=== PATIENT | female | born 1945 | race Caucasian/White ===

== ENCOUNTER 2019-01-07 17:56 | Inpatient (IN) | payer MEDICARE, MEDICAID ==
[~2019-01-07] VITALS: Ht 157.5 cm; Wt 88.7 kg
[~2019-01-07 17:56] MED LIST: FAMO-96; FLUO20CA38
[2019-01-07] MEDS ORDERED: ALBUTEROL 0.5% (NEB) 2.5 MG/0.5 ML AMP INH STA (17:58)
[2019-01-07] MEDS ORDERED: IPRATROPIUM (NEB) 0.5 MG/2.5 ML AMP INH STA (17:58)
[2019-01-07] MEDS ORDERED: NITROGLYCERIN 2% 1 GM OINT PKT TD STA (17:58)
[2019-01-07] MEDS ORDERED: ASPIRIN 325 MG TAB PO STA (17:58)
[2019-01-07] MEDS ORDERED: LORAZEPAM 2 MG INJ IV ONE (18:00)
[2019-01-07] MEDS ORDERED: ONDANSETRON (ODT) 4 MG TAB ODT STA (19:06)
[2019-01-07] MEDS ORDERED: FUROSEMIDE 40 MG INJ IV ONE (20:00)
[2019-01-07] MEDS ORDERED: ACETAMINOPHEN 325 MG TAB PO PRN (20:00)
[2019-01-07] MEDS ORDERED: ONDANSETRON 4 MG INJ IV PRN ×2 (20:00→21:00)
[2019-01-07] MEDS ORDERED: POTASSIUM CHLORIDE (SR) 20 MEQ TAB PO STA (20:41)
[2019-01-07] MEDS: FUROSEMIDE 20 MG INJ IV SCH (21:00)
[2019-01-07] MEDS ORDERED: morphine 2 MG INJ IV PRN (21:00)
[2019-01-07] MEDS ORDERED: NACL 0.9% 3 ML SYG IV SCH (21:00)
--- NOTE | 2019-01-07 21:06 | ERD ---
ER Documentation Chief Complaint Chief Complaint SOB and chest pain started 2 hour ago HPI This is a 73-year-old female with a known history of congestive heart failure and hypertension. The patient 2 hours prior to arrival stated she started to develop severe shortness of breath and chest pain. She stated that she has pain was a sharp shooting pain with no pressure sensation that radiated to the neck arm back or jaw. She stated the shortness of breath was exacerbated with movement. She is unable to ambulate several steps before she becomes short of breath. She does take Lasix and indicates she is been compliant with her medications. She was brought into the emergency department by EMS. Her son accompanied the patient to provide further history. The patient does not smoke tobacco. She had no recent hospitalizations. She has not complained of a productive or nonproductive cough. She denies any calf tenderness or swelling of her lower extremities. ROS All systems reviewed and are negative except as per history of present illness. Medications Home Meds Reported Medications Famotidine* (Pepcid*) 20 Mg Tablet 06/01/10 Fluoxetine Hcl* (Prozac*) 20 Mg Capsule 06/01/10 Allergies Allergies: Coded Allergies: No Known Drug Allergies (Verified Allergy, Mild, 06/01/10) PMhx/Soc History of Surgery: No Anesthesia Reaction: No Hx Neurological Disorder: No Hx Respiratory Disorders: Yes (shortness of breatjh) Hx Cardiac Disorders: Yes (hearet attack 2013) Hx Psychiatric Problems: No Hx Miscellaneous Medical Probl: Yes (DM, CHF, htn) Hx Alcohol Use: No Hx Substance Use: No Hx Tobacco Use: No Smoking Status: Never smoker Physical Exam Vitals Vital Signs Date Temp Pulse Resp B/P (MAP) Pulse Ox O2 O2 Flow FiO2 Time Delivery Rate 01/07/19 76 18 119/82 99 BIPAP 20:30 (94) 01/07/19 78 25 150/105 100 BIPAP 20:00 (120) 01/07/19 84 23 149/100 100 BIPAP 19:30 (116) 01/07/19 84 27 146/105 100 BIPAP 19:15 (119) 01/07/19 92 17 154/95 100 BIPAP 19:00 (114) 01/07/19 90 25 135/107 100 BIPAP 18:45 (116) 01/07/19 101 100 60 18:36 01/07/19 99.4 120 22 154/128 93 18:01 (137) Physical Exam Constitutional:Well-developed. Well-nourished. Patient in severe respiratory distress HEENT:Normocephalic. Atraumatic.Pupils were equal round reactive to light. Moist mucous membranes.No tonsillar exudates. Neck: No nuchal rigidity. No lymphadenopathy. No posterior cervical spine tenderness or step-offs. Respiratory: Using accessory muscles of respiration.Lungs were clear to auscultation bilaterally. Bilateral rhonchi. No rales. No wheezing. Patient unable to speak more than 2 or to time before becoming short of breath Cardiovascular: Regular rate regular rhythm.No murmurs. No rubs were appreciated.S1, S2 normal. Distal pulses are palpable 2+ bilaterally. GI: Abdomen was soft. Nontender. Non Distended. No pulsatile abdominal masses or bruits. No rebound. No guarding. Bowel sounds were present and normal. Muscle skeletal: Full range of motion of both the upper and lower extremities bilaterally.Normal muscle tone.No assymetrical calf tenderness or swelling. Skin: No petechia, no purpura. No lesions on the palms or the soles of the feet. No maculopapular rash. NEURO: Patient was alert, awake, orientated x3.No facial droop. Gait not observed as patient was unable to ambulate due to severe dyspnea.Speech had regular rate and rhythm. No focal neurological deficits. Result Diagram: 01/07/19182501/07/191825 Results 24 hrs Laboratory Tests Test 01/07/19 18:26 01/07/19 18:27 01/07/19 19:17 01/07/19 20:14 White Blood 7.5 10^3/ul Count Red Blood Count 4.65 10^6/ul Hemoglobin 14.8 g/dl Hematocrit 44.5 % Mean Corpuscular 95.7 fl Volume Mean Corpuscular 31.8 pg Hemoglobin Mean Corpuscular 33.3 g/dl Hemoglobin Jazzy nt Red Cell 12.6 % Distribution Width Platelet Count 218 10^3/UL Mean Platelet 11.0 fl Volume Immature 0.100 % Granulocytes % Neutrophils % 49.9 % Lymphocytes % 38.9 % Monocytes % 7.6 % Eosinophils % 2.7 % Basophils % 0.8 % Nucleated Red 0.0 /100WBC Blood Cells % Immature 0.010 10^3/ul Granulocytes # Neutrophils # 3.7 10^3/ul Lymphocytes # 2.9 10^3/ul Monocytes # 0.6 10^3/ul Eosinophils # 0.2 10^3/ul Basophils # 0.1 10^3/ul Nucleated Red 0.0 10^3/ul Blood Cells # Prothrombin Time 14.7 Sec Prothrombin Time 1.1 Ratio INR 1.14 International Normalized Ratio Activated 30.8 Sec Partial Thrombop last Time Sodium Level 140 mmol/L Potassium Level 4.4 mmol/L Chloride Level 109 mmol/L Carbon Dioxide 24 mmol/L Level Anion Gap 7 Blood Urea 14 mg/dl Nitrogen Creatinine 0.78 mg/dl Est Glomerular mL/min Filtrat Rate mL/min Glucose Level 363 mg/dl Calcium Level 8.8 mg/dl Total Bilirubin 0.3 mg/dl Direct Bilirubin 0.00 mg/dl Indirect 0.3 mg/dl Bilirubin Aspartate Amino 127 IU/L Transf (AST/SGOT ) Alanine 76 IU/L Aminotransferase (ALT/SGPT) Alkaline 169 IU/L Phosphatase Creatine Kinase 59 IU/L Creatine Kinase 1.4 Index Creatinine 0.83 ng/ml Kinase MB (Mass) Troponin I < 0.012 ng/ml B-Type 2250 PG/ML Natriuretic Peptide Total Protein 7.5 g/dl Albumin 4.0 g/dl Globulin 3.50 g/dl Albumin/Globulin 1.14 Ratio POC Venous 1.5 mmol/L Lactate Urine Color YELLOW Urine Clarity CLEAR Urine pH 6.0 Urine Specific 1.013 [place] Urine Ketones NEGATIVE mg/dL Urine Nitrite NEGATIVE mg/dL Urine Bilirubin NEGATIVE mg/dL Urine NEGATIVE mg/dL Urobilinogen Urine Leukocyte NEGATIVE [place]/ul Esterase Urine 0 /HPF Microscopic RBC Urine 0 /HPF Microscopic WBC Urine Hemoglobin NEGATIVE mg/dL Urine Glucose 3+ mg/dL Urine Total 2+ mg/dl Protein Blood Gas Blood arterial Specimen Source Arterial Blood 01/07/2019 8:40:3 Date Drawn 2 PM Arterial Blood 7.389 pH (Temp corrected) Arterial Blood 45.2 mmhg pCO2 (Temp correct) Arterial Blood 189.0 mmHG pO2 (Temp corrected) Arterial Blood 26.7 mmol/L HCO3 Arterial Blood 1.2 mmol/L Base Excess Arterial Blood 99.1 mmHG Oxygen Saturatio n Neal Test ACCEPTAB Arterial Blood Right Radial Gas Puncture Site Arterial 0.5 % Blood Carboxyhem oglobin Arterial Blood 0.3 % Methemoglobin Blood Gas A-a O2 189.1 mmHg Differential Oxyhemoglobin 98.3 % Percent Blood Gas 37.0 C Temperature Blood Gas 14.0 Respiration Rate Blood Gas Actual 15 Respiration Rate Blood Gas MASK - BIPAP Modality FiO2 60.0 % Blood Gas 10 Pressure Support Blood Gas 15/5 IPAP/EPAP Ratio Blood Gas MG Notified Whom Blood Gas 01/07/2019 8:49:0 Notified Time 1 PM Current Medications Medications Dose Sig/[place] Start Time Status Last (Trade) Ordered Route PRN Stop Time Admin Dose Reason Admin Aspirin 325 mg ONCE STAT 01/07/19 DC 01/07/19 (Aspirin) PO 17:58 01/07/19 18:27 18:01 1 inch ONCE STAT 01/07/19 DC 01/07/19 Nitroglycerin TD 17:58 01/07/19 18:27 18:01 (Nitroglyceri n 2% Oint) Lorazepam 1 mg ONCE ONCE 01/07/19 DC 01/07/19 (Ativan) IV 18:00 01/07/19 18:27 18:01 Albuterol 10 mg ONCE STAT 01/07/19 DC 01/07/19 (Proventil INH 17:58 01/07/19 18:35 0.5% (Neb)) 18:01 Ipratropium 1 mg ONCE STAT 01/07/19 DC 01/07/19 [place] INH 17:58 01/07/19 18:35 (Atrovent 18:01 0.02% (Neb)) Ondansetron 8 mg ONCE STAT 01/07/19 DC 01/07/19 HCl (Zofran ODT 19:06 01/07/19 19:15 Odt) 19:07 Furosemide 40 mg ONCE ONCE 01/07/19 DC 01/07/19 (Lasix) IV 20:00 01/07/19 19:43 20:01 Ondansetron 4 mg ER BRIDGE 01/07/19 DC HCl (Zofran PRN IV 20:00 01/07/19 Inj) NAUSEA/VOMITI 20:41 NG 650 mg ER BRIDGE 01/07/19 DC Acetaminophen PRN PO 20:00 01/07/19 (Tylenol .MILD PAIN 20:41 Tab) 1-3 OR TEMP IV Flush 3 ml PER 2/9/19 (NS 3 ml) PROTOCOL IV 21:00 Ondansetron 4 mg Q6H PRN 01/07/19 HCl (Zofran IV 21:00 Inj) NAUSEA/VOMITI NG Furosemide 20 mg BID 01/07/19 (Lasix) DIURETICS 21:00 IV 650 mg Q6H PRN 01/07/19 Acetaminophen PO .PAIN 1-3 21:00 (Tylenol OR TEMP Tab) Morphine 2 mg Q4H PRN 01/07/19 Sulfate IV .PAIN 21:00 (morphine) 7-10 Famotidine 20 mg DAILY IV 01/07/19 (Pepcid Iv) 21:00 Enoxaparin 30 mg DAILY SC 01/08/19 Sodium 09:00 (Lovenox) Potassium 20 meq ONCE STAT 01/07/19 DC Chloride PO 20:41 01/07/19 (Klor-Con 20) 20:42 Procedures/MDM The patient presented to the emergency department with shortness of breath. My differential diagnosis included but was not limited to upper airway obstruction, CHF, pulmonary embolism, cardiac ischemia, pneumonia, pneumothorax, anemia, drug overdose, pulmonary edema, COPD or asthma. The patient appear to be experiencing a severe congestive heart failure exacerbation was immediately placed on noninvasive mechanical ventilation. An arterial blood gas indicated the patient had a mild respiratory acidosis with pH of 7.389 and a PCO2 of 45.2. This was on 80% FiO2 and a PO2 was 189 and decreased to an FiO2 of 50%. 12 Lead EKG tracing ordered and reviewed by myself showed: Sinus tachycardia 116 bpm and no arrhythmia. MN interval normal. QRS duration normal. No ST segment elevation. Q waves present in the anterior septal leads V2 V3 No ST segment depression. No changes consistent with acute ischemia. The patient had hyperglycemia without ketosis. She was given subcutaneous insulin. I obtained a 1 view chest radiograph were reviewed by myself the radiologist and indicated the followin. Diffuse interstitial and airspace opacities throughout the lungs may represent pulmonary edema or multifocal infection in the acute setting. 2. Cardiomegaly, unchanged. The patient's BNP was significantly elevated 2250. She received IV Lasix and nitroglycerin. She was also given aspirin. However felt her chest pain more likely result of pleuritic chest pain from her severe CHF exacerbation and she will undergo serial twelve-lead EKG tracings and cardiac set of enzymes. She will be admitted under the care of Dr. Verma. Critical Care: Time: 75 minutes Treatments/Evaluations: Close monitoring and treatment of unstable vital signs, cardiorespiratory, and neurologic status, while maintaining tight balance of fluid, respiratory, and cardiac interventions. Time does not include performing any of the above billable procedures. Departure Diagnosis: Primary Impression: Acute exacerbation of CHF (congestive heart failure) Heart failure type: unspecified Qualified Codes: I50.9 - Heart failure, unspecified Additional Impression: Chest pain Chest pain type: unspecified Qualified Codes: R07.9 - Chest pain, unspecified Condition: Serious HUA FARAH MD Jan 07, 2019 21:06
[2019-01-07] MEDS ORDERED: INSULIN LISPRO 100 UNIT/ML VIAL SC ONE (21:08)
[2019-01-07] MEDS: FAMOTIDINE 20 MG INJ IV SCH (21:25)
[2019-01-07 23:52] VITALS: Ht 157.5 cm; Wt 88.7 kg
[2019-01-08] VITALS (13 sets, daily range): BP systolic 135–170; BP diastolic 79–99; PULSE 57–86; RESP 16–18
[2019-01-08] MEDS ORDERED: GLUCAGON 1 MG INJ IM PRN (03:00)
[2019-01-08] MEDS ORDERED: DEXTROSE 50% 50 ML SYRINGE IV PRN ×2 (03:00)
[2019-01-08] MEDS ORDERED: GLUCOSE GEL 15 GRAM TUBE PO PRN ×2 (03:00)
[2019-01-08] MEDS ORDERED: GLUCOSE GEL 15 GRAM TUBE BUCCAL PRN (03:00)
[2019-01-08] MEDS: FUROSEMIDE 20 MG INJ IV SCH ×2 (06:01→17:26)
[2019-01-08] MEDS: INSULIN ASPART [NOVOLOG] 3 ML PEN SC SCH ×4 (07:51→20:48)
[2019-01-08] MEDS: FAMOTIDINE 20 MG INJ IV SCH (08:43)
[2019-01-08] MEDS: ENOXAPARIN 30 MG/0.3 ML SYG SC SCH (08:49)
--- NOTE | 2019-01-08 12:07 | HP ---
Date/Time of Note Date/Time of Note DATE: 01/08/19 TIME: 12:06 Assessment/Plan VTE Prophylaxis Risk score (from Ns)>0 risk: 4 SCD applied (from Ns): Yes Pharmacological prophylaxis: LMWH Lines/Catheters IV Catheter Type [facility]from [facility] Saline Lock Urinary Cath still in place: Yes Reason Cath still needed: skin wounds contaminated by urine Assessment/Plan Hospital Course 1) congestive heart failure - IV lasix - monitor BMP - check echocardiogram 2) diabetes - monitor blood sugar Result Diagram: 01/08/1950901/08/19 0510 Results 24hrs Laboratory Tests Test 01/07/19 18:26 01/07/19 18:27 01/07/19 19:17 01/07/19 20:14 White Blood Count 7.5 Red Blood Count 4.65 Hemoglobin 14.8 Hematocrit 44.5 Mean Corpuscular 95.7 Volume Mean Corpuscular 31.8 Hemoglobin Mean Corpuscular 33.3 Hemoglobin Concen t Red Cell 12.6 Distribution Width Platelet Count 218 Mean Platelet 11.0 H Volume Immature 0.100 Granulocytes % Neutrophils % 49.9 Lymphocytes % 38.9 Monocytes % 7.6 Eosinophils % 2.7 Basophils % 0.8 Nucleated Red 0.0 Blood Cells % Immature 0.010 Granulocytes # Neutrophils # 3.7 Lymphocytes # 2.9 Monocytes # 0.6 Eosinophils # 0.2 Basophils # 0.1 Nucleated Red 0.0 Blood Cells # Prothrombin Time 14.7 Prothrombin Time 1.1 Ratio INR International 1.14 Normalized Ratio Activated 30.8 Partial Thrombopl ast Time Sodium Level 140 Potassium Level 4.4 Chloride Level 109 Carbon Dioxide 24 Level Anion Gap 7 Blood Urea 14 Nitrogen Creatinine 0.78 Est Glomerular Filtrat Rate mL/min Glucose Level 363 H Calcium Level 8.8 Total Bilirubin 0.3 Direct Bilirubin 0.00 Indirect 0.3 Bilirubin Aspartate Amino 127 H Transf (AST/SGOT) Alanine 76 H Aminotransferase (ALT/SGPT) Alkaline 169 H Phosphatase Creatine Kinase 59 Creatine Kinase 1.4 Index Creatinine Kinase 0.83 MB (Mass) Troponin I < 0.012 B-Type 2250 H Natriuretic Peptide Total Protein 7.5 Albumin 4.0 Globulin 3.50 H Albumin/Globulin 1.14 Ratio POC Venous 1.5 Lactate Urine Color YELLOW Urine Clarity CLEAR Urine pH 6.0 Urine Specific 1.013 [place] Urine Ketones NEGATIVE Urine Nitrite NEGATIVE Urine Bilirubin NEGATIVE Urine NEGATIVE Urobilinogen Urine Leukocyte NEGATIVE Esterase Urine Microscopic 0 RBC Urine Microscopic 0 WBC Urine Hemoglobin NEGATIVE Urine Glucose 3+ H Urine Total 2+ H Protein Blood Gas Blood arterial Specimen Source Arterial Blood 01/07/2019 8:40:32 Date Drawn PM Arterial Blood pH 7.389 (Temp corrected) Arterial Blood 45.2 H pCO2 (Temp correct) Arterial Blood 189.0 H pO2 (Temp corrected) Arterial Blood 26.7 H HCO3 Arterial Blood 1.2 Base Excess Arterial Blood 99.1 Oxygen Saturation Neal Test ACCEPTAB Arterial Blood Right Radial Gas Puncture Site Arterial 0.5 Blood Carboxyhemo globin Arterial Blood 0.3 Methemoglobin Blood Gas A-a O2 189.1 H Differential Oxyhemoglobin 98.3 Percent Blood Gas 37.0 Temperature Blood Gas 14.0 Respiration Rate Blood Gas Actual 15 Respiration Rate Blood Gas MASK - BIPAP Modality FiO2 60.0 Blood Gas 10 Pressure Support Blood Gas 15/5 IPAP/EPAP Ratio Blood Gas MG Notified Whom Blood Gas 01/07/2019 8:49:01 Notified Time PM Test 01/07/19 21:22 01/08/19 04:22 01/08/19 05:10 01/08/19 07:50 Bedside Glucose 316 H 123 Hemoglobin A1c 13.7 H White Blood Count 6.8 Red Blood Count 4.23 Hemoglobin 13.5 Hematocrit 40.4 Mean Corpuscular 95.5 Volume Mean Corpuscular 31.9 Hemoglobin Mean Corpuscular 33.4 Hemoglobin Concen t Red Cell 12.6 Distribution Width Platelet Count 195 Mean Platelet 10.8 H Volume Immature 0.400 Granulocytes % Neutrophils % 49.0 Lymphocytes % 40.0 Monocytes % 7.6 Eosinophils % 2.4 Basophils % 0.6 Nucleated Red 0.0 Blood Cells % Immature 0.030 Granulocytes # Neutrophils # 3.3 Lymphocytes # 2.7 Monocytes # 0.5 Eosinophils # 0.2 Basophils # 0.0 Nucleated Red 0.0 Blood Cells # Sodium Level 144 Potassium Level 3.2 L Chloride Level 108 Carbon Dioxide 28 Level Anion Gap 8 Blood Urea 16 Nitrogen Creatinine 0.66 Est Glomerular Filtrat Rate mL/min Glucose Level 92 # Calcium Level 9.1 Total Bilirubin 0.4 Direct Bilirubin 0.00 Indirect 0.4 Bilirubin Aspartate Amino 63 H Transf (AST/SGOT) Alanine 69 Aminotransferase (ALT/SGPT) Alkaline 134 H Phosphatase Total Protein 6.7 Albumin 3.6 Globulin 3.10 Albumin/Globulin 1.16 Ratio Test 01/08/19 11:24 Bedside Glucose 209 HPI/ROS Admit Date/Time Admit Date/Time Jan 07, 2019 at 19:58 Hx of Present Illness Patient with diabetes and congestive heart failure comes in with increasing shortness of breath. In the emergency room, patient required bipap in order to maintain oxygen saturation. PMH/Family/Social Past Medical History Medical History: congestive heart failure, diabetes Medications Current Medications IV Flush (NS 3 ml) 3 ml PER PROTOCOL IV ; Start 01/07/19 at 21:00 Ondansetron HCl (Zofran Inj) 4 mg Q6H PRN IV NAUSEA/VOMITING; Start 01/07/19 at 21:00 Furosemide (Lasix) 20 mg BID DIURETICS IV Last administered on 01/08/19at 06:01; Admin Dose 20 MG; Start 01/07/19 at 21:00 Acetaminophen (Tylenol Tab) 650 mg Q6H PRN PO .PAIN 1-3 OR TEMP; Start 01/07/19 at 21:00 Morphine Sulfate (morphine) 2 mg Q4H PRN IV .PAIN 7-10; Start 01/07/19 at 21:00 Famotidine (Pepcid Iv) 20 mg DAILY IV Last administered on 01/08/19at 08:43; Admin Dose 20 MG; Start 01/07/19 at 21:00 Enoxaparin Sodium (Lovenox) 30 mg DAILY SC Last administered on 01/08/19at 08:49; Admin Dose 30 MG; Start 01/08/19 at 09:00 Insulin Aspart (Novolog Insulin Pen) NOVOLOG *MODERATE* ALGORITHM WITH MEALS BEDTIME SC Last administered on 01/08/19at 11:33; Admin Dose 4 UNIT; Start 01/08/19 at 08:00 Miscellaneous Information 1 ea NOTE XX ; Start 01/08/19 at 03:00 Glucose (Glutose) 15 gm Q15M PRN PO DECREASED GLUCOSE; Start 01/08/19 at 03:00 Glucose (Glutose) 22.5 gm Q15M PRN PO DECREASED GLUCOSE; Start 01/08/19 at 03:00 Dextrose (D50w Syringe) 25 ml Q15M PRN IV DECREASED GLUCOSE; Start 01/08/19 at 03:00 Dextrose (D50w Syringe) 50 ml Q15M PRN IV DECREASED GLUCOSE; Start 01/08/19 at 03:00 Glucagon (Glucagen) 1 mg Q15M PRN IM DECREASED GLUCOSE; Start 01/08/19 at 03:00 Glucose (Glutose) 15 gm Q15M PRN BUCCAL DECREASED GLUCOSE; Start 01/08/19 at 03:00 Coded Allergies: No Known Drug Allergies (Verified Allergy, Mild, 06/01/10) Family History Significant Family History: no pertinent family hx Social History Smoking Status: Never smoker Exam/Review of Systems Vital Signs Vitals Vital Signs Date Temp Pulse Resp B/P (MAP) Pulse Ox O2 O2 Flow FiO2 Time Delivery Rate 01/08/19 97.6 78 18 138/89 98 Room Air 11:21 (105) 01/08/19 4.0 07:51 01/07/19 50 22:44 Intake and Output 01/07/19 01/07/19 01/08/19 1515:00 23:00 07:00 OutputOutput Total 1150 ml BalanceBalance -1150 ml Exam Constitutional: well developed Head: normocephalic, atraumatic Neck: supple Respiratory: diminished breath sounds Cardiovascular: regular rate and rhythm Gastrointestinal: soft, non-tender Extremities: normal pulses REN CADENA Jan 08, 2019 12:07
[2019-01-08] MEDS: ACETAMINOPHEN 325 MG TAB PO PRN (15:50)
[2019-01-08] MEDS ORDERED: POTASSIUM CHLORIDE (SR) 20 MEQ TAB PO SCH (19:47)
[2019-01-09] VITALS (12 sets, daily range): BP systolic 137–217; BP diastolic 69–119; PULSE 63–94; RESP 18–19
[2019-01-09] MEDS: FUROSEMIDE 20 MG INJ IV SCH (05:16)
[2019-01-09] MEDS: ACETAMINOPHEN 325 MG TAB PO PRN ×2 (06:04→15:32)
[2019-01-09] MEDS: INSULIN ASPART [NOVOLOG] 3 ML PEN SC SCH ×5 (07:47→21:10)
[2019-01-09] MEDS: FAMOTIDINE 20 MG INJ IV SCH (08:21)
[2019-01-09] MEDS: ENOXAPARIN 30 MG/0.3 ML SYG SC SCH (08:42)
--- NOTE | 2019-01-09 13:41 | RADRPT ---
Echocardiogram Report Patient Name: Hieu WEISS ID: [id number] : 1945 (73y 3m)Study Date: 01/08/2019 12:24:55 PM Gender: FAccession #: [id number] Tech: Ollie Alaniz [facility] Location: [address] Ref.Physician: MICHELLE CADENA Height(Cm): BSA: Weight(Kg): Quality: AdequateOrder Physician: Michelle Cadena Account #: Procedures: Echocardiographic Report: Transthoracic echocardiogram with complete 2D, M-Mode, and doppler examination. Indications: Congestive Heart Failure. Measurements: 2D/M Mode Doppler Measurement Value Normal Range Measurement Value Normal Range LVIDd 2D 4.4 [ 3.8 - 5.2 ] cm AV Peak Samuel 1.9 [ 100.0 - 170.0 ] cm/sec LVIDs 2D 3.7 [ 2.2 - 3.5 ] cm AV Peak PG 14.0 [ 2.0 - 9.0 ] mmHg LVPWd 2D 1.2 [ 0.6 - 0.9 ] cm LVOT Peak Samuel 0.6 [ 70.0 - 110.0 ] cm/sec IVSd 2D 1.1 [ 0.6 - 0.9 ] cm LVOT Peak PG 1.0 [ 2.0 - 6.0 ] mmHg IVS/LVPW 2D 0.9 ratio TR Peak Samuel 2.6 [ 100.0 - 280.0 ] cm/sec AoR Diam 2D 2.7 [ 2.3 - 3.1 ] cm TR Peak PG 28.0 mmHg LA/Ao 2D 1 ratio RVSP 28.0 [ 10.0 - 36.0 ] mmHg LA Dimen 2D 3.5 [ 2.7 - 3.8 ] cm RA Pressure 3.0 mmHg Findings: Left Ventricle: Normal left ventricular cavity size. Normal left ventricular wall thickness. Mild enlargement of left ventricle cavity. Ejection fraction is visually estimated at 30-35 %. Tissue Doppler/Mitral Doppler indices are consistent with pseudonormalization with mildly elevated left atrial pressure (Stage II diastolic dysfunction). Right Ventricle: Normal right ventricular size. Normal right ventricular systolic function. Left Atrium: The left atrium is normal in size. Right Atrium: The right atrium is normal in size. Mitral Valve: Mild mitral annular calcification. Mild mitral valve regurgitation. Aortic Valve: No significant aortic stenosis or insufficiency. Aortic cusps appear mildly calcified. Tricuspid Valve: Normal appearance of the tricuspid valve. Estimated peak PA systolic pressure 31 mmHg. There is mild tricuspid regurgitation. Pulmonic Valve: Normal pulmonic valve appearance. Pericardium: Normal pericardium with no significant pericardial effusion. Aorta: Normal aortic root. IVC: Normal size and normal respiratory collapse consistent with normal right atrial pressure. Conclusions: Normal left ventricular cavity size. Normal left ventricular wall thickness. Mild enlargement of left ventricle cavity. Ejection fraction is visually estimated at 30-35 %. Tissue Doppler/Mitral Doppler indices are consistent with pseudonormalization with mildly elevated left atrial pressure (Stage II diastolic dysfunction). Normal right ventricular systolic function. Mild mitral valve regurgitation. No significant aortic stenosis or insufficiency. There is mild tricuspid regurgitation. Normal pericardium with no significant pericardial effusion. Electronically Signed By: Margarito Whitehead 2019-01-09 13:40:59 PST
--- NOTE | 2019-01-09 14:18 | CONS ---
Assessment/Plan Cardiology NYHA: II Heart Failure Type: Acute on Chronic Heart Failure Type: Systolic Assessment/Plan Hospital Course (Demo Recall) Acute decompensated systolic congestive heart failure Cardia myopathy with ejection fraction 30-35% Hypertension Atrial fibrillation Uncontrolled diabetes ? History of coronary artery disease -Patient with improvement in symptoms with IV diuretics. Would increase Lasix to 40 mg IV twice daily -Start beta-ricardo, TEE inhibitor for afterload reduction -Patient with atrial fibrillation, patient with multiple risk factors for thromboembolic events, would start anticoagulation at the current time unless any contraindication -Check serial cardiac enzymes -Maintain potassium above 4.0 and magnesium above 2.0 -Diabetes management Consultation Date/Type/Reason Admit Date/Time Jan 07, 2019 at 19:58 Type of Consult Cardiology Date/Time of Note DATE: 01/09/19 TIME: 14:12 Hx of Present Illness This is a 73-year-old female past medical history of congestive heart failure who presents with shortness of breath. Symptoms began the day of admission. No chest pain, palpitations. Shortness breath was at rest as well as with exe rtion. Symptoms continue to worsen so she came to emergency room for further evaluation and care. She is feeling much better now. She denies any chest pain currently. She denies any shortness of breath at rest. Does have a cough which is minimally productive. 12 point review of systems was performed with all pertinent positives and negatives mentioned above and all else is negative Past Medical History Medical History: congestive heart failure, coronary artery disease, diabetes, hypertension Home Meds Reported Medications Famotidine* (Pepcid*) 20 Mg Tablet 06/01/10 Fluoxetine Hcl* (Prozac*) 20 Mg Capsule 06/01/10 Medications Current Medications IV Flush (NS 3 ml) 3 ml PER PROTOCOL IV ; Start 01/07/19 at 21:00 Ondansetron HCl (Zofran Inj) 4 mg Q6H PRN IV NAUSEA/VOMITING; Start 01/07/19 at 21:00 Furosemide (Lasix) 20 mg BID DIURETICS IV Last administered on 01/09/19at 05:16; Admin Dose 20 MG; Start 01/07/19 at 21:00 Acetaminophen (Tylenol Tab) 650 mg Q6H PRN PO .PAIN 1-3 OR TEMP Last administered on 01/09/19at 06:04; Admin Dose 650 MG; Start 01/07/19 at 21:00 Morphine Sulfate (morphine) 2 mg Q4H PRN IV .PAIN 7-10; Start 01/07/19 at 21:00 Famotidine (Pepcid Iv) 20 mg DAILY IV Last administered on 01/09/19at 08:21; Admin Dose 20 MG; Start 01/07/19 at 21:00 Enoxaparin Sodium (Lovenox) 30 mg DAILY SC Last administered on 01/09/19at 08:42; Admin Dose 30 MG; Start 01/08/19 at 09:00 Insulin Aspart (Novolog Insulin Pen) NOVOLOG *MODERATE* ALGORITHM WITH MEALS BEDTIME SC Last administered on 01/09/19at 12:13; Admin Dose 8 UNIT; Start 01/08/19 at 08:00 Miscellaneous Information 1 ea NOTE XX ; Start 01/08/19 at 03:00 Glucose (Glutose) 15 gm Q15M PRN PO DECREASED GLUCOSE; Start 01/08/19 at 03:00 Glucose (Glutose) 22.5 gm Q15M PRN PO DECREASED GLUCOSE; Start 01/08/19 at 03:00 Dextrose (D50w Syringe) 25 ml Q15M PRN IV DECREASED GLUCOSE; Start 01/08/19 at 03:00 Dextrose (D50w Syringe) 50 ml Q15M PRN IV DECREASED GLUCOSE; Start 01/08/19 at 03:00 Glucagon (Glucagen) 1 mg Q15M PRN IM DECREASED GLUCOSE; Start 01/08/19 at 03:00 Glucose (Glutose) 15 gm Q15M PRN BUCCAL DECREASED GLUCOSE; Start 01/08/19 at 03:00 Hydralazine HCl (Apresoline) 10 mg Q6H PRN IV SBP >170; Start 01/09/19 at 14:30; Status UNV Allergies: Coded Allergies: No Known Drug Allergies (Verified Allergy, Mild, 06/01/10) Family History Significant Family History: no pertinent family hx Social History Smoking Status: Never smoker Exam/Review of Systems Vital Signs Vitals Vital Signs Date Temp Pulse Resp B/P (MAP) Pulse Ox O2 O2 Flow FiO2 Time Delivery Rate 01/09/19 89 12:01 01/09/19 98.3 19 171/70 98 11:41 (103) 01/09/19 Nasal 2.0 08:28 Cannula 2/9/19 50 22:44 Intake and Output 01/08/19 01/08/19 01/09/19 1515:00 23:00 07:00 IntakeIntake Total 0 ml 900 ml 500 ml OutputOutput Total 300 ml 1600 ml 900 ml BalanceBalance -300 ml -700 ml -400 ml Exam Exam No apparent distress, sitting in chair, obese Constitutional: alert, oriented Head: normocephalic Respiratory: other (Coarse breath sounds bilaterally with scattered crackles) Cardiovascular: irregular rhythm, other (S1-S2 heard) Gastrointestinal: soft, non-tender, bowel sounds Extremities: edema Labs Result Diagram: 01/08/1950901/08/19509 Results 24hrs Laboratory Tests Test 01/08/19 17:25 01/08/19 20:07 01/09/19 07:35 01/09/19 11:44 Bedside Glucose 118 361 H 226 H 262 H Imaging Imaging ECG with atrial fibrillation at 160 bpm, anteroseptal Q waves, nonspecific ST abnormalities Medications Medications Current Medications IV Flush (NS 3 ml) 3 ml PER PROTOCOL IV ; Start 01/07/19 at 21:00 Ondansetron HCl (Zofran Inj) 4 mg Q6H PRN IV NAUSEA/VOMITING; Start 01/07/19 at 21:00 Furosemide (Lasix) 20 mg BID DIURETICS IV Last administered on 01/09/19at 05:16; Admin Dose 20 MG; Start 01/07/19 at 21:00 Acetaminophen (Tylenol Tab) 650 mg Q6H PRN PO .PAIN 1-3 OR TEMP Last administered on 01/09/19at 06:04; Admin Dose 650 MG; Start 01/07/19 at 21:00 Morphine Sulfate (morphine) 2 mg Q4H PRN IV .PAIN 7-10; Start 01/07/19 at 21:00 Famotidine (Pepcid Iv) 20 mg DAILY IV Last administered on 01/09/19at 08:21; Admin Dose 20 MG; Start 01/07/19 at 21:00 Enoxaparin Sodium (Lovenox) 30 mg DAILY SC Last administered on 01/09/19at 08:42; Admin Dose 30 MG; Start 01/08/19 at 09:00 Insulin Aspart (Novolog Insulin Pen) NOVOLOG *MODERATE* ALGORITHM WITH MEALS BEDTIME SC Last administered on 01/09/19at 12:13; Admin Dose 8 UNIT; Start 01/08/19 at 08:00 Miscellaneous Information 1 ea NOTE XX ; Start 01/08/19 at 03:00 Glucose (Glutose) 15 gm Q15M PRN PO DECREASED GLUCOSE; Start 01/08/19 at 03:00 Glucose (Glutose) 22.5 gm Q15M PRN PO DECREASED GLUCOSE; Start 01/08/19 at 03:00 Dextrose (D50w Syringe) 25 ml Q15M PRN IV DECREASED GLUCOSE; Start 01/08/19 at 03:00 Dextrose (D50w Syringe) 50 ml Q15M PRN IV DECREASED GLUCOSE; Start 01/08/19 at 03:00 Glucagon (Glucagen) 1 mg Q15M PRN IM DECREASED GLUCOSE; Start 01/08/19 at 03:00 Glucose (Glutose) 15 gm Q15M PRN BUCCAL DECREASED GLUCOSE; Start 01/08/19 at 03:00 Hydralazine HCl (Apresoline) 10 mg Q6H PRN IV SBP >170; Start 01/09/19 at 14:30; Status Margarito Rice DO Jan 09, 2019 14:18
--- NOTE | 2019-01-09 14:27 | PN ---
Date/Time of Note Date/Time of Note DATE: 01/09/19 TIME: 14:20 Assessment/Plan VTE Prophylaxis Risk score (from Ns)>0 risk: 3 SCD applied (from Nsg): Yes Pharmacological prophylaxis: LMWH Lines/Catheters IV Catheter Type (from Nrsg): Peripheral IV Urinary Cath still in place: Yes Reason Cath still needed: urinary retention Assessment/Plan Hospital Course Patient is awake alert was able to work with physical therapy however get tired easily continues incentive supplemental oxygen with shortness of breath on exertion. With elevated blood pressure will start hydralazine as needed for systolic blood pressure above 170. Assessment/Plan -Acute decompensated systolic congestive heart failure. Dr Whitehead is following in cardiology consultation. -Ischemic cardiomyopathy with ejection fraction 35%. -Atrial fibrillation -Hypertension -Diabetes mellitus type 2 with hemoglobin A1c of 13.7. Start Lantus and pre- meal NovoLog. Further recommendations based on clinical course. Plan of care discussed with Dr. Richards. Result Diagram: 01/08/1950901/08/19509 Results 24hrs Laboratory Tests Test 01/08/19 17:25 01/08/19 20:07 01/09/19 07:35 01/09/19 11:44 Bedside Glucose 118 361 H 226 H 262 H Exam/Review of Systems Exam Vitals Vital Signs Date Temp Pulse Resp B/P (MAP) Pulse Ox O2 O2 Flow FiO2 Time Delivery Rate 01/09/19 89 12:01 01/09/19 98.3 19 171/70 98 11:41 (103) 01/09/19 Nasal 2.0 08:28 Cannula 01/07/19 50 22:44 Intake and Output 01/08/19 01/08/19 01/09/19 1515:00 23:00 07:00 IntakeIntake Total 0 ml 900 ml 500 ml OutputOutput Total 300 ml 1600 ml 900 ml BalanceBalance -300 ml -700 ml -400 ml Constitutional: alert, oriented Neck: supple Respiratory: clear to auscultation Cardiovascular: irregular rhythm Gastrointestinal: soft, non-tender Musculoskeletal: nl extremities to inspection Extremities: normal pulses Neurological: nl mental status Results Results 24hrs Laboratory Tests Test 01/08/19 17:25 01/08/19 20:07 01/09/19 07:35 01/09/19 11:44 Bedside Glucose 118 361 H 226 H 262 H Medications Medication Current Medications IV Flush (NS 3 ml) 3 ml PER PROTOCOL IV ; Start 01/07/19 at 21:00 Ondansetron HCl (Zofran Inj) 4 mg Q6H PRN IV NAUSEA/VOMITING; Start 01/07/19 at 21:00 Acetaminophen (Tylenol Tab) 650 mg Q6H PRN PO .PAIN 1-3 OR TEMP Last administered on 01/09/19at 06:04; Admin Dose 650 MG; Start 01/07/19 at 21:00 Morphine Sulfate (morphine) 2 mg Q4H PRN IV .PAIN 7-10; Start 01/07/19 at 21:00 Famotidine (Pepcid Iv) 20 mg DAILY IV Last administered on 01/09/19at 08:21; Admin Dose 20 MG; Start 01/07/19 at 21:00 Insulin Aspart (Novolog Insulin Pen) NOVOLOG *MODERATE* ALGORITHM WITH MEALS BEDTIME SC Last administered on 01/09/19at 12:13; Admin Dose 8 UNIT; Start 01/08/19 at 08:00 Miscellaneous Information 1 ea NOTE XX ; Start 01/08/19 at 03:00 Glucose (Glutose) 15 gm Q15M PRN PO DECREASED GLUCOSE; Start 01/08/19 at 03:00 Glucose (Glutose) 22.5 gm Q15M PRN PO DECREASED GLUCOSE; Start 01/08/19 at 03:00 Dextrose (D50w Syringe) 25 ml Q15M PRN IV DECREASED GLUCOSE; Start 01/08/19 at 03:00 Dextrose (D50w Syringe) 50 ml Q15M PRN IV DECREASED GLUCOSE; Start 01/08/19 at 03:00 Glucagon (Glucagen) 1 mg Q15M PRN IM DECREASED GLUCOSE; Start 01/08/19 at 03:00 Glucose (Glutose) 15 gm Q15M PRN BUCCAL DECREASED GLUCOSE; Start 01/08/19 at 03:00 Hydralazine HCl (Apresoline) 10 mg Q6H PRN IV SBP >170; Start 01/09/19 at 14:30 Furosemide (Lasix) 40 mg BID DIURETICS IV ; Start 01/09/19 at 18:00 Lisinopril (Zestril) 5 mg BID PO ; Start 01/09/19 at 21:00 Carvedilol (Coreg) 6.25 mg BID PO ; Start 01/10/19 at 09:00 Apixaban (Eliquis) 5 mg BID PO ; Start 01/09/19 at 21:00; Status NAVARRO FARIA Jan 09, 2019 14:27
[2019-01-09] MEDS: hydrALAzine 20 MG INJ IV PRN ×2 (14:31→18:41)
[2019-01-09] MEDS: FUROSEMIDE 40 MG INJ IV SCH (17:11)
[2019-01-09] MEDS ORDERED: NOV70303I SC (18:48)
--- NOTE | 2019-01-09 18:53 | CONS ---
Assessment/Plan Assessment/Plan Problems: (1) Type 2 diabetes mellitus with hyperglycemia Status: Chronic Comment: Primary team has initiated basal-bolus regimen at a 50-50 ratio. Lantus 27 qhs, Novolog 9 qac. This may or may not be sufficient. Will add metformin 500 mg bid, empagliflozin (which has the added benefit of showing reduction in mortality in CHF patients), and tradjenta 5 mg/d. Pt.'s home dose of insulin obviously ineffective. Will order DM education. Will titrate insulin doses to goal BG 90-180 mg/dL. Will check lipid panel. Pt. reports takes statin at home so suspect it will be in goal range. Primary team has already wisely and appropriately placed pt. on atorvastatin 20 mg/d. Agree w/ this management. Qualifiers: Qualified Codes: E11.65 - Type 2 diabetes mellitus with hyperglycemia; Z79.4 - digital account manager (current) use of insulin (2) Type 2 diabetes mellitus with diabetic nephropathy Status: Chronic Comment: Of note, (+) proteinuria. ACEi already added by primary team. Must control BG and BP to prevent further renal damage. Qualifiers: Qualified Codes: E11.21 - Type 2 diabetes mellitus with diabetic nephropathy; Z79.4 - digital account manager (current) use of insulin Consultation Date/Type/Reason Admit Date/Time Jan 07, 2019 at 19:58 Date of Consultation: Jan 09, 2019 Type of Consult Endocrinology Reason for Consultation T2DM Out Of Control (OOC) Requesting Provider: NAVARRO ROBLES Date/Time of Note DATE: 01/09/19 TIME: 18:42 Hx of Present Illness 73-year-old H female with a known history of congestive heart failure, CAD, and hypertension, T2DM, hyperlipidemia, GERD, and depression. In [facility] until 2 hours prior to arrival when she developed severe shortness of breath and chest pain. She stated that she has pain was a sharp shooting pain with no pressure sensation that radiated to the neck arm back or jaw. She stated the shortness of breath was exacerbated with movement. She is unable to ambulate several steps before she becomes short of breath. She does take Lasix and indicates she is been compliant with her medications. She was brought into the emergency department by EMS. In ER req'd BiPAP to improve respiratory status. CXR and BNP c/w CHF exacerbation. ECHO shows both systolic (EF 30-35%) and diastolic (grade 2) CHF. BG profoundly OOC and A1c 13.7%. Endo consulted. Constitutional: no complaints, improved (CP and dyspnea resolved for now), requiring O2 Eyes: no complaints ENT: no complaints Respiratory: pleuritic pain, shortness of breath Cardiovascular: chest pain, orthopenea, paroxysmal nocturnal dyspnea Gastrointestinal: no complaints Genitourinary: no complaints Musculoskeletal: no complaints Neurologic: no complaints Past Medical History Medical History: angina, congestive heart failure, coronary artery disease, diabetes, GERD, high cholesterol, hypertension, other (depression, GERD) Home Meds Active Scripts Insulin Human Isophan/Regular (HUMULIN (70/30)) 100 Unit/Ml Susp, 20 UNIT SC BID for 30 Days, #3 SYR 0 Refills Prov:ALEX CHOU MD 01/09/19 Reported Medications Famotidine* (Pepcid*) 20 Mg Tablet 06/01/10 Fluoxetine Hcl* (Prozac*) 20 Mg Capsule 06/01/10 Medications Current Medications IV Flush (NS 3 ml) 3 ml PER PROTOCOL IV ; Start 01/07/19 at 21:00 Ondansetron HCl (Zofran Inj) 4 mg Q6H PRN IV NAUSEA/VOMITING; Start 01/07/19 at 21:00 Acetaminophen (Tylenol Tab) 650 mg Q6H PRN PO .PAIN 1-3 OR TEMP Last administered on 01/09/19at 15:32; Admin Dose 650 MG; Start 01/07/19 at 21:00 Morphine Sulfate (morphine) 2 mg Q4H PRN IV .PAIN 7-10; Start 01/07/19 at 21:00 Miscellaneous Information 1 ea NOTE XX ; Start 01/08/19 at 03:00 Glucose (Glutose) 15 gm Q15M PRN PO DECREASED GLUCOSE; Start 01/08/19 at 03:00 Glucose (Glutose) 22.5 gm Q15M PRN PO DECREASED GLUCOSE; Start 01/08/19 at 03:00 Dextrose (D50w Syringe) 25 ml Q15M PRN IV DECREASED GLUCOSE; Start 01/08/19 at 03:00 Dextrose (D50w Syringe) 50 ml Q15M PRN IV DECREASED GLUCOSE; Start 01/08/19 at 03:00 Glucagon (Glucagen) 1 mg Q15M PRN IM DECREASED GLUCOSE; Start 01/08/19 at 03:00 Glucose (Glutose) 15 gm Q15M PRN BUCCAL DECREASED GLUCOSE; Start 01/08/19 at 03:00 Hydralazine HCl (Apresoline) 10 mg Q6H PRN IV SBP >170 Last administered on 01/09/19at 14:31; Admin Dose 10 MG; Start 01/09/19 at 14:30 Furosemide (Lasix) 40 mg BID DIURETICS IV Last administered on 01/09/19at 17:11; Admin Dose 40 MG; Start 01/09/19 at 18:00 Lisinopril (Zestril) 5 mg BID PO ; Start 01/09/19 at 21:00 Carvedilol (Coreg) 6.25 mg BID PO ; Start 01/10/19 at 09:00 Apixaban (Eliquis) 5 mg BID PO ; Start 01/09/19 at 21:00 Atorvastatin Calcium (Lipitor) 20 mg HS PO ; Start 01/09/19 at 21:00 Diagnostic Test (Pha) (Accu-Chek) 1 ea 02 XX ; Start 01/10/19 at 02:00 Insulin Glargine (Lantus) 27 units DAILY@2000 SC ; Start 01/09/19 at 20:00 Insulin Aspart (Novolog Insulin Pen) 9 unit WITH MEALS SC Last administered on 01/09/19at 18:04; Admin Dose 9 UNIT; Start 01/09/19 at 18:00 Insulin Aspart (Novolog Insulin Pen) NOVOLOG *MILD* ALGORITHM WITH MEALS BEDTIME SC Last administered on 01/09/19at 18:04; Admin Dose 3 UNIT; Start 01/09/19 at 18:00 Famotidine (Pepcid) 20 mg DAILY PO ; Start 01/10/19 at 09:00 Metformin HCl (Glucophage Xr) 500 mg BID PO ; Start 01/09/19 at 21:00 Empaglifozin (Jardiance) 10 mg DAILY@08 PO ; Start 01/10/19 at 08:00; Status UNV Linagliptin (Tradjenta) 5 mg DAILY PO ; Start 01/10/19 at 09:00; Status UNV Allergies: Coded Allergies: No Known Drug Allergies (Verified Allergy, Mild, 06/01/10) Past Surgical History Past Surgical Hx: angioplasty Family History Significant Family History: renal disease (brother), vascular disease (CVA in father) Social History b. 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, , 5 children Alcohol Use: none Smoking Status: Never smoker Drug Use: none Exam/Review of Systems Exam Vitals VS - Last 72 Hours, by Label Date Temp Pulse Resp B/P (MAP) Pulse Ox O2 O2 Flow FiO2 Time Delivery Rate 01/09/19 97.9 82 18 217/119 97 16:01 (151) 01/09/19 89 16:01 01/09/19 18 160/87 99 15:17 (111) 01/09/19 Nasal 2.0 14:15 Cannula 01/09/19 89 12:01 01/09/19 98.3 90 19 171/70 98 11:41 (103) 01/09/19 Nasal 2.0 08:28 Cannula 01/09/19 87 08:01 01/09/19 97.6 79 19 154/95 95 07:26 (114) 01/09/19 Nasal 3.0 06:05 Cannula 01/09/19 Nasal 2.0 04:00 Cannula 01/09/19 75 04:00 01/09/19 97.6 85 19 137/75 95 Room Air 03:45 (95) Ambu Bag 01/09/19 2.0 02:52 01/09/19 63 00:00 01/08/19 98.0 80 18 135/79 95 Room Air 23:59 (97) 01/08/19 Nasal 3.0 22:00 Cannula 01/08/19 98 2.0 20:57 01/08/19 86 20:00 01/08/19 98.3 84 18 159/99 94 Room Air 19:21 (119) 01/08/19 5.0 16:46 01/08/19 82 16:01 01/08/19 98.0 70 18 136/87 98 Room Air 15:16 (103) 01/08/19 64 12:01 01/08/19 97.6 78 18 138/89 98 Room Air 11:21 (105) 01/08/19 59 08:01 01/08/19 97.5 69 18 146/89 98 08:00 (108) 01/08/19 Nasal 4.0 07:51 Cannula 01/08/19 4.0 06:06 01/08/19 5.0 05:19 01/08/19 61 04:00 01/08/19 98.3 72 17 155/85 99 03:29 (108) 01/08/19 98.1 67 17 170/81 97 00:00 (110) 01/08/19 68 00:00 01/07/19 5.0 23:47 01/07/19 98.0 67 15 131/82 99 BIPAP 23:22 (98) 01/07/19 Nasal 5.0 23:00 Cannula 01/07/19 88 100 50 22:44 01/07/19 60 18 113/79 97 BIPAP 22:22 (90) 01/07/19 84 100 60 20:40 01/07/19 76 18 119/82 99 BIPAP 20:30 (94) 01/07/19 78 25 150/105 100 BIPAP 20:00 (120) 01/07/19 84 23 149/100 100 BIPAP 19:30 (116) 01/07/19 84 27 146/105 100 BIPAP 19:15 (119) 01/07/19 92 17 154/95 100 BIPAP 19:00 (114) 01/07/19 90 25 135/107 100 BIPAP 18:45 (116) 01/07/19 101 100 60 18:36 01/07/19 99.4 120 22 154/128 93 18:01 (137) Vital Signs Date Temp Pulse Resp B/P (MAP) Pulse Ox O2 O2 Flow FiO2 Time Delivery Rate 01/09/19 97.9 82 18 217/119 97 16:01 (151) 01/09/19 Nasal 2.0 14:15 Cannula 01/07/19 50 22:44 Intake and Output 01/08/19 01/08/19 01/09/19 1515:00 23:00 07:00 IntakeIntake Total 0 ml 900 ml 500 ml OutputOutput Total 300 ml 1600 ml 900 ml BalanceBalance -300 ml -700 ml -400 ml Constitutional: alert, oriented, obese Psych: no complaints, nl mood/affect Eyes: nl conjunctiva, EOMI, nl lids, nl sclera, PERRL ENMT: nl external ears & nose, mucosa pink and moist Neck: supple, non-tender; No bruits, No masses, No thyromegaly Respiratory: crackles/rales (bases), diminished breath sounds (bases) Cardiovascular: regular rate and rhythm, nl pulses; No edema, No murmurs/extra sounds, No rub Gastrointestinal: soft, nl liver, spleen, non-tender, bowel sounds; No mass, No rebound or guarding Musculoskeletal: nl extremities to inspection Extremities: normal pulses; No cyanosis, No clubbing, No edema Neurological: DETECTIVE [employer] SECTION II-XII intact, nl mental status, nl speech, nl strength Additional Comments Bedside Glucose - 72 Hours Test 01/07/19 21:22 01/08/19 07:50 01/08/19 11:24 01/08/19 17:25 Bedside 316 123 209 118 Glucose mg/dL (70-220) mg/dL (70-220) mg/dL (70-220) mg/dL (70-220) H Test 01/08/19 20:07 01/09/19 07:35 01/09/19 11:44 01/09/19 17:09 Bedside 361 226 262 260 Glucose mg/dL (70-220) mg/dL (70-220) mg/dL (70-220) mg/dL (70-220) H H H H Results Result Diagram: 01/08/19 0510 01/09/19 1459 Results 24hrs Laboratory Tests Test 01/08/19 20:07 01/09/19 07:35 01/09/19 11:44 01/09/19 14:59 Bedside Glucose 361 H 226 H 262 H Sodium Level 139 Potassium Level 4.4 Chloride Level 104 Carbon Dioxide Level 27 Anion Gap 8 Blood Urea Nitrogen 22 H Creatinine 0.68 Est Glomerular Filtrat Rate mL/min Glucose Level 255 #H Calcium Level 10.1 Magnesium Level 2.0 Creatine Kinase 52 Creatine Kinase 1.6 Index Creatinine Kinase MB 0.84 (Mass) Troponin I < 0.012 Test 01/09/19 17:09 Bedside Glucose 260 H Medications Medication Current Medications IV Flush (NS 3 ml) 3 ml PER PROTOCOL IV ; Start 01/07/19 at 21:00 Ondansetron HCl (Zofran Inj) 4 mg Q6H PRN IV NAUSEA/VOMITING; Start 01/07/19 at 21:00 Acetaminophen (Tylenol Tab) 650 mg Q6H PRN PO .PAIN 1-3 OR TEMP Last administered on 01/09/19at 15:32; Admin Dose 650 MG; Start 01/07/19 at 21:00 Morphine Sulfate (morphine) 2 mg Q4H PRN IV .PAIN 7-10; Start 01/07/19 at 21:00 Miscellaneous Information 1 ea NOTE XX ; Start 01/08/19 at 03:00 Glucose (Glutose) 15 gm Q15M PRN PO DECREASED GLUCOSE; Start 01/08/19 at 03:00 Glucose (Glutose) 22.5 gm Q15M PRN PO DECREASED GLUCOSE; Start 01/08/19 at 03:00 Dextrose (D50w Syringe) 25 ml Q15M PRN IV DECREASED GLUCOSE; Start 01/08/19 at 03:00 Dextrose (D50w Syringe) 50 ml Q15M PRN IV DECREASED GLUCOSE; Start 01/08/19 at 03:00 Glucagon (Glucagen) 1 mg Q15M PRN IM DECREASED GLUCOSE; Start 01/08/19 at 03:00 Glucose (Glutose) 15 gm Q15M PRN BUCCAL DECREASED GLUCOSE; Start 01/08/19 at 03:00 Hydralazine HCl (Apresoline) 10 mg Q6H PRN IV SBP >170 Last administered on 01/09/19at 14:31; Admin Dose 10 MG; Start 01/09/19 at 14:30 Furosemide (Lasix) 40 mg BID DIURETICS IV Last administered on 01/09/19at 17:11; Admin Dose 40 MG; Start 01/09/19 at 18:00 Lisinopril (Zestril) 5 mg BID PO ; Start 01/09/19 at 21:00 Carvedilol (Coreg) 6.25 mg BID PO ; Start 01/10/19 at 09:00 Apixaban (Eliquis) 5 mg BID PO ; Start 01/09/19 at 21:00 Atorvastatin Calcium (Lipitor) 20 mg HS PO ; Start 01/09/19 at 21:00 Diagnostic Test (Pha) (Accu-Chek) 1 ea 02 XX ; Start 01/10/19 at 02:00 Insulin Glargine (Lantus) 27 units DAILY@2000 SC ; Start 01/09/19 at 20:00 Insulin Aspart (Novolog Insulin Pen) 9 unit WITH MEALS SC Last administered on 01/09/19at 18:04; Admin Dose 9 UNIT; Start 2/11/19 at 18:00 Insulin Aspart (Novolog Insulin Pen) NOVOLOG *MILD* ALGORITHM WITH MEALS BEDTIME SC Last administered on 01/09/19at 18:04; Admin Dose 3 UNIT; Start 01/09/19 at 18:00 Famotidine (Pepcid) 20 mg DAILY PO ; Start 01/10/19 at 09:00 Metformin HCl (Glucophage Xr) 500 mg BID PO ; Start 01/09/19 at 21:00 Empaglifozin (Jardiance) 10 mg DAILY@08 PO ; Start 01/10/19 at 08:00; Status UNV Linagliptin (Tradjenta) 5 mg DAILY PO ; Start 01/10/19 at 09:00; Status UNV ALEX CHOU MD Jan 09, 2019 18:53
[2019-01-09] MEDS: metFORMIN (XR) 500 MG TAB PO SCH (20:12)
[2019-01-09] MEDS: APIXABAN 5 MG TABLET PO SCH (20:13)
[2019-01-09] MEDS: ATORVASTATIN 20 MG TAB PO SCH (20:13)
[2019-01-09] MEDS: LISINOPRIL 5 MG TAB PO SCH (20:13)
[2019-01-09] MEDS: INSULIN GLARGINE [LANTus] (100 UNITS/ML) SYG SC SCH (21:10)
[2019-01-09] MEDS ORDERED: morphine LIQ (10 MG/5 ML) CUP PO PRN (23:00)
[2019-01-10] VITALS (12 sets, daily range): BP systolic 117–156; BP diastolic 65–104; PULSE 76–94; RESP 17–19
[2019-01-10] MEDS: ACETAMINOPHEN 325 MG TAB PO PRN ×2 (00:39→17:51)
[2019-01-10] MEDS: ACCU-CHEK XX SCH (01:23)
[2019-01-10] MEDS: FUROSEMIDE 40 MG INJ IV SCH ×2 (05:14→17:10)
[2019-01-10] MEDS: EMPAGLIFLOZIN 10 MG TABLET PO SCH (07:56)
[2019-01-10] MEDS: INSULIN ASPART [NOVOLOG] 3 ML PEN SC SCH ×7 (08:03→21:28)
[2019-01-10] MEDS: LINAGLIPTIN 5 MG TABLET PO SCH (08:05)
[2019-01-10] MEDS: APIXABAN 5 MG TABLET PO SCH ×2 (08:05→20:57)
[2019-01-10] MEDS: FAMOTIDINE 20 MG TAB PO SCH (08:05)
[2019-01-10] MEDS: metFORMIN (XR) 500 MG TAB PO SCH ×2 (08:05→20:57)
[2019-01-10] MEDS: LISINOPRIL 5 MG TAB PO SCH (08:06)
[2019-01-10] MEDS ORDERED: POTASSIUM CHLORIDE (SR) 20 MEQ TAB PO STA (11:36)
--- NOTE | 2019-01-10 11:38 | CONS ---
Assessment/Plan Cardiology NYHA: II Heart Failure Type: Acute on Chronic Heart Failure Type: Systolic Assessment/Plan Hospital Course (Demo Recall) Acute decompensated systolic congestive heart failure Cardia myopathy with ejection fraction 30-35% Hypertension Atrial fibrillation Uncontrolled diabetes ? History of coronary artery disease -Patient with improvement in volume status, change Lasix to daily starting from tomorrow -Continue beta-ricardo, increased dose of TEE inhibitor for afterload reduction -Patient with atrial fibrillation, patient with multiple risk factors for thromboembolic events, would continue anticoagulation at the current time unless any contraindication -Maintain potassium above 4.0 and magnesium above 2.0 -Diabetes management Consultation Date/Type/Reason Admit Date/Time Jan 07, 2019 at 19:58 Initial Consult Date 01/09/19 Type of Consult Cardiology Requesting Provider: NAVARRO ROBLES Date/Time of Note DATE: 01/10/19 TIME: 11:37 24 HR Interval Summary Free Text/Dictation Feeling better, shortness of breath has improved. Denies chest pain or palpitations Exam/Review of Systems Vital Signs Vitals Vital Signs Date Temp Pulse Resp B/P (MAP) Pulse Ox O2 O2 Flow FiO2 Time Delivery Rate 01/10/19 94 08:01 01/10/19 Nasal 2.0 07:29 Cannula 01/10/19 97.8 18 156/93 96 07:29 (114) 01/07/19 50 22:44 Intake and Output 01/09/19 01/09/19 01/10/19 1515:00 23:00 07:00 IntakeIntake Total 400 ml 300 ml OutputOutput Total 2100 ml 1800 ml BalanceBalance -1700 ml -1500 ml Exam Constitutional: alert, oriented (No apparent distress, family bedside) Respiratory: other (Coarse breath sounds bilaterally, no wheezing) Cardiovascular: irregular rhythm, other (S1-S2 heard) Gastrointestinal: soft, non-tender, bowel sounds Extremities: edema Labs Result Diagram: 01/10/19 0501 01/10/19 0501 Results 24hrs Laboratory Tests Test 01/09/19 11:44 01/09/19 14:59 01/09/19 17:09 01/09/19 20:11 Bedside Glucose 262 H 260 H 200 Sodium Level 139 Potassium Level 4.4 Chloride Level 104 Carbon Dioxide Level 27 Anion Gap 8 Blood Urea Nitrogen 22 H Creatinine 0.68 Est Glomerular Filtrat Rate mL/min Glucose Level 255 #H Calcium Level 10.1 Magnesium Level 2.0 Creatine Kinase 52 Creatine Kinase 1.6 Index Creatinine Kinase MB 0.84 (Mass) Troponin I < 0.012 Test 01/10/19 00:38 01/10/19 05:01 01/10/19 07:45 Bedside Glucose 178 239 H White Blood Count 7.2 Red Blood Count 4.94 Hemoglobin 15.6 Hematocrit 46.5 Mean Corpuscular 94.1 Volume Mean Corpuscular 31.6 Hemoglobin Mean Corpuscular 33.5 Hemoglobin Concent Red Cell 12.4 Distribution Width Platelet Count 205 Mean Platelet Volume 11.0 H Immature 0.400 Granulocytes % Neutrophils % 54.3 Lymphocytes % 32.9 Monocytes % 8.0 Eosinophils % 3.7 Basophils % 0.7 Nucleated Red Blood 0.0 Cells % Immature 0.030 Granulocytes # Neutrophils # 3.9 Lymphocytes # 2.4 Monocytes # 0.6 Eosinophils # 0.3 Basophils # 0.1 Nucleated Red Blood 0.0 Cells # Sodium Level 142 Potassium Level 3.5 Chloride Level 104 Carbon Dioxide Level 27 Anion Gap 11 Blood Urea Nitrogen 17 Creatinine 0.69 Est Glomerular Filtrat Rate mL/min Glucose Level 207 Calcium Level 9.9 Magnesium Level 2.1 Triglycerides Level 137 Cholesterol Level 155 LDL Cholesterol, 89 Calculated HDL Cholesterol 39 Cholesterol/HDL 3.9 Ratio Medications Medications Current Medications IV Flush (NS 3 ml) 3 ml PER PROTOCOL IV ; Start 01/07/19 at 21:00 Ondansetron HCl (Zofran Inj) 4 mg Q6H PRN IV NAUSEA/VOMITING; Start 01/07/19 at 21:00 Acetaminophen (Tylenol Tab) 650 mg Q6H PRN PO .PAIN 1-3 OR TEMP Last administered on 01/10/19at 00:39; Admin Dose 650 MG; Start 01/07/19 at 21:00 Miscellaneous Information 1 ea NOTE XX ; Start 01/08/19 at 03:00 Glucose (Glutose) 15 gm Q15M PRN PO DECREASED GLUCOSE; Start 01/08/19 at 03:00 Glucose (Glutose) 22.5 gm Q15M PRN PO DECREASED GLUCOSE; Start 01/08/19 at 03:00 Dextrose (D50w Syringe) 25 ml Q15M PRN IV DECREASED GLUCOSE; Start 01/08/19 at 03:00 Dextrose (D50w Syringe) 50 ml Q15M PRN IV DECREASED GLUCOSE; Start 01/08/19 at 03:00 Glucagon (Glucagen) 1 mg Q15M PRN IM DECREASED GLUCOSE; Start 01/08/19 at 03:00 Glucose (Glutose) 15 gm Q15M PRN BUCCAL DECREASED GLUCOSE; Start 01/08/19 at 03:00 Hydralazine HCl (Apresoline) 10 mg Q6H PRN IV SBP >170 Last administered on 01/09/19at 18:41; Admin Dose 10 MG; Start 01/09/19 at 14:30 Furosemide (Lasix) 40 mg BID DIURETICS IV Last administered on 01/10/19 05:14; Admin Dose 40 MG; Start 01/09/19 at 18:00 Lisinopril (Zestril) 5 mg BID PO Last administered on 01/10/19 08:06; Admin Dose 5 MG; Start 01/09/19 at 21:00 Carvedilol (Coreg) 6.25 mg BID PO Last administered on 01/10/19 08:06; Admin Dose 6.25 MG; Start 01/10/19 at 09:00 Apixaban (Eliquis) 5 mg BID PO Last administered on 01/10/19 08:05; Admin Dose 5 MG; Start 01/09/19 at 21:00 Atorvastatin Calcium (Lipitor) 20 mg HS PO Last administered on 01/09/19at 20:13; Admin Dose 20 MG; Start 01/09/19 at 21:00 Diagnostic Test (Pha) (Accu-Chek) 1 ea 02 XX ; Start 01/10/19 at 02:00 Insulin Glargine (Lantus) 27 units DAILY@2000 SC Last administered on 01/09/19at 21:10; Admin Dose 27 UNITS; Start 01/09/19 at 20:00 Insulin Aspart (Novolog Insulin Pen) 9 unit WITH MEALS SC Last administered on 01/10/19 08:03; Admin Dose 9 UNIT; Start 01/09/19 at 18:00 Insulin Aspart (Novolog Insulin Pen) NOVOLOG *MILD* ALGORITHM WITH MEALS BEDTIME SC Last administered on 01/10/19 08:03; Admin Dose 3 UNIT; Start 01/09/19 at 18:00 Famotidine (Pepcid) 20 mg DAILY PO Last administered on 2/12/19at 08:05; Admin Dose 20 MG; Start 01/10/19 at 09:00 Metformin HCl (Glucophage Xr) 500 mg BID PO Last administered on 01/10/19at 08:05; Admin Dose 500 MG; Start 01/09/19 at 21:00 Empaglifozin (Jardiance) 10 mg DAILY@08 PO Last administered on 01/10/19at 07:56; Admin Dose 10 MG; Start 01/10/19 at 08:00 Linagliptin (Tradjenta) 5 mg DAILY PO Last administered on 01/10/19at 08:05; Admin Dose 5 MG; Start 01/10/19 at 09:00 Morphine Sulfate (morphine) 6 mg Q4H PRN PO SEVERE PAIN LEVEL 7-10; Start 01/09 at 23:00 Margarito Whitehead DO Jan 10, 2019 11:38
--- NOTE | 2019-01-10 16:10 | PN ---
Date/Time of Note Date/Time of Note DATE: 01/10/19 TIME: 16:04 Assessment/Plan VTE Prophylaxis Risk score (from Ns)>0 risk: 5 SCD applied (from Ns): Yes Pharmacological prophylaxis: apixaban Lines/Catheters IV [facility]from [facility] [place] [facility] Urinary Cath still in place: Yes Reason Cath still needed: urinary retention Assessment/Plan Hospital Course Patient is comfortable on supplemental oxygen is at rest, has better blood pressure control today, continue current care. Patient was poorly controlled diabetes mellitus, continue monitoring blood sugar, diabetic education, follow- up endocrinology recommendations Assessment/Plan -Acute decompensated systolic congestive heart failure. Continue Lasix. Dr Whitehead is following in cardiology consultation. -Ischemic cardiomyopathy with ejection fraction 35%. -Atrial fibrillation. Continue Eliquis. -Hypertension, continue Coreg and lisinopril. -Diabetes mellitus type 2 with hemoglobin A1c of 13.7. Continue Lantus and pre- meal NovoLog. Dr. Sahni is following in endocrinology consultation. Further recommendations based on clinical course. Plan of care discussed with Dr. Richards. Result Diagram: 01/10/19 0501 01/10/19 0501 Results 24hrs Laboratory Tests Test 01/09/19 17:09 01/09/19 20:11 01/10/19 00:38 01/10/19 05:01 Bedside Glucose 260 H 200 178 White Blood Count 7.2 Red Blood Count 4.94 Hemoglobin 15.6 Hematocrit 46.5 Mean Corpuscular 94.1 Volume Mean Corpuscular 31.6 Hemoglobin Mean Corpuscular 33.5 Hemoglobin Concent Red Cell 12.4 Distribution Width Platelet Count 205 Mean Platelet Volume 11.0 H Immature 0.400 Granulocytes % Neutrophils % 54.3 Lymphocytes % 32.9 Monocytes % 8.0 Eosinophils % 3.7 Basophils % 0.7 Nucleated Red Blood 0.0 Cells % Immature 0.030 Granulocytes # Neutrophils # 3.9 Lymphocytes # 2.4 Monocytes # 0.6 Eosinophils # 0.3 Basophils # 0.1 Nucleated Red Blood 0.0 Cells # Sodium Level 142 Potassium Level 3.5 Chloride Level 104 Carbon Dioxide Level 27 Anion Gap 11 Blood Urea Nitrogen 17 Creatinine 0.69 Est Glomerular Filtrat Rate mL/min Glucose Level 207 Calcium Level 9.9 Magnesium Level 2.1 Triglycerides Level 137 Cholesterol Level 155 LDL Cholesterol, 89 Calculated HDL Cholesterol 39 Cholesterol/HDL 3.9 Ratio Test 01/10/19 07:45 01/10/19 11:44 Bedside Glucose 239 H 174 Exam/Review of Systems Exam Vitals Vital Signs Date Temp Pulse Resp B/P (MAP) Pulse Ox O2 O2 Flow FiO2 Time Delivery Rate 01/10/19 97.8 79 19 147/104 95 15:20 (118) 01/10/19 Nasal 2.0 07:29 Cannula 01/07/19 50 22:44 Intake and Output 01/09/19 01/09/19 01/10/19 1515:00 23:00 07:00 IntakeIntake Total 400 ml 300 ml OutputOutput Total 2100 ml 1800 ml BalanceBalance -1700 ml -1500 ml Exam Constitutional: alert, oriented Neck: supple Respiratory: clear to auscultation Cardiovascular: irregular rhythm Gastrointestinal: soft, non-tender Musculoskeletal: nl extremities to inspection Extremities: normal pulses Neurological: nl mental status Results Results 24hrs Laboratory Tests Test 01/09/19 17:09 01/09/19 20:11 01/10/19 00:38 01/10/19 05:01 Bedside Glucose 260 H 200 178 White Blood Count 7.2 Red Blood Count 4.94 Hemoglobin 15.6 Hematocrit 46.5 Mean Corpuscular 94.1 Volume Mean Corpuscular 31.6 Hemoglobin Mean Corpuscular 33.5 Hemoglobin Concent Red Cell 12.4 Distribution Width Platelet Count 205 Mean Platelet Volume 11.0 H Immature 0.400 Granulocytes % Neutrophils % 54.3 Lymphocytes % 32.9 Monocytes % 8.0 Eosinophils % 3.7 Basophils % 0.7 Nucleated Red Blood 0.0 Cells % Immature 0.030 Granulocytes # Neutrophils # 3.9 Lymphocytes # 2.4 Monocytes # 0.6 Eosinophils # 0.3 Basophils # 0.1 Nucleated Red Blood 0.0 Cells # Sodium Level 142 Potassium Level 3.5 Chloride Level 104 Carbon Dioxide Level 27 Anion Gap 11 Blood Urea Nitrogen 17 Creatinine 0.69 Est Glomerular Filtrat Rate mL/min Glucose Level 207 Calcium Level 9.9 Magnesium Level 2.1 Triglycerides Level 137 Cholesterol Level 155 LDL Cholesterol, 89 Calculated HDL Cholesterol 39 Cholesterol/HDL 3.9 Ratio Test 01/10/19 07:45 01/10/19 11:44 Bedside Glucose 239 H 174 Medications Medication Current Medications IV Flush (NS 3 ml) 3 ml PER PROTOCOL IV ; Start 01/07/19 at 21:00 Ondansetron HCl (Zofran Inj) 4 mg Q6H PRN IV NAUSEA/VOMITING; Start 01/07/19 at 21:00 Acetaminophen (Tylenol Tab) 650 mg Q6H PRN PO .PAIN 1-3 OR TEMP Last administered on 01/10/19at 00:39; Admin Dose 650 MG; Start 01/07/19 at 21:00 Miscellaneous Information 1 ea NOTE XX ; Start 01/08/19 at 03:00 Glucose (Glutose) 15 gm Q15M PRN PO DECREASED GLUCOSE; Start 01/08/19 at 03:00 Glucose (Glutose) 22.5 gm Q15M PRN PO DECREASED GLUCOSE; Start 01/08/19 at 03:00 Dextrose (D50w Syringe) 25 ml Q15M PRN IV DECREASED GLUCOSE; Start 01/08/19 at 03:00 Dextrose (D50w Syringe) 50 ml Q15M PRN IV DECREASED GLUCOSE; Start 01/08/19 at 03:00 Glucagon (Glucagen) 1 mg Q15M PRN IM DECREASED GLUCOSE; Start 01/08/19 at 03:00 Glucose (Glutose) 15 gm Q15M PRN BUCCAL DECREASED GLUCOSE; Start 01/08/19 at 03:00 Hydralazine HCl (Apresoline) 10 mg Q6H PRN IV SBP >170 Last administered on 01/09/19at 18:41; Admin Dose 10 MG; Start 01/09/19 at 14:30 Furosemide (Lasix) 40 mg BID DIURETICS IV Last administered on 01/10/19at 05:14; Admin Dose 40 MG; Start 01/09/19 at 18:00; Stop 01/10/19 at 23:00 Carvedilol (Coreg) 6.25 mg BID PO Last administered on 01/10/19at 08:06; Admin Dose 6.25 MG; Start 01/10/19 at 09:00 Apixaban (Eliquis) 5 mg BID PO Last administered on 01/10/19at 08:05; Admin Dose 5 MG; Start 01/09/19 at 21:00 Atorvastatin Calcium (Lipitor) 20 mg HS PO Last administered on 01/09/19at 20:13; Admin Dose 20 MG; Start 01/09/19 at 21:00 Diagnostic Test (Pha) (Accu-Chek) 1 ea 02 XX ; Start 01/10/19 at 02:00 Insulin Glargine (Lantus) 27 units DAILY@2000 SC Last administered on 01/09/19at 21:10; Admin Dose 27 UNITS; Start 01/09/19 at 20:00 Insulin Aspart (Novolog Insulin Pen) 9 unit WITH MEALS SC Last administered on 01/10/19 12:46; Admin Dose 9 UNIT; Start 01/09/19 at 18:00 Insulin Aspart (Novolog Insulin Pen) NOVOLOG *MILD* ALGORITHM WITH MEALS BEDTIME SC Last administered on 01/10/19 12:46; Admin Dose 1 UNIT; Start 01/09/19 at 18:00 Famotidine (Pepcid) 20 mg DAILY PO Last administered on 01/10/19 08:05; Admin Dose 20 MG; Start 01/10/19 at 09:00 Metformin HCl (Glucophage Xr) 500 mg BID PO Last administered on 01/10/19 08:05; Admin Dose 500 MG; Start 01/09/19 at 21:00 Empaglifozin (Jardiance) 10 mg DAILY@08 PO Last administered on 01/10/19 07:56; Admin Dose 10 MG; Start 01/10/19 at 08:00 Linagliptin (Tradjenta) 5 mg DAILY PO Last administered on 01/10/19at 08:05; Admin Dose 5 MG; Start 01/10/19 at 09:00 Morphine Sulfate (morphine) 6 mg Q4H PRN PO SEVERE PAIN LEVEL 7-10; Start 01/09/19 at 23:00 Lisinopril (Zestril) 10 mg BID PO ; Start 01/10/19 at 21:00 Furosemide (Lasix) 40 mg DAILY IV ; Start 01/11/19 at 09:00 NAVARRO ROBLES Jan 10, 2019 16:10
--- NOTE | 2019-01-10 18:09 | CONS ---
Assessment/Plan Assessment/Plan Problems: (1) Type 2 diabetes mellitus with hyperglycemia Status: Chronic Comment: BG elevated this am but improving today w/ addition of oral meds, tradjenta, metformin, empagliflozin. Will cont. current insulin doses w/ these meds and expect improved glycemic control tomorrow. If not, will raise insulin doses at that time. Qualifiers: Diabetes mellitus care home insulin use: with terminal operator use Qualified Codes: E11.65 - Type 2 diabetes mellitus with hyperglycemia; Z79.4 - MCFP (current) use of insulin Consultation Date/Type/Reason Admit Date/Time Jan 07, 2019 at 19:58 Initial Consult Date 01/09/19 Type of Consult Endocrinology Reason for Consultation [id number] Requesting Provider: NAVARRO ROBLES Date/Time of Note DATE: 01/10/19 TIME: 18:07 24 HR Interval Summary Constitutional: no complaints, improved Detailed Summary Respiratory: no complaints; No pleuritic pain, No shortness of breath Cardiovascular: no complaints; No chest pain Gastrointestinal: no complaints Genitourinary: no complaints Musculoskeletal: no complaints Neurologic: no complaints Exam/Review of Systems Exam Vitals VS - Last 72 Hours, by Label Date Temp Pulse Resp B/P (MAP) Pulse Ox O2 O2 Flow FiO2 Time Delivery Rate 01/10/19 81 16:01 01/10/19 97.8 79 19 147/104 95 15:20 (118) 01/10/19 85 12:01 01/10/19 98.6 85 17 128/80 98 11:48 (96) 01/10/19 94 08:01 01/10/19 Nasal 2.0 07:29 Cannula 01/10/19 97.8 76 18 156/93 96 07:29 (114) 01/10/19 84 04:00 01/10/19 98.0 80 18 147/65 99 03:43 (92) 01/10/19 2.0 03:29 01/10/19 94 00:00 01/09/19 97.5 76 18 155/69 99 23:32 (97) 01/09/19 2.0 23:00 01/09/19 Nasal 2.0 20:55 Cannula 01/09/19 94 20:00 01/09/19 97.6 84 18 163/72 98 19:54 (102) 01/09/19 97.9 82 18 217/119 97 16:01 (151) 01/09/19 89 16:01 01/09/19 18 160/87 99 15:17 (111) 01/09/19 Nasal 2.0 14:15 Cannula 01/09/19 89 12:01 01/09/19 98.3 90 19 171/70 98 11:41 (103) 01/09/19 Nasal 2.0 08:28 Cannula 01/09/19 87 08:01 01/09/19 97.6 79 19 154/95 95 07:26 (114) 01/09/19 Nasal 3.0 06:05 Cannula 01/09/19 Nasal 2.0 04:00 Cannula 01/09/19 75 04:00 01/09/19 97.6 85 19 137/75 95 Room Air 03:45 (95) Ambu Bag 01/09/19 2.0 02:52 01/09/19 63 00:00 01/08/19 98.0 80 18 135/79 95 Room Air 23:59 (97) 01/08/19 Nasal 3.0 22:00 Cannula 01/08/19 98 2.0 20:57 01/08/19 86 20:00 01/08/19 98.3 84 18 159/99 94 Room Air 19:21 (119) 01/08/19 5.0 16:46 01/08/19 82 16:01 01/08/19 98.0 70 18 136/87 98 Room Air 15:16 (103) 01/08/19 64 12:01 01/08/19 97.6 78 18 138/89 98 Room Air 11:21 (105) 01/08/19 59 08:01 01/08/19 97.5 69 18 146/89 98 08:00 (108) 01/08/19 Nasal 4.0 07:51 Cannula 01/08/19 4.0 06:06 01/08/19 5.0 05:19 01/08/19 61 04:00 01/08/19 98.3 72 17 155/85 99 03:29 (108) 01/08/19 98.1 67 17 170/81 97 00:00 (110) 01/08/19 68 00:00 01/07/19 5.0 23:47 01/07/19 98.0 67 15 131/82 99 BIPAP 23:22 (98) 01/07/19 Nasal 5.0 23:00 Cannula 01/07/19 88 100 50 22:44 01/07/19 60 18 113/79 97 BIPAP 22:22 (90) 01/07/19 84 100 60 20:40 01/07/19 76 18 119/82 99 BIPAP 20:30 (94) 01/07/19 78 25 150/105 100 BIPAP 20:00 (120) 01/07/19 84 23 149/100 100 BIPAP 19:30 (116) 01/07/19 84 27 146/105 100 BIPAP 19:15 (119) 01/07/19 92 17 154/95 100 BIPAP 19:00 (114) 01/07/19 90 25 135/107 100 BIPAP 18:45 (116) 01/07/19 101 100 60 18:36 Vital Signs Date Temp Pulse Resp B/P (MAP) Pulse Ox O2 O2 Flow FiO2 Time Delivery Rate 01/10/19 81 16:01 01/10/19 97.8 19 147/104 95 15:20 (118) 01/10/19 Nasal 2.0 07:29 Cannula 01/07/19 50 22:44 Intake and Output 01/09/19 01/09/19 01/10/19 1515:00 23:00 07:00 IntakeIntake Total 400 ml 300 ml OutputOutput Total 2100 ml 1800 ml BalanceBalance -1700 ml -1500 ml Constitutional: alert, oriented, obese Psych: no complaints, nl mood/affect Respiratory: clear to auscultation, normal air movement Cardiovascular: regular rate and rhythm, nl pulses; No edema, No murmurs/extra sounds, No rub Gastrointestinal: soft, nl liver, spleen, non-tender, bowel sounds; No mass, No rebound or guarding Musculoskeletal: nl extremities to inspection Extremities: normal pulses; No cyanosis, No clubbing, No edema Neurological: HADOOP ADMINISTRATOR II-XII intact, nl mental status, nl speech, nl strength Additional Comments Bedside Glucose - 72 Hours Test 01/07/19 21:22 01/08/19 07:50 01/08/19 11:24 01/08/19 17:25 Bedside 316 123 209 118 Glucose mg/dL (70-220) mg/dL (70-220) mg/dL (70-220) mg/dL (70-220) H Test 01/08/19 20:07 01/09/19 07:35 01/09/19 11:44 01/09/19 17:09 Bedside 361 226 262 260 Glucose mg/dL (70-220) mg/dL (70-220) mg/dL (70-220) mg/dL (70-220) H H H H Test 01/09/19 20:11 01/10/19 00:38 01/10/19 07:45 01/10/19 11:44 Bedside 200 178 239 174 Glucose mg/dL (70-220) mg/dL (70-220) mg/dL (70-220) mg/dL (70-220) H Test 01/10/19 17:12 Bedside 140 Glucose mg/dL (70-220) Results Result Diagram: 01/10/19 0501 01/10/19 0501 Results 24hrs Laboratory Tests Test 01/09/19 20:11 01/10/19 00:38 01/10/19 05:01 01/10/19 07:45 Bedside Glucose 200 178 239 H White Blood Count 7.2 Red Blood Count 4.94 Hemoglobin 15.6 Hematocrit 46.5 Mean Corpuscular 94.1 Volume Mean Corpuscular 31.6 Hemoglobin Mean Corpuscular 33.5 Hemoglobin Concent Red Cell 12.4 Distribution Width Platelet Count 205 Mean Platelet Volume 11.0 H Immature 0.400 Granulocytes % Neutrophils % 54.3 Lymphocytes % 32.9 Monocytes % 8.0 Eosinophils % 3.7 Basophils % 0.7 Nucleated Red Blood 0.0 Cells % Immature 0.030 Granulocytes # Neutrophils # 3.9 Lymphocytes # 2.4 Monocytes # 0.6 Eosinophils # 0.3 Basophils # 0.1 Nucleated Red Blood 0.0 Cells # Sodium Level 142 Potassium Level 3.5 Chloride Level 104 Carbon Dioxide Level 27 Anion Gap 11 Blood Urea Nitrogen 17 Creatinine 0.69 Est Glomerular Filtrat Rate mL/min Glucose Level 207 Calcium Level 9.9 Magnesium Level 2.1 Triglycerides Level 137 Cholesterol Level 155 LDL Cholesterol, 89 Calculated HDL Cholesterol 39 Cholesterol/HDL 3.9 Ratio Test 01/10/19 11:44 01/10/19 17:12 Bedside Glucose 174 140 Medications Medication Current Medications IV Flush (NS 3 ml) 3 ml PER PROTOCOL IV ; Start 01/07/19 at 21:00 Ondansetron HCl (Zofran Inj) 4 mg Q6H PRN IV NAUSEA/VOMITING; Start 01/07/19 at 21:00 Acetaminophen (Tylenol Tab) 650 mg Q6H PRN PO .PAIN 1-3 OR TEMP Last administered on 01/10/19at 17:51; Admin Dose 650 MG; Start 01/07/19 at 21:00 Miscellaneous Information 1 ea NOTE XX ; Start 01/08/19 at 03:00 Glucose (Glutose) 15 gm Q15M PRN PO DECREASED GLUCOSE; Start 01/08/19 at 03:00 Glucose (Glutose) 22.5 gm Q15M PRN PO DECREASED GLUCOSE; Start 01/08/19 at 03:00 Dextrose (D50w Syringe) 25 ml Q15M PRN IV DECREASED GLUCOSE; Start 01/08/19 at 03:00 Dextrose (D50w Syringe) 50 ml Q15M PRN IV DECREASED GLUCOSE; Start 01/08/19 at 03:00 Glucagon (Glucagen) 1 mg Q15M PRN IM DECREASED GLUCOSE; Start 01/08/19 at 03:00 Glucose (Glutose) 15 gm Q15M PRN BUCCAL DECREASED GLUCOSE; Start 01/08/19 at 03:00 Hydralazine HCl (Apresoline) 10 mg Q6H PRN IV SBP >170 Last administered on 01/09/19at 18:41; Admin Dose 10 MG; Start 01/09/19 at 14:30 Furosemide (Lasix) 40 mg BID DIURETICS IV Last administered on 01/10/19at 17:10; Admin Dose 40 MG; Start 01/09/19 at 18:00; Stop 01/10/19 at 23:00 Carvedilol (Coreg) 6.25 mg BID PO Last administered on 01/10/19at 08:06; Admin Dose 6.25 MG; Start 01/10/19 at 09:00 Apixaban (Eliquis) 5 mg BID PO Last administered on 01/10/19at 08:05; Admin Dose 5 MG; Start 01/09/19 at 21:00 Atorvastatin Calcium (Lipitor) 20 mg HS PO Last administered on 01/09/19at 20:13; Admin Dose 20 MG; Start 01/09/19 at 21:00 Diagnostic Test (Pha) (Accu-Chek) 1 ea 02 XX ; Start 01/10/19 at 02:00 Insulin Glargine (Lantus) 27 units DAILY@2000 SC Last administered on 01/09/19at 21:10; Admin Dose 27 UNITS; Start 01/09/19 at 20:00 Insulin Aspart (Novolog Insulin Pen) 9 unit WITH MEALS SC Last administered on 01/10/19at 17:37; Admin Dose 9 UNIT; Start 01/09/19 at 18:00 Insulin Aspart (Novolog Insulin Pen) NOVOLOG *MILD* ALGORITHM WITH MEALS BEDTIME SC Last administered on 01/10/19at 12:46; Admin Dose 1 UNIT; Start 01/09/19 at 18:00 Famotidine (Pepcid) 20 mg DAILY PO Last administered on 01/10/19at 08:05; Admin Dose 20 MG; Start 01/10/19 at 09:00 Metformin HCl (Glucophage Xr) 500 mg BID PO Last administered on 01/10/19at 08:05; Admin Dose 500 MG; Start 01/09/19 at 21:00 Empaglifozin (Jardiance) 10 mg DAILY@08 PO Last administered on 01/10/19at 07:56; Admin Dose 10 MG; Start 01/10/19 at 08:00 Linagliptin (Tradjenta) 5 mg DAILY PO Last administered on 01/10/19at 08:05; Admin Dose 5 MG; Start 01/10/19 at 09:00 Morphine Sulfate (morphine) 6 mg Q4H PRN PO SEVERE PAIN LEVEL 7-10; Start 01/09/19 at 23:00 Lisinopril (Zestril) 10 mg BID PO ; Start 01/10/19 at 21:00 Furosemide (Lasix) 40 mg DAILY IV ; Start 01/11/19 at 09:00 ALEX CHOU MD Jan 10, 2019 18:09
[2019-01-10] MEDS: ATORVASTATIN 20 MG TAB PO SCH (20:57)
[2019-01-10] MEDS: LISINOPRIL 10 MG TAB PO SCH (20:58)
[2019-01-10] MEDS: INSULIN GLARGINE [LANTus] (100 UNITS/ML) SYG SC SCH (21:28)
[2019-01-11] VITALS (10 sets, daily range): BP systolic 95–131; BP diastolic 63–83; PULSE 55–96; RESP 17–20
[2019-01-11] MEDS: ACCU-CHEK XX SCH (02:11)
[2019-01-11] MEDS: INSULIN ASPART [NOVOLOG] 3 ML PEN SC SCH ×7 (07:50→21:00)
[2019-01-11] MEDS: EMPAGLIFLOZIN 10 MG TABLET PO SCH (07:53)
[2019-01-11] MEDS: APIXABAN 5 MG TABLET PO SCH ×2 (08:16→21:25)
[2019-01-11] MEDS: FAMOTIDINE 20 MG TAB PO SCH (08:16)
[2019-01-11] MEDS: LINAGLIPTIN 5 MG TABLET PO SCH (08:16)
[2019-01-11] MEDS: metFORMIN (XR) 500 MG TAB PO SCH ×2 (08:17→21:25)
[2019-01-11] MEDS: LISINOPRIL 10 MG TAB PO SCH ×2 (08:17→21:25)
[2019-01-11] MEDS ORDERED: FUROSEMIDE 40 MG INJ IV SCH (09:00)
--- NOTE | 2019-01-11 11:51 | PN ---
Date/Time of Note Date/Time of Note DATE: 01/11/19 TIME: 11:47 Assessment/Plan VTE Prophylaxis Risk score (from Ns)>0 risk: 7 SCD applied (from Ns): Yes Pharmacological prophylaxis: apixaban Lines/Catheters IV [facility] Type [facility] Saline Lock Urinary Cath still in place: Yes Reason Cath still needed: urinary retention Assessment/Plan Hospital Course Patient awake alert with occasional shortness of breath on exertion, blood pressure and blood sugar are better controlled, continue telemetry monitoring, diuretics, physical therapy. Assessment/Plan -Acute decompensated systolic congestive heart failure. Continue Lasix. Dr Whitehead is following in cardiology consultation. -Ischemic cardiomyopathy with ejection fraction 35%. -Atrial fibrillation. Continue Eliquis. -Hypertension, continue Coreg and lisinopril. -Diabetes mellitus type 2 with hemoglobin A1c of 13.7. Continue Lantus and pre- meal NovoLog. Dr. Sahni is following in endocrinology consultation. Further recommendations based on clinical course. Plan of care discussed with Dr. Richards. Result Diagram: 01/10/19 0501 01/11/19 0437 Results 24hrs Laboratory Tests Test 01/10/19 17:12 01/10/19 20:53 01/11/19 01:47 01/11/19 04:37 Bedside Glucose 140 183 115 Sodium Level 141 Potassium Level 3.8 Chloride Level 101 Carbon Dioxide Level 28 Anion Gap 12 Blood Urea Nitrogen 21 H Creatinine 0.87 Est Glomerular Filtrat Rate mL/min Glucose Level 166 Calcium Level 9.7 Test 01/11/19 07:42 Bedside Glucose 168 Exam/Review of Systems Exam Vitals Vital Signs Date Temp Pulse Resp B/P (MAP) Pulse Ox O2 O2 Flow FiO2 Time Delivery Rate 01/11/19 98.0 55 17 101/63 94 11:28 (76) 01/11/19 Nasal 2.0 07:36 Cannula 01/11/19 28 02:46 Intake and Output 01/10/19 01/10/19 01/11/19 1515:00 23:00 07:00 IntakeIntake Total 1300 ml 425 ml OutputOutput Total 900 ml 2000 ml BalanceBalance 400 ml -1575 ml Exam Constitutional: alert, oriented Neck: supple Respiratory: clear to auscultation Cardiovascular: irregular rhythm Gastrointestinal: soft, non-tender Musculoskeletal: nl extremities to inspection Extremities: normal pulses Neurological: nl mental status Results Results 24hrs Laboratory Tests Test 01/10/19 17:12 01/10/19 20:53 01/11/19 01:47 01/11/19 04:37 Bedside Glucose 140 183 115 Sodium Level 141 Potassium Level 3.8 Chloride Level 101 Carbon Dioxide Level 28 Anion Gap 12 Blood Urea Nitrogen 21 H Creatinine 0.87 Est Glomerular Filtrat Rate mL/min Glucose Level 166 Calcium Level 9.7 Test 01/11/19 07:42 Bedside Glucose 168 Medications Medication Current Medications IV Flush (NS 3 ml) 3 ml PER PROTOCOL IV ; Start 01/07/19 at 21:00 Ondansetron HCl (Zofran Inj) 4 mg Q6H PRN IV NAUSEA/VOMITING; Start 01/07/19 at 21:00 Acetaminophen (Tylenol Tab) 650 mg Q6H PRN PO .PAIN 1-3 OR TEMP Last administered on 01/10/19at 17:51; Admin Dose 650 MG; Start 01/07/19 at 21:00 Miscellaneous Information 1 ea NOTE XX ; Start 01/08/19 at 03:00 Glucose (Glutose) 15 gm Q15M PRN PO DECREASED GLUCOSE; Start 01/08/19 at 03:00 Glucose (Glutose) 22.5 gm Q15M PRN PO DECREASED GLUCOSE; Start 01/08/19 at 03:00 Dextrose (D50w Syringe) 25 ml Q15M PRN IV DECREASED GLUCOSE; Start 01/08/19 at 03:00 Dextrose (D50w Syringe) 50 ml Q15M PRN IV DECREASED GLUCOSE; Start 01/08/19 at 03:00 Glucagon (Glucagen) 1 mg Q15M PRN IM DECREASED GLUCOSE; Start 01/08/19 at 03:00 Glucose (Glutose) 15 gm Q15M PRN BUCCAL DECREASED GLUCOSE; Start 01/08/19 at 03:00 Hydralazine HCl (Apresoline) 10 mg Q6H PRN IV SBP >170 Last administered on 01/09/19at 18:41; Admin Dose 10 MG; Start 01/09/19 at 14:30 Carvedilol (Coreg) 6.25 mg BID PO Last administered on 01/11/19at 08:17; Admin Dose 6.25 MG; Start 01/10/19 at 09:00 Apixaban (Eliquis) 5 mg BID PO Last administered on 01/11/19 08:16; Admin Dose 5 MG; Start 01/09/19 at 21:00 Atorvastatin Calcium (Lipitor) 20 mg HS PO Last administered on 01/10/19 20:57; Admin Dose 20 MG; Start 01/09/19 at 21:00 Diagnostic Test (Pha) (Accu-Chek) 1 ea 02 XX Last administered on 01/11/19 02:11; Admin Dose 1 EA; Start 01/10/19 at 02:00 Insulin Glargine (Lantus) 27 units DAILY@2000 SC Last administered on 01/10/19 21:28; Admin Dose 27 UNITS; Start 01/09/19 at 20:00 Insulin Aspart (Novolog Insulin Pen) 9 unit WITH MEALS SC Last administered on 01/11/19 07:50; Admin Dose 9 UNIT; Start 01/09/19 at 18:00 Insulin Aspart (Novolog Insulin Pen) NOVOLOG *MILD* ALGORITHM WITH MEALS BEDTIME SC Last administered on 01/11/19 07:50; Admin Dose 1 UNIT; Start 01/09/19 at 18:00 Famotidine (Pepcid) 20 mg DAILY PO Last administered on 01/11/19 08:16; Admin Dose 20 MG; Start 01/10/19 at 09:00 Metformin HCl (Glucophage Xr) 500 mg BID PO Last administered on 01/11/19 08:17; Admin Dose 500 MG; Start 01/09/19 at 21:00 Empaglifozin (Jardiance) 10 mg DAILY@08 PO Last administered on 01/11/19 07:53; Admin Dose 10 MG; Start 01/10/19 at 08:00 Linagliptin (Tradjenta) 5 mg DAILY PO Last administered on 01/11/19 08:16; A dmin Dose 5 MG; Start 01/10/19 at 09:00 Morphine Sulfate (morphine) 6 mg Q4H PRN PO SEVERE PAIN LEVEL 7-10; Start 01/09/19 at 23:00 Lisinopril (Zestril) 10 mg BID PO Last administered on 01/11/19 08:17; Admin Dose 10 MG; Start 01/10/19 at 21:00 Furosemide (Lasix) 40 mg DAILY IV Last administered on 2/13/19at 08:17; Admin Dose 40 MG; Start 01/11/19 at 09:00 NAVARRO ROBLES Jan 11, 2019 11:51
--- NOTE | 2019-01-11 13:28 | CONS ---
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 Will increase mealtime Novolog from 9 to 10 units qac. Cont. same dose lantus and same oral meds. Reeval daily. 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 Consultation Date/Type/Reason Admit Date/Time Jan 07, 2019 at 19:58 Initial Consult Date 01/09/19 Type of Consult Endocrinology Reason for Consultation [address] Requesting Provider: NAVARRO ROBLES Date/Time of Note DATE: 01/11/19 TIME: 13:26 24 HR Interval Summary Constitutional: no complaints, improved Detailed Summary Respiratory: no complaints; No pain, No pleuritic pain, No shortness of breath Cardiovascular: no complaints; No chest pain Gastrointestinal: no complaints Genitourinary: no complaints Musculoskeletal: no complaints Neurologic: no complaints Exam/Review of Systems Exam Vitals VS - Last 72 Hours, by Label Date Temp Pulse Resp B/P (MAP) Pulse Ox O2 O2 Flow FiO2 Time Delivery Rate 01/11/19 94 12:24 01/11/19 98.0 55 17 101/63 94 11:28 (76) 01/11/19 98.5 80 18 131/77 97 08:37 (95) 01/11/19 89 08:17 01/11/19 Nasal 2.0 07:36 Cannula 01/11/19 82 04:00 01/11/19 98.1 81 19 126/83 98 03:54 (97) 01/11/19 2.0 28 02:46 01/11/19 Nasal 2.0 01:36 Cannula 01/11/19 89 00:00 01/10/19 98.0 90 19 139/89 98 23:37 (106) 01/10/19 97 2.0 28 21:30 01/10/19 Nasal 2.0 21:00 Cannula 01/10/19 92 20:00 01/10/19 98.1 81 19 117/93 97 19:42 (101) 01/10/19 81 16:01 01/10/19 97.8 79 19 147/104 95 15:20 (118) 01/10/19 85 12:01 01/10/19 98.6 85 17 128/80 98 11:48 (96) 01/10/19 94 08:01 01/10/19 Nasal 2.0 07:29 Cannula 01/10/19 97.8 76 18 156/93 96 07:29 (114) 01/10/19 84 04:00 01/10/19 98.0 80 18 147/65 99 03:43 (92) 01/10/19 2.0 03:29 01/10/19 94 00:00 01/09/19 97.5 76 18 155/69 99 23:32 (97) 01/09/19 2.0 23:00 01/09/19 Nasal 2.0 20:55 Cannula 01/09/19 94 20:00 01/09/19 97.6 84 18 163/72 98 19:54 (102) 01/09/19 97.9 82 18 217/119 97 16:01 (151) 01/09/19 89 16:01 01/09/19 18 160/87 99 15:17 (111) 01/09/19 Nasal 2.0 14:15 Cannula 01/09/19 89 12:01 01/09/19 98.3 90 19 171/70 98 11:41 (103) 01/09/19 Nasal 2.0 08:28 Cannula 01/09/19 87 08:01 01/09/19 97.6 79 19 154/95 95 07:26 (114) 01/09/19 Nasal 3.0 06:05 Cannula 01/09/19 Nasal 2.0 04:00 Cannula 01/09/19 75 04:00 01/09/19 97.6 85 19 137/75 95 Room Air 03:45 (95) Ambu Bag 01/09/19 2.0 02:52 01/09/19 63 00:00 01/08/19 98.0 80 18 135/79 95 Room Air 23:59 (97) 01/08/19 Nasal 3.0 22:00 Cannula 01/08/19 98 2.0 20:57 01/08/19 86 20:00 01/08/19 98.3 84 18 159/99 94 Room Air 19:21 (119) 01/08/19 5.0 16:46 01/08/19 82 16:01 01/08/19 98.0 70 18 136/87 98 Room Air 15:16 (103) Vital Signs Date Temp Pulse Resp B/P (MAP) Pulse Ox O2 O2 Flow FiO2 Time Delivery Rate 01/11/19 94 12:24 01/11/19 98.0 17 101/63 94 11:28 (76) 01/11/19 Nasal 2.0 07:36 Cannula 01/11/19 28 02:46 Intake and Output 01/10/19 01/10/19 01/11/19 1515:00 23:00 07:00 IntakeIntake Total 1300 ml 425 ml OutputOutput Total 900 ml 2000 ml BalanceBalance 400 ml -1575 ml Constitutional: alert, oriented, obese Respiratory: clear to auscultation, normal air movement Cardiovascular: regular rate and rhythm, nl pulses; No edema, No murmurs/extra sounds, No rub Gastrointestinal: soft, nl liver, spleen, non-tender, bowel sounds; No mass, No rebound or guarding Musculoskeletal: nl extremities to inspection Extremities: normal pulses; No cyanosis, No clubbing, No edema 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, nl mental status, nl speech, nl strength Additional Comments Bedside Glucose - 72 Hours Test 01/08/19 17:25 01/08/19 20:07 01/09/19 07:35 01/09/19 11:44 Bedside 118 361 226 262 Glucose mg/dL (70-220) mg/dL (70-220) mg/dL (70-220) mg/dL (70-220) H H H Test 01/09/19 17:09 01/09/19 20:11 01/10/19 00:38 01/10/19 07:45 Bedside 260 200 178 239 Glucose mg/dL (70-220) mg/dL (70-220) mg/dL (70-220) mg/dL (70-220) H H Test 01/10/19 11:44 01/10/19 17:12 01/10/19 20:53 01/11/19 01:47 Bedside 174 140 183 115 Glucose mg/dL (70-220) mg/dL (70-220) mg/dL (70-220) mg/dL (70-220) Test 01/11/19 07:42 01/11/19 11:47 Bedside 168 171 Glucose mg/dL (70-220) mg/dL (70-220) Results Result Diagram: 01/10/19 0501 01/11/19 0437 Results 24hrs Laboratory Tests Test 01/10/19 17:12 01/10/19 20:53 01/11/19 01:47 01/11/19 04:37 Bedside Glucose 140 183 115 Sodium Level 141 Potassium Level 3.8 Chloride Level 101 Carbon Dioxide Level 28 Anion Gap 12 Blood Urea Nitrogen 21 H Creatinine 0.87 Est Glomerular Filtrat Rate mL/min Glucose Level 166 Calcium Level 9.7 Test 01/11/19 07:42 01/11/19 11:47 Bedside Glucose 168 171 Medications Medication Current Medications IV Flush (NS 3 ml) 3 ml PER PROTOCOL IV ; Start 01/07/19 at 21:00 Ondansetron HCl (Zofran Inj) 4 mg Q6H PRN IV NAUSEA/VOMITING; Start 01/07/19 at 21:00 Acetaminophen (Tylenol Tab) 650 mg Q6H PRN PO .PAIN 1-3 OR TEMP Last adminis tered on 01/10/19at 17:51; Admin Dose 650 MG; Start 01/07/19 at 21:00 Miscellaneous Information 1 ea NOTE XX ; Start 01/08/19 at 03:00 Glucose (Glutose) 15 gm Q15M PRN PO DECREASED GLUCOSE; Start 01/08/19 at 03:00 Glucose (Glutose) 22.5 gm Q15M PRN PO DECREASED GLUCOSE; Start 01/08/19 at 03:00 Dextrose (D50w Syringe) 25 ml Q15M PRN IV DECREASED GLUCOSE; Start 01/08/19 at 03:00 Dextrose (D50w Syringe) 50 ml Q15M PRN IV DECREASED GLUCOSE; Start 01/08/19 at 03:00 Glucagon (Glucagen) 1 mg Q15M PRN IM DECREASED GLUCOSE; Start 01/08/19 at 03:00 Glucose (Glutose) 15 gm Q15M PRN BUCCAL DECREASED GLUCOSE; Start 01/08/19 at 03:00 Hydralazine HCl (Apresoline) 10 mg Q6H PRN IV SBP >170 Last administered on 01/09/19at 18:41; Admin Dose 10 MG; Start 01/09/19 at 14:30 Carvedilol (Coreg) 6.25 mg BID PO Last administered on 01/11/19 08:17; Admin Dose 6.25 MG; Start 01/10/19 at 09:00 Apixaban (Eliquis) 5 mg BID PO Last administered on 01/11/19 08:16; Admin Dose 5 MG; Start 01/09/19 at 21:00 Atorvastatin Calcium (Lipitor) 20 mg HS PO Last administered on 01/10/19 20:57; Admin Dose 20 MG; Start 01/09/19 at 21:00 Diagnostic Test (Pha) (Accu-Chek) 1 ea 02 XX Last administered on 01/11/19 02: 11; Admin Dose 1 EA; Start 01/10/19 at 02:00 Insulin Glargine (Lantus) 27 units DAILY@2000 SC Last administered on 01/10/19 21:28; Admin Dose 27 UNITS; Start 01/09/19 at 20:00 Insulin Aspart (Novolog Insulin Pen) NOVOLOG *MILD* ALGORITHM WITH MEALS BEDTIME SC Last administered on 01/11/19 11:58; Admin Dose 1 UNIT; Start 01/09/19 at 18:00 Famotidine (Pepcid) 20 mg DAILY PO Last administered on 01/11/19 08:16; Admin Dose 20 MG; Start 01/10/19 at 09:00 Metformin HCl (Glucophage Xr) 500 mg BID PO Last administered on 01/11/19 08:17; Admin Dose 500 MG; Start 01/09/19 at 21:00 Empaglifozin (Jardiance) 10 mg DAILY@08 PO Last administered on 01/11/19 07:53; Admin Dose 10 MG; Start 01/10/19 at 08:00 Linagliptin (Tradjenta) 5 mg DAILY PO Last administered on 01/11/19 08:16; Admin Dose 5 MG; Start 01/10/19 at 09:00 Morphine Sulfate (morphine) 6 mg Q4H PRN PO SEVERE PAIN LEVEL 7-10; Start 01/09/19 at 23:00 Lisinopril (Zestril) 10 mg BID PO Last administered on 01/11/19 08:17; Admin Dose 10 MG; Start 01/10/19 at 21:00 Furosemide (Lasix) 40 mg DAILY IV Last administered on 2/13/19at 08:17; Admin Dose 40 MG; Start 01/11/19 at 09:00 Insulin Aspart (Novolog Insulin Pen) 10 unit WITH MEALS SC ; Start 01/11/19 at 18:00 ALEX CHOU MD Jan 11, 2019 13:28
--- NOTE | 2019-01-11 14:59 | CONS ---
Assessment/Plan Cardiology NYHA: II Heart Failure Type: Acute on Chronic Heart Failure Type: Systolic Assessment/Plan Hospital Course (Demo Recall) Acute decompensated systolic congestive heart failure Cardia myopathy with ejection fraction 30-35% Hypertension Atrial fibrillation Uncontrolled diabetes ? History of coronary artery disease -Patient with improvement in volume status, change Lasix to p.o. starting from tomorrow -Continue beta-ricardo, titrate dose of TEE inhibitor for afterload reduction as tolerated -Patient with atrial fibrillation, patient with multiple risk factors for thromboembolic events, would continue anticoagulation at the current time unless any contraindication-case management involvement to confirm approval of novel anticoagulant -Maintain potassium above 4.0 and magnesium above 2.0 -Diabetes management Consultation Date/Type/Reason Admit Date/Time Jan 07, 2019 at 19:58 Initial Consult Date 01/09/19 Type of Consult Cardiology Requesting Provider: NAVARRO ROBLES Date/Time of Note DATE: 01/11/19 TIME: 14:56 24 HR Interval Summary Free Text/Dictation Shortness of breath is improved. Denies palpitations, chest pain Exam/Review of Systems Vital Signs Vitals Vital Signs Date Temp Pulse Resp B/P (MAP) Pulse Ox O2 O2 Flow FiO2 Time Delivery Rate 01/11/19 94 12:24 01/11/19 98.0 17 101/63 94 11:28 (76) 01/11/19 Nasal 2.0 07:36 Cannula 01/11/19 28 02:46 Intake and Output 01/10/19 01/10/19 01/11/19 1515:00 23:00 07:00 IntakeIntake Total 1300 ml 425 ml OutputOutput Total 900 ml 2000 ml BalanceBalance 400 ml -1575 ml Exam Constitutional: alert, oriented (No apparent distress) Respiratory: other (Coarse breath sounds bilaterally, no wheezing) Cardiovascular: irregular rhythm, other (S1-S2 heard) Gastrointestinal: soft, non-tender, bowel sounds Extremities: edema (Trace) Labs Result Diagram: 01/10/19 0501 01/11/19 0437 Results 24hrs Laboratory Tests Test 01/10/19 17:12 01/10/19 20:53 01/11/19 01:47 01/11/19 04:37 Bedside Glucose 140 183 115 Sodium Level 141 Potassium Level 3.8 Chloride Level 101 Carbon Dioxide Level 28 Anion Gap 12 Blood Urea Nitrogen 21 H Creatinine 0.87 Est Glomerular Filtrat Rate mL/min Glucose Level 166 Calcium Level 9.7 Test 01/11/19 07:42 01/11/19 11:47 Bedside Glucose 168 171 Medications Medications Current Medications IV Flush (NS 3 ml) 3 ml PER PROTOCOL IV ; Start 01/07/19 at 21:00 Ondansetron HCl (Zofran Inj) 4 mg Q6H PRN IV NAUSEA/VOMITING; Start 01/07/19 at 21:00 Acetaminophen (Tylenol Tab) 650 mg Q6H PRN PO .PAIN 1-3 OR TEMP Last administered on 01/10/19at 17:51; Admin Dose 650 MG; Start 01/07/19 at 21:00 Miscellaneous Information 1 ea NOTE XX ; Start 01/08/19 at 03:00 Glucose (Glutose) 15 gm Q15M PRN PO DECREASED GLUCOSE; Start 01/08/19 at 03:00 Glucose (Glutose) 22.5 gm Q15M PRN PO DECREASED GLUCOSE; Start 01/08/19 at 03:00 Dextrose (D50w Syringe) 25 ml Q15M PRN IV DECREASED GLUCOSE; Start 01/08/19 at 03:00 Dextrose (D50w Syringe) 50 ml Q15M PRN IV DECREASED GLUCOSE; Start 01/08/19 at 03:00 Glucagon (Glucagen) 1 mg Q15M PRN IM DECREASED GLUCOSE; Start 01/08/19 at 03:00 Glucose (Glutose) 15 gm Q15M PRN BUCCAL DECREASED GLUCOSE; Start 01/08/19 at 03:00 Hydralazine HCl (Apresoline) 10 mg Q6H PRN IV SBP >170 Last administered on 01/09/19at 18:41; Admin Dose 10 MG; Start 01/09/19 at 14:30 Carvedilol (Coreg) 6.25 mg BID PO Last administered on 01/11/19at 08:17; Admin Dose 6.25 MG; Start 01/10/19 at 09:00 Apixaban (Eliquis) 5 mg BID PO Last administered on 01/11/19at 08:16; Admin Dose 5 MG; Start 01/09/19 at 21:00 Atorvastatin Calcium (Lipitor) 20 mg HS PO Last administered on 01/10/19at 20:57; Admin Dose 20 MG; Start 01/09/19 at 21:00 Diagnostic Test (Pha) (Accu-Chek) 1 ea 02 XX Last administered on 01/11/19 02:11; Admin Dose 1 EA; Start 01/10/19 at 02:00 Insulin Glargine (Lantus) 27 units DAILY@2000 SC Last administered on 01/10/19 21:28; Admin Dose 27 UNITS; Start 01/09/19 at 20:00 Insulin Aspart (Novolog Insulin Pen) NOVOLOG *MILD* ALGORITHM WITH MEALS BEDTIME SC Last administered on 01/11/19 11:58; Admin Dose 1 UNIT; Start 01/09/19 at 18:00 Famotidine (Pepcid) 20 mg DAILY PO Last administered on 01/11/19 08:16; Admin Dose 20 MG; Start 01/10/19 at 09:00 Metformin HCl (Glucophage Xr) 500 mg BID PO Last administered on 01/11/19 08 :17; Admin Dose 500 MG; Start 01/09/19 at 21:00 Empaglifozin (Jardiance) 10 mg DAILY@08 PO Last administered on 01/11/19 07:53; Admin Dose 10 MG; Start 01/10/19 at 08:00 Linagliptin (Tradjenta) 5 mg DAILY PO Last administered on 01/11/19 08:16; Admin Dose 5 MG; Start 01/10/19 at 09:00 Morphine Sulfate (morphine) 6 mg Q4H PRN PO SEVERE PAIN LEVEL 7-10; Start 01/09/19 at 23:00 Lisinopril (Zestril) 10 mg BID PO Last administered on 01/11/19 08:17; Admin Dose 10 MG; Start 01/10/19 at 21:00 Furosemide (Lasix) 40 mg DAILY IV Last administered on 01/11/19 08:17; Admin Dose 40 MG; Start 01/11/19 at 09:00 Insulin Aspart (Novolog Insulin Pen) 10 unit WITH MEALS SC ; Start 01/11/19 at 18:00 Margarito Whitehead DO Jan 11, 2019 14:59
[2019-01-11] MEDS: ATORVASTATIN 20 MG TAB PO SCH (21:25)
[2019-01-11] MEDS: INSULIN GLARGINE [LANTus] (100 UNITS/ML) SYG SC SCH (21:35)
[2019-01-11] MEDS: ACETAMINOPHEN 325 MG TAB PO PRN (23:15)
[2019-01-12] VITALS (11 sets, daily range): BP systolic 103–145; BP diastolic 73–88; PULSE 62–92; RESP 18–20
[2019-01-12] MEDS: ACCU-CHEK XX SCH (02:00)
[2019-01-12] MEDS: ACETAMINOPHEN 325 MG TAB PO PRN ×2 (05:42→19:31)
[2019-01-12] MEDS: INSULIN ASPART [NOVOLOG] 3 ML PEN SC SCH ×7 (07:22→20:28)
[2019-01-12] MEDS: EMPAGLIFLOZIN 10 MG TABLET PO SCH (07:39)
[2019-01-12] MEDS: LINAGLIPTIN 5 MG TABLET PO SCH (07:39)
[2019-01-12] MEDS: APIXABAN 5 MG TABLET PO SCH (07:39)
[2019-01-12] MEDS: FAMOTIDINE 20 MG TAB PO SCH (07:39)
[2019-01-12] MEDS: LISINOPRIL 10 MG TAB PO SCH ×2 (07:39→20:28)
[2019-01-12] MEDS: metFORMIN (XR) 500 MG TAB PO SCH ×2 (07:40→20:27)
[2019-01-12] MEDS: FUROSEMIDE 40 MG TAB PO SCH (08:42)
--- NOTE | 2019-01-12 13:42 | CONS ---
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 Cont. current insulin doses and non- insulin therapies. Should be continued like this after d/c. 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 Qualified Codes: E11.21 - Type 2 diabetes mellitus with diabetic nephropathy; Z79.4 - longterm (current) use of insulin Consultation Date/Type/Reason Admit Date/Time Jan 07, 2019 at 19:58 Initial Consult Date 01/09/19 Type of Consult Endocrinology Reason for Consultation [id number] Requesting Provider: NAVARRO ROBLES Date/Time of Note DATE: 01/12/19 TIME: 13:40 24 HR Interval Summary Constitutional: no complaints, improved Detailed Summary Respiratory: no complaints; No cough, No pleuritic pain, No shortness of breath Cardiovascular: no complaints; No chest pain Gastrointestinal: no complaints Genitourinary: no complaints Musculoskeletal: no complaints Neurologic: no complaints Exam/Review of Systems Exam Vitals VS - Last 72 Hours, by Label Date Temp Pulse Resp B/P (MAP) Pulse Ox O2 O2 Flow FiO2 Time Delivery Rate 01/12/19 80 12:30 01/12/19 98.0 71 20 103/76 96 Nasal 11:12 (85) Cannula 01/12/19 92 08:22 01/12/19 Nasal 2.0 08:00 Cannula 01/12/19 98.0 68 20 125/88 97 Nasal 07:46 (100) Cannula 01/12/19 98.0 62 20 121/81 95 04:16 (94) 01/12/19 67 04:00 01/12/19 Nasal 2.0 02:20 Cannula 01/12/19 98.1 63 18 137/82 95 00:22 (100) 01/12/19 80 00:00 01/11/19 2.0 20:56 01/11/19 Nasal 2.0 20:50 Cannula 01/11/19 98.1 96 18 117/69 96 20:00 (85) 01/11/19 86 20:00 01/11/19 2.0 28 17:20 01/11/19 81 16:38 01/11/19 98.4 88 20 95/78 (84) 97 15:36 01/11/19 94 12:24 01/11/19 98.0 55 17 101/63 94 11:28 (76) 01/11/19 98.5 80 18 131/77 97 08:37 (95) 01/11/19 89 08:17 01/11/19 Nasal 2.0 07:36 Cannula 01/11/19 82 04:00 01/11/19 98.1 81 19 126/83 98 03:54 (97) 01/11/19 2.0 28 02:46 01/11/19 Nasal 2.0 01:36 Cannula 01/11/19 89 00:00 01/10/19 98.0 90 19 139/89 98 23:37 (106) 01/10/19 97 2.0 28 21:30 01/10/19 Nasal 2.0 21:00 Cannula 01/10/19 92 20:00 01/10/19 98.1 81 19 117/93 97 19:42 (101) 01/10/19 81 16:01 01/10/19 97.8 79 19 147/104 95 15:20 (118) 01/10/19 85 12:01 01/10/19 98.6 85 17 128/80 98 11:48 (96) 01/10/19 94 08:01 01/10/19 Nasal 2.0 07:29 Cannula 01/10/19 97.8 76 18 156/93 96 07:29 (114) 01/10/19 84 04:00 01/10/19 98.0 80 18 147/65 99 03:43 (92) 01/10/19 2.0 03:29 01/10/19 94 00:00 01/09/19 97.5 76 18 155/69 99 23:32 (97) 01/09/19 2.0 23:00 01/09/19 Nasal 2.0 20:55 Cannula 01/09/19 94 20:00 01/09/19 97.6 84 18 163/72 98 19:54 (102) 01/09/19 97.9 82 18 217/119 97 16:01 (151) 01/09/19 89 16:01 01/09/19 18 160/87 99 15:17 (111) 01/09/19 Nasal 2.0 14:15 Cannula Vital Signs Date Temp Pulse Resp B/P (MAP) Pulse Ox O2 O2 Flow FiO2 Time Delivery Rate 01/12/19 80 12:30 01/12/19 98.0 20 103/76 96 Nasal 11:12 (85) Cannula 01/12/19 2.0 08:00 01/11/19 28 17:20 Intake and Output 01/11/19 01/11/19 01/12/19 1515:00 23:00 07:00 IntakeIntake Total 950 ml 500 ml OutputOutput Total 1000 ml 900 ml BalanceBalance -50 ml -400 ml Constitutional: alert, oriented, obese Psych: no complaints, nl mood/affect Respiratory: clear to auscultation, normal air movement Cardiovascular: regular rate and rhythm, nl pulses; No edema, No murmurs/extra sounds, No rub Gastrointestinal: soft, nl liver, spleen, non-tender, bowel sounds; No mass, No rebound or guarding Musculoskeletal: nl extremities to inspection Extremities: normal pulses; No cyanosis, No clubbing, No edema Neurological: OCCASIONAL BABYSITTER II-XII intact, nl mental status, nl speech, nl strength Additional Comments Bedside Glucose - 72 Hours Test 01/09/19 17:09 01/09/19 20:11 01/10/19 00:38 01/10/19 07:45 Bedside 260 200 178 239 Glucose mg/dL (70-220) mg/dL (70-220) mg/dL (70-220) mg/dL (70-220) H H Test 01/10/19 11:44 01/10/19 17:12 01/10/19 20:53 01/11/19 01:47 Bedside 174 140 183 115 Glucose mg/dL (70-220) mg/dL (70-220) mg/dL (70-220) mg/dL (70-220) Test 01/11/19 07:42 01/11/19 11:47 01/11/19 17:17 01/11/19 21:28 Bedside 168 171 98 103 Glucose mg/dL (70-220) mg/dL (70-220) mg/dL (70-220) mg/dL (70-220) Test 01/12/19 07:22 01/12/19 11:42 Bedside 114 151 Glucose mg/dL (70-220) mg/dL (70-220) Results Result Diagram: 01/10/19 0501 01/12/19 0500 Results 24hrs Laboratory Tests Test 01/11/19 17:17 01/11/19 21:28 01/12/19 05:00 01/12/19 07:22 Bedside Glucose 98 103 114 Sodium Level 139 Potassium Level 3.5 Chloride Level 100 Carbon Dioxide Level 27 Anion Gap 12 Blood Urea Nitrogen 26 H Creatinine 0.83 Est Glomerular Filtrat Rate mL/min Glucose Level 114 # Calcium Level 9.4 Test 01/12/19 11:42 Bedside Glucose 151 Medications Medication Current Medications IV Flush (NS 3 ml) 3 ml PER PROTOCOL IV ; Start 01/07/19 at 21:00 Ondansetron HCl (Zofran Inj) 4 mg Q6H PRN IV NAUSEA/VOMITING; Start 01/07/19 at 21:00 Acetaminophen (Tylenol Tab) 650 mg Q6H PRN PO .PAIN 1-3 OR TEMP Last administered on 01/12/19at 05:42; Admin Dose 650 MG; Start 01/07/19 at 21:00 Miscellaneous Information 1 ea NOTE XX ; Start 01/08/19 at 03:00 Glucose (Glutose) 15 gm Q15M PRN PO DECREASED GLUCOSE; Start 01/08/19 at 03:00 Glucose (Glutose) 22.5 gm Q15M PRN PO DECREASED GLUCOSE; Start 01/08/19 at 03:00 Dextrose (D50w Syringe) 25 ml Q15M PRN IV DECREASED GLUCOSE; Start 01/08/19 at 03:00 Dextrose (D50w Syringe) 50 ml Q15M PRN IV DECREASED GLUCOSE; Start 01/08/19 at 03:00 Glucagon (Glucagen) 1 mg Q15M PRN IM DECREASED GLUCOSE; Start 01/08/19 at 03:00 Glucose (Glutose) 15 gm Q15M PRN BUCCAL DECREASED GLUCOSE; Start 01/08/19 at 03 :00 Hydralazine HCl (Apresoline) 10 mg Q6H PRN IV SBP >170 Last administered on 01/09/19at 18:41; Admin Dose 10 MG; Start 01/09/19 at 14:30 Carvedilol (Coreg) 6.25 mg BID PO Last administered on 01/12/19at 07:39; Admin Dose 6.25 MG; Start 01/10/19 at 09:00 Apixaban (Eliquis) 5 mg BID PO Last administered on 01/12/19at 07:39; Admin Dose 5 MG; Start 01/09/19 at 21:00 Atorvastatin Calcium (Lipitor) 20 mg HS PO Last administered on 01/11/19 21:25; Admin Dose 20 MG; Start 01/09/19 at 21:00 Diagnostic Test (Pha) (Accu-Chek) 1 ea 02 XX Last administered on 01/11/19 02:11; Admin Dose 1 EA; Start 01/10/19 at 02:00 Insulin Glargine (Lantus) 27 units DAILY@2000 SC Last administered on 01/11/19 21:35; Admin Dose 27 UNITS; Start 01/09/19 at 20:00 Insulin Aspart (Novolog Insulin Pen) NOVOLOG *MILD* ALGORITHM WITH MEALS BEDTIME SC Last administered on 01/12/19 11:46; Admin Dose 1 UNIT; Start 01/09/19 at 18:00 Famotidine (Pepcid) 20 mg DAILY PO Last administered on 01/12/19 07:39; Admin Dose 20 MG; Start 01/10/19 at 09:00 Metformin HCl (Glucophage Xr) 500 mg BID PO Last administered on 01/12/19 07:40; Admin Dose 500 MG; Start 01/09/19 at 21:00 Empaglifozin (Jardiance) 10 mg DAILY@08 PO Last administered on 01/12/19 07:39; Admin Dose 10 MG; Start 01/10/19 at 08:00 Linagliptin (Tradjenta) 5 mg DAILY PO Last administered on 01/12/19 07:39; Admin Dose 5 MG; Start 01/10/19 at 09:00 Morphine Sulfate (morphine) 6 mg Q4H PRN PO SEVERE PAIN LEVEL 7-10; Start 01/09/19 at 23:00 Lisinopril (Zestril) 10 mg BID PO Last administered on 01/12/19 07:39; Admin Dose 10 MG; Start 01/10/19 at 21:00 Insulin Aspart (Novolog Insulin Pen) 10 unit WITH MEALS SC Last administered on 01/12/19 11:46; Admin Dose 10 UNIT; Start 01/11/19 at 18:00 Furosemide (Lasix) 40 mg DAILY PO Last administered on 01/12/19 08:42; Admin Dose 40 MG; Start 01/12/19 at 09:00 ALEX CHOU MD Jan 12, 2019 13:42
--- NOTE | 2019-01-12 15:37 | PN ---
Date/Time of Note Date/Time of Note DATE: 01/12/19 TIME: 15:36 Assessment/Plan VTE Prophylaxis Risk score (from Ns)>0 risk: 5 SCD applied (from Ns): Yes Pharmacological prophylaxis: apixaban Lines/Catheters IV [facility]ter [facility]from [facility] [place] [employer] line still needed: Yes Urinary Cath still in place: Yes Reason Cath still needed: urinary retention Assessment/Plan Hospital Course Patient is awake alert able to ambulate with physical therapy, will try to wean oxygen if possible, DC Reyes, continue to monitor postvoid residual. Blood sugar is well controlled. Assessment/Plan -Acute decompensated systolic congestive heart failure. Continue Lasix. Dr Whitehead is following in cardiology consultation. -Ischemic cardiomyopathy with ejection fraction 35%. -Atrial fibrillation. Continue Eliquis. -Hypertension, continue Coreg and lisinopril. -Diabetes mellitus type 2 with hemoglobin A1c of 13.7. Continue Lantus and pre- meal NovoLog. Dr. Sahni is following in endocrinology consultation. Further recommendations based on clinical course. Plan of care discussed with Dr. Richards. Result Diagram: 01/10/19 0501 01/12/19 0500 Results 24hrs Laboratory Tests Test 01/11/19 17:17 01/11/19 21:28 01/12/19 05:00 01/12/19 07:22 Bedside Glucose 98 103 114 Sodium Level 139 Potassium Level 3.5 Chloride Level 100 Carbon Dioxide Level 27 Anion Gap 12 Blood Urea Nitrogen 26 H Creatinine 0.83 Est Glomerular Filtrat Rate mL/min Glucose Level 114 # Calcium Level 9.4 Test 01/12/19 11:42 Bedside Glucose 151 Exam/Review of Systems Exam Vitals Vital Signs Date Temp Pulse Resp B/P (MAP) Pulse Ox O2 O2 Flow FiO2 Time Delivery Rate 01/12/19 98.0 74 20 145/82 97 Nasal 15:20 (103) Cannula 01/12/19 2.0 09:45 01/11/19 28 17:20 Intake and Output 01/11/19 01/11/19 01/12/19 1515:00 23:00 07:00 IntakeIntake Total 950 ml 500 ml OutputOutput Total 1000 ml 900 ml BalanceBalance -50 ml -400 ml Exam Constitutional: alert, oriented Neck: supple Respiratory: clear to auscultation Cardiovascular: irregular rhythm Gastrointestinal: soft, non-tender Musculoskeletal: nl extremities to inspection Extremities: normal pulses Neurological: nl mental status Results Results 24hrs Laboratory Tests Test 01/11/19 17:17 01/11/19 21:28 01/12/19 05:00 01/12/19 07:22 Bedside Glucose 98 103 114 Sodium Level 139 Potassium Level 3.5 Chloride Level 100 Carbon Dioxide Level 27 Anion Gap 12 Blood Urea Nitrogen 26 H Creatinine 0.83 Est Glomerular Filtrat Rate mL/min Glucose Level 114 # Calcium Level 9.4 Test 01/12/19 11:42 Bedside Glucose 151 Medications Medication Current Medications IV Flush (NS 3 ml) 3 ml PER PROTOCOL IV ; Start 01/07/19 at 21:00 Ondansetron HCl (Zofran Inj) 4 mg Q6H PRN IV NAUSEA/VOMITING; Start 01/07/19 at 21:00 Acetaminophen (Tylenol Tab) 650 mg Q6H PRN PO .PAIN 1-3 OR TEMP Last administered on 01/12/19at 05:42; Admin Dose 650 MG; Start 01/07/19 at 21:00 Miscellaneous Information 1 ea NOTE XX ; Start 01/08/19 at 03:00 Glucose (Glutose) 15 gm Q15M PRN PO DECREASED GLUCOSE; Start 01/08/19 at 03:00 Glucose (Glutose) 22.5 gm Q15M PRN PO DECREASED GLUCOSE; Start 01/08/19 at 03:00 Dextrose (D50w Syringe) 25 ml Q15M PRN IV DECREASED GLUCOSE; Start 01/08/19 at 03:00 Dextrose (D50w Syringe) 50 ml Q15M PRN IV DECREASED GLUCOSE; Start 01/08/19 at 03:00 Glucagon (Glucagen) 1 mg Q15M PRN IM DECREASED GLUCOSE; Start 01/08/19 at 03:00 Glucose (Glutose) 15 gm Q15M PRN BUCCAL DECREASED GLUCOSE; Start 01/08/19 at 03:00 Hydralazine HCl (Apresoline) 10 mg Q6H PRN IV SBP >170 Last administered on 01/09/19at 18:41; Admin Dose 10 MG; Start 01/09/19 at 14:30 Carvedilol (Coreg) 6.25 mg BID PO Last administered on 01/12/19at 07:39; Admin Dose 6.25 MG; Start 01/10/19 at 09:00 Apixaban (Eliquis) 5 mg BID PO Last administered on 01/12/19 07:39; Admin Dose 5 MG; Start 01/09/19 at 21:00 Atorvastatin Calcium (Lipitor) 20 mg HS PO Last administered on 01/11/19 21:25; Admin Dose 20 MG; Start 01/09/19 at 21:00 Diagnostic Test (Pha) (Accu-Chek) 1 ea 02 XX Last administered on 01/11/19 02:11; Admin Dose 1 EA; Start 01/10/19 at 02:00 Insulin Glargine (Lantus) 27 units DAILY@2000 SC Last administered on 01/11/19 21:35; Admin Dose 27 UNITS; Start 01/09/19 at 20:00 Insulin Aspart (Novolog Insulin Pen) NOVOLOG *MILD* ALGORITHM WITH MEALS BEDTIME SC Last administered on 01/12/19 11:46; Admin Dose 1 UNIT; Start 01/09/19 at 18:00 Famotidine (Pepcid) 20 mg DAILY PO Last administered on 01/12/19 07:39; Admin Dose 20 MG; Start 01/10/19 at 09:00 Metformin HCl (Glucophage Xr) 500 mg BID PO Last administered on 01/12/19 07:40; Admin Dose 500 MG; Start 01/09/19 at 21:00 Empaglifozin (Jardiance) 10 mg DAILY@08 PO Last administered on 01/12/19 07:39; Admin Dose 10 MG; Start 01/10/19 at 08:00 Linagliptin (Tradjenta) 5 mg DAILY PO Last administered on 01/12/19 07:39; Admin Dose 5 MG; Start 01/10/19 at 09:00 Morphine Sulfate (morphine) 6 mg Q4H PRN PO SEVERE PAIN LEVEL 7-10; Start 01/09/19 at 23:00 Lisinopril (Zestril) 10 mg BID PO Last administered on 01/12/19 07:39; Admin Dose 10 MG; Start 01/10/19 at 21:00 Insulin Aspart (Novolog Insulin Pen) 10 unit WITH MEALS SC Last administered on 01/12/19 11:46; Admin Dose 10 UNIT; Start 01/11/19 at 18:00 Furosemide (Lasix) 40 mg DAILY PO Last administered on 01/12/19at 08:42; Admin Dose 40 MG; Start 01/12/19 at 09:00 NAVARRO ROBLES Jan 12, 2019 15:37
--- NOTE | 2019-01-12 16:24 | CONS ---
Assessment/Plan Cardiology NYHA: II Heart Failure Type: Acute on Chronic Heart Failure Type: Systolic Assessment/Plan Hospital Course (Demo Recall) Acute decompensated systolic congestive heart failure Cardia myopathy with ejection fraction 30-35% Hypertension Atrial fibrillation Uncontrolled diabetes ? History of coronary artery disease -Patient with improvement in volume status, continue Lasix p.o. -Continue beta-ricardo, titrate dose of TEE inhibitor for afterload reduction as tolerated -Patient with atrial fibrillation, patient with multiple risk factors for thromb oembolic events, as per case management note, Eliquis is not approved with insurance, but Xarelto is. I will make the adjustment -Maintain potassium above 4.0 and magnesium above 2.0 -Diabetes management -DC planning Consultation Date/Type/Reason Admit Date/Time Jan 07, 2019 at 19:58 Initial Consult Date 01/09/19 Type of Consult Cardiology Requesting Provider: NAVARRO ROBLES Date/Time of Note DATE: 01/12/19 TIME: 16:20 24 HR Interval Summary Free Text/Dictation Shortness of breath continues to improve. Denies chest pain, palpitations Exam/Review of Systems Vital Signs Vitals Vital Signs Date Temp Pulse Resp B/P (MAP) Pulse Ox O2 O2 Flow FiO2 Time Delivery Rate 01/12/19 77 16:16 01/12/19 98.0 20 145/82 97 Nasal 15:20 (103) Cannula 01/12/19 2.0 09:45 01/11/19 28 17:20 Intake and Output 01/11/19 01/11/19 01/12/19 1515:00 23:00 07:00 IntakeIntake Total 950 ml 500 ml OutputOutput Total 1000 ml 900 ml BalanceBalance -50 ml -400 ml Exam Constitutional: alert, oriented (No apparent distress) Respiratory: other (Coarse breath sounds bilaterally, no wheezing) Cardiovascular: irregular rhythm, other (S1-S2 heard) Gastrointestinal: soft, non-tender, bowel sounds Extremities: edema Labs Result Diagram: 01/10/19 0501 01/12/19 0500 Results 24hrs Laboratory Tests Test 01/11/19 17:17 01/11/19 21:28 01/12/19 05:00 01/12/19 07:22 Bedside Glucose 98 103 114 Sodium Level 139 Potassium Level 3.5 Chloride Level 100 Carbon Dioxide Level 27 Anion Gap 12 Blood Urea Nitrogen 26 H Creatinine 0.83 Est Glomerular Filtrat Rate mL/min Glucose Level 114 # Calcium Level 9.4 Test 01/12/19 11:42 Bedside Glucose 151 Medications Medications Current Medications IV Flush (NS 3 ml) 3 ml PER PROTOCOL IV ; Start 01/07/19 at 21:00 Ondansetron HCl (Zofran Inj) 4 mg Q6H PRN IV NAUSEA/VOMITING; Start 01/07/19 at 21:00 Acetaminophen (Tylenol Tab) 650 mg Q6H PRN PO .PAIN 1-3 OR TEMP Last administer ed on 01/12/19at 05:42; Admin Dose 650 MG; Start 01/07/19 at 21:00 Miscellaneous Information 1 ea NOTE XX ; Start 01/08/19 at 03:00 Glucose (Glutose) 15 gm Q15M PRN PO DECREASED GLUCOSE; Start 01/08/19 at 03:00 Glucose (Glutose) 22.5 gm Q15M PRN PO DECREASED GLUCOSE; Start 01/08/19 at 03:00 Dextrose (D50w Syringe) 25 ml Q15M PRN IV DECREASED GLUCOSE; Start 01/08/19 at 03:00 Dextrose (D50w Syringe) 50 ml Q15M PRN IV DECREASED GLUCOSE; Start 01/08/19 at 03:00 Glucagon (Glucagen) 1 mg Q15M PRN IM DECREASED GLUCOSE; Start 01/08/19 at 03:00 Glucose (Glutose) 15 gm Q15M PRN BUCCAL DECREASED GLUCOSE; Start 01/08/19 at 03:00 Hydralazine HCl (Apresoline) 10 mg Q6H PRN IV SBP >170 Last administered on 01/09/19at 18:41; Admin Dose 10 MG; Start 01/09/19 at 14:30 Carvedilol (Coreg) 6.25 mg BID PO Last administered on 01/12/19at 07:39; Admin Dose 6.25 MG; Start 01/10/19 at 09:00 Apixaban (Eliquis) 5 mg BID PO Last administered on 01/12/19at 07:39; Admin Dose 5 MG; Start 01/09/19 at 21:00 Atorvastatin Calcium (Lipitor) 20 mg HS PO Last administered on 01/11/19at 21:25; Admin Dose 20 MG; Start 01/09/19 at 21:00 Diagnostic Test (Pha) (Accu-Chek) 1 ea 02 XX Last administered on 01/11/19 02:11; Admin Dose 1 EA; Start 01/10/19 at 02:00 Insulin Glargine (Lantus) 27 units DAILY@2000 SC Last administered on 01/11/19 21:35; Admin Dose 27 UNITS; Start 01/09/19 at 20:00 Insulin Aspart (Novolog Insulin Pen) NOVOLOG *MILD* ALGORITHM WITH MEALS BEDTIME SC Last administered on 01/12/19 11:46; Admin Dose 1 UNIT; Start 01/09/19 at 18:00 Famotidine (Pepcid) 20 mg DAILY PO Last administered on 01/12/19 07:39; Admin Dose 20 MG; Start 01/10/19 at 09:00 Metformin HCl (Glucophage Xr) 500 mg BID PO Last administered on 01/12/19 07:40; Admin Dose 500 MG; Start 01/09/19 at 21:00 Empaglifozin (Jardiance) 10 mg DAILY@08 PO Last administered on 01/12/19 07:39; Admin Dose 10 MG; Start 01/10/19 at 08:00 Linagliptin (Tradjenta) 5 mg DAILY PO Last administered on 01/12/19 07:39; Admin Dose 5 MG; Start 01/10/19 at 09:00 Morphine Sulfate (morphine) 6 mg Q4H PRN PO SEVERE PAIN LEVEL 7-10; Start 01/09/19 at 23:00 Lisinopril (Zestril) 10 mg BID PO Last administered on 01/12/19 07:39; Admin Dose 10 MG; Start 01/10/19 at 21:00 Insulin Aspart (Novolog Insulin Pen) 10 unit WITH MEALS SC Last administered on 01/12/19 11:46; Admin Dose 10 UNIT; Start 01/11/19 at 18:00 Furosemide (Lasix) 40 mg DAILY PO Last administered on 01/12/19 08:42; Admin Dose 40 MG; Start 01/12/19 at 09:00 Margarito Whitehead DO Jan 12, 2019 16:24
[2019-01-12] MEDS ORDERED: RIVAROXABAN 20 MG TABLET PO SCH (18:00)
[2019-01-12] MEDS: RIVAROXABAN 15 MG TABLET PO SCH (18:57)
[2019-01-12] MEDS: ATORVASTATIN 20 MG TAB PO SCH (20:26)
[2019-01-12] MEDS: INSULIN GLARGINE [LANTus] (100 UNITS/ML) SYG SC SCH (21:14)
[2019-01-13] VITALS (11 sets, daily range): BP systolic 106–147; BP diastolic 52–88; PULSE 52–82; RESP 17–20
[2019-01-13] MEDS: ACCU-CHEK XX SCH (02:00)
[2019-01-13] MEDS: INSULIN ASPART [NOVOLOG] 3 ML PEN SC SCH ×7 (07:34→21:00)
--- NOTE | 2019-01-13 07:41 | CONS ---
Assessment/Plan Cardiology NYHA: II Heart Failure Type: Acute on Chronic Heart Failure Type: Systolic Assessment/Plan Assessment/Plan (Daily) Acute decompensated systolic congestive heart failure Cardia myopathy with ejection fraction 30-35% Hypertension Atrial fibrillation Uncontrolled diabetes ? History of coronary artery disease -Patient with improvement in volume status, continue Lasix p.o. -Continue beta-ricardo, titrate dose of TEE inhibitor for afterload reduction as tolerated -Patient with atrial fibrillation, patient with multiple risk factors for thromboembolic events, as per case management note, On xarelto -Diabetes management Consultation Date/Type/Reason Admit Date/Time Jan 07, 2019 at 19:58 Initial Consult Date 01/09/19 Type of Consult Cardiology Requesting Provider: NAVARRO ROBLES Date/Time of Note DATE: 01/13/19 TIME: 07:41 24 HR Interval Summary Free Text/Dictation The patient with no cahnge Exam/Review of Systems Vital Signs Vitals Vital Signs Date Temp Pulse Resp B/P (MAP) Pulse Ox O2 O2 Flow FiO2 Time Delivery Rate 01/13/19 98.0 75 20 116/69 93 Room Air 07:13 (85) 01/13/19 2.0 06:07 01/11/19 28 17:20 Intake and Output 01/12/19 01/12/19 01/13/19 1515:00 23:00 07:00 IntakeIntake Total 700 ml 240 ml OutputOutput Total 1100 ml BalanceBalance -400 ml 240 ml Labs Result Diagram: 01/10/19 0501 01/13/19 0546 Results 24hrs Laboratory Tests Test 01/12/19 11:42 01/12/19 16:56 01/12/19 20:24 01/13/19 05:46 Bedside Glucose 151 93 91 Sodium Level 139 Potassium Level 3.6 Chloride Level 102 Carbon Dioxide Level 27 Anion Gap 10 Blood Urea Nitrogen 29 H Creatinine 0.89 Est Glomerular Filtrat Rate mL/min Glucose Level 104 Calcium Level 9.6 Test 01/13/19 07:31 Bedside Glucose 107 Medications Medications Current Medications IV Flush (NS 3 ml) 3 ml PER PROTOCOL IV ; Start 01/07/19 at 21:00 Ondansetron HCl (Zofran Inj) 4 mg Q6H PRN IV NAUSEA/VOMITING; Start 01/07/19 at 21:00 Acetaminophen (Tylenol Tab) 650 mg Q6H PRN PO .PAIN 1-3 OR TEMP Last administered on 01/12/19at 19:31; Admin Dose 650 MG; Start 01/07/19 at 21:00 Miscellaneous Information 1 ea NOTE XX ; Start 01/08/19 at 03:00 Glucose (Glutose) 15 gm Q15M PRN PO DECREASED GLUCOSE; Start 01/08/19 at 03:00 Glucose (Glutose) 22.5 gm Q15M PRN PO DECREASED GLUCOSE; Start 01/08/19 at 03:00 Dextrose (D50w Syringe) 25 ml Q15M PRN IV DECREASED GLUCOSE; Start 01/08/19 at 03:00 Dextrose (D50w Syringe) 50 ml Q15M PRN IV DECREASED GLUCOSE; Start 01/08/19 at 03:00 Glucagon (Glucagen) 1 mg Q15M PRN IM DECREASED GLUCOSE; Start 01/08/19 at 03:00 Glucose (Glutose) 15 gm Q15M PRN BUCCAL DECREASED GLUCOSE; Start 01/08/19 at 03:00 Hydralazine HCl (Apresoline) 10 mg Q6H PRN IV SBP >170 Last administered on 01/09/19at 18:41; Admin Dose 10 MG; Start 01/09/19 at 14:30 Carvedilol (Coreg) 6.25 mg BID PO Last administered on 01/12/19at 20:28; Admin Dose 6.25 MG; Start 01/10/19 at 09:00 Atorvastatin Calcium (Lipitor) 20 mg HS PO Last administered on 01/12/19at 20:26; Admin Dose 20 MG; Start 01/09/19 at 21:00 Diagnostic Test (Pha) (Accu-Chek) 1 ea 02 XX Last administered on 01/11/19at 02:11; Admin Dose 1 EA; Start 01/10/19 at 02:00 Insulin Glargine (Lantus) 27 units DAILY@2000 SC Last administered on 01/12/19at 21:14; Admin Dose 27 UNITS; Start 01/09/19 at 20:00 Insulin Aspart (Novolog Insulin Pen) NOVOLOG *MILD* ALGORITHM WITH MEALS BEDTIME SC Last administered on 01/12/19at 11:46; Admin Dose 1 UNIT; Start 01/09/19 at 18:00 Famotidine (Pepcid) 20 mg DAILY PO Last administered on 01/12/19 07:39; Admin Dose 20 MG; Start 01/10/19 at 09:00 Metformin HCl (Glucophage Xr) 500 mg BID PO Last administered on 01/12/19 20:27; Admin Dose 500 MG; Start 01/09/19 at 21:00 Empaglifozin (Jardiance) 10 mg DAILY@08 PO Last administered on 01/12/19 07:39; Admin Dose 10 MG; Start 01/10/19 at 08:00 Linagliptin (Tradjenta) 5 mg DAILY PO Last administered on 01/12/19 07:39; Admin Dose 5 MG; Start 01/10/19 at 09:00 Morphine Sulfate (morphine) 6 mg Q4H PRN PO SEVERE PAIN LEVEL 7-10; Start 01/09/19 at 23:00 Lisinopril (Zestril) 10 mg BID PO Last administered on 01/12/19 20:28; Admin Dose 10 MG; Start 01/10/19 at 21:00 Insulin Aspart (Novolog Insulin Pen) 10 unit WITH MEALS SC Last administered o n 01/12/19 17:00; Admin Dose 10 UNIT; Start 01/11/19 at 18:00 Furosemide (Lasix) 40 mg DAILY PO Last administered on 01/12/19 08:42; Admin Dose 40 MG; Start 01/12/19 at 09:00 Rivaroxaban (Xarelto) 15 mg WITH DINNER PO Last administered on 01/12/19 18:57; Admin Dose 15 MG; Start 01/12/19 at 18:00 VASQUEZ BELTRÁN MD Jan 13, 2019 07:41
[2019-01-13] MEDS: FUROSEMIDE 40 MG TAB PO SCH (08:07)
[2019-01-13] MEDS: FAMOTIDINE 20 MG TAB PO SCH (08:08)
[2019-01-13] MEDS: LISINOPRIL 10 MG TAB PO SCH ×2 (08:08→21:32)
[2019-01-13] MEDS: metFORMIN (XR) 500 MG TAB PO SCH ×2 (08:08→21:23)
[2019-01-13] MEDS: LINAGLIPTIN 5 MG TABLET PO SCH (08:08)
[2019-01-13] MEDS: EMPAGLIFLOZIN 10 MG TABLET PO SCH (08:39)
--- NOTE | 2019-01-13 14:04 | CONS ---
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 Cont. current insulin and oral med doses. Ok for d/c from endo perspective when deemed ready by cardiology and primary team. 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 Consultation Date/Type/Reason Admit Date/Time Jan 07, 2019 at 19:58 Initial Consult Date 01/09/19 Type of Consult Endocrinology Reason for Consultation T2DM OOC Requesting Provider: NAVARRO ROBLES Date/Time of Note DATE: 01/13/19 TIME: 14:03 24 HR Interval Summary Constitutional: no complaints, improved; No requiring O2 Detailed Summary Respiratory: no complaints Cardiovascular: no complaints Gastrointestinal: no complaints Genitourinary: no complaints Musculoskeletal: no complaints Neurologic: no complaints Exam/Review of Systems Exam Vitals VS - Last 72 Hours, by Label Date Temp Pulse Resp B/P (MAP) Pulse Ox O2 O2 Flow FiO2 Time Delivery Rate 01/13/19 77 12:14 01/13/19 98.0 70 20 122/88 90 Room Air 11:30 (99) 01/13/19 79 08:35 01/13/19 98.0 75 20 116/69 93 Room Air 07:13 (85) 01/13/19 2.0 06:07 01/13/19 71 04:00 01/13/19 98.0 52 18 111/52 99 Nasal 04:00 (71) Cannula 01/13/19 70 00:00 01/13/19 97.5 68 18 106/70 94 00:00 (82) 01/12/19 2.0 23:52 01/12/19 Nasal 2.0 20:45 Cannula 01/12/19 98.0 88 18 128/73 93 20:00 (91) 01/12/19 79 20:00 01/12/19 2.0 17:55 01/12/19 77 16:16 01/12/19 98.0 74 20 145/82 97 Nasal 15:20 (103) Cannula 01/12/19 80 12:30 01/12/19 98.0 71 20 103/76 96 Nasal 11:12 (85) Cannula 01/12/19 98 2.0 09:45 01/12/19 92 08:22 01/12/19 Nasal 2.0 08:00 Cannula 01/12/19 98.0 68 20 125/88 97 Nasal 07:46 (100) Cannula 01/12/19 98.0 62 20 121/81 95 04:16 (94) 01/12/19 67 04:00 01/12/19 Nasal 2.0 02:20 Cannula 01/12/19 98.1 63 18 137/82 95 00:22 (100) 01/12/19 80 00:00 01/11/19 2.0 20:56 01/11/19 Nasal 2.0 20:50 Cannula 01/11/19 98.1 96 18 117/69 96 20:00 (85) 01/11/19 86 20:00 01/11/19 2.0 28 17:20 01/11/19 81 16:38 01/11/19 98.4 88 20 95/78 (84) 97 15:36 01/11/19 94 12:24 01/11/19 98.0 55 17 101/63 94 11:28 (76) 01/11/19 98.5 80 18 131/77 97 08:37 (95) 01/11/19 89 08:17 01/11/19 Nasal 2.0 07:36 Cannula 01/11/19 82 04:00 01/11/19 98.1 81 19 126/83 98 03:54 (97) 01/11/19 2.0 28 02:46 01/11/19 Nasal 2.0 01:36 Cannula 01/11/19 89 00:00 01/10/19 98.0 90 19 139/89 98 23:37 (106) 01/10/19 97 2.0 28 21:30 01/10/19 Nasal 2.0 21:00 Cannula 01/10/19 92 20:00 01/10/19 98.1 81 19 117/93 97 19:42 (101) 01/10/19 81 16:01 01/10/19 97.8 79 19 147/104 95 15:20 (118) Vital Signs Date Temp Pulse Resp B/P (MAP) Pulse Ox O2 O2 Flow FiO2 Time Delivery Rate 01/13/19 77 12:14 01/13/19 98.0 20 122/88 90 Room Air 11:30 (99) 01/13/19 2.0 06:07 01/11/19 28 17:20 Intake and Output 01/12/19 01/12/19 01/13/19 1515:00 23:00 07:00 IntakeIntake Total 700 ml 240 ml OutputOutput Total 1100 ml BalanceBalance -400 ml 240 ml Constitutional: alert, oriented, obese Respiratory: clear to auscultation, normal air movement Cardiovascular: regular rate and rhythm, nl pulses; No edema, No murmurs/extra sounds, No rub Gastrointestinal: soft, nl liver, spleen, non-tender, bowel sounds; No mass, No rebound or guarding Musculoskeletal: nl extremities to inspection Extremities: normal pulses; No cyanosis, No clubbing, No edema 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, nl mental status, nl speech, nl strength Additional Comments Bedside Glucose - 72 Hours Test 01/10/19 17:12 01/10/19 20:53 01/11/19 01:47 01/11/19 07:42 Bedside 140 183 115 168 Glucose mg/dL (70-220) mg/dL (70-220) mg/dL (70-220) mg/dL (70-220) Test 01/11/19 11:47 01/11/19 17:17 01/11/19 21:28 01/12/19 07:22 Bedside 171 98 103 114 Glucose mg/dL (70-220) mg/dL (70-220) mg/dL (70-220) mg/dL (70-220) Test 01/12/19 11:42 01/12/19 16:56 01/12/19 20:24 01/13/19 07:31 Bedside 151 93 91 107 Glucose mg/dL (70-220) mg/dL (70-220) mg/dL (70-220) mg/dL (70-220) Test 01/13/19 11:54 Bedside 100 Glucose mg/dL (70-220) Results Result Diagram: 01/10/19 0501 01/13/19 0546 Results 24hrs Laboratory Tests Test 01/12/19 16:56 01/12/19 20:24 01/13/19 05:46 01/13/19 07:31 Bedside Glucose 93 91 107 Sodium Level 139 Potassium Level 3.6 Chloride Level 102 Carbon Dioxide Level 27 Anion Gap 10 Blood Urea Nitrogen 29 H Creatinine 0.89 Est Glomerular Filtrat Rate mL/min Glucose Level 104 Calcium Level 9.6 Test 01/13/19 11:54 Bedside Glucose 100 Medications Medication Current Medications IV Flush (NS 3 ml) 3 ml PER PROTOCOL IV ; Start 01/07/19 at 21:00 Ondansetron HCl (Zofran Inj) 4 mg Q6H PRN IV NAUSEA/VOMITING; Start 01/07/19 at 21:00 Acetaminophen (Tylenol Tab) 650 mg Q6H PRN PO .PAIN 1-3 OR TEMP Last administered on 01/12/19at 19:31; Admin Dose 650 MG; Start 01/07/19 at 21:00 Miscellaneous Information 1 ea NOTE XX ; Start 01/08/19 at 03:00 Glucose (Glutose) 15 gm Q15M PRN PO DECREASED GLUCOSE; Start 01/08/19 at 03:00 Glucose (Glutose) 22.5 gm Q15M PRN PO DECREASED GLUCOSE; Start 01/08/19 at 03:00 Dextrose (D50w Syringe) 25 ml Q15M PRN IV DECREASED GLUCOSE; Start 01/08/19 at 03:00 Dextrose (D50w Syringe) 50 ml Q15M PRN IV DECREASED GLUCOSE; Start 01/08/19 at 03:00 Glucagon (Glucagen) 1 mg Q15M PRN IM DECREASED GLUCOSE; Start 01/08/19 at 03:00 Glucose (Glutose) 15 gm Q15M PRN BUCCAL DECREASED GLUCOSE; Start 01/08/19 at 03:00 Hydralazine HCl (Apresoline) 10 mg Q6H PRN IV SBP >170 Last administered on 01/09/19at 18:41; Admin Dose 10 MG; Start 01/09/19 at 14:30 Carvedilol (Coreg) 6.25 mg BID PO Last administered on 01/13/19at 08:07; Admin Dose 6.25 MG; Start 01/10/19 at 09:00 Atorvastatin Calcium (Lipitor) 20 mg HS PO Last administered on 01/12/19at 20:26; Admin Dose 20 MG; Start 01/09/19 at 21:00 Diagnostic Test (Pha) (Accu-Chek) 1 ea 02 XX Last administered on 01/11/19at 02:11; Admin Dose 1 EA; Start 01/10/19 at 02:00 Insulin Glargine (Lantus) 27 units DAILY@2000 SC Last administered on 01/12/19 21:14; Admin Dose 27 UNITS; Start 01/09/19 at 20:00 Insulin Aspart (Novolog Insulin Pen) NOVOLOG *MILD* ALGORITHM WITH MEALS BEDTIME SC Last administered on 01/12/19 11:46; Admin Dose 1 UNIT; Start 01/09/19 at 18:00 Famotidine (Pepcid) 20 mg DAILY PO Last administered on 01/13/19 08:08; Admin Dose 20 MG; Start 01/10/19 at 09:00 Metformin HCl (Glucophage Xr) 500 mg BID PO Last administered on 01/13/19 08:08; Admin Dose 500 MG; Start 01/09/19 at 21:00 Empaglifozin (Jardiance) 10 mg DAILY@08 PO Last administered on 01/13/19 08:39; Admin Dose 10 MG; Start 01/10/19 at 08:00 Linagliptin (Tradjenta) 5 mg DAILY PO Last administered on 01/13/19 08:08; Admin Dose 5 MG; Start 01/10/19 at 09:00 Morphine Sulfate (morphine) 6 mg Q4H PRN PO SEVERE PAIN LEVEL 7-10; Start 01/09/19 at 23:00 Lisinopril (Zestril) 10 mg BID PO Last administered on 01/13/19 08:08; Admin Dose 10 MG; Start 01/10/19 at 21:00 Insulin Aspart (Novolog Insulin Pen) 10 unit WITH MEALS SC Last administered on 01/13/19 12:04; Admin Dose 10 UNIT; Start 01/11/19 at 18:00 Furosemide (Lasix) 40 mg DAILY PO Last administered on 01/13/19 08:07; Admin Dose 40 MG; Start 01/12/19 at 09:00 Rivaroxaban (Xarelto) 15 mg WITH DINNER PO Last administered on 01/12/19 18:57; Admin Dose 15 MG; Start 01/12/19 at 18:00 ALEX CHOU MD Jan 13, 2019 14:04
[2019-01-13] MEDS: RIVAROXABAN 15 MG TABLET PO SCH (18:36)
[2019-01-13] MEDS: ACETAMINOPHEN 325 MG TAB PO PRN (19:12)
[2019-01-13] MEDS: ATORVASTATIN 20 MG TAB PO SCH (21:23)
[2019-01-13] MEDS: INSULIN GLARGINE [LANTus] (100 UNITS/ML) SYG SC SCH (21:42)
[2019-01-14] VITALS (12 sets, daily range): BP systolic 100–128; BP diastolic 61–79; PULSE 54–90; RESP 19–20
[2019-01-14] MEDS: ACCU-CHEK XX SCH (02:00)
[2019-01-14] MEDS: metFORMIN (XR) 500 MG TAB PO SCH ×2 (09:36→20:47)
[2019-01-14] MEDS: LINAGLIPTIN 5 MG TABLET PO SCH (09:36)
[2019-01-14] MEDS: EMPAGLIFLOZIN 10 MG TABLET PO SCH (09:36)
[2019-01-14] MEDS: FAMOTIDINE 20 MG TAB PO SCH (09:36)
[2019-01-14] MEDS: FUROSEMIDE 40 MG TAB PO SCH (09:37)
[2019-01-14] MEDS: LISINOPRIL 10 MG TAB PO SCH ×2 (09:37→20:46)
[2019-01-14] MEDS: INSULIN ASPART [NOVOLOG] 3 ML PEN SC SCH ×7 (10:12→20:46)
--- NOTE | 2019-01-14 10:19 | CONS ---
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 refused." Uncertain if this is true but RN called primary team who has reduced dose of Novolog during day today from 10 to 8 units. Had I been called, I would have reduced dose of glargine. However, pt. rec'ed full dose glargine and now Novolog dose reduced. Will monitor today to see how she does on new insulin dosage. O/w pt. well for d/c any time from endo standpoint. 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 feels well and feels she is ready for d/c home) Detailed Summary Respiratory: no complaints Cardiovascular: no complaints Gastrointestinal: no complaints Genitourinary: no complaints Musculoskeletal: no complaints Neurologic: no complaints Exam/Review of Systems Exam Vitals VS - Last 72 Hours, by Label Date Temp Pulse Resp B/P (MAP) Pulse Ox O2 O2 Flow FiO2 Time Delivery Rate 01/14/19 71 08:16 01/14/19 98.0 64 19 128/61 97 Room Air 07:19 (83) 01/14/19 98.8 60 19 124/69 96 Room Air 05:00 (87) 01/14/19 80 04:00 01/14/19 79 00:00 01/13/19 98.5 74 18 110/82 97 Room Air 23:40 (91) 01/13/19 Nasal 2.0 23:19 Cannula 01/13/19 97.5 82 17 131/60 93 Room Air 21:34 (83) 01/13/19 97.8 75 18 147/85 94 Room Air 20:00 (105) 01/13/19 78 20:00 01/13/19 77 16:27 01/13/19 98.0 79 20 118/67 96 Room Air 16:08 (84) 01/13/19 77 12:14 01/13/19 98.0 70 20 122/88 90 Room Air 11:30 (99) 01/13/19 79 08:35 01/13/19 98.0 75 20 116/69 93 Room Air 07:13 (85) 01/13/19 2.0 06:07 01/13/19 71 04:00 01/13/19 98.0 52 18 111/52 99 Nasal 04:00 (71) Cannula 01/13/19 70 00:00 01/13/19 97.5 68 18 106/70 94 00:00 (82) 01/12/19 2.0 23:52 01/12/19 Nasal 2.0 20:45 Cannula 01/12/19 98.0 88 18 128/73 93 20:00 (91) 01/12/19 79 20:00 01/12/19 2.0 17:55 01/12/19 77 16:16 01/12/19 98.0 74 20 145/82 97 Nasal 15:20 (103) Cannula 01/12/19 80 12:30 01/12/19 98.0 71 20 103/76 96 Nasal 11:12 (85) Cannula 01/12/19 98 2.0 09:45 01/12/19 92 08:22 01/12/19 Nasal 2.0 08:00 Cannula 01/12/19 98.0 68 20 125/88 97 Nasal 07:46 (100) Cannula 01/12/19 98.0 62 20 121/81 95 04:16 (94) 01/12/19 67 04:00 01/12/19 Nasal 2.0 02:20 Cannula 01/12/19 98.1 63 18 137/82 95 00:22 (100) 01/12/19 80 00:00 01/11/19 2.0 20:56 01/11/19 Nasal 2.0 20:50 Cannula 01/11/19 98.1 96 18 117/69 96 20:00 (85) 01/11/19 86 20:00 01/11/19 2.0 28 17:20 01/11/19 81 16:38 01/11/19 98.4 88 20 95/78 (84) 97 15:36 01/11/19 94 12:24 01/11/19 98.0 55 17 101/63 94 11:28 (76) Vital Signs Date Temp Pulse Resp B/P (MAP) Pulse Ox O2 O2 Flow FiO2 Time Delivery Rate 01/14/19 71 08:16 01/14/19 98.0 19 128/61 97 Room Air 07:19 (83) 01/13/19 2.0 23:19 01/11/19 28 17:20 Intake and Output 01/13/19 01/13/19 01/14/19 1515:00 23:00 07:00 IntakeIntake Total 800 ml 240 ml BalanceBalance 800 ml 240 ml Constitutional: alert, oriented, obese Psych: no complaints, nl mood/affect Respiratory: clear to auscultation, normal air movement Cardiovascular: regular rate and rhythm, nl pulses; No edema, No murmurs/extra sounds, No rub Gastrointestinal: soft, nl liver, spleen, non-tender, bowel sounds; No mass, No rebound or guarding Musculoskeletal: nl extremities to inspection Extremities: normal pulses; No cyanosis, No clubbing, No edema 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, nl mental status, nl speech, nl strength Additional Comments Bedside Glucose - 72 Hours Test 01/11/19 11:47 01/11/19 17:17 01/11/19 21:28 01/12/19 07:22 Bedside 171 98 103 114 Glucose mg/dL (70-220) mg/dL (70-220) mg/dL (70-220) mg/dL (70-220) Test 01/12/19 11:42 01/12/19 16:56 01/12/19 20:24 01/13/19 07:31 Bedside 151 93 91 107 Glucose mg/dL (70-220) mg/dL (70-220) mg/dL (70-220) mg/dL (70-220) Test 01/13/19 11:54 01/13/19 17:15 01/13/19 21:22 01/14/19 08:34 Bedside 100 79 126 182 Glucose mg/dL (70-220) mg/dL (70-220) mg/dL (70-220) mg/dL (70-220) Results Result Diagram: 01/10/19 0501 01/14/19 0500 Results 24hrs Laboratory Tests Test 01/13/19 11:54 01/13/19 17:15 01/13/19 21:22 01/14/19 05:00 Bedside Glucose 100 79 126 Sodium Level 139 Potassium Level 3.6 Chloride Level 103 Carbon Dioxide Level 27 Anion Gap 9 Blood Urea Nitrogen 29 H Creatinine 0.76 Est Glomerular Filtrat Rate mL/min Glucose Level 88 Calcium Level 9.4 Test 01/14/19 08:34 Bedside Glucose 182 Medications Medication Current Medications IV Flush (NS 3 ml) 3 ml PER PROTOCOL IV ; Start 01/07/19 at 21:00 Ondansetron HCl (Zofran Inj) 4 mg Q6H PRN IV NAUSEA/VOMITING; Start 01/07/19 at 21:00 Acetaminophen (Tylenol Tab) 650 mg Q6H PRN PO .PAIN 1-3 OR TEMP Last administered on 01/13/19at 19:12; Admin Dose 650 MG; Start 01/07/19 at 21:00 Miscellaneous Information 1 ea NOTE XX ; Start 01/08/19 at 03:00 Glucose (Glutose) 15 gm Q15M PRN PO DECREASED GLUCOSE; Start 01/08/19 at 03:00 Glucose (Glutose) 22.5 gm Q15M PRN PO DECREASED GLUCOSE; Start 01/08/19 at 03:00 Dextrose (D50w Syringe) 25 ml Q15M PRN IV DECREASED GLUCOSE; Start 01/08/19 at 03:00 Dextrose (D50w Syringe) 50 ml Q15M PRN IV DECREASED GLUCOSE; Start 01/08/19 at 03:00 Glucagon (Glucagen) 1 mg Q15M PRN IM DECREASED GLUCOSE; Start 01/08/19 at 03:00 Glucose (Glutose) 15 gm Q15M PRN BUCCAL DECREASED GLUCOSE; Start 01/08/19 at 03:00 Hydralazine HCl (Apresoline) 10 mg Q6H PRN IV SBP >170 Last administered on 01/09/19at 18:41; Admin Dose 10 MG; Start 01/09/19 at 14:30 Carvedilol (Coreg) 6.25 mg BID PO Last administered on 01/14/19at 09:37; Admin Dose 6.25 MG; Start 01/10/19 at 09:00 Atorvastatin Calcium (Lipitor) 20 mg HS PO Last administered on 01/13/19 21:23; Admin Dose 20 MG; Start 01/09/19 at 21:00 Diagnostic Test (Pha) (Accu-Chek) 1 ea 02 XX Last administered on 01/11/19 02:11; Admin Dose 1 EA; Start 01/10/19 at 02:00 Insulin Glargine (Lantus) 27 units DAILY@2000 SC Last administered on 01/13/19 21:42; Admin Dose 27 UNITS; Start 01/09/19 at 20:00 Insulin Aspart (Novolog Insulin Pen) NOVOLOG *MILD* ALGORITHM WITH MEALS BEDTIME SC Last administered on 01/14/19 10:12; Admin Dose 2 UNIT; Start 01/09/19 at 18:00 Famotidine (Pepcid) 20 mg DAILY PO Last administered on 01/14/19 09:36; Admin Dose 20 MG; Start 01/10/19 at 09:00 Metformin HCl (Glucophage Xr) 500 mg BID PO Last administered on 01/14/19 09:36; Admin Dose 500 MG; Start 01/09/19 at 21:00 Empaglifozin (Jardiance) 10 mg DAILY@08 PO Last administered on 01/14/19 09:36; Admin Dose 10 MG; Start 01/10/19 at 08:00 Linagliptin (Tradjenta) 5 mg DAILY PO Last administered on 01/14/19 09:36; Admin Dose 5 MG; Start 01/10/19 at 09:00 Morphine Sulfate (morphine) 6 mg Q4H PRN PO SEVERE PAIN LEVEL 7-10; Start 01/09/19 at 23:00 Lisinopril (Zestril) 10 mg BID PO Last administered on 01/14/19 09:37; Admin Dose 10 MG; Start 01/10/19 at 21:00 Furosemide (Lasix) 40 mg DAILY PO Last administered on 01/14/19 09:37; Admin Dose 40 MG; Start 01/12/19 at 09:00 Rivaroxaban (Xarelto) 15 mg WITH DINNER PO Last administered on 01/13/19 18:36; Admin Dose 15 MG; Start 01/12/19 at 18:00 Insulin Aspart (Novolog Insulin Pen) 8 unit WITH MEALS SC Last administered on 01/14/19 10:12; Admin Dose 8 UNIT; Start 01/14/19 at 08:00 ALEX CHOU MD Jan 14, 2019 10:19
--- NOTE | 2019-01-14 10:46 | PN ---
Date/Time of Note Date/Time of Note DATE: 01/14/19 TIME: 10:45 Assessment/Plan VTE Prophylaxis Risk score (from Nsg)>0 risk: 4 SCD applied (from Nsg): Yes Lines/Catheters IV Catheter Type (from Nrsg): Saline Lock Urinary Cath still in place: No Assessment/Plan Assessment/Plan -Acute decompensated systolic congestive heart failure. Continue Lasix. Dr Whitehead is following in cardiology consultation. -Ischemic cardiomyopathy with ejection fraction 35%. -Atrial fibrillation. Continue Eliquis. -Hypertension, continue Coreg and lisinopril. -Diabetes mellitus type 2 with hemoglobin A1c of 13.7. Continue Lantus and pre- meal NovoLog. Dr. Sahni is following in endocrinology consultation. Further recommendations based on clinical course. Plan of care discussed with Dr. Richards. Result Diagram: 01/10/19 0501 01/14/19 0500 Results 24hrs Laboratory Tests Test 01/13/19 11:54 01/13/19 17:15 01/13/19 21:22 01/14/19 05:00 Bedside Glucose 100 79 126 Sodium Level 139 Potassium Level 3.6 Chloride Level 103 Carbon Dioxide Level 27 Anion Gap 9 Blood Urea Nitrogen 29 H Creatinine 0.76 Est Glomerular Filtrat Rate mL/min Glucose Level 88 Calcium Level 9.4 Test 01/14/19 08:34 Bedside Glucose 182 Subjective 24 Hr Interval Summary Free Text/Dictation 01/13/2019- ENTRY Exam/Review of Systems Exam Vitals Vital Signs Date Temp Pulse Resp B/P (MAP) Pulse Ox O2 O2 Flow FiO2 Time Delivery Rate 01/14/19 71 08:16 01/14/19 98.0 19 128/61 97 Room Air 07:19 (83) 01/13/19 2.0 23:19 01/11/19 28 17:20 Intake and Output 01/13/19 01/13/19 01/14/19 1515:00 23:00 07:00 IntakeIntake Total 800 ml 240 ml BalanceBalance 800 ml 240 ml Results Results 24hrs Laboratory Tests Test 01/13/19 11:54 01/13/19 17:15 01/13/19 21:22 01/14/19 05:00 Bedside Glucose 100 79 126 Sodium Level 139 Potassium Level 3.6 Chloride Level 103 Carbon Dioxide Level 27 Anion Gap 9 Blood Urea Nitrogen 29 H Creatinine 0.76 Est Glomerular Filtrat Rate mL/min Glucose Level 88 Calcium Level 9.4 Test 01/14/19 08:34 Bedside Glucose 182 Medications Medication Current Medications IV Flush (NS 3 ml) 3 ml PER PROTOCOL IV ; Start 01/07/19 at 21:00 Ondansetron HCl (Zofran Inj) 4 mg Q6H PRN IV NAUSEA/VOMITING; Start 01/07/19 at 21:00 Acetaminophen (Tylenol Tab) 650 mg Q6H PRN PO .PAIN 1-3 OR TEMP Last administered on 01/13/19at 19:12; Admin Dose 650 MG; Start 01/07/19 at 21:00 Miscellaneous Information 1 ea NOTE XX ; Start 01/08/19 at 03:00 Glucose (Glutose) 15 gm Q15M PRN PO DECREASED GLUCOSE; Start 01/08/19 at 03:00 Glucose (Glutose) 22.5 gm Q15M PRN PO DECREASED GLUCOSE; Start 01/08/19 at 03:00 Dextrose (D50w Syringe) 25 ml Q15M PRN IV DECREASED GLUCOSE; Start 01/08/19 at 03:00 Dextrose (D50w Syringe) 50 ml Q15M PRN IV DECREASED GLUCOSE; Start 01/08/19 at 03:00 Glucagon (Glucagen) 1 mg Q15M PRN IM DECREASED GLUCOSE; Start 01/08/19 at 03:00 Glucose (Glutose) 15 gm Q15M PRN BUCCAL DECREASED GLUCOSE; Start 01/08/19 at 03:00 Hydralazine HCl (Apresoline) 10 mg Q6H PRN IV SBP >170 Last administered on 01/09/19at 18:41; Admin Dose 10 MG; Start 01/09/19 at 14:30 Carvedilol (Coreg) 6.25 mg BID PO Last administered on 01/14/19at 09:37; Admin Dose 6.25 MG; Start 01/10/19 at 09:00 Atorvastatin Calcium (Lipitor) 20 mg HS PO Last administered on 01/13/19at 21:23; Admin Dose 20 MG; Start 01/09/19 at 21:00 Diagnostic Test (Pha) (Accu-Chek) 1 ea 02 XX Last administered on 01/11/19at 02:11; Admin Dose 1 EA; Start 01/10/19 at 02:00 Insulin Glargine (Lantus) 27 units DAILY@2000 SC Last administered on 01/13/19 21:42; Admin Dose 27 UNITS; Start 01/09/19 at 20:00 Insulin Aspart (Novolog Insulin Pen) NOVOLOG *MILD* ALGORITHM WITH MEALS BEDTIME SC Last administered on 01/14/19 10:12; Admin Dose 2 UNIT; Start 01/09/19 at 18:00 Famotidine (Pepcid) 20 mg DAILY PO Last administered on 01/14/19 09:36; Admin Dose 20 MG; Start 01/10/19 at 09:00 Metformin HCl (Glucophage Xr) 500 mg BID PO Last administered on 01/14/19 09:36; Admin Dose 500 MG; Start 01/09/19 at 21:00 Empaglifozin (Jardiance) 10 mg DAILY@08 PO Last administered on 01/14/19 09:36; Admin Dose 10 MG; Start 01/10/19 at 08:00 Linagliptin (Tradjenta) 5 mg DAILY PO Last administered on 01/14/19 09:36; Admin Dose 5 MG; Start 01/10/19 at 09:00 Morphine Sulfate (morphine) 6 mg Q4H PRN PO SEVERE PAIN LEVEL 7-10; Start 01/09/19 at 23:00 Lisinopril (Zestril) 10 mg BID PO Last administered on 01/14/19 09:37; Admin Dose 10 MG; Start 01/10/19 at 21:00 Furosemide (Lasix) 40 mg DAILY PO Last administered on 01/14/19 09:37; Admin Dose 40 MG; Start 01/12/19 at 09:00 Rivaroxaban (Xarelto) 15 mg WITH DINNER PO Last administered on 01/13/19 18:36; Admin Dose 15 MG; Start 01/12/19 at 18:00 Insulin Aspart (Novolog Insulin Pen) 8 unit WITH MEALS SC Last administered on 01/14/19 10:12; Admin Dose 8 UNIT; Start 01/14/19 at 08:00 [place] Jan 14, 2019 10:45
--- NOTE | 2019-01-14 15:07 | PN ---
Date/Time of Note Date/Time of Note DATE: 01/14/19 TIME: 15:07 Assessment/Plan VTE Prophylaxis Risk score (from Nsg)>0 risk: 4 SCD applied (from Nsg): Yes Lines/Catheters IV Catheter Type (from Nrsg): Saline Lock Urinary Cath still in place: No Assessment/Plan Assessment/Plan -Acute decompensated systolic congestive heart failure. Continue Lasix. Dr Whitehead is following in cardiology consultation. -Ischemic cardiomyopathy with ejection fraction 35%. -Atrial fibrillation. Continue Eliquis. -Hypertension, continue Coreg and lisinopril. -Diabetes mellitus type 2 with hemoglobin A1c of 13.7. Continue Lantus and pre- meal NovoLog. Dr. Sahni is following in endocrinology consultation. Further recommendations based on clinical course. Plan of care discussed with Dr. Richards. Result Diagram: 01/10/19 0501 01/14/19 0500 Results 24hrs Laboratory Tests Test 01/13/19 17:15 01/13/19 21:22 01/14/19 05:00 01/14/19 08:34 Bedside Glucose 79 126 182 Sodium Level 139 Potassium Level 3.6 Chloride Level 103 Carbon Dioxide Level 27 Anion Gap 9 Blood Urea Nitrogen 29 H Creatinine 0.76 Est Glomerular Filtrat Rate mL/min Glucose Level 88 Calcium Level 9.4 Test 01/14/19 13:02 Bedside Glucose 152 Exam/Review of Systems Exam Vitals Vital Signs Date Temp Pulse Resp B/P (MAP) Pulse Ox O2 O2 Flow FiO2 Time Delivery Rate 01/14/19 76 13:12 01/14/19 98.0 20 100/66 94 Room Air 11:18 (77) 01/13/19 2.0 23:19 01/11/19 28 17:20 Intake and Output 01/13/19 01/13/19 01/14/19 1515:00 23:00 07:00 IntakeIntake Total 800 ml 240 ml BalanceBalance 800 ml 240 ml Results Results 24hrs Laboratory Tests Test 01/13/19 17:15 01/13/19 21:22 01/14/19 05:00 01/14/19 08:34 Bedside Glucose 79 126 182 Sodium Level 139 Potassium Level 3.6 Chloride Level 103 Carbon Dioxide Level 27 Anion Gap 9 Blood Urea Nitrogen 29 H Creatinine 0.76 Est Glomerular Filtrat Rate mL/min Glucose Level 88 Calcium Level 9.4 Test 01/14/19 13:02 Bedside Glucose 152 Medications Medication Current Medications IV Flush (NS 3 ml) 3 ml PER PROTOCOL IV ; Start 01/07/19 at 21:00 Ondansetron HCl (Zofran Inj) 4 mg Q6H PRN IV NAUSEA/VOMITING; Start 01/07/19 at 21:00 Acetaminophen (Tylenol Tab) 650 mg Q6H PRN PO .PAIN 1-3 OR TEMP Last administered on 01/13/19at 19:12; Admin Dose 650 MG; Start 01/07/19 at 21:00 Miscellaneous Information 1 ea NOTE XX ; Start 01/08/19 at 03:00 Glucose (Glutose) 15 gm Q15M PRN PO DECREASED GLUCOSE; Start 01/08/19 at 03:00 Glucose (Glutose) 22.5 gm Q15M PRN PO DECREASED GLUCOSE; Start 01/08/19 at 03:00 Dextrose (D50w Syringe) 25 ml Q15M PRN IV DECREASED GLUCOSE; Start 01/08/19 at 03:00 Dextrose (D50w Syringe) 50 ml Q15M PRN IV DECREASED GLUCOSE; Start 01/08/19 at 03:00 Glucagon (Glucagen) 1 mg Q15M PRN IM DECREASED GLUCOSE; Start 01/08/19 at 03:00 Glucose (Glutose) 15 gm Q15M PRN BUCCAL DECREASED GLUCOSE; Start 01/08/19 at 03:00 Hydralazine HCl (Apresoline) 10 mg Q6H PRN IV SBP >170 Last administered on 01/09/19at 18:41; Admin Dose 10 MG; Start 01/09/19 at 14:30 Carvedilol (Coreg) 6.25 mg BID PO Last administered on 01/14/19at 09:37; Admin Dose 6.25 MG; Start 01/10/19 at 09:00 Atorvastatin Calcium (Lipitor) 20 mg HS PO Last administered on 01/13/19at 21:23; Admin Dose 20 MG; Start 01/09/19 at 21:00 Diagnostic Test (Pha) (Accu-Chek) 1 ea 02 XX Last administered on 01/11/19at 02:11; Admin Dose 1 EA; Start 01/10/19 at 02:00 Insulin Glargine (Lantus) 27 units DAILY@2000 SC Last administered on 01/13/19 21:42; Admin Dose 27 UNITS; Start 01/09/19 at 20:00 Insulin Aspart (Novolog Insulin Pen) NOVOLOG *MILD* ALGORITHM WITH MEALS BEDTIME SC Last administered on 01/14/19 13:16; Admin Dose 1 UNIT; Start 01/09/19 at 18:00 Famotidine (Pepcid) 20 mg DAILY PO Last administered on 01/14/19 09:36; Admin Dose 20 MG; Start 01/10/19 at 09:00 Metformin HCl (Glucophage Xr) 500 mg BID PO Last administered on 01/14/19 09:36; Admin Dose 500 MG; Start 01/09/19 at 21:00 Empaglifozin (Jardiance) 10 mg DAILY@08 PO Last administered on 01/14/19 09:36; Admin Dose 10 MG; Start 01/10/19 at 08:00 Linagliptin (Tradjenta) 5 mg DAILY PO Last administered on 01/14/19 09:36; Admin Dose 5 MG; Start 01/10/19 at 09:00 Morphine Sulfate (morphine) 6 mg Q4H PRN PO SEVERE PAIN LEVEL 7-10; Start 01/09/19 at 23:00 Lisinopril (Zestril) 10 mg BID PO Last administered on 01/14/19 09:37; Admin Dose 10 MG; Start 01/10/19 at 21:00 Furosemide (Lasix) 40 mg DAILY PO Last administered on 01/14/19 09:37; Admin Dose 40 MG; Start 01/12/19 at 09:00 Rivaroxaban (Xarelto) 15 mg WITH DINNER PO Last administered on 01/13/19 18:36; Admin Dose 15 MG; Start 01/12/19 at 18:00 Insulin Aspart (Novolog Insulin Pen) 8 unit WITH MEALS SC Last administered on 01/14/19 13:16; Admin Dose 8 UNIT; Start 01/14/19 at 08:00 TERESA HILLS Jan 14, 2019 15:07
[2019-01-14] MEDS: RIVAROXABAN 15 MG TABLET PO SCH (17:52)
[2019-01-14] MEDS: INSULIN GLARGINE [LANTus] (100 UNITS/ML) SYG SC SCH (20:44)
[2019-01-14] MEDS: ATORVASTATIN 20 MG TAB PO SCH (20:45)
[2019-01-14] MEDS: ACETAMINOPHEN 325 MG TAB PO PRN (22:17)
[2019-01-15] VITALS (12 sets, daily range): BP systolic 116–136; BP diastolic 63–83; PULSE 54–87; RESP 16–19
[2019-01-15] MEDS: ACCU-CHEK XX SCH (02:00)
[2019-01-15] MEDS: INSULIN ASPART [NOVOLOG] 3 ML PEN SC SCH ×7 (08:00→21:00)
[2019-01-15] MEDS: FAMOTIDINE 20 MG TAB PO SCH (08:47)
[2019-01-15] MEDS: EMPAGLIFLOZIN 10 MG TABLET PO SCH (08:48)
[2019-01-15] MEDS: FUROSEMIDE 40 MG TAB PO SCH (08:48)
[2019-01-15] MEDS: metFORMIN (XR) 500 MG TAB PO SCH ×2 (08:48→21:10)
[2019-01-15] MEDS: LISINOPRIL 10 MG TAB PO SCH ×2 (08:48→21:11)
[2019-01-15] MEDS: LINAGLIPTIN 5 MG TABLET PO SCH (08:49)
--- NOTE | 2019-01-15 09:10 | CONS ---
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 Will cont. w/ current insulin and oral med dosing. Pt. doing well and ready for d/c on this regimen when primary team ready to d/c her home. Qualifiers: Diabetes mellitus terminal press operator insulin use: with terminal press operator use Qualified Codes: E11.21 - Type 2 diabetes mellitus with diabetic nephropathy; Z79.4 - terminal press operator (current) use of insulin Consultation Date/Type/Reason Admit Date/Time Jan 07, 2019 at 19:58 Initial Consult Date 01/09/19 Type of Consult Endocrinology Reason for Consultation [id number] Requesting Provider: NAVARRO ROBLES Date/Time of Note DATE: 01/15/19 TIME: 09:08 24 HR Interval Summary Constitutional: no complaints, improved (feels well and ready for d/c) Detailed Summary Respiratory: no complaints Cardiovascular: no complaints Gastrointestinal: no complaints Genitourinary: no complaints Musculoskeletal: no complaints Neurologic: no complaints Exam/Review of Systems Exam Vitals VS - Last 72 Hours, by Label Date Temp Pulse Resp B/P (MAP) Pulse Ox O2 O2 Flow FiO2 Time Delivery Rate 01/15/19 64 08:43 01/15/19 98.0 80 18 118/65 98 07:23 (82) 01/15/19 63 04:00 01/15/19 98.1 70 19 116/63 95 Room Air 03:34 (80) 01/15/19 70 00:00 01/14/19 98.7 54 20 124/72 93 Room Air 23:59 (89) 01/14/19 98.3 65 19 127/73 94 Room Air 20:43 (91) 01/14/19 84 20:00 01/14/19 90 16:34 01/14/19 98.0 71 20 118/79 94 Room Air 16:00 (92) 01/14/19 76 13:12 01/14/19 98.0 72 20 100/66 94 Room Air 11:18 (77) 01/14/19 71 08:16 01/14/19 98.0 64 19 128/61 97 Room Air 07:19 (83) 01/14/19 98.8 60 19 124/69 96 Room Air 05:00 (87) 01/14/19 80 04:00 01/14/19 79 00:00 01/13/19 98.5 74 18 110/82 97 Room Air 23:40 (91) 01/13/19 Nasal 2.0 23:19 Cannula 01/13/19 97.5 82 17 131/60 93 Room Air 21:34 (83) 01/13/19 97.8 75 18 147/85 94 Room Air 20:00 (105) 01/13/19 78 20:00 01/13/19 77 16:27 01/13/19 98.0 79 20 118/67 96 Room Air 16:08 (84) 01/13/19 77 12:14 01/13/19 98.0 70 20 122/88 90 Room Air 11:30 (99) 01/13/19 79 08:35 01/13/19 98.0 75 20 116/69 93 Room Air 07:13 (85) 01/13/19 2.0 06:07 01/13/19 71 04:00 01/13/19 98.0 52 18 111/52 99 Nasal 04:00 (71) Cannula 01/13/19 70 00:00 01/13/19 97.5 68 18 106/70 94 00:00 (82) 01/12/19 2.0 23:52 01/12/19 Nasal 2.0 20:45 Cannula 01/12/19 98.0 88 18 128/73 93 20:00 (91) 01/12/19 79 20:00 01/12/19 2.0 17:55 01/12/19 77 16:16 01/12/19 98.0 74 20 145/82 97 Nasal 15:20 (103) Cannula 01/12/19 80 12:30 01/12/19 98.0 71 20 103/76 96 Nasal 11:12 (85) Cannula 01/12/19 98 2.0 09:45 Vital Signs Date Temp Pulse Resp B/P (MAP) Pulse Ox O2 O2 Flow FiO2 Time Delivery Rate 01/15/19 64 08:43 01/15/19 98.0 18 118/65 98 07:23 (82) 01/15/19 Room Air 03:34 01/13/19 2.0 23:19 01/11/19 28 17:20 Intake and Output 01/14/19 01/14/1919 1515:00 23:00 07:00 IntakeIntake Total 800 ml 250 ml BalanceBalance 800 ml 250 ml Constitutional: alert, oriented, obese Psych: no complaints, nl mood/affect Respiratory: clear to auscultation, normal air movement; No crackles/rales Cardiovascular: regular rate and rhythm, nl pulses; No edema, No murmurs/extra sounds, No rub Gastrointestinal: soft, nl liver, spleen, non-tender, bowel sounds; No mass, No rebound or guarding Musculoskeletal: nl extremities to inspection Extremities: normal pulses; No cyanosis, No clubbing, No edema 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, nl mental status, nl speech, nl strength Additional Comments Bedside Glucose - 72 Hours Test 01/12/19 11:42 01/12/19 16:56 01/12/19 20:24 01/13/19 07:31 Bedside 151 93 91 107 Glucose mg/dL (70-220) mg/dL (70-220) mg/dL (70-220) mg/dL (70-220) Test 01/13/19 11:54 01/13/19 17:15 01/13/19 21:22 01/14/19 08:34 Bedside 100 79 126 182 Glucose mg/dL (70-220) mg/dL (70-220) mg/dL (70-220) mg/dL (70-220) Test 01/14/19 13:02 01/14/19 17:54 01/14/19 20:40 01/15/19 02:10 Bedside 152 116 89 112 Glucose mg/dL (70-220) mg/dL (70-220) mg/dL (70-220) mg/dL (70-220) Test 01/15/19 08:16 Bedside 107 Glucose mg/dL (70-220) Results Result Diagram: 01/15/1944901/15/19 045 Results 24hrs Laboratory Tests Test 01/14/19 13:02 01/14/19 17:54 01/14/19 20:40 01/15/19 02:10 Bedside Glucose 152 116 89 112 Test 01/15/19 04:50 01/15/19 08:16 White Blood Count 7.7 Red Blood Count 4.89 Hemoglobin 15.4 Hematocrit 46.9 Mean Corpuscular 95.9 Volume Mean Corpuscular 31.5 Hemoglobin Mean Corpuscular 32.8 Hemoglobin Concent Red Cell 12.7 Distribution Width Platelet Count 195 Mean Platelet Volume 11.4 H Immature 0.100 Granulocytes % Neutrophils % 46.4 Lymphocytes % 39.0 Monocytes % 9.7 Eosinophils % 3.8 Basophils % 1.0 Nucleated Red Blood 0.0 Cells % Immature 0.010 Granulocytes # Neutrophils # 3.6 Lymphocytes # 3.0 H Monocytes # 0.7 Eosinophils # 0.3 Basophils # 0.1 Nucleated Red Blood 0.0 Cells # Sodium Level 142 Potassium Level 3.7 Chloride Level 101 Carbon Dioxide Level 27 Anion Gap 14 H Blood Urea Nitrogen 30 H Creatinine 0.83 Est Glomerular Filtrat Rate mL/min Glucose Level 105 Calcium Level 9.7 Bedside Glucose 107 Medications Medication Current Medications IV Flush (NS 3 ml) 3 ml PER PROTOCOL IV ; Start 01/07/19 at 21:00 Ondansetron HCl (Zofran Inj) 4 mg Q6H PRN IV NAUSEA/VOMITING; Start 01/07/19 at 21:00 Acetaminophen (Tylenol Tab) 650 mg Q6H PRN PO .PAIN 1-3 OR TEMP Last admin istered on 01/14/19at 22:17; Admin Dose 650 MG; Start 01/07/19 at 21:00 Miscellaneous Information 1 ea NOTE XX ; Start 01/08/19 at 03:00 Glucose (Glutose) 15 gm Q15M PRN PO DECREASED GLUCOSE; Start 01/08/19 at 03:00 Glucose (Glutose) 22.5 gm Q15M PRN PO DECREASED GLUCOSE; Start 01/08/19 at 03:00 Dextrose (D50w Syringe) 25 ml Q15M PRN IV DECREASED GLUCOSE; Start 01/08/19 at 03:00 Dextrose (D50w Syringe) 50 ml Q15M PRN IV DECREASED GLUCOSE; Start 01/08/19 at 03:00 Glucagon (Glucagen) 1 mg Q15M PRN IM DECREASED GLUCOSE; Start 01/08/19 at 03:00 Glucose (Glutose) 15 gm Q15M PRN BUCCAL DECREASED GLUCOSE; Start 01/08/19 at 03:00 Hydralazine HCl (Apresoline) 10 mg Q6H PRN IV SBP >170 Last administered on 01/09/19at 18:41; Admin Dose 10 MG; Start 01/09/19 at 14:30 Carvedilol (Coreg) 6.25 mg BID PO Last administered on 01/15/19 08:48; Admin Dose 6.25 MG; Start 01/10/19 at 09:00 Atorvastatin Calcium (Lipitor) 20 mg HS PO Last administered on 01/14/19 20:45; Admin Dose 20 MG; Start 01/09/19 at 21:00 Diagnostic Test (Pha) (Accu-Chek) 1 ea 02 XX Last administered on 01/11/19 02:11; Admin Dose 1 EA; Start 01/10/19 at 02:00 Insulin Glargine (Lantus) 27 units DAILY@2000 SC Last administered on 01/14/19 20:44; Admin Dose 27 UNITS; Start 01/09/19 at 20:00 Insulin Aspart (Novolog Insulin Pen) NOVOLOG *MILD* ALGORITHM WITH MEALS BEDTIME SC Last administered on 01/14/19 13:16; Admin Dose 1 UNIT; Start 01/09/19 at 18:00 Famotidine (Pepcid) 20 mg DAILY PO Last administered on 01/15/19 08:47; Admin Dose 20 MG; Start 01/10/19 at 09:00 Metformin HCl (Glucophage Xr) 500 mg BID PO Last administered on 01/15/19 08:48; Admin Dose 500 MG; Start 01/09/19 at 21:00 Empaglifozin (Jardiance) 10 mg DAILY@08 PO Last administered on 01/15/19 08:48; Admin Dose 10 MG; Start 01/10/19 at 08:00 Linagliptin (Tradjenta) 5 mg DAILY PO Last administered on 01/15/19 08:49; Admin Dose 5 MG; Start 01/10/19 at 09:00 Morphine Sulfate (morphine) 6 mg Q4H PRN PO SEVERE PAIN LEVEL 7-10; Start 01/09 at 23:00 Lisinopril (Zestril) 10 mg BID PO Last administered on 01/15/19 08:48; Admin Dose 10 MG; Start 01/10/19 at 21:00 Furosemide (Lasix) 40 mg DAILY PO Last administered on 01/15/19 08:48; Admin Dose 40 MG; Start 01/12/19 at 09:00 Rivaroxaban (Xarelto) 15 mg WITH DINNER PO Last administered on 01/14/19at 17:52; Admin Dose 15 MG; Start 01/12/19 at 18:00 Insulin Aspart (Novolog Insulin Pen) 8 unit WITH MEALS SC Last administered on 01/15/19at 08:21; Admin Dose 8 UNIT; Start 01/14/19 at 08:00 ALEX CHOU MD Jan 15, 2019 09:10
--- NOTE | 2019-01-15 13:24 | PN ---
Date/Time of Note Date/Time of Note DATE: 01/15/19 TIME: 13:23 Assessment/Plan VTE Prophylaxis Risk score (from Nsg)>0 risk: 4 SCD applied (from Nsg): Yes Lines/Catheters IV Catheter Type (from Nrs): Saline Lock Urinary Cath still in place: No Assessment/Plan Assessment/Plan -Acute decompensated systolic congestive heart failure. Continue Lasix. Dr Whitehead is following in cardiology consultation. -Ischemic cardiomyopathy with ejection fraction 35%. -Atrial fibrillation. Continue Eliquis. -Hypertension, continue Coreg and lisinopril. -Diabetes mellitus type 2 with hemoglobin A1c of 13.7. Continue Lantus and pre- meal NovoLog. Dr. Sahni is following in endocrinology consultation. Further recommendations based on clinical course. Plan of care discussed with Dr. Richards. Result Diagram: 01/15/19 0450 01/15/19 0450 Results 24hrs Laboratory Tests Test 01/14/19 17:54 01/14/19 20:40 01/15/19 02:10 01/15/19 04:50 Bedside Glucose 116 89 112 White Blood Count 7.7 Red Blood Count 4.89 Hemoglobin 15.4 Hematocrit 46.9 Mean Corpuscular 95.9 Volume Mean Corpuscular 31.5 Hemoglobin Mean Corpuscular 32.8 Hemoglobin Concent Red Cell 12.7 Distribution Width Platelet Count 195 Mean Platelet Volume 11.4 H Immature 0.100 Granulocytes % Neutrophils % 46.4 Lymphocytes % 39.0 Monocytes % 9.7 Eosinophils % 3.8 Basophils % 1.0 Nucleated Red Blood 0.0 Cells % Immature 0.010 Granulocytes # Neutrophils # 3.6 Lymphocytes # 3.0 H Monocytes # 0.7 Eosinophils # 0.3 Basophils # 0.1 Nucleated Red Blood 0.0 Cells # Sodium Level 142 Potassium Level 3.7 Chloride Level 101 Carbon Dioxide Level 27 Anion Gap 14 H Blood Urea Nitrogen 30 H Creatinine 0.83 Est Glomerular Filtrat Rate mL/min Glucose Level 105 Calcium Level 9.7 Test 01/15/19 08:16 01/15/19 11:56 Bedside Glucose 107 117 Exam/Review of Systems Exam Vitals Vital Signs Date Temp Pulse Resp B/P (MAP) Pulse Ox O2 O2 Flow FiO2 Time Delivery Rate 01/15/19 81 12:23 01/15/19 98.0 18 136/83 98 11:26 (100) 01/15/19 Room Air 03:34 01/13/19 2.0 23:19 01/11/19 28 17:20 Intake and Output 01/14/19 01/14/19 01/15/19 1515:00 23:00 07:00 IntakeIntake Total 800 ml 250 ml BalanceBalance 800 ml 250 ml Results Results 24hrs Laboratory Tests Test 01/14/19 17:54 01/14/19 20:40 01/15/19 02:10 01/15/19 04:50 Bedside Glucose 116 89 112 White Blood Count 7.7 Red Blood Count 4.89 Hemoglobin 15.4 Hematocrit 46.9 Mean Corpuscular 95.9 Volume Mean Corpuscular 31.5 Hemoglobin Mean Corpuscular 32.8 Hemoglobin Concent Red Cell 12.7 Distribution Width Platelet Count 195 Mean Platelet Volume 11.4 H Immature 0.100 Granulocytes % Neutrophils % 46.4 Lymphocytes % 39.0 Monocytes % 9.7 Eosinophils % 3.8 Basophils % 1.0 Nucleated Red Blood 0.0 Cells % Immature 0.010 Granulocytes # Neutrophils # 3.6 Lymphocytes # 3.0 H Monocytes # 0.7 Eosinophils # 0.3 Basophils # 0.1 Nucleated Red Blood 0.0 Cells # Sodium Level 142 Potassium Level 3.7 Chloride Level 101 Carbon Dioxide Level 27 Anion Gap 14 H Blood Urea Nitrogen 30 H Creatinine 0.83 Est Glomerular Filtrat Rate mL/min Glucose Level 105 Calcium Level 9.7 Test 01/15/19 08:16 01/15/19 11:56 Bedside Glucose 107 117 Medications Medication Current Medications IV Flush (NS 3 ml) 3 ml PER PROTOCOL IV ; Start 01/07/19 at 21:00 Ondansetron HCl (Zofran Inj) 4 mg Q6H PRN IV NAUSEA/VOMITING; Start 01/07/19 at 21:00 Acetaminophen (Tylenol Tab) 650 mg Q6H PRN PO .PAIN 1-3 OR TEMP Last administered on 01/14/19at 22:17; Admin Dose 650 MG; Start 01/07/19 at 21:00 Miscellaneous Information 1 ea NOTE XX ; Start 01/08/19 at 03:00 Glucose (Glutose) 15 gm Q15M PRN PO DECREASED GLUCOSE; Start 01/08/19 at 03:00 Glucose (Glutose) 22.5 gm Q15M PRN PO DECREASED GLUCOSE; Start 01/08/19 at 03:00 Dextrose (D50w Syringe) 25 ml Q15M PRN IV DECREASED GLUCOSE; Start 01/08/19 at 03:00 Dextrose (D50w Syringe) 50 ml Q15M PRN IV DECREASED GLUCOSE; Start 01/08/19 at 03:00 Glucagon (Glucagen) 1 mg Q15M PRN IM DECREASED GLUCOSE; Start 01/08/19 at 03:00 Glucose (Glutose) 15 gm Q15M PRN BUCCAL DECREASED GLUCOSE; Start 01/08/19 at 03:00 Hydralazine HCl (Apresoline) 10 mg Q6H PRN IV SBP >170 Last administered on 18:41; Admin Dose 10 MG; Start 01/09/19 at 14:30 Carvedilol (Coreg) 6.25 mg BID PO Last administered on 01/15/19 08:48; Admin Dose 6.25 MG; Start 01/10/19 at 09:00 Atorvastatin Calcium (Lipitor) 20 mg HS PO Last administered on 01/14/19 20:45; Admin Dose 20 MG; Start 01/09/19 at 21:00 Diagnostic Test (Pha) (Accu-Chek) 1 ea 02 XX Last administered on 01/11/19 02:11; Admin Dose 1 EA; Start 01/10/19 at 02:00 Insulin Glargine (Lantus) 27 units DAILY@2000 SC Last administered on 01/14/19 20:44; Admin Dose 27 UNITS; Start 01/09/19 at 20:00 Insulin Aspart (Novolog Insulin Pen) NOVOLOG *MILD* ALGORITHM WITH MEALS BEDTIME SC Last administered on 01/14/19 13:16; Admin Dose 1 UNIT; Start 01/09/19 at 18:00 Famotidine (Pepcid) 20 mg DAILY PO Last administered on 01/15/19 08:47; Admin Dose 20 MG; Start 01/10/19 at 09:00 Metformin HCl (Glucophage Xr) 500 mg BID PO Last administered on 01/15/19 08:48; Admin Dose 500 MG; Start 01/09/19 at 21:00 Empaglifozin (Jardiance) 10 mg DAILY@08 PO Last administered on 01/15/19 08:48; Admin Dose 10 MG; Start 01/10/19 at 08:00 Linagliptin (Tradjenta) 5 mg DAILY PO Last administered on 01/15/19at 08:49; Admin Dose 5 MG; Start 01/10/19 at 09:00 Morphine Sulfate (morphine) 6 mg Q4H PRN PO SEVERE PAIN LEVEL 7-10; Start 01/09/19 at 23:00 Lisinopril (Zestril) 10 mg BID PO Last administered on 01/15/19at 08:48; Admin Dose 10 MG; Start 01/10/19 at 21:00 Furosemide (Lasix) 40 mg DAILY PO Last administered on 01/15/19at 08:48; Admin Dose 40 MG; Start 01/12/19 at 09:00 Rivaroxaban (Xarelto) 15 mg WITH DINNER PO Last administered on 01/14/19at 17:52; Admin Dose 15 MG; Start 01/12/19 at 18:00 Insulin Aspart (Novolog Insulin Pen) 8 unit WITH MEALS SC Last administered on 01/15/19at 11:59; Admin Dose 8 UNIT; Start 01/14/19 at 08:00 TERESA HILLS Jan 15, 2019 13:24
[2019-01-15] MEDS: RIVAROXABAN 15 MG TABLET PO SCH (17:45)
[2019-01-15] MEDS: INSULIN GLARGINE [LANTus] (100 UNITS/ML) SYG SC SCH (20:00)
[2019-01-15] MEDS: ATORVASTATIN 20 MG TAB PO SCH (21:10)
[2019-01-15] MEDS: ACETAMINOPHEN 325 MG TAB PO PRN (21:11)
[2019-01-16] VITALS (9 sets, daily range): BP systolic 103–118; BP diastolic 52–76; PULSE 58–80; RESP 16–18
[2019-01-16] MEDS: ACCU-CHEK XX SCH (02:00)
[2019-01-16] MEDS: INSULIN ASPART [NOVOLOG] 3 ML PEN SC SCH ×7 (07:58→20:15)
--- NOTE | 2019-01-16 08:01 | CONS ---
Assessment/Plan Cardiology NYHA: II Heart Failure Type: Acute on Chronic Heart Failure Type: Systolic Assessment/Plan Assessment/Plan (Daily) Acute decompensated systolic congestive heart failure Cardia myopathy with ejection fraction 30-35% Hypertension Atrial fibrillation Uncontrolled diabetes ? History of coronary artery disease -Patient with improvement in volume status, continue Lasix p.o. -Continue beta-ricardo, titrate dose of TEE inhibitor for afterload reduction as tolerated -Patient with atrial fibrillation, patient with multiple risk factors for thromboembolic events, as per case management note, On xarelto -Diabetes management Consultation Date/Type/Reason Admit Date/Time Jan 07, 2019 at 19:58 Initial Consult Date 01/09/19 Type of Consult Cardiology Requesting Provider: NAVARRO ROBLES Date/Time of Note DATE: 01/16/19 TIME: 08:00 24 HR Interval Summary Free Text/Dictation the patient table overnight Exam/Review of Systems Vital Signs Vitals Vital Signs Date Temp Pulse Resp B/P (MAP) Pulse Ox O2 O2 Flow FiO2 Time Delivery Rate 01/16/19 98.1 78 118/52 92 07:07 (74) 01/16/19 16 03:38 01/15/19 Room Air 03:34 01/13/19 2.0 23:19 Intake and Output 01/15/19 01/15/19 01/16/19 1414:59 22:59 06:59 IntakeIntake Total 250 ml 550 ml 400 ml BalanceBalance 250 ml 550 ml 400 ml Labs Result Diagram: 01/15/19 0450 01/15/19 0450 Results 24hrs Laboratory Tests Test 01/15/19 08:16 01/15/19 11:56 01/15/19 17:26 01/15/19 21:18 Bedside Glucose 107 117 132 62 L Test 01/15/19 21:19 01/16/19 02:58 Bedside Glucose 64 L 95 Medications Medications Current Medications IV Flush (NS 3 ml) 3 ml PER PROTOCOL IV ; Start 01/07/19 at 21:00 Ondansetron HCl (Zofran Inj) 4 mg Q6H PRN IV NAUSEA/VOMITING; Start 01/07/19 at 21:00 Acetaminophen (Tylenol Tab) 650 mg Q6H PRN PO .PAIN 1-3 OR TEMP Last administered on 01/15/19at 21:11; Admin Dose 650 MG; Start 01/07/19 at 21:00 Miscellaneous Information 1 ea NOTE XX ; Start 01/08/19 at 03:00 Glucose (Glutose) 15 gm Q15M PRN PO DECREASED GLUCOSE; Start 01/08/19 at 03:00 Glucose (Glutose) 22.5 gm Q15M PRN PO DECREASED GLUCOSE; Start 01/08/19 at 03:00 Dextrose (D50w Syringe) 25 ml Q15M PRN IV DECREASED GLUCOSE; Start 01/08/19 at 03:00 Dextrose (D50w Syringe) 50 ml Q15M PRN IV DECREASED GLUCOSE; Start 01/08/19 at 03:00 Glucagon (Glucagen) 1 mg Q15M PRN IM DECREASED GLUCOSE; Start 01/08/19 at 03:00 Glucose (Glutose) 15 gm Q15M PRN BUCCAL DECREASED GLUCOSE; Start 01/08/19 at 03:00 Hydralazine HCl (Apresoline) 10 mg Q6H PRN IV SBP >170 Last administered on 01/09/19at 18:41; Admin Dose 10 MG; Start 01/09/19 at 14:30 Carvedilol (Coreg) 6.25 mg BID PO Last administered on 01/15/19at 08:48; Admin Dose 6.25 MG; Start 01/10/19 at 09:00 Atorvastatin Calcium (Lipitor) 20 mg HS PO Last administered on 01/15/19at 21:10; Admin Dose 20 MG; Start 01/09/19 at 21:00 Diagnostic Test (Pha) (Accu-Chek) 1 ea 02 XX Last administered on 01/11/19at 02:11; Admin Dose 1 EA; Start 01/10/19 at 02:00 Insulin Glargine (Lantus) 27 units DAILY@2000 SC Last administered on 01/14/19at 20:44; Admin Dose 27 UNITS; Start 01/09/19 at 20:00 Insulin Aspart (Novolog Insulin Pen) NOVOLOG *MILD* ALGORITHM WITH MEALS BEDTIME SC Last administered on 01/14/19at 13:16; Admin Dose 1 UNIT; Start 01/09/19 at 18:00 Famotidine (Pepcid) 20 mg DAILY PO Last administered on 01/15/19at 08:47; Admin Dose 20 MG; Start 01/10/19 at 09:00 Metformin HCl (Glucophage Xr) 500 mg BID PO Last administered on 01/15/19 21:10; Admin Dose 500 MG; Start 01/09/19 at 21:00 Empaglifozin (Jardiance) 10 mg DAILY@08 PO Last administered on 01/15/19 08 :48; Admin Dose 10 MG; Start 01/10/19 at 08:00 Linagliptin (Tradjenta) 5 mg DAILY PO Last administered on 01/15/19 08:49; Admin Dose 5 MG; Start 01/10/19 at 09:00 Morphine Sulfate (morphine) 6 mg Q4H PRN PO SEVERE PAIN LEVEL 7-10; Start 01/09/19 at 23:00 Lisinopril (Zestril) 10 mg BID PO Last administered on 01/15/19 21:11; Admin Dose 10 MG; Start 01/10/19 at 21:00 Furosemide (Lasix) 40 mg DAILY PO Last administered on 01/15/19 08:48; Admin Dose 40 MG; Start 01/12/19 at 09:00 Rivaroxaban (Xarelto) 15 mg WITH DINNER PO Last administered on 01/15/19 17:45; Admin Dose 15 MG; Start 01/12/19 at 18:00 Insulin Aspart (Novolog Insulin Pen) 8 unit WITH MEALS SC Last administered on 01/15/19 17:31; Admin Dose 8 UNIT; Start 01/14/19 at 08:00 VASQUEZ BELTRÁN MD Jan 16, 2019 08:01
[2019-01-16] MEDS: metFORMIN (XR) 500 MG TAB PO SCH ×2 (08:05→21:54)
[2019-01-16] MEDS: FUROSEMIDE 40 MG TAB PO SCH (08:06)
[2019-01-16] MEDS: LINAGLIPTIN 5 MG TABLET PO SCH (08:06)
[2019-01-16] MEDS: LISINOPRIL 10 MG TAB PO SCH ×2 (08:06→20:13)
[2019-01-16] MEDS: FAMOTIDINE 20 MG TAB PO SCH (08:06)
[2019-01-16] MEDS: EMPAGLIFLOZIN 10 MG TABLET PO SCH (08:07)
[2019-01-16] MEDS: RIVAROXABAN 15 MG TABLET PO SCH (17:23)
[2019-01-16] MEDS ORDERED: LINA5TAB PO (17:42)
[2019-01-16] MEDS ORDERED: FURO40TA4 PO (17:42)
[2019-01-16] MEDS ORDERED: ATOR20TA65 PO (17:42)
[2019-01-16] MEDS ORDERED: CARV6.2579 PO (17:42)
[2019-01-16] MEDS ORDERED: RIVA15TA PO (17:42)
[2019-01-16] MEDS ORDERED: LISI10TA2 PO (17:42)
[2019-01-16] MEDS ORDERED: EMPA10TA PO (17:42)
[2019-01-16] MEDS ORDERED: METF500T3 PO (17:42)
[2019-01-16] MEDS ORDERED: Insulin Glargine SC (17:42)
[2019-01-16] MEDS ORDERED: NOVO3I SC (17:42)
--- NOTE | 2019-01-16 17:45 | CONS ---
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 Has refused all insulin since that time. BG has remained in goal range today but slowly w/ upwards spiral. Would restart lantus and Novolog tonight w/ dose reduction of lantus to a dosage more weight- appropriate for this patient. Will decrease dose to 18 units qhs. Cont. Novolog 8 units qac starting tomorrow w/ new, lower dose of Novolog. Cont. same oral med doses. Reeval glucose tomorrow if pt. still in house. 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 Consultation Date/Type/Reason Admit Date/Time Jan 07, 2019 at 19:58 Initial Consult Date 01/09/19 Type of Consult Endocrinology Reason for Consultation T2DM OOC Requesting Provider: NAVARRO ROBLES Date/Time of Note DATE: 01/16/19 TIME: 17:42 24 HR Interval Summary Constitutional: no complaints, improved (wants to go home) Detailed Summary Respiratory: no complaints Cardiovascular: no complaints Gastrointestinal: no complaints Genitourinary: no complaints Musculoskeletal: no complaints Neurologic: no complaints Exam/Review of Systems Exam Vitals VS - Last 72 Hours, by Label Date Temp Pulse Resp B/P (MAP) Pulse Ox O2 O2 Flow FiO2 Time Delivery Rate 01/16/19 73 16:01 01/16/19 97.9 80 18 118/76 95 16:01 (90) 01/16/19 79 12:01 01/16/19 98.3 58 18 116/53 95 11:17 (74) 01/16/19 78 08:01 01/16/19 98.1 78 118/52 92 07:07 (74) 01/16/19 67 04:00 01/16/19 98.7 60 16 114/68 95 03:38 (83) 01/16/19 64 00:00 01/15/19 98.0 54 18 129/79 96 23:59 (96) 01/15/19 98.6 21:56 01/15/19 98.6 21:11 01/15/19 73 20:00 01/15/19 98.4 58 16 118/75 94 19:47 (89) 01/15/19 78 16:27 01/15/19 98.0 87 18 127/75 98 15:25 (92) 01/15/19 81 12:23 01/15/19 98.0 67 18 136/83 98 11:26 (100) 01/15/19 64 08:43 01/15/19 98.0 80 18 118/65 98 07:23 (82) 01/15/19 63 04:00 01/15/19 98.1 70 19 116/63 95 Room Air 03:34 (80) 01/15/19 70 00:00 01/14/19 98.7 54 20 124/72 93 Room Air 23:59 (89) 01/14/19 98.3 65 19 127/73 94 Room Air 20:43 (91) 01/14/19 84 20:00 01/14/19 90 16:34 01/14/19 98.0 71 20 118/79 94 Room Air 16:00 (92) 01/14/19 76 13:12 01/14/19 98.0 72 20 100/66 94 Room Air 11:18 (77) 01/14/19 71 08:16 01/14/19 98.0 64 19 128/61 97 Room Air 07:19 (83) 01/14/19 98.8 60 19 124/69 96 Room Air 05:00 (87) 01/14/19 80 04:00 01/14/19 79 00:00 01/13/19 98.5 74 18 110/82 97 Room Air 23:40 (91) 01/13/19 Nasal 2.0 23:19 Cannula 01/13/19 97.5 82 17 131/60 93 Room Air 21:34 (83) 01/13/19 97.8 75 18 147/85 94 Room Air 20:00 (105) 01/13/19 78 20:00 Vital Signs Date Temp Pulse Resp B/P (MAP) Pulse Ox O2 O2 Flow FiO2 Time Delivery Rate 01/16/19 73 16:01 01/16/19 97.9 18 118/76 95 16:01 (90) 01/15/19 Room Air 03:34 01/13/19 2.0 23:19 Intake and Output 01/15/19 01/15/1919 1515:00 23:00 07:00 IntakeIntake Total 550 ml 400 ml BalanceBalance 550 ml 400 ml Constitutional: alert, oriented, obese Psych: no complaints, nl mood/affect Respiratory: clear to auscultation, normal air movement Cardiovascular: regular rate and rhythm, nl pulses; No edema, No murmurs/extra sounds, No rub Gastrointestinal: soft, nl liver, spleen, non-tender, bowel sounds; No mass, No rebound or guarding Musculoskeletal: nl extremities to inspection Extremities: normal pulses; No cyanosis, No clubbing, No edema Neurological: 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 II-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, nl mental status, nl speech, nl strength Additional Comments Bedside Glucose - 72 Hours Test 01/13/19 21:22 01/14/19 08:34 01/14/19 13:02 01/14/19 17:54 Bedside 126 182 152 116 Glucose mg/dL (70-220) mg/dL (70-220) mg/dL (70-220) mg/dL (70-220) Test 01/14/19 20:40 01/15/19 02:10 01/15/19 08:16 01/15/19 11:56 Bedside 89 112 107 117 Glucose mg/dL (70-220) mg/dL (70-220) mg/dL (70-220) mg/dL (70-220) Test 01/15/19 17:26 01/15/19 21:18 01/15/19 21:19 01/16/19 02:58 Bedside 132 62 64 95 Glucose mg/dL (70-220) mg/dL (70-220) mg/dL (70-220) mg/dL (70-220) L L Test 01/16/19 07:57 01/16/19 12:10 01/16/19 17:19 Bedside 118 107 138 Glucose mg/dL (70-220) mg/dL (70-220) mg/dL (70-220) Results Result Diagram: 01/15/1944901/15/19 0450 Results 24hrs Laboratory Tests Test 01/15/19 21:18 01/15/19 21:19 01/16/19 02:58 01/16/19 07:57 Bedside Glucose 62 L 64 L 95 118 Test 01/16/19 12:10 01/16/19 17:19 Bedside Glucose 107 138 Medications Medication Current Medications IV Flush (NS 3 ml) 3 ml PER PROTOCOL IV ; Start 01/07/19 at 21:00 Ondansetron HCl (Zofran Inj) 4 mg Q6H PRN IV NAUSEA/VOMITING; Start 01/07/19 at 21:00 Acetaminophen (Tylenol Tab) 650 mg Q6H PRN PO .PAIN 1-3 OR TEMP Last administered on 01/15/19at 21:11; Admin Dose 650 MG; Start 01/07/19 at 21:00 Miscellaneous Information 1 ea NOTE XX ; Start 01/08/19 at 03:00 Glucose (Glutose) 15 gm Q15M PRN PO DECREASED GLUCOSE; Start 01/08/19 at 03:00 Glucose (Glutose) 22.5 gm Q15M PRN PO DECREASED GLUCOSE; Start 01/08/19 at 03:00 Dextrose (D50w Syringe) 25 ml Q15M PRN IV DECREASED GLUCOSE; Start 01/08/19 at 03:00 Dextrose (D50w Syringe) 50 ml Q15M PRN IV DECREASED GLUCOSE; Start 01/08/19 at 03:00 Glucagon (Glucagen) 1 mg Q15M PRN IM DECREASED GLUCOSE; Start 01/08/19 at 03:00 Glucose (Glutose) 15 gm Q15M PRN BUCCAL DECREASED GLUCOSE; Start 01/08/19 at 03:00 Hydralazine HCl (Apresoline) 10 mg Q6H PRN IV SBP >170 Last administered on 12/30 12/17at 18:41; Admin Dose 10 MG; Start 01/09/19 at 14:30 Carvedilol (Coreg) 6.25 mg BID PO Last administered on 01/16/19at 08:06; Admin Dose 6.25 MG; Start 01/10/19 at 09:00 Atorvastatin Calcium (Lipitor) 20 mg HS PO Last administered on 01/15/19at 21:10; Admin Dose 20 MG; Start 01/09/19 at 21:00 Diagnostic Test (Pha) (Accu-Chek) 1 ea 02 XX Last administered on 01/11/19at 02:11; Admin Dose 1 EA; Start 01/10/19 at 02:00 Insulin Aspart (Novolog Insulin Pen) NOVOLOG *MILD* ALGORITHM WITH MEALS BEDT LIZET SC Last administered on 01/14/19 13:16; Admin Dose 1 UNIT; Start 01/09/19 at 18:00 Famotidine (Pepcid) 20 mg DAILY PO Last administered on 01/16/19 08:06; Admin Dose 20 MG; Start 01/10/19 at 09:00 Metformin HCl (Glucophage Xr) 500 mg BID PO Last administered on 01/16/19 08:05; Admin Dose 500 MG; Start 01/09/19 at 21:00 Empaglifozin (Jardiance) 10 mg DAILY@08 PO Last administered on 01/16/19 08:07; Admin Dose 10 MG; Start 01/10/19 at 08:00 Linagliptin (Tradjenta) 5 mg DAILY PO Last administered on 01/16/19 08:06; Admin Dose 5 MG; Start 01/10/19 at 09:00 Morphine Sulfate (morphine) 6 mg Q4H PRN PO SEVERE PAIN LEVEL 7-10; Start 01/09/19 at 23:00 Lisinopril (Zestril) 10 mg BID PO Last administered on 01/16/19 08:06; Admin Dose 10 MG; Start 01/10/19 at 21:00 Furosemide (Lasix) 40 mg DAILY PO Last administered on 01/16/19 08:06; Admin Dose 40 MG; Start 01/12/19 at 09:00 Rivaroxaban (Xarelto) 15 mg WITH DINNER PO Last administered on 01/16/19 17:23; Admin Dose 15 MG; Start 01/12/19 at 18:00 Insulin Aspart (Novolog Insulin Pen) 8 unit WITH MEALS SC Last administered on 01/15/19 17:31; Admin Dose 8 UNIT; Start 01/14/19 at 08:00 Insulin Glargine (Lantus) 18 units DAILY@2000 SC ; Start 01/16/19 at 20:00 ALEX CHOU MD Jan 16, 2019 17:45
[2019-01-16] MEDS ORDERED: INSULIN GLARGINE [LANTus] (100 UNITS/ML) SYG SC SCH (20:00)
[2019-01-16] MEDS: ATORVASTATIN 20 MG TAB PO SCH (20:12)
--- NOTE | 2019-01-16 23:13 | DS ---
Date/Time of Note Date/Time of Note DATE: 01/16/19 TIME: 23:11 Discharge Summary Admission/Discharge Info Admit Date/Time Jan 07, 2019 at 19:58 Discharge Date/Time Patient Condition: Stable Hx of Present Illness Patient with diabetes and congestive heart failure comes in with increasing shortness of breath. In the emergency room, patient required bipap in order to maintain oxygen saturation. Hospital Course -Acute decompensated systolic congestive heart failure. Continue Lasix. Dr Whitehead is following in cardiology consultation. -Ischemic cardiomyopathy with ejection fraction 35%. -Atrial fibrillation. Continue Eliquis. -Hypertension, continue Coreg and lisinopril. -Diabetes mellitus type 2 with hemoglobin A1c of 13.7. Continue Lantus and pre- meal NovoLog. Dr. Sahni is following in endocrinology consultation. Plan of care discussed with Dr. Richards. Home Meds Active Scripts Metformin* (Glucophage* XR) 500 Mg Tab.sr.24h, 500 MG PO BID for 30 Days Prov:NAVARRO ROBLES 01/16/19 Linagliptin (TRADJENTA) 5 Mg Tablet, 5 MG PO DAILY for 30 Days, TAB Prov:NAVARRO ROBLES 01/16/19 [Insulin Glargine] 100 UNITS/ML SOLN No Conflict Check, 18 UNITS SC DAILY@1999 for 30 Days Prov:NAVARRO ROBLES 01/16/19 Insulin Aspart* (Novolog Insulin Pen*) 100 Unit/Ml Soln, 8 UNIT SC WITH MEALS for 30 Days Prov:NAVARRO ROBLES 01/16/19 Empagliflozin (Jardiance) 10 Mg Tablet, 10 MG PO DAILY@08 for 30 Days, TAB Prov:NAVARRO ROBLES 01/16/19 Furosemide* (Furosemide*) 40 Mg Tablet, 40 MG PO DAILY for 30 Days, TAB Prov:NAVARRO ROBLES 01/16/19 Lisinopril* (Lisinopril*) 10 Mg Tablet, 10 MG PO BID for 30 Days, TAB Prov:NAVARRO ROBLES 01/16/19 Carvedilol* (Carvedilol*) 6.25 Mg Tablet, 6.25 MG PO BID for 30 Days, TAB Prov:NAVARRO ROBLES 01/16/19 Atorvastatin Calcium (Atorvastatin Calcium) 20 Mg Tablet, 20 MG PO HS for 30 Days, TAB Prov:NAVARRO ROBLES 01/16/19 Rivaroxaban* (Xarelto*) 15 Mg Tablet, 15 MG PO WITH DINNER for 30 Days, TAB Prov:NAVARRO ROBLES 01/16/19 Reported Medications Famotidine* (Pepcid*) 20 Mg Tablet 06/01/10 Fluoxetine Hcl* (Prozac*) 20 Mg Capsule 06/01/10 Discontinued Scripts Insulin Human Isophan/Regular (HUMULIN (70/30)) 100 Unit/Ml Susp, 20 UNIT SC BID for 30 Days, #3 SYR 0 Refills Prov:ALEX SAHNI MD 01/09/19 Follow-up Plan Follow-up with PMD in 2 weeks Primary Care Provider Not On Staff Doctor Time spent on discharge: > 30 minutes Pending Labs Laboratory Tests Test 01/16/19 02:58 01/16/19 07:57 01/16/19 12:10 01/16/19 17:19 Bedside 95 118 107 138 Glucose mg/dL (70-220) mg/dL (70-220) mg/dL (70-220) mg/dL (70-220) Test 01/16/19 20:15 Bedside 176 Glucose mg/dL (70-220) NAVARRO ROBLES Jan 16, 2019 23:13
[2019-01-17] VITALS: PULSE 64
[2019-01-17 00:18] VITALS: BP 141/66; PULSE 63; RESP 20
[2019-01-17] MEDS: ACCU-CHEK XX SCH (01:54)
[2019-01-17 04:00] VITALS: PULSE 68
[2019-01-17 04:14] VITALS: PULSE 42
[2019-01-17 05:16] VITALS: BP 112/61; PULSE 66; RESP 18
--- NOTE | 2019-01-17 07:56 | CONS ---
Assessment/Plan Cardiology NYHA: II Heart Failure Type: Acute on Chronic Heart Failure Type: Systolic Assessment/Plan Assessment/Plan (Daily) Acute decompensated systolic congestive heart failure Cardia myopathy with ejection fraction 30-35% Hypertension Atrial fibrillation Uncontrolled diabetes ? History of coronary artery disease -Patient with improvement in volume status, continue Lasix p.o. -Continue beta-ricardo, titrate dose of TEE inhibitor for afterload reduction as tolerated -Patient with atrial fibrillation, patient with multiple risk factors for thromboembolic events, On xarelto -Diabetes management Consultation Date/Type/Reason Admit Date/Time Jan 07, 2019 at 19:58 Initial Consult Date 01/09/19 Type of Consult Cardiology Requesting Provider: NAVARRO ROBLES Date/Time of Note DATE: 01/17/19 TIME: 07:55 24 HR Interval Summary Free Text/Dictation The patient with no cahnge Exam/Review of Systems Vital Signs Vitals Vital Signs Date Temp Pulse Resp B/P (MAP) Pulse Ox O2 O2 Flow FiO2 Time Delivery Rate 01/17/19 98.0 66 18 112/61 96 05:16 (78) 01/15/19 Room Air 03:34 01/13/19 2.0 23:19 Intake and Output 01/16/19 01/16/19 01/17/19 1515:00 23:00 07:00 IntakeIntake Total 1000 ml 400 ml BalanceBalance 1000 ml 400 ml Labs Result Diagram: 01/15/19 0450 01/15/19 0450 Results 24hrs Laboratory Tests Test 01/16/19 07:57 01/16/19 12:10 01/16/19 17:19 01/16/19 20:15 Bedside Glucose 118 107 138 176 Test 01/17/19 07:46 Bedside Glucose 134 Medications Medications Current Medications IV Flush (NS 3 ml) 3 ml PER PROTOCOL IV ; Start 01/07/19 at 21:00 Ondansetron HCl (Zofran Inj) 4 mg Q6H PRN IV NAUSEA/VOMITING; Start 01/07/19 at 21:00 Acetaminophen (Tylenol Tab) 650 mg Q6H PRN PO .PAIN 1-3 OR TEMP Last administered on 01/15/19at 21:11; Admin Dose 650 MG; Start 01/07/19 at 21:00 Miscellaneous Information 1 ea NOTE XX ; Start 01/08/19 at 03:00 Glucose (Glutose) 15 gm Q15M PRN PO DECREASED GLUCOSE; Start 01/08/19 at 03:00 Glucose (Glutose) 22.5 gm Q15M PRN PO DECREASED GLUCOSE; Start 01/08/19 at 03:00 Dextrose (D50w Syringe) 25 ml Q15M PRN IV DECREASED GLUCOSE; Start 01/08/19 at 03:00 Dextrose (D50w Syringe) 50 ml Q15M PRN IV DECREASED GLUCOSE; Start 01/08/19 at 03:00 Glucagon (Glucagen) 1 mg Q15M PRN IM DECREASED GLUCOSE; Start 01/08/19 at 03:00 Glucose (Glutose) 15 gm Q15M PRN BUCCAL DECREASED GLUCOSE; Start 01/08/19 at 03:00 Hydralazine HCl (Apresoline) 10 mg Q6H PRN IV SBP >170 Last administered on 01/09/19at 18:41; Admin Dose 10 MG; Start 01/09/19 at 14:30 Carvedilol (Coreg) 6.25 mg BID PO Last administered on 01/16/19 20:13; Admin Dose 6.25 MG; Start 01/10/19 at 09:00 Atorvastatin Calcium (Lipitor) 20 mg HS PO Last administered on 01/16/19 20:12; Admin Dose 20 MG; Start 01/09/19 at 21:00 Diagnostic Test (Pha) (Accu-Chek) 1 ea 02 XX Last administered on 01/11/19 02:11; Admin Dose 1 EA; Start 01/10/19 at 02:00 Insulin Aspart (Novolog Insulin Pen) NOVOLOG *MILD* ALGORITHM WITH MEALS BEDTIME SC Last administered on 01/14/19 13:16; Admin Dose 1 UNIT; Start 01/09/19 at 18:00 Famotidine (Pepcid) 20 mg DAILY PO Last administered on 01/16/19 08:06; Admin Dose 20 MG; Start 01/10/19 at 09:00 Metformin HCl (Glucophage Xr) 500 mg BID PO Last administered on 01/16/19 21:54; Admin Dose 500 MG; Start 01/09/19 at 21:00 Empaglifozin (Jardiance) 10 mg DAILY@08 PO Last administered on 01/16/19 08:07; Admin Dose 10 MG; Start 01/10/19 at 08:00 Linagliptin (Tradjenta) 5 mg DAILY PO Last administered on 01/16/19 08:06; Admin Dose 5 MG; Start 01/10/19 at 09:00 Morphine Sulfate (morphine) 6 mg Q4H PRN PO SEVERE PAIN LEVEL 7-10; Start 01/09/19 at 23:00 Lisinopril (Zestril) 10 mg BID PO Last administered on 01/16/19at 20:13; Admin Dose 10 MG; Start 01/10/19 at 21:00 Furosemide (Lasix) 40 mg DAILY PO Last administered on 01/16/19 08:06; Admin Dose 40 MG; Start 01/12/19 at 09:00 Rivaroxaban (Xarelto) 15 mg WITH DINNER PO Last administered on 01/16/19 17:23; Admin Dose 15 MG; Start 01/12/19 at 18:00 Insulin Aspart (Novolog Insulin Pen) 8 unit WITH MEALS SC Last administered on 01/15/19at 17:31; Admin Dose 8 UNIT; Start 01/14/19 at 08:00 Insulin Glargine (Lantus) 18 units DAILY@2000 SC Last administered on 01/16/19 20:47; Admin Dose 18 UNITS; Start 01/16/19 at 20:00 VASQUEZ BELTRÁN MD Jan 17, 2019 07:56
[2019-01-17] MEDS: INSULIN ASPART [NOVOLOG] 3 ML PEN SC SCH ×2 (08:00→08:06)
[2019-01-17] MEDS: EMPAGLIFLOZIN 10 MG TABLET PO SCH (08:04)
[2019-01-17 08:13] VITALS: BP 137/92; PULSE 65; RESP 18
[2019-01-17] MEDS: FUROSEMIDE 40 MG TAB PO SCH (08:18)
[2019-01-17] MEDS: metFORMIN (XR) 500 MG TAB PO SCH (08:18)
[2019-01-17] MEDS: FAMOTIDINE 20 MG TAB PO SCH (08:18)
[2019-01-17] MEDS: LISINOPRIL 10 MG TAB PO SCH (08:19)
[2019-01-17] MEDS: LINAGLIPTIN 5 MG TABLET PO SCH (08:19)
--- NOTE | 2019-01-17 10:20 | PN ---
Date/Time of Note Date/Time of Note DATE: 01/17/19 TIME: 10:16 Assessment/Plan VTE Prophylaxis Risk score (from Ns)>0 risk: 3 SCD applied (from Ns): Yes SCD contraindicated: bilateral LE trauma Pharmacological prophylaxis: apixaban Lines/Catheters IV Catheter Type (from [facility]): [place] [facility] Urinary Cath still in place: No Assessment/Plan Hospital Course Patient is stable, waiting for discharge, awaiting for patient's son to picking machine operator her, patient stayed overnight because family was unable to picking machine operator patient last night. Assessment/Plan -Acute decompensated systolic congestive heart failure. Continue Lasix. Dr Whitehead is following in cardiology consultation. -Ischemic cardiomyopathy with ejection fraction 35%. -Atrial fibrillation. Continue Eliquis. -Hypertension, continue Coreg and lisinopril. -Diabetes mellitus type 2 with hemoglobin A1c of 13.7. Continue Lantus and pre- meal NovoLog. Dr. Sahni is following in endocrinology consultation. Further recommendations based on clinical course. Plan of care discussed with Dr. Richards. Result Diagram: 01/15/190 01/15/19 0450 Results 24hrs Laboratory Tests Test 01/16/19 12:10 01/16/19 17:19 01/16/19 20:15 01/17/19 07:46 Bedside Glucose 107 138 176 134 Exam/Review of Systems Exam Vitals Vital Signs Date Temp Pulse Resp B/P (MAP) Pulse Ox O2 O2 Flow FiO2 Time Delivery Rate 01/17/19 90.0 65 18 137/92 93 Room Air 08:13 (107) 01/13/19 2.0 23:19 Intake and Output 01/16/19 01/16/19 01/17/19 1515:00 23:00 07:00 IntakeIntake Total 1000 ml 400 ml BalanceBalance 1000 ml 400 ml Results Results 24hrs Laboratory Tests Test 01/16/19 12:10 01/16/19 17:19 01/16/19 20:15 01/17/19 07:46 Bedside Glucose 107 138 176 134 Medications Medication Current Medications IV Flush (NS 3 ml) 3 ml PER PROTOCOL IV ; Start 01/07/19 at 21:00 Ondansetron HCl (Zofran Inj) 4 mg Q6H PRN IV NAUSEA/VOMITING; Start 01/07/19 at 21:00 Acetaminophen (Tylenol Tab) 650 mg Q6H PRN PO .PAIN 1-3 OR TEMP Last administer ed on 01/15/19at 21:11; Admin Dose 650 MG; Start 01/07/19 at 21:00 Miscellaneous Information 1 ea NOTE XX ; Start 01/08/19 at 03:00 Glucose (Glutose) 15 gm Q15M PRN PO DECREASED GLUCOSE; Start 01/08/19 at 03:00 Glucose (Glutose) 22.5 gm Q15M PRN PO DECREASED GLUCOSE; Start 01/08/19 at 03:00 Dextrose (D50w Syringe) 25 ml Q15M PRN IV DECREASED GLUCOSE; Start 01/08/19 at 03:00 Dextrose (D50w Syringe) 50 ml Q15M PRN IV DECREASED GLUCOSE; Start 01/08/19 at 03:00 Glucagon (Glucagen) 1 mg Q15M PRN IM DECREASED GLUCOSE; Start 01/08/19 at 03:00 Glucose (Glutose) 15 gm Q15M PRN BUCCAL DECREASED GLUCOSE; Start 01/08/19 at 03:00 Hydralazine HCl (Apresoline) 10 mg Q6H PRN IV SBP >170 Last administered on 01/09/19at 18:41; Admin Dose 10 MG; Start 01/09/19 at 14:30 Carvedilol (Coreg) 6.25 mg BID PO Last administered on 01/17/19at 08:19; Admin Dose 6.25 MG; Start 01/10/19 at 09:00 Atorvastatin Calcium (Lipitor) 20 mg HS PO Last administered on 01/16/19at 20:12; Admin Dose 20 MG; Start 01/09/19 at 21:00 Diagnostic Test (Pha) (Accu-Chek) 1 ea 02 XX Last administered on 01/11/19at 02:11; Admin Dose 1 EA; Start 01/10/19 at 02:00 Insulin Aspart (Novolog Insulin Pen) NOVOLOG *MILD* ALGORITHM WITH MEALS BEDTIME SC Last administered on 01/14/19at 13:16; Admin Dose 1 UNIT; Start 01/09/19 at 18:00 Famotidine (Pepcid) 20 mg DAILY PO Last administered on 01/17/19at 08:18; Admin Dose 20 MG; Start 01/10/19 at 09:00 Metformin HCl (Glucophage Xr) 500 mg BID PO Last administered on 01/17/19 08:18; Admin Dose 500 MG; Start 01/09/19 at 21:00 Empaglifozin (Jardiance) 10 mg DAILY@08 PO Last administered on 01/17/19 08:04; Admin Dose 10 MG; Start 01/10/19 at 08:00 Linagliptin (Tradjenta) 5 mg DAILY PO Last administered on 01/17/19 08:19; Admin Dose 5 MG; Start 01/10/19 at 09:00 Morphine Sulfate (morphine) 6 mg Q4H PRN PO SEVERE PAIN LEVEL 7-10; Start 01/09/19 at 23:00 Lisinopril (Zestril) 10 mg BID PO Last administered on 01/17/19 08:19; Admin Dose 10 MG; Start 01/10/19 at 21:00 Furosemide (Lasix) 40 mg DAILY PO Last administered on 01/17/19 08:18; Admin Dose 40 MG; Start 01/12/19 at 09:00 Rivaroxaban (Xarelto) 15 mg WITH DINNER PO Last administered on 01/16/19 17:23; Admin Dose 15 MG; Start 01/12/19 at 18:00 Insulin Aspart (Novolog Insulin Pen) 8 unit WITH MEALS SC Last administered on 01/17/19 08:06; Admin Dose 8 UNIT; Start 01/14/19 at 08:00 Insulin Glargine (Lantus) 18 units DAILY@2000 SC Last administered on 01/16/19at 20:47; Admin Dose 18 UNITS; Start 01/16/19 at 20:00 NAVARRO ROBLES Jan 17, 2019 10:20
== END 2019-01-17 09:50 | disposition home or self-care (01) | DRG 293 ==
LOC: E/R 17:56 → 6WM 19:58
PROVIDERS: ADMIT Internal Medicine; ATTEND Internal Medicine
PROC: 5A09357 Assistance with Respiratory Ventilation, Less than 24 Consecutive Hours, Continuous Positive Airway Pressure (ICD-10-PCS; principal; 2019-01-07)
PROC: 4A033R1 Measurement of Arterial Saturation, Peripheral, Percutaneous Approach (ICD-10-PCS; 2019-01-07)
DX: I11.0 Hypertensive heart disease with heart failure (principal); I50.23 Acute on chronic systolic (congestive) heart failure; E11.65 Type 2 diabetes mellitus with hyperglycemia; I48.91 Unspecified atrial fibrillation; E11.21 Type 2 diabetes mellitus with diabetic nephropathy; I25.10 Atherosclerotic heart disease of native coronary artery without angina pectoris; E78.5 Hyperlipidemia, unspecified; I25.5 Ischemic cardiomyopathy; K21.9 Gastro-esophageal reflux disease without esophagitis; I25.2 Old myocardial infarction; Z82.49 Family history of ischemic heart disease and other diseases of the circulatory system; Z79.4 Long term (current) use of insulin
CPT/HCPCS: 36600; 71045; 80048; 80053; 80061; 81001; 82550; 82553; 82803; 82962; 83036; 83605; 83735; 83880; 84484; 85025; 85610; 85730; 87040; 87086; 87400; 93005; 93306; 94644; 94660; 96374; 96375; 97116; 97162; 97530; J0360; J1650; J1815; J1940; J2060

== ENCOUNTER 2019-01-24 09:23 | Inpatient (IN) | payer MEDICARE, MEDICAID ==
[2019-01-24] VITALS (28 sets, daily range): BP systolic 108–166; BP diastolic 52–96; PULSE 73–100; RESP 16–27; Ht 160 cm; Wt 82.0 kg
[~2019-01-24] VITALS: Ht 160 cm; Wt 82.0 kg
[~2019-01-24 09:23] MED LIST changes: +ASPI-831 PO; +ATOR20TA38 PO; +ATOR20TA65 PO; +CARV6.2579 PO; +EMPA10TA PO; +FURO-110 PO; +FURO40TA4 PO; +Insulin Glargine SC; +LINA5TAB PO; +LISI10TA2 PO; +LOSA25TA2 PO; +METF500T3 PO; +NOVO3I SC; +RIVA15TA PO
[2019-01-24] MEDS ORDERED: ASPI81TA52 PO (09:53)
[2019-01-24] MEDS ORDERED: BENA10TA4 PO (09:54)
[2019-01-24] MEDS ORDERED: ATOR20TA38 PO (09:54)
[2019-01-24] MEDS ORDERED: BISA-57 PO (09:55)
[2019-01-24] MEDS ORDERED: CARV6.2579 PO (09:55)
[2019-01-24] MEDS ORDERED: DOCU-144 PO (09:57)
[2019-01-24] MEDS ORDERED: ENOX80DI12 SC (09:58)
[2019-01-24] MEDS ORDERED: FURO40SO4 IV* (09:59)
[2019-01-24] MEDS ORDERED: PANT40TA3 PO (10:02)
[2019-01-24] MEDS ORDERED: METO5VIA28 IV (10:04)
[2019-01-24] MEDS ORDERED: NITR0.4T39 SL (10:05)
[2019-01-24] MEDS ORDERED: NOVO3I SC (10:06)
[2019-01-24] MEDS ORDERED: MIDAZOLAM 1 MG/ML 2 ML INJ ONE (13:16)
[2019-01-24] MEDS ORDERED: LIDOCAINE 1% (MDV) 20 ML INJ ONE (13:16)
[2019-01-24] MEDS ORDERED: HEPARIN 1000 UNITS/ML 10 ML INJ ONE (13:16)
[2019-01-24] MEDS ORDERED: FENTAnyl 50 MCG/ML VIAL ONE (13:17)
[2019-01-24] MEDS ORDERED: NITROGLYCERIN (IC) 100 MCG/ML INJ ONE (13:17)
[2019-01-24] MEDS ORDERED: IODIXANOL LOCM 100 ML BTL ONE ×2 (13:17→14:11)
[2019-01-24] MEDS ORDERED: VERAPAMIL 5 MG INJ ONE (13:17)
[2019-01-24] MEDS ORDERED: ASPIRIN 325 MG TAB ONE (14:02)
[2019-01-24] MEDS ORDERED: TICAGRELOR 90 MG TABLET ONE (14:02)
[2019-01-24] MEDS ORDERED: SOD CHLORIDE 0.9% 1,000 ML IV SCH (14:12)
--- NOTE | 2019-01-24 14:12 | SIPON ---
Date/Time of Note Date/Time of Note DATE: 01/24/19 TIME: 14:11 Operative Report Preoperative Diagnosis 1.NSTEMI Postoperative Diagnosis 1.obstructive cad s/p PTCA/stent Operation/Procedure Performed 1.LHC 2.PTCA/stent x 1 to RCA Surgeon see signature line server service assistant Harpreet Anesthesia: moderate sedation Estimated blood loss: minimal Transfusion Required none Specimen none Grafts/Implants none Complications none MYRTLE HOYT Jan 24, 2019 14:12
[2019-01-24] MEDS ORDERED: OXYCODONE/ACETAMINOPHEN (5/325) TAB PO PRN (14:30)
[2019-01-24] MEDS ORDERED: ACETAMINOPHEN 325 MG TAB PO PRN ×2 (14:30→19:00)
[2019-01-24] MEDS ORDERED: ONDANSETRON 4 MG INJ IV PRN (14:30)
[2019-01-24] MEDS ORDERED: morphine 2 MG INJ IV PRN (14:30)
[2019-01-24] MEDS ORDERED: AL HYDROX/MG HYDROX/SIMETH 30 ML CUP PO PRN (14:30)
--- NOTE | 2019-01-24 14:34 | CARRPT ---
DATE OF PROCEDURE: 01/24/2019 TYPE OF PROCEDURES: 1. Left heart catheterization. 2. Coronary angiography. 3. Measurement of left end diastolic pressure. 4. Moderate conscious sedation. 5. Percutaneous transluminal coronary angioplasty with placement of Synergy drug-eluting stent x1 to mid right coronary artery, 4.0 x 18 mm. ATTENDING PHYSICIAN: Myrtle Quiroz MD REFERRING PHYSICIAN: Srinath Fowler MD and Mira Lemons MD INDICATION: Non-ST elevation myocardial infarction. TYPE OF ANESTHESIA: Conscious local. BRIEF HISTORY: Ms. Dykes is a 73-year-old female with history of hypertension, dyslipidemia, diabete s mellitus, initially complaining of substernal chest pain at outside hospital. The patient was subs equently ruled in for non-ST elevation myocardial infarction and underwent a 2D echo revealing a mild ly depressed EF of 30% to 35%. Given these findings, the patient was referred for and presents today in order to undergo left heart catheterization to assess for possibility of significant obstructive coronary artery disease lending to symptoms of chest pain, was admitted to the hospital with non-ST e levation myocardial infarction and subsequent decreased EF. PROCEDURE IN DETAILS: After informed consent was obtained, the patient was brought to the [facility] cardiac catheterization lab where her right radial area was prepped and draped in sterile fashion. A 2% lidocaine was infiltrated into right radial artery in order to achieve adequat e anesthesia. Using the modified Seldinger technique, the right radial artery was cannulated and a 6 -Canadian arterial sheath was placed. A 6-Canadian JL4 catheter was used to cannulate the left main lee nary ostium. With contrast injection, multiple views of the left coronary arterial system were obtai ban. JL4 was removed over a guidewire and a JR4 was used to cannulate the right coronary arterial os tium. With contrast injection, multiple views of the right coronary system were obtained. JR4 was r emoved over a guidewire and a 6-Canadian pigtail was passed down the ascending artery and placed in LV. LVEDP was measured and pullback across the aortic valve to assess for significant gradient which th ere was not and removed. Subsequently at this time, we moved directly into an interventional procedu re. The patient had ACT checked preintervention and she was given additional 2000 of heparin in orde r to achieve an adequate preinterventional ACT. FR4 guide was used to cannulate the right coronary a rterial ostium. A 0.014 balance middleweight guidewire was passed distal to the lesion. The lesion was pretreated with a 3.0 x 12 mm balloon up to 14 to 16 atmospheres returning GUERA-3 flow throughout the vessel and then subsequently, it was stented with a 4.0 x 18 mm drug-eluting stented at 18 atmos pheres and postdilated up to 20 atmospheres. Followup angiogram was obtained revealing excellent res ult deployment of the stent, GUERA-3 flow throughout the vessel, no signs of complication including pe rforation or dissection. Subsequently at this time, the patient's interventional guide and guidewire s were removed. The patient's sheath was removed. TR band was applied. There were no noted complic ations. FINDINGS: Coronary angiography: Right coronary proximally is a 4 mm vessel. Its midportion has a 9 5% stenosis. It is a dominant vessel and therefore gives off a 3.5 mm PDA and 2.5 mm posterolateral branch. The left main is short 4 mm, no significant focal stenoses. Circumflex proximally is a 3.5 mm vessel and then quickly splits into the circ continuation AV groove and obtuse marginal. Continua tion AV groove just at the bifurcation has a 30% stenosis. Obtuse marginal bifurcates is a 3 mm vess el, has mild luminal irregularities of 10% to 20% before then split into 2 further daughter vessels, each approximately 2 mm and covering reasonable territory. The LAD proximally is a 3 mm vessel, has luminal irregularities up to 30% in the proximal portion. Remainder of the LAD is free from signific ant focal stenoses and goes around the apex. There is a proximal branching diagonal 2 mm with no sig nificant focal stenoses. Measurement of left end diastolic pressure of 18. No significant aortic stenosis by gradient. TOTAL FLUOROSCOPY TIME: 10.1 minutes. TOTAL CONTRAST: 105 mL. IMPRESSION: 1. Single vessel obstructive coronary artery disease involving a high-grade lesion in the patient's mid right coronary artery, status post successful PTCA and stent placement x1 with drug-eluting stent 4.0 x 18 mm. 2. Mildly elevated left heart filling pressures. 3. No significant aortic stenosis by gradient. RECOMMENDATIONS: 1. At this time, the patient is being loaded with Brilinta and will be maintained on Brilinta 90 mg 1 tab p.o. b.i.d. for at least 6 months. 2. Aspirin 81 mg 1 tab p.o. daily indefinitely. 3. Maximize medical management. 4. Aggressive risk factor reduction. 5. The patient will be admitted to telemetry floor for post-catheterization observation and continue d management of symptoms with probable discharge the following day. Dictated By: MYRTLE WEEMS/GENO Conf#: [id number] DID#: [id number] CC: SRINATH FOWLER MD; MIRA LEMONS;*EndCC*
[2019-01-24] MEDS: INSULIN ASPART [NOVOLOG] 3 ML PEN SC SCH ×3 (14:49→21:05)
[2019-01-24] MEDS ORDERED: GLUCOSE GEL 15 GRAM TUBE BUCCAL PRN (15:00)
[2019-01-24] MEDS ORDERED: GLUCOSE GEL 15 GRAM TUBE PO PRN ×2 (15:00)
[2019-01-24] MEDS ORDERED: GLUCAGON 1 MG INJ IM PRN (15:00)
[2019-01-24] MEDS ORDERED: DEXTROSE 50% 50 ML SYRINGE IV PRN ×2 (15:00)
--- NOTE | 2019-01-24 18:31 | QN ---
Documentation Comment SEEN AND EXAMINED BART LEMONS MD Jan 24, 2019 18:31
--- NOTE | 2019-01-24 18:32 | QN ---
Documentation Comment Seen and examined BART LEMONS MD Jan 24, 2019 18:32
[2019-01-24] MEDS ORDERED: DOCUSATE SODIUM 100 MG CAP PO PRN (19:00)
[2019-01-24] MEDS ORDERED: NACL 0.9% 3 ML SYG IV SCH (19:00)
[2019-01-24] MEDS ORDERED: LORAZEPAM 0.5 MG TAB PO ONE (19:00)
--- NOTE | 2019-01-24 19:12 | HP ---
DATE OF ADMISSION: 01/24/2019 REASON FOR ADMISSION: Transferred from [facility] for coronary angiogram. HISTORY OF PRESENTING ILLNESS: This is a 73-year-old female who was just recently admitted at [facility] from 01/08/2019 until 01/16/2019. At that time, the patient was found to be in congestive heart failure and presented to the emergency department complaining of shortness of breath. The patient was seen by cardiology consultation with Dr. Combs. The patient had an echo done that showed EF of 30% to 35%. The patient was also found to be in AFib. The patient was apparently discharged home to follow up with cardiology as an outpatient in [facility] in 2 weeks. According to the patient, she went home and she presented to the emergency department admission on 01/19/2019 secondary to shortness of breath and chest pain. The patient's labs were noted to have a white count of 8.3, hemoglobin 14.3, platelet count 194, creatinine of 0.9. Troponin initially was elevated; however, the second troponin was in 2 range. The patient was also found to be in AFib with RVR, congestive heart failure by chest x-ray. The patient was started on IV diuresis. The patient was found to have non-STEMI, so was transferred to [facility] for coronary angiogram. The patient had coronary angiogram done today that showed the patient had single vessel obstructive coronary artery disease involving high-grade lesion in right coronary artery, status post PTCA stent placement, mildly elevated right heart filling pressures, no significant aortic stenosis by gradient. Currently, the patient is saying that she is feeling some anxiety, slight shortness of breath. Denies any chest pain. PAST MEDICAL HISTORY: 1. Diabetes. 2. Hypertension. 3. Hyperlipidemia. 4. CHF. ALLERGIES: NONE. PAST SURGICAL HISTORY: Status post angioplasty today. MEDICATIONS: The patient is discharged with: 1. Aspirin 81. 2. Atorvastatin 20. 3. Benazepril 10. 4. Coreg 6.25 b.i.d. 5. Lovenox 80 b.i.d. 6. Lasix 40 IV daily. 7. Insulin Lantus. 8. Pantoprazole 40. 9. Nitroglycerin patch. SOCIAL HISTORY: Denies any history of smoking, alcohol or any drug use currently. FAMILY HISTORY: Denies any history of cardiac disease in the family. REVIEW OF SYSTEMS: The patient complains of some shortness of breath, some anxiety. Denies any headache, any chest pain. Denies any abdominal pain, nausea, vomiting, diarrhea. Denies any hematemesis, any melena, any bright red blood per rectum. PHYSICAL EXAMINATION: VITAL SIGNS: Currently, blood pressure 127/91, afebrile, heart rate 91, saturating 98% on 2 liters. Gen: Awake,alert and oriented neck: JVD Lungs: Decreased breath sounds at bases Heart: Irregular irregular Abdomen: obese exr 1 +edema ASSESSMENT AND PLAN: This is a 73-year-old female with: 1. Non-ST elevation myocardial infarction, status post coronary angiogram with a single vessel obstructive coronary artery disease in the right coronary artery, status post PTCA and stent placement. 2. History of congestive heart failure with ejection fraction of 30% to 35%. 3. Cardiomyopathy with ejection fraction of 30 to 35%. 4. Hypertension. 5. History of atrial fibrillation. 6. Diabetes. PLAN: At this period of time, the patient is admitted to [facility]. The patient is currently on aspirin and Brilinta. We will start the patient on statin. Beta- ricardo is on hold due to bradycardia. The patient will be on insulin and we will start the patient on Lasix. Rest of the treatment will depend on the patient's hospitalization course. Dictated By: BART MULTANI/GENO Conf#: [id number] DID#: [id number] CC: MYRTLE HOYT MD;*EndCC* MTDD
[2019-01-24] MEDS: ATORVASTATIN 80 MG TAB PO SCH (21:05)
[2019-01-24] MEDS: INSULIN GLARGINE [LANTus] (100 UNITS/ML) SYG SC SCH (21:16)
[2019-01-24] MEDS: TICAGRELOR 90 MG TABLET PO SCH (21:16)
[2019-01-25] VITALS (13 sets, daily range): BP systolic 116–169; BP diastolic 72–108; PULSE 64–94; RESP 17–20
[2019-01-25] MEDS: ACCU-CHEK XX SCH (02:54)
[2019-01-25] MEDS: PANTOPRAZOLE 40 MG INJ IV SCH (06:32)
[2019-01-25] MEDS: INSULIN ASPART [NOVOLOG] 3 ML PEN SC SCH ×5 (07:53→21:31)
[2019-01-25] MEDS: ASPIRIN (EC) 81 MG TAB PO SCH (08:43)
[2019-01-25] MEDS: TICAGRELOR 90 MG TABLET PO SCH ×2 (08:44→21:31)
--- NOTE | 2019-01-25 10:09 | PN ---
Date/Time of Note Date/Time of Note DATE: 01/25/19 TIME: 10:04 Assessment/Plan VTE Prophylaxis Risk score (from [facility] [place])>0 risk: 6 SCD applied (from [facility] [place]): No SCD contraindicated: low risk/ambulating Pharmacological prophylaxis: NA/contraindicated Pharm contraindication: low risk/ambulating Lines/Catheters IV Catheter Type [facility]from [facility]): Peripheral IV Assessment/Plan Assessment/Plan his is a 73-year-old female with: 1. Non-ST elevation myocardial infarction, status post coronary angiogram with a single vessel obstructive coronary artery disease in the right coronary artery, status post PTCA and stent placement.on 2. History of congestive heart failure with ejection fraction of 30% to 35%. 3. Cardiomyopathy with ejection fraction of 30 to 35%. 4. Hypertension. 5. History of atrial fibrillation. 6. Diabetes. 7 Obesity Plan -Restart beta-ricardo -cwwith aspirin Brilinta statin -Restart Lasix, DC IV fluids -Chest x-ray with pulmonary congestion - Plavix/Eliquis for A. fib- ? -PT eval Result Diagram: 01/25/19 0601 01/25/19 0601 Results 24hrs Laboratory Tests Test 01/24/19 10:49 01/24/19 14:26 01/24/19 17:06 01/24/19 21:08 Bedside Glucose 249 H 210 217 206 Test 01/25/19 02:47 01/25/19 06:01 01/25/19 07:48 Bedside Glucose 157 185 White Blood Count 10.0 # Red Blood Count 4.52 Hemoglobin 14.1 Hematocrit 42.0 Mean Corpuscular 92.9 Volume Mean Corpuscular 31.2 Hemoglobin Mean Corpuscular 33.6 Hemoglobin Concent Red Cell 12.7 Distribution Width Platelet Count 180 Mean Platelet Volume 10.9 H Immature 0.300 Granulocytes % Neutrophils % 73.5 Lymphocytes % 16.6 Monocytes % 7.1 Eosinophils % 1.9 Basophils % 0.6 Nucleated Red Blood 0.0 Cells % Immature 0.030 Granulocytes # Neutrophils # 7.3 Lymphocytes # 1.7 Monocytes # 0.7 Eosinophils # 0.2 Basophils # 0.1 Nucleated Red Blood 0.0 Cells # Sodium Level 143 Potassium Level 3.7 Chloride Level 109 Carbon Dioxide Level 24 Anion Gap 10 Blood Urea Nitrogen 15 Creatinine 0.69 Est Glomerular Filtrat Rate mL/min Glucose Level 174 Calcium Level 9.5 Phosphorus Level 3.9 Magnesium Level 2.0 Creatine Kinase 23 Creatine Kinase 4.3 Index Creatinine Kinase MB 1.00 (Mass) Troponin I 0.162 *H Subjective 24 Hr Interval Summary Free Text/Dictation Slight shortness of breath. AFIB Exam/Review of Systems Exam Vitals Vital Signs Date Temp Pulse Resp B/P (MAP) Pulse Ox O2 O2 Flow FiO2 Time Delivery Rate 01/25/19 86 08:19 01/25/19 Nasal 2.0 07:57 Cannula 01/25/19 97.8 20 139/78 97 07:47 (98) Intake and Output 01/24/19 01/24/19 01/25/19 1515:00 23:00 07:00 IntakeIntake Total 740 ml 550 ml OutputOutput Total 200 ml BalanceBalance 540 ml 550 ml Exam General awake alert oriented Neck supple Irregularly irregular decBreath sounds bilaterally Results Results 24hrs Laboratory Tests Test 01/24/19 10:49 01/24/19 14:26 01/24/19 17:06 01/24/19 21:08 Bedside Glucose 249 H 210 217 206 Test 01/25/19 02:47 01/25/19 06:01 01/25/19 07:48 Bedside Glucose 157 185 White Blood Count 10.0 # Red Blood Count 4.52 Hemoglobin 14.1 Hematocrit 42.0 Mean Corpuscular 92.9 Volume Mean Corpuscular 31.2 Hemoglobin Mean Corpuscular 33.6 Hemoglobin Concent Red Cell 12.7 Distribution Width Platelet Count 180 Mean Platelet Volume 10.9 H Immature 0.300 Granulocytes % Neutrophils % 73.5 Lymphocytes % 16.6 Monocytes % 7.1 Eosinophils % 1.9 Basophils % 0.6 Nucleated Red Blood 0.0 Cells % Immature 0.030 Granulocytes # Neutrophils # 7.3 Lymphocytes # 1.7 Monocytes # 0.7 Eosinophils # 0.2 Basophils # 0.1 Nucleated Red Blood 0.0 Cells # Sodium Level 143 Potassium Level 3.7 Chloride Level 109 Carbon Dioxide Level 24 Anion Gap 10 Blood Urea Nitrogen 15 Creatinine 0.69 Est Glomerular Filtrat Rate mL/min Glucose Level 174 Calcium Level 9.5 Phosphorus Level 3.9 Magnesium Level 2.0 Creatine Kinase 23 Creatine Kinase 4.3 Index Creatinine Kinase MB 1.00 (Mass) Troponin I 0.162 *H Medications Medication Current Medications Aspirin (Halfprin) 81 mg DAILY PO Last administered on 01/25/19at 08:43; Admin Dose 81 MG; Start 01/25/19 at 09:00 Ticagrelor (Brilinta) 90 mg BID PO Last administered on 01/25/19at 08:44; Admin Dose 90 MG; Start 01/24/19 at 21:00 Oxycodone/ Acetaminophen (Percocet (5/ 325)) 1 tab Q4H PRN PO PAIN Last administered on 01/24/19at 22:19; Admin Dose 1 TAB; Start 01/24/19 at 14:30 Morphine Sulfate (morphine) 1 mg Q1H PRN IV PAIN; Start 01/24/19 at 14:30 Zolpidem Tartrate (Ambien) 5 mg HS MAY REPEAT X 1 PRN PO INSOMNIA; Start 01/24/19 at 14:30 Al Hydrox/Mg Hydrox/Simethicone (Mag-Al Plus) 30 ml Q4H PRN PO GASTROINTESTINAL UPSET; Start 01/24/19 at 14:30 Ondansetron HCl (Zofran Inj) 4 mg Q4H PRN IV NAUSEA AND/OR VOMITING; Start 01/24/19 at 14:30 Miscellaneous Information 1 ea NOTE XX ; Start 01/24/19 at 15:00 Glucose (Glutose) 15 gm Q15M PRN PO DECREASED GLUCOSE; Start 01/24/19 at 15:00 Glucose (Glutose) 22.5 gm Q15M PRN PO DECREASED GLUCOSE; Start 01/24/19 at 15:00 Dextrose (D50w Syringe) 25 ml Q15M PRN IV DECREASED GLUCOSE; Start 01/24/19 at 15:00 Dextrose (D50w Syringe) 50 ml Q15M PRN IV DECREASED GLUCOSE; Start 01/24/19 at 15:00 Glucagon (Glucagen) 1 mg Q15M PRN IM DECREASED GLUCOSE; Start 01/24/19 at 15:00 Glucose (Glutose) 15 gm Q15M PRN BUCCAL DECREASED GLUCOSE; Start 01/24/19 at 15:00 IV Flush (NS 3 ml) 3 ml PER PROTOCOL IV ; Start 01/24/19 at 19:00 Acetaminophen (Tylenol Tab) 650 mg Q6H PRN PO .PAIN 1-3 OR TEMP; Start 01/24/19 at 19:00 Docusate Sodium (Colace) 100 mg Q12H PRN PO .CONSTIPATION; Start 01/24/19 at 1 9:00 Pantoprazole (Protonix Iv) 40 mg DAILY@06 IV Last administered on 01/25/19at 06:32; Admin Dose 40 MG; Start 01/25/19 at 06:00 Atorvastatin Calcium (Lipitor) 80 mg HS PO Last administered on 01/24/19at 21:05; Admin Dose 80 MG; Start 01/24/19 at 21:00 Diagnostic Test (Pha) (Accu-Chek) 1 ea 02 XX Last administered on 01/25/19at 02:54; Admin Dose 1 EA; Start 01/25/19 at 02:00 Insulin Aspart (Novolog Insulin Pen) NOVOLOG *MILD* ALGORITHM WITH MEALS BEDTIME SC Last administered on 01/25/19at 07:53; Admin Dose 2 UNIT; Start 01/24/19 at 21:00 Insulin Glargine (Lantus) 12 units DAILY@2000 SC Last administered on 01/24/19at 21:16; Admin Dose 12 UNITS; Start 01/24/19 at 20:00 Furosemide (Lasix) 40 mg DAILY IV ; Start 01/25/19 at 10:00 BART LEMONS MD Jan 25, 2019 10:09
[2019-01-25] MEDS: FUROSEMIDE 40 MG INJ IV SCH (11:23)
--- NOTE | 2019-01-25 16:17 | CONS ---
Assessment/Plan Assessment/Plan Hospital Course (Demo Recall) IMP: 1.NSTEMI-POD #1 s/p stent to RCA with JEFFERY for 95% mid RCA stenosis 2.cardiomyopathy-EF 30-35 by echo at [facility] 3.HTN 4.HL 5.DM 6.chest pain secondary to #1 7. AF-rate controlled Recc: -Tele -serial ecg's -Contineu asa for now -Will change brilinta to plavix as will need to be on eliquis -Contineu coreg and will give hydralazine until tomorrow when patient will likely resume ACEI afterload reduction Consultation Date/Type/Reason Admit Date/Time Jan 25, 2019 at 08:35 Initial Consult Date 01/24/19 Type of Consult Cardiology Reason for Consultation Nstemi Requesting Provider: BART LEMONS MD Date/Time of Note DATE: 01/25/19 TIME: 16:11 Exam/Review of Systems Vital Signs Vitals Vital Signs Date Temp Pulse Resp B/P (MAP) Pulse Ox O2 O2 Flow FiO2 Time Delivery Rate 01/25/19 98.1 64 20 169/108 92 15:12 (128) 01/25/19 Nasal 2.0 07:57 Cannula Intake and Output 01/24/19 01/24/19 01/25/19 1515:00 23:00 07:00 IntakeIntake Total 740 ml 550 ml OutputOutput Total 200 ml BalanceBalance 540 ml 550 ml Exam Exam Review of Systems: CONSTITUTIONAL: No fevers, chills. PULMONARY: No sob CARDIOVASCULAR: No chest pain/palpitations GASTROINTESTINAL: No nausea/vomiting. GENITOURINARY: No hematuria/dysuria. MUSCULOSKELETAL: No myagias/arthalgias. PSYCHIATRIC: The patient denies depression. NEUROLOGIC: No weakness Constitutional: alert Head: normocephalic ENMT: mucosa pink and moist Neck: supple, jvd (9 cm water) Respiratory: clear to auscultation Cardiovascular: irregular rhythm Gastrointestinal: soft, non-tender Musculoskeletal: muscle tone (normal) Extremities: edema (none) Neurological: other (No focal deficits) Labs Result Diagram: 01/25/19 0601/25/19 06 Results 24hrs Laboratory Tests Test 01/24/19 17:06 01/24/19 21:08 01/25/19 02:47 01/25/19 06:01 Bedside Glucose 217 206 157 White Blood Count 10.0 # Red Blood Count 4.52 Hemoglobin 14.1 Hematocrit 42.0 Mean Corpuscular 92.9 Volume Mean Corpuscular 31.2 Hemoglobin Mean Corpuscular 33.6 Hemoglobin Concent Red Cell 12.7 Distribution Width Platelet Count 180 Mean Platelet Volume 10.9 H Immature 0.300 Granulocytes % Neutrophils % 73.5 Lymphocytes % 16.6 Monocytes % 7.1 Eosinophils % 1.9 Basophils % 0.6 Nucleated Red Blood 0.0 Cells % Immature 0.030 Granulocytes # Neutrophils # 7.3 Lymphocytes # 1.7 Monocytes # 0.7 Eosinophils # 0.2 Basophils # 0.1 Nucleated Red Blood 0.0 Cells # Sodium Level 143 Potassium Level 3.7 Chloride Level 109 Carbon Dioxide Level 24 Anion Gap 10 Blood Urea Nitrogen 15 Creatinine 0.69 Est Glomerular Filtrat Rate mL/min Glucose Level 174 Calcium Level 9.5 Phosphorus Level 3.9 Magnesium Level 2.0 Creatine Kinase 23 Creatine Kinase 4.3 Index Creatinine Kinase MB 1.00 (Mass) Troponin I 0.162 *H Test 01/25/19 07:48 01/25/19 11:20 Bedside Glucose 185 224 H Medications Medications Current Medications Aspirin (Halfprin) 81 mg DAILY PO Last administered on 01/25/19at 08:43; Admin Dose 81 MG; Start 01/25/19 at 09:00 Ticagrelor (Brilinta) 90 mg BID PO Last administered on 01/25/19at 08:44; Admin Dose 90 MG; Start 01/24/19 at 21:00 Oxycodone/ Acetaminophen (Percocet (5/ 325)) 1 tab Q4H PRN PO PAIN Last administered on 01/24/19at 22:19; Admin Dose 1 TAB; Start 01/24/19 at 14:30 Morphine Sulfate (morphine) 1 mg Q1H PRN IV PAIN; Start 01/24/19 at 14:30 Zolpidem Tartrate (Ambien) 5 mg HS MAY REPEAT X 1 PRN PO INSOMNIA; Start 01/24/19 at 14:30 Al Hydrox/Mg Hydrox/Simethicone (Mag-Al Plus) 30 ml Q4H PRN PO GASTROINTESTINAL UPSET; Start 01/24/19 at 14:30 Ondansetron HCl (Zofran Inj) 4 mg Q4H PRN IV NAUSEA AND/OR VOMITING; Start 01/24/19 at 14:30 Miscellaneous Information 1 ea NOTE XX ; Start 01/24/19 at 15:00 Glucose (Glutose) 15 gm Q15M PRN PO DECREASED GLUCOSE; Start 01/24/19 at 15:00 Glucose (Glutose) 22.5 gm Q15M PRN PO DECREASED GLUCOSE; Start 01/24/19 at 15:00 Dextrose (D50w Syringe) 25 ml Q15M PRN IV DECREASED GLUCOSE; Start 01/24/19 at 15:00 Dextrose (D50w Syringe) 50 ml Q15M PRN IV DECREASED GLUCOSE; Start 01/24/19 at 15:00 Glucagon (Glucagen) 1 mg Q15M PRN IM DECREASED GLUCOSE; Start 01/24/19 at 15:00 Glucose (Glutose) 15 gm Q15M PRN BUCCAL DECREASED GLUCOSE; Start 01/24/19 at 15:00 IV Flush (NS 3 ml) 3 ml PER PROTOCOL IV ; Start 01/24/19 at 19:00 Acetaminophen (Tylenol Tab) 650 mg Q6H PRN PO .PAIN 1-3 OR TEMP; Start 01/24/19 at 19:00 Docusate Sodium (Colace) 100 mg Q12H PRN PO .CONSTIPATION; Start 01/24/19 at 19:00 Pantoprazole (Protonix Iv) 40 mg DAILY@06 IV Last administered on 01/25/19at 06:32; Admin Dose 40 MG; Start 01/25/19 at 06:00 Atorvastatin Calcium (Lipitor) 80 mg HS PO Last administered on 01/24/19at 21:05; Admin Dose 80 MG; Start 01/24/19 at 21:00 Diagnostic Test (Pha) (Accu-Chek) 1 ea 02 XX Last administered on 01/25/19at 02:54; Admin Dose 1 EA; Start 01/25/19 at 02:00 Insulin Aspart (Novolog Insulin Pen) NOVOLOG *MILD* ALGORITHM WITH MEALS BEDTIME SC Last administered on 01/25/19at 11:29; Admin Dose 3 UNIT; Start 01/24/19 at 21:00 Insulin Glargine (Lantus) 12 units DAILY@2000 SC Last administered on 01/24/19at 21:16; Admin Dose 12 UNITS; Start 01/24/19 at 20:00 Furosemide (Lasix) 40 mg DAILY IV Last administered on 01/25/19at 11:23; Admin Dose 40 MG; Start 01/25/19 at 10:00 Carvedilol (Coreg) 6.25 mg BID PO Last administered on 01/25/19at 11:24; Admin Dose 6.25 MG; Start 01/25/19 at 10:30 Insulin Aspart (Novolog Insulin Pen) 5 unit WITH MEALS SC ; Start 01/25/19 at 17:55 MYRTLE HOYT Jan 25, 2019 16:17
[2019-01-25] MEDS ORDERED: hydrALAzine 20 MG INJ IV PRN (16:30)
[2019-01-25] MEDS: ATORVASTATIN 80 MG TAB PO SCH (21:24)
[2019-01-25] MEDS: ZOLPIDEM 5 MG TAB PO PRN (21:25)
[2019-01-25] MEDS: INSULIN GLARGINE [LANTus] (100 UNITS/ML) SYG SC SCH (21:31)
[2019-01-26] VITALS (10 sets, daily range): BP systolic 133–151; BP diastolic 70–98; PULSE 60–89; RESP 18–20
[2019-01-26] MEDS: ACCU-CHEK XX SCH (02:53)
[2019-01-26] MEDS: PANTOPRAZOLE 40 MG INJ IV SCH (06:23)
[2019-01-26] MEDS: INSULIN ASPART [NOVOLOG] 3 ML PEN SC SCH ×7 (08:13→20:13)
[2019-01-26] MEDS: FUROSEMIDE 40 MG INJ IV SCH (09:15)
[2019-01-26] MEDS: ASPIRIN (EC) 81 MG TAB PO SCH (09:15)
[2019-01-26] MEDS: TICAGRELOR 90 MG TABLET PO SCH ×2 (09:15→20:13)
--- NOTE | 2019-01-26 15:35 | PN ---
Date/Time of Note Date/Time of Note DATE: 01/26/19 TIME: 15:35 Assessment/Plan VTE Prophylaxis Risk score (from Ns)>0 risk: 5 SCD applied (from [facility] [place]): No SCD contraindicated: low risk/ambulating Pharmacological prophylaxis: NA/contraindicated Pharm contraindication: low risk/ambulating Lines/Catheters IV Catheter Type (from [facility]): [place] Urinary Cath still in place: No Assessment/Plan Assessment/Plan his is a 73-year-old female with: 1. Non-ST elevation myocardial infarction, status post coronary angiogram with a single vessel obstructive coronary artery disease in the right coronary artery, status post PTCA and stent placement.on 2. History of congestive heart failure with ejection fraction of 30% to 35%. 3. Cardiomyopathy with ejection fraction of 30 to 35%. 4. Hypertension. 5. History of atrial fibrillation.rate control 6. Diabetes.uncontroled 7 Obesity Plan -plavix load then eliquis per cards -cwwith aspirin , statin - cw iv lasix - cw PT - Increase lantus and mealtime insulin Result Diagram: 01/25/19 0601 01/26/19 0607 Results 24hrs Laboratory Tests Test 01/25/19 17:00 01/25/19 21:28 01/26/19 02:48 01/26/19 06:07 Bedside Glucose 221 H 200 165 Sodium Level 142 Potassium Level 3.5 Chloride Level 108 Carbon Dioxide Level 25 Anion Gap 9 Blood Urea Nitrogen 19 Creatinine 0.69 Est Glomerular Filtrat Rate mL/min Glucose Level 192 Calcium Level 9.4 Phosphorus Level 4.4 Magnesium Level 1.9 Creatine Kinase 26 Creatine Kinase 2.6 Index Creatinine Kinase MB 0.67 (Mass) Troponin I 0.072 Test 01/26/19 08:11 01/26/19 11:47 Bedside Glucose 207 253 H Subjective 24 Hr Interval Summary Free Text/Dictation feels weak and tired afib rate controlled Exam/Review of Systems Exam Vitals Vital Signs Date Temp Pulse Resp B/P (MAP) Pulse Ox O2 O2 Flow FiO2 Time Delivery Rate 01/26/19 79 12:03 01/26/19 97.6 20 151/92 92 11:20 (111) 01/26/19 Nasal 2.0 09:50 Cannula Intake and Output 01/25/19 01/25/19 01/26/19 1515:00 23:00 07:00 IntakeIntake Total 650 ml 500 ml BalanceBalance 650 ml 500 ml Exam General awake alert oriented Neck supple Irregularly irregular decBreath sounds bilaterally Results Results 24hrs Laboratory Tests Test 01/25/19 17:00 01/25/19 21:28 01/26/19 02:48 01/26/19 06:07 Bedside Glucose 221 H 200 165 Sodium Level 142 Potassium Level 3.5 Chloride Level 108 Carbon Dioxide Level 25 Anion Gap 9 Blood Urea Nitrogen 19 Creatinine 0.69 Est Glomerular Filtrat Rate mL/min Glucose Level 192 Calcium Level 9.4 Phosphorus Level 4.4 Magnesium Level 1.9 Creatine Kinase 26 Creatine Kinase 2.6 Index Creatinine Kinase MB 0.67 (Mass) Troponin I 0.072 Test 01/26/19 08:11 01/26/19 11:47 Bedside Glucose 207 253 H Medications Medication Current Medications Aspirin (Halfprin) 81 mg DAILY PO Last administered on 01/26/19at 09:15; Admin Dose 81 MG; Start 01/25/19 at 09:00 Ticagrelor (Brilinta) 90 mg BID PO Last administered on 01/26/19at 09:15; Admin Dose 90 MG; Start 01/24/19 at 21:00 Oxycodone/ Acetaminophen (Percocet (5/ 325)) 1 tab Q4H PRN PO PAIN Last administered on 01/24/19at 22:19; Admin Dose 1 TAB; Start 01/24/19 at 14:30 Morphine Sulfate (morphine) 1 mg Q1H PRN IV PAIN; Start 01/24/19 at 14:30 Zolpidem Tartrate (Ambien) 5 mg HS MAY REPEAT X 1 PRN PO INSOMNIA Last a dministered on 01/25/19at 21:25; Admin Dose 5 MG; Start 01/24/19 at 14:30 Al Hydrox/Mg Hydrox/Simethicone (Mag-Al Plus) 30 ml Q4H PRN PO GASTROINTESTINAL UPSET; Start 01/24/19 at 14:30 Ondansetron HCl (Zofran Inj) 4 mg Q4H PRN IV NAUSEA AND/OR VOMITING; Start 01/24/19 at 14:30 Miscellaneous Information 1 ea NOTE XX ; Start 01/24/19 at 15:00 Glucose (Glutose) 15 gm Q15M PRN PO DECREASED GLUCOSE; Start 01/24/19 at 15:00 Glucose (Glutose) 22.5 gm Q15M PRN PO DECREASED GLUCOSE; Start 01/24/19 at 15:00 Dextrose (D50w Syringe) 25 ml Q15M PRN IV DECREASED GLUCOSE; Start 01/24/19 at 15:00 Dextrose (D50w Syringe) 50 ml Q15M PRN IV DECREASED GLUCOSE; Start 01/24/19 at 15:00 Glucagon (Glucagen) 1 mg Q15M PRN IM DECREASED GLUCOSE; Start 01/24/19 at 15:00 Glucose (Glutose) 15 gm Q15M PRN BUCCAL DECREASED GLUCOSE; Start 01/24/19 at 15:00 IV Flush (NS 3 ml) 3 ml PER PROTOCOL IV ; Start 01/24/19 at 19:00 Acetaminophen (Tylenol Tab) 650 mg Q6H PRN PO .PAIN 1-3 OR TEMP; Start 01/24/19 at 19:00 Docusate Sodium (Colace) 100 mg Q12H PRN PO .CONSTIPATION; Start 01/24/19 at 19:00 Atorvastatin Calcium (Lipitor) 80 mg HS PO Last administered on 01/25/19 21:24; Admin Dose 80 MG; Start 01/24/19 at 21:00 Diagnostic Test (Pha) (Accu-Chek) 1 ea 02 XX Last administered on 01/26/19 02:53; Admin Dose 1 EA; Start 01/25/19 at 02:00 Insulin Aspart (Novolog Insulin Pen) NOVOLOG *MILD* ALGORITHM WITH MEALS BEDTIME SC Last administered on 01/26/19 11:51; Admin Dose 3 UNIT; Start 01/24/19 at 21:00 Furosemide (Lasix) 40 mg DAILY IV Last administered on 01/26/19 09:15; Admin Dose 40 MG; Start 01/25/19 at 10:00 Carvedilol (Coreg) 6.25 mg BID PO Last administered on 01/26/19 09:15; Admin Dose 6.25 MG; Start 01/25/19 at 10:30 Hydralazine HCl (Apresoline) 25 mg Q8 PO Last administered on 01/26/19at 13:39; Admin Dose 25 MG; Start 01/25/19 at 22:00 Hydralazine HCl (Apresoline) 10 mg Q4H PRN IV SBP>170; Start 01/25/19 at 16:30 Pantoprazole (Protonix Tab) 40 mg DAILY@06 PO ; Start 01/27/19 at 06:00 Insulin Aspart (Novolog Insulin Pen) 7 unit WITH MEALS SC ; Start 01/26/19 at 17:55 Insulin Glargine (Lantus) 18 units DAILY@2000 SC ; Start 01/26/19 at 20:00 BART LEMONS MD Jan 26, 2019 15:35
--- NOTE | 2019-01-26 18:28 | CONS ---
Assessment/Plan Assessment/Plan Hospital Course (Demo Recall) IMP: 1.NSTEMI-POD #2 s/p stent to RCA with JEFFERY for 95% mid RCA stenosis 2.cardiomyopathy-EF 30-35 [facility] 3.HTN 4.HL 5.DM 6.chest pain secondary to #1 7. AF-rate controlled Recc: -Tele -serial ecg's -Contineu asa for now -Will change brilinta to plavix as will need to be on eliquis -Contineu coreg and will resume ACEI afterload reduction -Will resume eliquis at d/c Consultation Date/Type/Reason Admit Date/Time Jan 25, 2019 at 08:35 Initial Consult Date 01/24/19 Type of Consult Cardiology Reason for Consultation nstemi Requesting Provider: BART LEMONS MD Date/Time of Note DATE: 01/26/19 TIME: 18:24 Exam/Review of Systems Vital Signs Vitals Vital Signs Date Temp Pulse Resp B/P (MAP) Pulse Ox O2 O2 Flow FiO2 Time Delivery Rate 01/26/19 89 16:08 01/26/19 97.4 20 141/86 97 15:43 (104) 01/26/19 Nasal 2.0 09:50 Cannula Intake and Output 01/25/19 01/25/19 01/26/19 1515:00 23:00 07:00 IntakeIntake Total 650 ml 500 ml BalanceBalance 650 ml 500 ml Exam Exam Review of Systems: CONSTITUTIONAL: No fevers, chills. PULMONARY: No sob CARDIOVASCULAR: No chest pain/palpitations GASTROINTESTINAL: No nausea/vomiting. GENITOURINARY: No hematuria/dysuria. MUSCULOSKELETAL: No myagias/arthalgias. PSYCHIATRIC: The patient denies depression. NEUROLOGIC: No weakness Constitutional: alert Psych: no complaints Head: normocephalic ENMT: mucosa pink and moist Neck: supple, jvd Respiratory: diminished breath sounds Cardiovascular: regular rate and rhythm Gastrointestinal: soft, non-tender Musculoskeletal: muscle tone (normal) Extremities: edema (none) Neurological: other (No focal deficits) Labs Result Diagram: 01/25/19 0601 01/26/19 0607 Results 24hrs Laboratory Tests Test 01/25/19 21:28 01/26/19 02:48 01/26/19 06:07 01/26/19 08:11 Bedside Glucose 200 165 207 Sodium Level 142 Potassium Level 3.5 Chloride Level 108 Carbon Dioxide Level 25 Anion Gap 9 Blood Urea Nitrogen 19 Creatinine 0.69 Est Glomerular Filtrat Rate mL/min Glucose Level 192 Calcium Level 9.4 Phosphorus Level 4.4 Magnesium Level 1.9 Creatine Kinase 26 Creatine Kinase 2.6 Index Creatinine Kinase MB 0.67 (Mass) Troponin I 0.072 Test 01/26/19 11:47 01/26/19 17:17 Bedside Glucose 253 H 173 Medications Medications Current Medications Aspirin (Halfprin) 81 mg DAILY PO Last administered on 01/26/19at 09:15; Admin Dose 81 MG; Start 01/25/19 at 09:00 Ticagrelor (Brilinta) 90 mg BID PO Last administered on 01/26/19at 09:15; Admin Dose 90 MG; Start 01/24/19 at 21:00 Oxycodone/ Acetaminophen (Percocet (5/ 325)) 1 tab Q4H PRN PO PAIN Last administered on 01/24/19at 22:19; Admin Dose 1 TAB; Start 01/24/19 at 14:30 Morphine Sulfate (morphine) 1 mg Q1H PRN IV PAIN; Start 01/24/19 at 14:30 Zolpidem Tartrate (Ambien) 5 mg HS MAY REPEAT X 1 PRN PO INSOMNIA Last administered on 01/25/19at 21:25; Admin Dose 5 MG; Start 01/24/19 at 14:30 Al Hydrox/Mg Hydrox/Simethicone (Mag-Al Plus) 30 ml Q4H PRN PO GASTROINTESTINAL UPSET; Start 01/24/19 at 14:30 Ondansetron HCl (Zofran Inj) 4 mg Q4H PRN IV NAUSEA AND/OR VOMITING; Start 01/24/19 at 14:30 Miscellaneous Information 1 ea NOTE XX ; Start 01/24/19 at 15:00 Glucose (Glutose) 15 gm Q15M PRN PO DECREASED GLUCOSE; Start 01/24/19 at 15:00 Glucose (Glutose) 22.5 gm Q15M PRN PO DECREASED GLUCOSE; Start 01/24/19 at 15:00 Dextrose (D50w Syringe) 25 ml Q15M PRN IV DECREASED GLUCOSE; Start 01/24/19 at 15:00 Dextrose (D50w Syringe) 50 ml Q15M PRN IV DECREASED GLUCOSE; Start 01/24/19 at 15:00 Glucagon (Glucagen) 1 mg Q15M PRN IM DECREASED GLUCOSE; Start 01/24/19 at 15:00 Glucose (Glutose) 15 gm Q15M PRN BUCCAL DECREASED GLUCOSE; Start 01/24/19 at 15:00 IV Flush (NS 3 ml) 3 ml PER PROTOCOL IV ; Start 01/24/19 at 19:00 Acetaminophen (Tylenol Tab) 650 mg Q6H PRN PO .PAIN 1-3 OR TEMP; Start 01/24/19 at 19:00 Docusate Sodium (Colace) 100 mg Q12H PRN PO .CONSTIPATION; Start 01/24/19 at 19:00 Atorvastatin Calcium (Lipitor) 80 mg HS PO Last administered on 01/25/19at 21:24; Admin Dose 80 MG; Start 01/24/19 at 21:00 Diagnostic Test (Pha) (Accu-Chek) 1 ea 02 XX Last administered on 01/26/19at 02:53; Admin Dose 1 EA; Start 01/25/19 at 02:00 Insulin Aspart (Novolog Insulin Pen) NOVOLOG *MILD* ALGORITHM WITH MEALS BEDTIME SC Last administered on 01/26/19 17:19; Admin Dose 1 UNIT; Start 01/24/19 at 21:00 Furosemide (Lasix) 40 mg DAILY IV Last administered on 01/26/19at 09:15; Admin Dose 40 MG; Start 01/25/19 at 10:00 Carvedilol (Coreg) 6.25 mg BID PO Last administered on 01/26/19at 09:15; Admin Dose 6.25 MG; Start 01/25/19 at 10:30 Hydralazine HCl (Apresoline) 25 mg Q8 PO Last administered on 01/26/19at 13:39; Admin Dose 25 MG; Start 01/25/19 at 22:00 Hydralazine HCl (Apresoline) 10 mg Q4H PRN IV SBP>170; Start 01/25/19 at 16:30 Pantoprazole (Protonix Tab) 40 mg DAILY@06 PO ; Start 01/27/19 at 06:00 Insulin Aspart (Novolog Insulin Pen) 7 unit WITH MEALS SC Last administered on 01/26/19at 17:19; Admin Dose 7 UNIT; Start 01/26/19 at 17:55 Insulin Glargine (Lantus) 18 units DAILY@2000 SC ; Start 01/26/19 at 20:00 MYRTLE HOYT Jan 26, 2019 18:28
[2019-01-26] MEDS ORDERED: INSULIN GLARGINE [LANTus] (100 UNITS/ML) SYG SC SCH (20:00)
[2019-01-26] MEDS: ZOLPIDEM 5 MG TAB PO PRN (20:01)
[2019-01-26] MEDS: ATORVASTATIN 80 MG TAB PO SCH (20:01)
[2019-01-26] MEDS: BENAZEPRIL 10 MG TAB PO SCH (21:09)
[2019-01-27] VITALS (9 sets, daily range): BP systolic 121–141; BP diastolic 73–90; PULSE 65–93; RESP 16–20
[2019-01-27] MEDS: ACCU-CHEK XX SCH (02:00)
[2019-01-27] MEDS ORDERED: PANTOPRAZOLE (EC) 40 MG TAB PO SCH (06:00)
[2019-01-27] MEDS: INSULIN ASPART [NOVOLOG] 3 ML PEN SC SCH ×4 (07:37→12:04)
[2019-01-27] MEDS ORDERED: CLOPIDOGREL 75 MG TAB PO ONE (09:00)
[2019-01-27] MEDS: ASPIRIN (EC) 81 MG TAB PO SCH (09:31)
[2019-01-27] MEDS: FUROSEMIDE 40 MG INJ IV SCH (09:31)
[2019-01-27] MEDS: BENAZEPRIL 10 MG TAB PO SCH (09:31)
--- NOTE | 2019-01-27 13:09 | CONS ---
Assessment/Plan Assessment/Plan Hospital Course (Demo Recall) IMP: 1.NSTEMI-POD #3 s/p stent to RCA with JEFFERY for 95% mid RCA stenosis 2.cardiomyopathy-EF 30-35 [facility] 3.HTN 4.HL 5.DM 6.chest pain secondary to #1 7. AF-rate controlled Recc: -Tele -serial ecg's -Contineu asa for now -Contineu now plavix 75 daily s/p loading plavix and eliquis as outpatient -Contineu coreg and ACEI with uptitrration as necessary to improve overall BP Consultation Date/Type/Reason Admit Date/Time Jan 25, 2019 at 08:35 Initial Consult Date 01/24/19 Type of Consult Cardiology Reason for Consultation Nstemi/CHF Requesting Provider: BART LEMONS MD Date/Time of Note DATE: 01/27/19 TIME: 13:07 Exam/Review of Systems Vital Signs Vitals Vital Signs Date Temp Pulse Resp B/P (MAP) Pulse Ox O2 O2 Flow FiO2 Time Delivery Rate 01/27/19 78 12:00 01/27/19 97.5 20 141/74 98 Room Air 11:20 (96) 01/27/19 2.0 07:30 Intake and Output 01/26/19 01/26/19 01/27/19 1414:59 22:59 06:59 IntakeIntake Total 650 ml 400 ml BalanceBalance 650 ml 400 ml Exam Exam Review of Systems: CONSTITUTIONAL: No fevers, chills. PULMONARY: No sob CARDIOVASCULAR: No chest pain/palpitations GASTROINTESTINAL: No nausea/vomiting. GENITOURINARY: No hematuria/dysuria. MUSCULOSKELETAL: No myagias/arthalgias. PSYCHIATRIC: The patient denies depression. NEUROLOGIC: No weakness Constitutional: alert, oriented Psych: no complaints Head: normocephalic ENMT: mucosa pink and moist Neck: supple, jvd (9 cm water) Respiratory: clear to auscultation Cardiovascular: regular rate and rhythm Gastrointestinal: soft, non-tender Musculoskeletal: muscle tone (normal) Extremities: edema (none) Labs Result Diagram: 01/25/19 0601 01/27/19 0948 Results 24hrs Laboratory Tests Test 01/26/19 17:17 01/26/19 20:00 01/27/19 02:39 01/27/19 07:34 Bedside Glucose 173 210 174 203 Test 01/27/19 09:48 01/27/19 11:47 Sodium Level 139 Potassium Level 4.0 Chloride Level 106 Carbon Dioxide Level 22 Anion Gap 11 Blood Urea Nitrogen 22 H Creatinine 0.76 Est Glomerular Filtrat Rate mL/min Glucose Level 290 H Calcium Level 9.8 Bedside Glucose 314 H Medications Medications Current Medications Aspirin (Halfprin) 81 mg DAILY PO Last administered on 01/27/19at 09:31; Admin Dose 81 MG; Start 01/25/19 at 09:00 Oxycodone/ Acetaminophen (Percocet (5/ 325)) 1 tab Q4H PRN PO PAIN Last administered on 01/24/19at 22:19; Admin Dose 1 TAB; Start 01/24/19 at 14:30 Morphine Sulfate (morphine) 1 mg Q1H PRN IV PAIN; Start 01/24/19 at 14:30 Zolpidem Tartrate (Ambien) 5 mg HS MAY REPEAT X 1 PRN PO INSOMNIA Last administered on 01/26/19at 20:01; Admin Dose 5 MG; Start 01/24/19 at 14:30 Al Hydrox/Mg Hydrox/Simethicone (Mag-Al Plus) 30 ml Q4H PRN PO GASTROINTESTINAL UPSET; Start 01/24/19 at 14:30 Ondansetron HCl (Zofran Inj) 4 mg Q4H PRN IV NAUSEA AND/OR VOMITING; Start 01/24/19 at 14:30 Miscellaneous Information 1 ea NOTE XX ; Start 01/24/19 at 15:00 Glucose (Glutose) 15 gm Q15M PRN PO DECREASED GLUCOSE; Start 01/24/19 at 15:00 Glucose (Glutose) 22.5 gm Q15M PRN PO DECREASED GLUCOSE; Start 01/24/19 at 15:00 Dextrose (D50w Syringe) 25 ml Q15M PRN IV DECREASED GLUCOSE; Start 01/24/19 at 15:00 Dextrose (D50w Syringe) 50 ml Q15M PRN IV DECREASED GLUCOSE; Start 01/24/19 at 15:00 Glucagon (Glucagen) 1 mg Q15M PRN IM DECREASED GLUCOSE; Start 01/24/19 at 15:00 Glucose (Glutose) 15 gm Q15M PRN BUCCAL DECREASED GLUCOSE; Start 01/24/19 at 15:00 IV Flush (NS 3 ml) 3 ml PER PROTOCOL IV ; Start 01/24/19 at 19:00 Acetaminophen (Tylenol Tab) 650 mg Q6H PRN PO .PAIN 1-3 OR TEMP Last administered on 01/26/19 19:58; Admin Dose 650 MG; Start 01/24/19 at 19:00 Docusate Sodium (Colace) 100 mg Q12H PRN PO .CONSTIPATION; Start 01/24/19 at 19:00 Atorvastatin Calcium (Lipitor) 80 mg HS PO Last administered on 01/26/19 20:01; Admin Dose 80 MG; Start 01/24/19 at 21:00 Diagnostic Test (Pha) (Accu-Chek) 1 ea 02 XX Last administered on 01/26/19 02:53; Admin Dose 1 EA; Start 01/25/19 at 02:00 Insulin Aspart (Novolog Insulin Pen) NOVOLOG *MILD* ALGORITHM WITH MEALS BEDTIME SC Last administered on 01/27/19 12:04; Admin Dose 5 UNIT; Start 01/24/19 at 21:00 Furosemide (Lasix) 40 mg DAILY IV Last administered on 01/27/19 09:31; Admin Dose 40 MG; Start 01/25/19 at 10:00 Carvedilol (Coreg) 6.25 mg BID PO Last administered on 01/27/19 09:31; Admin Dose 6.25 MG; Start 01/25/19 at 10:30 Hydralazine HCl (Apresoline) 25 mg Q8 PO Last administered on 01/27/19 13:00; Admin Dose 25 MG; Start 01/25/19 at 22:00 Hydralazine HCl (Apresoline) 10 mg Q4H PRN IV SBP>170; Start 01/25/19 at 16:30 Pantoprazole (Protonix Tab) 40 mg DAILY@06 PO Last administered on 01/27/19 06:25; Admin Dose 40 MG; Start 01/27/19 at 06:00 Insulin Aspart (Novolog Insulin Pen) 7 unit WITH MEALS SC Last administered on 01/27/19 12:03; Admin Dose 7 UNIT; Start 01/26/19 at 17:55 Insulin Glargine (Lantus) 18 units DAILY@2000 SC Last administered on 01/26/19 20:13; Admin Dose 18 UNITS; Start 01/26/19 at 20:00 Benazepril HCl (Lotensin) 10 mg BID PO Last administered on 01/27/19at 09:31; Admin Dose 10 MG; Start 01/26/19 at 21:00 Clopidogrel Bisulfate (plaVIX) 75 mg DAILY PO ; Start 01/28/19 at 09:00 MYRLTE HOYT Jan 27, 2019 13:09
--- NOTE | 2019-01-27 13:16 | PDOCDIS ---
Discharge Instructions DIAGNOSIS Discharge Diagnosis s/p cardiac stent CONDITION [id number] Patient Condition: [id number] Stable HOME CARE INSTRUCTIONS: [id number] Diet Instructions: [id number] y Rest between Activity FOLLOW UP/APPOINTMENTS Follow-up Plan PCP [address] Quiroz 2 weeks SCHOOL/WORK RELEASE May return to School/Work with: With Restrictions NORY ARCINIEGA Jan 27, 2019 13:16
[2019-01-27] MEDS ORDERED: APIX5TAB PO (13:21)
[2019-01-27] MEDS ORDERED: ATOR-2 PO (13:21)
[2019-01-27] MEDS ORDERED: BENA10TA4 PO (13:21)
[2019-01-27] MEDS ORDERED: HYDR-3671 PO (13:21)
[2019-01-27] MEDS ORDERED: FURO40TA4 PO (13:21)
--- NOTE | 2019-01-27 13:24 | DS ---
BRITTANY ARCINIEGAA 01/27/19 1324: Date/Time of Note Date/Time of Note DATE: 01/27/19 TIME: 13:24 Discharge Summary Admission/Discharge Info Admit Date/Time Jan 25, 2019 at 08:35 Discharge Date/Time Discharge Diagnosis s/p cardiac stent Consults Dr Quiroz, interventional cardiology Procedures RCA cardiac stent placement Hospital Course This is a 73-year-old female who was just recently admitted at [facility] from 01/08/2019 until 01/16/2019. At that time, the patient was found to be in congestive heart failure and presented to the emergency department complaining of shortness of breath. The patient was seen by cardiology consultation with Dr. Combs. The patient had an echo done that showed EF of 30% to 35%. The patient was also found to be in AFib. The patient was apparently discharged home to follow up with cardiology as an outpatient in [facility] in 2 weeks. According to the patient, she went home and she presented to the emergency department admission on 01/19/2019 secondary to shortness of breath and chest pain. The patient's labs were noted to have a white count of 8.3, hemoglobin 14.3, platelet count 194, creatinine of 0.9. Troponin initially was elevated; however, the second troponin was in 2 range. The patient was also found to be in AFib with RVR, congestive heart failure by chest x-ray. The patient was started on IV diuresis. The patient was found to have non-STEMI, so was transferred to [facility] for coronary angiogram. The patient had coronary angiogram done today that showed the patient had single vessel obstructive coronary artery disease involving high-grade lesion in right coronary artery, status post PTCA stent placement, mildly elevated right heart filling pressures, no significant aortic stenosis by gradient. Currently, the patient is saying that she is feeling some anxiety, slight shortness of breath. Denies any chest pain. on 01/24/2019 Dr Quiroz performed stent placement to RCA Impressions: 1. NSTEMI, s/p stent to RCA with JEFFERY for 95% mid RCA stenosis 2. cardiomyopathy-EF 30-35 [facility] 3.HTN 4.HL 5.DM 6.chest pain secondary to #1 7. AF-rate controlled During hospitalization pt was on telemetry service. She had serial ecg's that showed controlled Afib. Dr Quiroz recommended to continue asa and Plavix 75 daily. She received Coreg and ACEI with up titration as necessary to improve overall BP. pt was under control. Blood sugar was controlled, patient was free of chest pain. She ambulated, tolerated diet well. Pt was prescribed Eliquiz, she was given coupon and was discharged on POD #3 Home Meds Active Scripts Clopidogrel Bisulfate (Clopidogrel) 75 Mg Tablet, 75 MG PO DAILY, #30 TAB Prov:NORY ARCINIEGA 01/27/19 Clopidogrel Bisulfate (Clopidogrel) 75 Mg Tablet, 75 MG PO DAILY for 30 Days, TAB Prov:NORY ARCINIEGA 01/27/19 Apixaban* (Eliquis*) 5 Mg Tablet, 10 MG PO BID for 30 Days, TAB Prov:NORY ARCINIEGA 01/27/19 Furosemide (Lasix) 40 Mg Tab, 40 MG PO DAILY for 30 Days, #30 TAB Prov:NORY ARCINIEGA 01/27/19 Hydralazine Hcl* (Hydralazine Hcl*) 25 Mg Tab, 25 MG PO Q8 for 30 Days, TAB Prov:NORY ARCINIEGA 01/27/19 Benazepril Hcl* (Benazepril Hcl*) 10 Mg Tablet, 10 MG PO BID for 30 Days, TAB Prov:NORY ARCINIEGA 01/27/19 Atorvastatin* (Atorvastatin*) 80 Mg Tablet, 80 MG PO HS for 30 Days, TAB Prov:NORY ARCINIEGA 01/27/19 Furosemide* (Lasix*) 20 Mg Tab, 40 MG PO DAILY, #60 TAB Prov:NORY ARCINIEGA 02/22/16 Reported Medications Insulin Aspart* (Novolog Insulin Pen*) 100 Unit/Ml Soln, 0 SC .SLIDING SCALE AC, EA 01/24/19 Nitroglycerin* (Nitrostat*) 0.4 Mg Tab.subl, 0.4 MG SL Q5MIN PRN for CHEST PAIN, BOTTLE 01/24/19 Pantoprazole* (Protonix*) 40 Mg Tablet.dr, 40 MG PO DAILY, TAB 01/24/19 Docusate Sodium* (Colace*) 100 Mg Capsule, 100 MG PO BID, #60 CAP 01/24/19 Carvedilol* (Carvedilol*) 6.25 Mg Tablet, 6.25 MG PO BID, #60 TAB 01/24/19 Bisacodyl* (Dulcolax*) 5 Mg Tablet.dr, 5 MG PO BID, TAB 01/24/19 Discontinued Reported Medications Metoprolol Tartrate* (Lopressor* Inj) 5 Mg/5 Ml Soln, 5 MG IV Q3H PRN for TACHYCARDIA, VIAL 01/24/19 Furosemide* (Lasix* Liq) 40 Mg/4 Ml Solution, 10 MG IV* DAILY, #30 BOTTLE 01/24/19 Enoxaparin Sodium* (Lovenox*) 80 Mg/0.8 Ml Disp.syrin, 70 MG SC Q12, SYR 01/24/19 Benazepril Hcl* (Benazepril Hcl*) 10 Mg Tablet, 10 MG PO DAILY, #30 TAB 01/24/19 Atorvastatin Calcium* (Atorvastatin Calcium*) 20 Mg Tablet, 20 MG PO QHS, #30 TAB 01/24/19 Aspirin (Low Dose Aspirin) 81 Mg Tablet.dr, 81 MG PO DAILY, #30 TAB 01/24/19 Famotidine* (Pepcid*) 20 Mg Tablet 06/01/10 Fluoxetine Hcl* (Prozac*) 20 Mg Capsule 06/01/10 Discontinued Scripts Metformin* (Glucophage* XR) 500 Mg Tab.sr.24h, 500 MG PO BID for 30 Days Prov:NAVARRO ROBLES 01/16/19 Linagliptin (TRADJENTA) 5 Mg Tablet, 5 MG PO DAILY for 30 Days, TAB Prov:NAVARRO ROBLES 01/16/19 [Insulin Glargine] 100 UNITS/ML SOLN No Conflict Check, 18 UNITS SC DAILY@1999 for 30 Days Prov:NAVARRO ROBLES 01/16/19 Insulin Aspart* (Novolog Insulin Pen*) 100 Unit/Ml Soln, 8 UNIT SC WITH MEALS for 30 Days Prov:NAVARRO ROBLES 01/16/19 Empagliflozin (Jardiance) 10 Mg Tablet, 10 MG PO DAILY@08 for 30 Days, TAB Prov:NAVARRO ROBLES 01/16/19 Furosemide* (Furosemide*) 40 Mg Tablet, 40 MG PO DAILY for 30 Days, TAB Prov:NAVARRO ROBLES 01/16/19 Lisinopril* (Lisinopril*) 10 Mg Tablet, 10 MG PO BID for 30 Days, TAB Prov:NAVARRO ROBLES 01/16/19 Carvedilol* (Carvedilol*) 6.25 Mg Tablet, 6.25 MG PO BID for 30 Days, TAB Prov:NAVARRO ROBLES 01/16/19 Atorvastatin Calcium (Atorvastatin Calcium) 20 Mg Tablet, 20 MG PO HS for 30 Days, TAB Prov:NAVARRO ROBLES 01/16/19 Rivaroxaban* (Xarelto*) 15 Mg Tablet, 15 MG PO WITH DINNER for 30 Days, TAB Prov:NAVARRO ROBLES 01/16/19 Follow-up Plan PCP [address] Quiroz 2 weeks Primary Care Provider Not On Staff Doctor Pending Labs Laboratory Tests Test 01/26/19 17:17 01/26/19 20:00 01/27/19 02:39 01/27/19 07:34 Bedside 173 210 174 203 Glucose mg/dL (70-220) mg/dL (70-220) mg/dL (70-220) mg/dL (70-220) Test 01/27/19 09:48 01/27/19 11:47 Sodium Level 139 mmol/L (135-144 ) Potassium 4.0 Level mmol/L (3.5-5.1 ) Chloride Level 106 mmol/L (97-110) Carbon Dioxide 22 Level mmol/L (21-31) Anion Gap 11 (5-13) Blood Urea 22 mg/dl (7-20) Nitrogen Creatinine 0.76 mg/dl (0.44-1.0 0) Est Glomerular mL/min (>60) Filtrat Rate mL/min Glucose Level 290 mg/dl (70-220) Calcium Level 9.8 mg/dl (8.4-10.2 ) Bedside 314 Glucose mg/dL (70-220) BART LEMONS MD 01/27/19 1513: Discharge Summary Admission/Discharge Info Hospital Course pT seen and examined 1.NSTEMI-POD #3 s/p stent to RCA with JEFFERY for 95% mid RCA stenosis and was started on TEE/ ricardo/ Lasix/ statin initally started on br which was then switched to Plavix along with Eliquis since patient also had A. fib so DC home with the Plavix and Eliquis Home Meds Active Scripts Clopidogrel Bisulfate (Clopidogrel) 75 Mg Tablet, 75 MG PO DAILY, #30 TAB Prov:NORY ARCINIEGA 01/27/19 Clopidogrel Bisulfate (Clopidogrel) 75 Mg Tablet, 75 MG PO DAILY for 30 Days, TAB Prov:NORY ARCINIEGA 01/27/19 Apixaban* (Eliquis*) 5 Mg Tablet, 10 MG PO BID for 30 Days, TAB Prov:NORY ARCINIEGA 01/27/19 Furosemide (Lasix) 40 Mg Tab, 40 MG PO DAILY for 30 Days, #30 TAB Prov:NORY ARCINIEGA 01/27/19 Hydralazine Hcl* (Hydralazine Hcl*) 25 Mg Tab, 25 MG PO Q8 for 30 Days, TAB Prov:NORY ARCINIEGA 01/27/19 Benazepril Hcl* (Benazepril Hcl*) 10 Mg Tablet, 10 MG PO BID for 30 Days, TAB Prov:NORY ARCINIEGA 01/27/19 Atorvastatin* (Atorvastatin*) 80 Mg Tablet, 80 MG PO HS for 30 Days, TAB Prov:NORY ARCINIEGA 01/27/19 Furosemide* (Lasix*) 20 Mg Tab, 40 MG PO DAILY, #60 TAB Prov:NORY ARCINIEGA 02/22/16 Reported Medications Insulin Aspart* (Novolog Insulin Pen*) 100 Unit/Ml Soln, 0 SC .SLIDING SCALE AC, EA 01/24/19 Nitroglycerin* (Nitrostat*) 0.4 Mg Tab.subl, 0.4 MG SL Q5MIN PRN for CHEST PAIN, BOTTLE 01/24/19 Pantoprazole* (Protonix*) 40 Mg Tablet.dr, 40 MG PO DAILY, TAB 01/24/19 Docusate Sodium* (Colace*) 100 Mg Capsule, 100 MG PO BID, #60 CAP 01/24/19 Carvedilol* (Carvedilol*) 6.25 Mg Tablet, 6.25 MG PO BID, #60 TAB 01/24/19 Bisacodyl* (Dulcolax*) 5 Mg Tablet.dr, 5 MG PO BID, TAB 01/24/19 Discontinued Reported Medications Metoprolol Tartrate* (Lopressor* Inj) 5 Mg/5 Ml Soln, 5 MG IV Q3H PRN for TACHYCARDIA, VIAL 01/24/19 Furosemide* (Lasix* Liq) 40 Mg/4 Ml Solution, 10 MG IV* DAILY, #30 BOTTLE 01/24/19 Enoxaparin Sodium* (Lovenox*) 80 Mg/0.8 Ml Disp.syrin, 70 MG SC Q12, SYR 01/24/19 Benazepril Hcl* (Benazepril Hcl*) 10 Mg Tablet, 10 MG PO DAILY, #30 TAB 01/24/19 Atorvastatin Calcium* (Atorvastatin Calcium*) 20 Mg Tablet, 20 MG PO QHS, #30 TAB 01/24/19 Aspirin (Low Dose Aspirin) 81 Mg Tablet.dr, 81 MG PO DAILY, #30 TAB 01/24/19 Famotidine* (Pepcid*) 20 Mg Tablet 06/01/10 Fluoxetine Hcl* (Prozac*) 20 Mg Capsule 06/01/10 Discontinued Scripts Metformin* (Glucophage* XR) 500 Mg Tab.sr.24h, 500 MG PO BID for 30 Days Prov:NAVARRO ROBLES 01/16/19 Linagliptin (TRADJENTA) 5 Mg Tablet, 5 MG PO DAILY for 30 Days, TAB Prov:NAVARRO ROBLES 01/16/19 [Insulin Glargine] 100 UNITS/ML SOLN No Conflict Check, 18 UNITS SC DAILY@1999 for 30 Days Prov:NAVARRO ROBLES 01/16/19 Insulin Aspart* (Novolog Insulin Pen*) 100 Unit/Ml Soln, 8 UNIT SC WITH MEALS for 30 Days Prov:NAVARRO ROBLES 01/16/19 Empagliflozin (Jardiance) 10 Mg Tablet, 10 MG PO DAILY@08 for 30 Days, TAB Prov:NAVARRO ROBLES 01/16/19 Furosemide* (Furosemide*) 40 Mg Tablet, 40 MG PO DAILY for 30 Days, TAB Prov:NAVARRO ROBLES 01/16/19 Lisinopril* (Lisinopril*) 10 Mg Tablet, 10 MG PO BID for 30 Days, TAB Prov:NAVARRO ROBLES 01/16/19 Carvedilol* (Carvedilol*) 6.25 Mg Tablet, 6.25 MG PO BID for 30 Days, TAB Prov:NAVARRO ROBLES 01/16/19 Atorvastatin Calcium (Atorvastatin Calcium) 20 Mg Tablet, 20 MG PO HS for 30 Days, TAB Prov:NAVARRO ROBLES 01/16/19 Rivaroxaban* (Xarelto*) 15 Mg Tablet, 15 MG PO WITH DINNER for 30 Days, TAB Prov:NAVARRO ROBLES 01/16/19 NORY ARCINIEGA Jan 27, 2019 13:24 BART LEMONS MD Jan 27, 2019 15:13
--- NOTE | 2019-01-27 13:36 | RADRPT ---
Vent Rate: 83 bpm RR Interval: 0 msec IA Interval: 0 msec QRS Duration: 102 msec QT Interval: 406 msec QTC Interval: 477 msec P-R-T [facility]: 0 - -38 - 0 degrees Atrial fibrillation with premature ventricular or aberrantly conducted complexes Left axis deviation Septal infarct , age undetermined Abnormal ECG Electronically Signed By: Isaiah Quiroz
--- NOTE | 2019-01-27 13:36 | RADRPT ---
Vent Rate: 101 bpm RR Interval: 0 msec PA Interval: 0 msec QRS Duration: 100 msec QT Interval: 400 msec QTC Interval: 518 msec P-R-T [place]: 0 - -47 - -14 degrees Atrial fibrillation with rapid ventricular response with premature ventricular or aberrantly conducted complexes Left axis deviation Septal infarct , age undetermined Abnormal ECG Electronically Signed By: Isaiah Quiroz
[2019-01-27] MEDS ORDERED: CLOP75TA27 PO (15:10)
[2019-01-27] MEDS ORDERED: CLOP75TA28 PO (15:10)
[2019-01-28] MEDS ORDERED: CLOPIDOGREL 75 MG TAB PO SCH (09:00)
== END 2019-01-27 16:35 | disposition home or self-care (01) | DRG 246 ==
LOC: SDS 09:23 → REC 14:16 → TEL 15:41 → OBSVTOIN 01-25 08:35
PROVIDERS: ADMIT Internal Medicine; ATTEND Internal Medicine
PROC: B211YZZ Fluoroscopy of Multiple Coronary Arteries using Other Contrast (ICD-10-PCS; 2019-01-24)
PROC: 027034Z Dilation of Coronary Artery, One Artery with Drug-eluting Intraluminal Device, Percutaneous Approach (ICD-10-PCS; principal; 2019-01-24 12:30)
PROC: 4A023N7 Measurement of Cardiac Sampling and Pressure, Left Heart, Percutaneous Approach (ICD-10-PCS; 2019-01-24 12:30)
DX: I21.4 Non-ST elevation (NSTEMI) myocardial infarction (principal); I50.23 Acute on chronic systolic (congestive) heart failure; I42.9 Cardiomyopathy, unspecified; I11.0 Hypertensive heart disease with heart failure; I25.10 Atherosclerotic heart disease of native coronary artery without angina pectoris; I48.91 Unspecified atrial fibrillation; E78.5 Hyperlipidemia, unspecified; E66.9 Obesity, unspecified; E11.65 Type 2 diabetes mellitus with hyperglycemia; Z68.32 Body mass index [BMI] 32.0-32.9, adult
CPT/HCPCS: 71045; 80048; 82550; 82553; 82962; 83735; 84100; 84484; 85025; 93005; 93458; 97116; 97162; 97530; 99217; G0378; C1725; C1876; C1887; C9113; C9600; J1644; J1815; J1940; J2250; J3010; Q9967

== ENCOUNTER 2019-03-07 15:46 | Inpatient (IN) | payer MEDICARE, MEDICAID ==
[~2019-03-07] VITALS: Ht 152.4 cm; Wt 86.4 kg
[2019-03-07] VITALS (8 sets, daily range): BP systolic 161–194; BP diastolic 103–149; PULSE 86–95; RESP 21–23; Ht 152.4 cm; Wt 86.4 kg
[~2019-03-07 15:46] MED LIST changes: +APIX5TAB PO; -ASPI-831 PO; +ATOR-2 PO; -ATOR20TA38 PO; -ATOR20TA65 PO; +BENA10TA4 PO; +BISA-57 PO; +CLOP75TA27 PO; +CLOP75TA28 PO; +DOCU-144 PO; -EMPA10TA PO; -FAMO-96; -FLUO20CA38; +HYDR-3671 PO; -Insulin Glargine SC; -LINA5TAB PO; -LISI10TA2 PO; -LOSA25TA2 PO; -METF500T3 PO; +NITR0.4T39 SL; +PANT40TA3 PO; -RIVA15TA PO
--- NOTE | 2019-03-07 16:39 | ERD ---
ER Documentation Chief Complaint Chief Complaint c/o SOB x2 days HPI The patient is a 73-year-old female, presenting to the ER because of acute dyspnea, right wrist sided chest pain, fatigue for 2 days. She had similar symptoms previously, denies fever, chills, neck pain, chest pain with vomiting/radiation/exertion/diaphoresis, complains of dyspnea on exertion, denies any abdominal pain, vomiting, dysuria, diarrhea. She does not smoke, drink Medical history: Hypertension, diabetes mellitus, history of CHF, dyslipidemia, atrial fibrillation, CAD, cardiomyopathy Past surgical history: Stent PCI ROS All systems reviewed and are negative except as per history of present illness. Medications Home Meds Active Scripts Clopidogrel Bisulfate (Clopidogrel) 75 Mg Tablet, 75 MG PO DAILY, #30 TAB Prov:NORY ARCINIEGA 01/27/19 Furosemide (Lasix) 40 Mg Tab, 40 MG PO DAILY for 30 Days, #30 TAB Prov:NORY ARCINIEGA 01/27/19 Hydralazine Hcl* (Hydralazine Hcl*) 25 Mg Tab, 25 MG PO Q8 for 30 Days, TAB Prov:NORY RACINIEGA 01/27/19 Benazepril Hcl* (Benazepril Hcl*) 10 Mg Tablet, 10 MG PO BID for 30 Days, TAB Prov:NORY ARCINIEGA 01/27/19 Atorvastatin* (Atorvastatin*) 80 Mg Tablet, 80 MG PO HS for 30 Days, TAB Prov:NORY ARCINIEGA 01/27/19 Reported Medications Apixaban* (Eliquis*) 5 Mg Tablet, 5 MG PO BID, TAB 03/07/19 Insulin Aspart* (Novolog Insulin Pen*) 100 Unit/Ml Soln, 0 SC .SLIDING SCALE AC, EA 01/24/19 Nitroglycerin* (Nitrostat*) 0.4 Mg Tab.subl, 0.4 MG SL Q5MIN PRN for CHEST PAIN, BOTTLE 01/24/19 Pantoprazole* (Protonix*) 40 Mg Tablet.dr, 40 MG PO DAILY, TAB 01/24/19 Docusate Sodium* (Colace*) 100 Mg Capsule, 100 MG PO BID, #60 CAP 01/24/19 Carvedilol* (Carvedilol*) 6.25 Mg Tablet, 6.25 MG PO BID, #60 TAB 2/26/19 Bisacodyl* (Dulcolax*) 5 Mg Tablet.dr, 5 MG PO BID, TAB 01/24/19 Discontinued Scripts Clopidogrel Bisulfate (Clopidogrel) 75 Mg Tablet, 75 MG PO DAILY for 30 Days, TAB Prov:NOAHNORY 01/27/19 Apixaban* (Eliquis*) 5 Mg Tablet, 10 MG PO BID for 30 Days, TAB Prov:ZENMAURYEVBRTITANY ForemanA 01/27/19 Furosemide* (Lasix*) 20 Mg Tab, 40 MG PO DAILY, #60 TAB Prov:ZENTSEVKellenNORY 02/22/16 Allergies Allergies: Coded Allergies: No Known Drug Allergies (Verified Allergy, Mild, 03/07/19) PMhx/Soc History of Surgery: No (ANGIOGRAM) Anesthesia Reaction: No Hx Neurological Disorder: No Hx Respiratory Disorders: No Hx Cardiac Disorders: Yes (CHF,HTN,HLD,AFIB,CP) Hx Psychiatric Problems: No Hx Miscellaneous Medical Probl: Yes (DM,HTN,CHF,hyperlipidemia,NSTEMI,a fib) Hx Alcohol Use: No Hx Substance Use: No Hx Tobacco Use: No Smoking Status: Never smoker Physical Exam Vitals Vital Signs Date Temp Pulse Resp B/P (MAP) Pulse Ox O2 O2 Flow FiO2 Time Delivery Rate 03/07/19 Nasal 2 17:37 Cannula 03/07/19 97.8 84 19 168/121 96 Room Air 16:36 (137) 03/07/19 97.8 93 20 239/114 97 15:55 (155) Physical Exam Const: No acute distress. Head: Atraumatic. Eyes: Normal Conjunctiva. ENT: Normal External Ears, Nose and Mouth. Neck: Full range of motion. No meningismus. Resp: Bibasilar crackle tachypneic Cardio: Irregularly irregular Abd: Soft, non distended, normal bowel sounds, non tender. Skin: No petechiae or rashes. Back: No midline or flank tenderness. Ext: Bilateral leg edema, no calf tenderness Neur: Awake and alert. No focal deficit Psych: Normal Mood and Affect. Result Diagram: 03/08/19 0430 03/08/19 043 Results 24 hrs Laboratory Tests Test 03/07/19 17:00 White Blood Count 7.6 10^3/ul Red Blood Count 4.61 10^6/ul Hemoglobin 14.6 g/dl Hematocrit 43.9 % Mean Corpuscular Volume 95.2 fl Mean Corpuscular Hemoglobin 31.7 pg Mean Corpuscular Hemoglobin Concent 33.3 g/dl Red Cell Distribution Width 13.3 % Platelet Count 210 10^3/UL Mean Platelet Volume 10.5 fl Immature Granulocytes % 0.300 % Neutrophils % 58.0 % Lymphocytes % 30.4 % Monocytes % 7.1 % Eosinophils % 3.3 % Basophils % 0.9 % Nucleated Red Blood Cells % 0.0 /100WBC Immature Granulocytes # 0.020 10^3/ul Neutrophils # 4.4 10^3/ul Lymphocytes # 2.3 10^3/ul Monocytes # 0.5 10^3/ul Eosinophils # 0.3 10^3/ul Basophils # 0.1 10^3/ul Nucleated Red Blood Cells # 0.0 10^3/ul Prothrombin Time 14.9 Sec Prothrombin Time Ratio 1.2 INR International Normalized Ratio 1.16 Activated Partial Thromboplast Time 35.5 Sec Sodium Level 143 mmol/L Potassium Level 4.2 mmol/L Chloride Level 108 mmol/L Carbon Dioxide Level 23 mmol/L Anion Gap 12 Blood Urea Nitrogen 20 mg/dl Creatinine 0.87 mg/dl Est Glomerular Filtrat Rate mL/min mL/min Glucose Level 152 mg/dl Calcium Level 9.7 mg/dl Total Bilirubin 0.4 mg/dl Direct Bilirubin 0.00 mg/dl Indirect Bilirubin 0.4 mg/dl Aspartate Amino Transf (AST/SGOT) 114 IU/L Alanine Aminotransferase (ALT/SGPT) 74 IU/L Alkaline Phosphatase 159 IU/L Troponin I < 0.012 ng/ml B-Type Natriuretic Peptide 1620 PG/ML Total Protein 7.8 g/dl Albumin 4.3 g/dl Globulin 3.50 g/dl Albumin/Globulin Ratio 1.22 Current Medications Medications Dose Sig/[place] Start Time Status Last (Trade) Ordered Route PRN Stop Time Admin Dose Reason Admin Furosemide 40 mg ONCE ONCE 03/07/19 DC 03/07/19 (Lasix) IV 19:00 03/07/19 19:04 19:01 Procedures/[place] [id number] Radiology Main Line: [phone] DIAGNOSTIC IMAGING REPORT Patient: DEVIN WEISS : 1945 Age: 73 Sex: F MR #: [id number] DOS: 03/07/19 1647 Ordering MD: ALEX ARGUELLES MD Location: E/R Room/Bed: PROCEDURE: XR Chest. CLINICAL INDICATION: Shortness of breath. TECHNIQUE: Single frontal view. COMPARISON: 01/24/2019. FINDINGS: There is mild interstitial disease bilaterally in the mid and lower lung zones. The lungs are otherwise clear. The heart is enlarged. There is calcification in the aorta consistent with atherosclerosis. There is no pleural effusion. There is no pneumothorax. IMPRESSION: 1. Cardiomegaly and atherosclerosis. 2. Mild pulmonary edema. 3. Otherwise unremarkable chest radiograph. RPTAT: QQ .Camden Larry MD, Date Time Electronically viewed and signed by .Camden Larry MD, MD on 03/07/2019 17:42 .R/ CC: ALEX ARGUELLES MD [id number] EKG: Read by emergency physician Rate/Rhythm: Atrial Fibrillation 88 beats/min QRS, ST, T-waves: No ST elevation, no T inversion, septal q's inferior and lateral ST and T abnormality Impression: Abnormal EKG MEDICAL MAKING DECISION: The patient is a 73-year-old female, presenting with acute hypertensive emergency and acute CHF exacerbation, was treated with Lasix 40 mg IV with minimal response, therefore she was started on nitroglycerin drip with good response, is admitted to the intensive care unit The differential diagnoses considered include but are not limited to asthma, COPD, pneumonia, pulmonary embolus, pleural effusion, congestive heart failure. Critical Care: Time: 35 minutes excluding all billable procedures. Treatments/Evaluations: Close monitoring and treatment of unstable vital signs, cardiorespiratory, and neurologic status, while maintaining tight balance of fluid, respiratory, and cardiac interventions. Departure Diagnosis: Primary Impression: Hypertensive emergency Additional Impressions: CHF (congestive heart failure) Abnormal LFTs Condition: Critical Comments I discussed the findings with the patient. I discussed the patient with Dr Kam at 7:10p , who was made aware of the lab, the treatment, the patient condition. The patient is admitted to icu Disclaimer: Inadvertent spelling and grammatical errors are likely due to EHR/dictation software use and do not reflect on the overall quality of patient care. Also, please note that the electronic time recorded on this note does not necessarily reflect the actual time of the patient encounter. ALEX ARGUELLES MD Mar 07, 2019 16:39
[2019-03-07] MEDS ORDERED: APIX5TAB PO (17:28)
[2019-03-07] MEDS ORDERED: FUROSEMIDE 40 MG INJ IV ONE (19:00)
[2019-03-07] MEDS ORDERED: NITROGLYCERIN 50 MG/D5W (PMX) 250 ML IV SCH ×2 (19:30→20:00)
[2019-03-07] MEDS ORDERED: ALBUTEROL/IPRATROPIUM (NEB) 3 ML AMP NEB PRN (20:00)
[2019-03-07] MEDS ORDERED: NITROGLYCERIN (SL) 0.4 MG TAB SL PRN ×2 (20:00)
[2019-03-07] MEDS ORDERED: ONDANSETRON 4 MG INJ IV PRN (20:00)
[2019-03-07] MEDS ORDERED: ATORVASTATIN 80 MG TAB PO SCH (21:00)
[2019-03-07] MEDS: BENAZEPRIL 10 MG TAB PO SCH (22:56)
[2019-03-07] MEDS: DOCUSATE SODIUM 100 MG CAP PO SCH (22:56)
--- NOTE | 2019-03-07 23:12 | HP ---
Date/Time of Note Date/Time of Note DATE: 03/07/19 TIME: 23:12 Assessment/Plan VTE Prophylaxis Pharmacological prophylaxis: apixaban Lines/Catheters IV Catheter Type (from Nrsg): Saline Lock Assessment/Plan Assessment/Plan 1. Hypertensive emergency -Continue nitro drip as well as home antihypertensives with adjustment as needed. 2. Acute on chronic CHF exacerbation, systolic -We will diurese -See #1 3. Atrial fibrillation: Continue beta-ricardo and blood thinner 4. Poorly controlled type I diabetes: A1c greater than 13 -Adjust insulin as needed 5. Abnormal LFTs: Possibly from congestive hepatopathy -obtain RUQ ultrasound -Check hep panel Result Diagram: 03/07/19 1700 03/07/19 1700 Results 24hrs Laboratory Tests Test 03/07/19 17:00 White Blood Count 7.6 # Red Blood Count 4.61 Hemoglobin 14.6 Hematocrit 43.9 Mean Corpuscular Volume 95.2 Mean Corpuscular Hemoglobin 31.7 Mean Corpuscular Hemoglobin Concent 33.3 Red Cell Distribution Width 13.3 Platelet Count 210 Mean Platelet Volume 10.5 H Immature Granulocytes % 0.300 Neutrophils % 58.0 Lymphocytes % 30.4 Monocytes % 7.1 Eosinophils % 3.3 Basophils % 0.9 Nucleated Red Blood Cells % 0.0 Immature Granulocytes # 0.020 Neutrophils # 4.4 Lymphocytes # 2.3 Monocytes # 0.5 Eosinophils # 0.3 Basophils # 0.1 Nucleated Red Blood Cells # 0.0 Prothrombin Time 14.9 Prothrombin Time Ratio 1.2 INR International Normalized Ratio 1.16 Activated Partial Thromboplast Time 35.5 H Sodium Level 143 Potassium Level 4.2 Chloride Level 108 Carbon Dioxide Level 23 Anion Gap 12 Blood Urea Nitrogen 20 Creatinine 0.87 Est Glomerular Filtrat Rate mL/min Glucose Level 152 Calcium Level 9.7 Total Bilirubin 0.4 Direct Bilirubin 0.00 Indirect Bilirubin 0.4 Aspartate Amino Transf (AST/SGOT) 114 H Alanine Aminotransferase (ALT/SGPT) 74 H Alkaline Phosphatase 159 H Troponin I < 0.012 B-Type Natriuretic Peptide 1620 H Total Protein 7.8 Albumin 4.3 Globulin 3.50 H Albumin/Globulin Ratio 1.22 HPI/ROS Admit Date/Time Admit Date/Time Mar 07, 2019 at 19:13 Hx of Present Illness This is a 73-year-old female with a history of hypertension, type 1 diabetes, CAD status post stent, cardiomyopathy with EF of 30-35%, dyslipidemia, atrial fibrillation. Patient presented to ER complaining of shortness of breath, which is been going on for the past 2 days. Denied chest pain. When presented to ER, BP was 239/114. Chest x-ray shows cardiomegaly and mild pulmonary vascular congestion. Patient has been started on nitro drip. First troponin is negative and EKG without ST elevation or depression. PMH/Family/Social Past Medical History Medical History: other (See HPI) Medications Current Medications Nitroglycerin/ Dextrose 250 ml @ 0 mls/hr TITRATE IV Last administered on 03/07/19at 21:44; Admin Dose 5 MLS/HR; Start 03/07/19 at 19:30 Ondansetron HCl (Zofran Inj) 4 mg Q6H PRN IV NAUSEA AND/OR VOMITING; Start 03/07/19 at 20:00 Albuterol/ Ipratropium (Duoneb) 3 ml Q2H RESP THERAPY PRN NEB SHORTNESS OF BREATH; Start 03/07/19 at 20:00 Acetaminophen (Tylenol Liquid) 650 mg Q6H PRN PO PAIN LEVEL 1-3 OR FEVER; Start 03/07/19 at 20:00 Enoxaparin Sodium (Lovenox) 40 mg DAILY SC ; Start 03/08/19 at 09:00 Nitroglycerin/ Dextrose 250 ml @ 1.5 mls/hr PER PROTOCOL IV ; Start 03/07/19 at 20:00 Atorvastatin Calcium (Lipitor) 80 mg HS PO Last administered on 03/07/19at 22:56; Admin Dose 80 MG; Start 03/07/19 at 21:00 Benazepril HCl (Lotensin) 10 mg BID PO Last administered on 03/07/19 22:56; Admin Dose 10 MG; Start 03/07/19 at 21:00 Carvedilol (Coreg) 6.25 mg BID PO Last administered on 03/07/19at 22:57; Admin Dose 6.25 MG; Start 03/07/19 at 21:00 Clopidogrel Bisulfate (plaVIX) 75 mg DAILY PO ; Start 03/08/19 at 09:00 Docusate Sodium (Colace) 100 mg BID PO Last administered on 03/07/19at 22:56; Admin Dose 100 MG; Start 03/07/19 at 21:00 Furosemide (Lasix) 40 mg DAILY PO ; Start 03/08/19 at 09:00 Nitroglycerin (Nitroglycerin (Sl Tab) 0.4 Mg) 0.4 tab Q5M PRN SL CHEST PAIN; Start 03/07/19 at 20:00 Pantoprazole (Protonix Tab) 40 mg DAILY@0600 PO ; Start 03/08/19 at 06:00 Coded Allergies: No Known Drug Allergies (Verified Allergy, Mild, 03/07/19) Past Surgical History Past Surgical Hx: other (See HPI) Family History Significant Family History: renal disease, vascular disease Social History Alcohol Use: none Smoking Status: Never smoker Drug Use: none Exam/Review of Systems Vital Signs Vitals Vital Signs Date Temp Pulse Resp B/P (MAP) Pulse Ox O2 O2 Flow FiO2 Time Delivery Rate 03/07/19 51 20 116/97 95 Room Air 22:12 (103) 03/07/19 97.8 21:24 03/07/19 2 17:37 Exam Constitutional: other (No acute distress) Head: normocephalic, atraumatic Eyes: EOMI, PERRL Respiratory: clear to auscultation Cardiovascular: irregular rhythm Gastrointestinal: soft Extremities: normal pulses MARIE HILL MD Mar 07, 2019 23:12
[2019-03-07] MEDS ORDERED: DEXTROSE 50% 50 ML SYRINGE IV PRN ×2 (23:45)
[2019-03-07] MEDS ORDERED: GLUCAGON 1 MG INJ IM PRN (23:45)
[2019-03-07] MEDS ORDERED: GLUCOSE GEL 15 GRAM TUBE BUCCAL PRN (23:45)
[2019-03-07] MEDS ORDERED: GLUCOSE GEL 15 GRAM TUBE PO PRN ×2 (23:45)
[2019-03-08] VITALS (92 sets, daily range): BP systolic 81–171; BP diastolic 58–156; PULSE 65–102; RESP 0–29
[2019-03-08] MEDS: ACCU-CHEK XX SCH (02:29)
[2019-03-08] MEDS: NITROGLYCERIN 50 MG/D5W (PMX) 250 ML IV SCH ×2 (03:07→10:40)
[2019-03-08] MEDS: PANTOPRAZOLE (EC) 40 MG TAB PO SCH (05:28)
[2019-03-08] MEDS: INSULIN GLARGINE [LANTus] (100 UNITS/ML) SYG SC SCH (08:11)
[2019-03-08] MEDS: INSULIN ASPART [NOVOLOG] 3 ML PEN SC SCH ×4 (08:12→20:56)
[2019-03-08] MEDS: DOCUSATE SODIUM 100 MG CAP PO SCH ×2 (08:37→20:55)
[2019-03-08] MEDS: CLOPIDOGREL 75 MG TAB PO SCH (08:37)
[2019-03-08] MEDS: BENAZEPRIL 10 MG TAB PO SCH ×2 (08:37→20:55)
[2019-03-08] MEDS: APIXABAN 5 MG TABLET PO SCH ×2 (08:38→20:55)
[2019-03-08] MEDS ORDERED: FUROSEMIDE 40 MG TAB PO SCH (09:00)
[2019-03-08] MEDS ORDERED: ENOXAPARIN 40 MG/0.4 ML SYG SC SCH (09:00)
--- NOTE | 2019-03-08 09:11 | PN ---
Date/Time of Note Date/Time of Note DATE: 03/08/19 TIME: 09:09 Assessment/Plan VTE Prophylaxis Risk score (from [facility] [place])>0 risk: 6 SCD applied (from [facility] [place]): No SCD contraindicated: other Pharmacological prophylaxis: LMWH Lines/Catheters IV Catheter Type (from [facility]): Peripheral IV Urinary Cath still in place: No Assessment/Plan Hospital Course cancel note Result Diagram: 03/08/19 0430 03/08/19 0430 Results 24hrs Laboratory Tests Test 03/07/19 17:00 03/07/19 23:58 03/08/19 02:33 03/08/19 04:30 White Blood Count 7.6 # 7.8 Red Blood Count 4.61 4.19 L Hemoglobin 14.6 13.3 Hematocrit 43.9 40.1 Mean Corpuscular 95.2 95.7 Volume Mean Corpuscular 31.7 31.7 Hemoglobin Mean Corpuscular 33.3 33.2 Hemoglobin Concent Red Cell Distribution 13.3 13.1 Width Platelet Count 210 190 Mean Platelet Volume 10.5 H 10.7 H Immature Granulocytes 0.300 0.400 % Neutrophils % 58.0 61.4 Lymphocytes % 30.4 26.7 Monocytes % 7.1 7.9 Eosinophils % 3.3 2.8 Basophils % 0.9 0.8 Nucleated Red Blood 0.0 0.0 Cells % Immature Granulocytes 0.020 0.030 # Neutrophils # 4.4 4.8 Lymphocytes # 2.3 2.1 Monocytes # 0.5 0.6 Eosinophils # 0.3 0.2 Basophils # 0.1 0.1 Nucleated Red Blood 0.0 0.0 Cells # Prothrombin Time 14.9 Prothrombin Time 1.2 Ratio INR International 1.16 Normalized Ratio Activated 35.5 H Partial Thromboplast Time Sodium Level 143 142 Potassium Level 4.2 3.6 Chloride Level 108 107 Carbon Dioxide Level 23 28 Anion Gap 12 7 Blood Urea Nitrogen 20 17 Creatinine 0.87 0.74 Est Glomerular Filtrat Rate mL/min Glucose Level 152 211 Calcium Level 9.7 9.2 Total Bilirubin 0.4 Direct Bilirubin 0.00 Indirect Bilirubin 0.4 Aspartate Amino 114 H Transf (AST/SGOT) Alanine 74 H Aminotransferase (ALT /SGPT) Alkaline Phosphatase 159 H Troponin I < 0.012 B-Type Natriuretic 1620 H Peptide Total Protein 7.8 Albumin 4.3 Globulin 3.50 H Albumin/Globulin 1.22 Ratio Bedside Glucose 166 200 Test 03/08/19 08:09 Bedside Glucose 174 Exam/Review of Systems Exam Vitals Vital Signs Date Temp Pulse Resp B/P (MAP) Pulse Ox O2 O2 Flow FiO2 Time Delivery Rate 03/08/19 102 18 154/92 96 08:45 (112) 03/08/19 98.5 Room Air 08:00 03/07/19 2 17:37 Intake and Output 03/07/19 03/07/19 03/08/19 1515:00 23:00 07:00 IntakeIntake Total 411.0 ml OutputOutput Total 300 ml BalanceBalance 111.0 ml Results Results 24hrs Laboratory Tests Test 03/07/19 17:00 03/07/19 23:58 03/08/19 02:33 03/08/19 04:30 White Blood Count 7.6 # 7.8 Red Blood Count 4.61 4.19 L Hemoglobin 14.6 13.3 Hematocrit 43.9 40.1 Mean Corpuscular 95.2 95.7 Volume Mean Corpuscular 31.7 31.7 Hemoglobin Mean Corpuscular 33.3 33.2 Hemoglobin Concent Red Cell Distribution 13.3 13.1 Width Platelet Count 210 190 Mean Platelet Volume 10.5 H 10.7 H Immature Granulocytes 0.300 0.400 % Neutrophils % 58.0 61.4 Lymphocytes % 30.4 26.7 Monocytes % 7.1 7.9 Eosinophils % 3.3 2.8 Basophils % 0.9 0.8 Nucleated Red Blood 0.0 0.0 Cells % Immature Granulocytes 0.020 0.030 # Neutrophils # 4.4 4.8 Lymphocytes # 2.3 2.1 Monocytes # 0.5 0.6 Eosinophils # 0.3 0.2 Basophils # 0.1 0.1 Nucleated Red Blood 0.0 0.0 Cells # Prothrombin Time 14.9 Prothrombin Time 1.2 Ratio INR International 1.16 Normalized Ratio Activated 35.5 H Partial Thromboplast Time Sodium Level 143 142 Potassium Level 4.2 3.6 Chloride Level 108 107 Carbon Dioxide Level 23 28 Anion Gap 12 7 Blood Urea Nitrogen 20 17 Creatinine 0.87 0.74 Est Glomerular Filtrat Rate mL/min Glucose Level 152 211 Calcium Level 9.7 9.2 Total Bilirubin 0.4 Direct Bilirubin 0.00 Indirect Bilirubin 0.4 Aspartate Amino 114 H Transf (AST/SGOT) Alanine 74 H Aminotransferase (ALT /SGPT) Alkaline Phosphatase 159 H Troponin I < 0.012 B-Type Natriuretic 1620 H Peptide Total Protein 7.8 Albumin 4.3 Globulin 3.50 H Albumin/Globulin 1.22 Ratio Bedside Glucose 166 200 Test 03/08/19 08:09 Bedside Glucose 174 Medications Medication Current Medications Ondansetron HCl (Zofran Inj) 4 mg Q6H PRN IV NAUSEA AND/OR VOMITING; Start 03/07/19 at 20:00 Albuterol/ Ipratropium (Duoneb) 3 ml Q2H RESP THERAPY PRN NEB SHORTNESS OF BREATH; Start 03/07/19 at 20:00 Acetaminophen (Tylenol Liquid) 650 mg Q6H PRN PO PAIN LEVEL 1-3 OR FEVER; Start 03/07/19 at 20:00 Atorvastatin Calcium (Lipitor) 80 mg HS PO Last administered on 03/07/19at 22:56; Admin Dose 80 MG; Start 03/07/19 at 21:00 Benazepril HCl (Lotensin) 10 mg BID PO Last administered on 03/08/19at 08:37; Admin Dose 10 MG; Start 03/07/19 at 21:00 Clopidogrel Bisulfate (plaVIX) 75 mg DAILY PO Last administered on 03/08/19 08:37; Admin Dose 75 MG; Start 03/08/19 at 09:00 Docusate Sodium (Colace) 100 mg BID PO Last administered on 03/08/19 08:37; Admin Dose 100 MG; Start 03/07/19 at 21:00 Furosemide (Lasix) 40 mg DAILY PO Last administered on 03/08/19 08:38; Admin Dose 40 MG; Start 03/08/19 at 09:00 Nitroglycerin (Nitroglycerin (Sl Tab) 0.4 Mg) 0.4 tab Q5M PRN SL CHEST PAIN; Start 03/07/19 at 20:00 Pantoprazole (Protonix Tab) 40 mg DAILY@0600 PO Last administered on 03/08/19 05:28; Admin Dose 40 MG; Start 03/08/19 at 06:00 Diagnostic Test (Pha) (Accu-Chek) 1 ea 02 XX Last administered on 03/08/19at 02:29; Admin Dose 1 EA; Start 03/08/19 at 02:00 Insulin Aspart (Novolog Insulin Pen) NOVOLOG *MILD* ALGORITHM WITH MEALS BEDTIME SC Last administered on 03/08/19 08:12; Admin Dose 1 UNIT; Start 03/08/19 at 07:35 Miscellaneous Information 1 ea NOTE XX ; Start 03/07/19 at 23:45 Glucose (Glutose) 15 gm Q15M PRN PO DECREASED GLUCOSE; Start 03/07/19 at 23:45 Glucose (Glutose) 22.5 gm Q15M PRN PO DECREASED GLUCOSE; Start 03/07/19 at 23:45 Dextrose (D50w Syringe) 25 ml Q15M PRN IV DECREASED GLUCOSE; Start 03/07/19 at 23:45 Dextrose (D50w Syringe) 50 ml Q15M PRN IV DECREASED GLUCOSE; Start 03/07/19 at 23:45 Glucagon (Glucagen) 1 mg Q15M PRN IM DECREASED GLUCOSE; Start 03/07/19 at 23:45 Glucose (Glutose) 15 gm Q15M PRN BUCCAL DECREASED GLUCOSE; Start 03/07/19 at 23:45 Nitroglycerin/ Dextrose 250 ml @ 1.5 mls/hr PER PROTOCOL IV Last administered on 03/08/19at 03:07; Admin Dose 55.5 MLS/HR; Start 03/07/19 at 20:00 Carvedilol (Coreg) 12.5 mg BID PO Last administered on 03/08/19 08:38; Admin Dose 12.5 MG; Start 03/08/19 at 09:00 Insulin Glargine (Lantus) 10 units DAILY@0800 SC Last administered on 03/08/19 08:11; Admin Dose 10 UNITS; Start 03/08/19 at 08:00 Apixaban (Eliquis) 5 mg BID PO Last administered on 03/08/19 08:38; Admin Dose 5 MG; Start 03/08/19 at 09:00 REMI CORDOVA Mar 08, 2019 09:11
--- NOTE | 2019-03-08 11:42 | PN ---
Date/Time of Note Date/Time of Note DATE: 03/08/19 TIME: 11:41 Assessment/Plan VTE Prophylaxis Risk score (from [facility] [place])>0 risk: 6 SCD applied (from [facility] [place]): No SCD contraindicated: low risk/ambulating Pharmacological prophylaxis: NA/contraindicated Pharm contraindication: low risk/ambulating Lines/Catheters IV Catheter Type (from [facility]): Peripheral IV Urinary Cath still in place: No Assessment/Plan Hospital Course 73 y/o with # Htn emergency likely due to running out of meds> still on NTG gtt # Acute on chronic CHF exacerbation, systolic last EF 30-35% # hx Non-ST elevation myocardial infarction, status post coronary angiogram with a single vessel obstructive coronary artery disease in the right coronary artery, status post PTCA and stent placement.on #. Cardiomyopathy with ejection fraction of 30 to 35%. #. History of atrial fibrillation.rate control # Diabetes.uncontroled # Obesity plan - titrate off NTG gtt - cw Plaxix/eliquis - Cw Lipitor - cw benazepril/coreg/ hydralzine ?? - cw lasix - cards consult - pt instructed to be compliant with meds - case packer to assist in finding PCP(? [facility]- [facility]) Result Diagram: 03/08/19 04303/08/19 0430 Results 24hrs Laboratory Tests Test 03/07/19 17:00 03/07/19 23:58 03/08/19 02:33 03/08/19 04:30 White Blood Count 7.6 # 7.8 Red Blood Count 4.61 4.19 L Hemoglobin 14.6 13.3 Hematocrit 43.9 40.1 Mean Corpuscular 95.2 95.7 Volume Mean Corpuscular 31.7 31.7 Hemoglobin Mean Corpuscular 33.3 33.2 Hemoglobin Concent Red Cell Distribution 13.3 13.1 Width Platelet Count 210 190 Mean Platelet Volume 10.5 H 10.7 H Immature Granulocytes 0.300 0.400 % Neutrophils % 58.0 61.4 Lymphocytes % 30.4 26.7 Monocytes % 7.1 7.9 Eosinophils % 3.3 2.8 Basophils % 0.9 0.8 Nucleated Red Blood 0.0 0.0 Cells % Immature Granulocytes 0.020 0.030 # Neutrophils # 4.4 4.8 Lymphocytes # 2.3 2.1 Monocytes # 0.5 0.6 Eosinophils # 0.3 0.2 Basophils # 0.1 0.1 Nucleated Red Blood 0.0 0.0 Cells # Prothrombin Time 14.9 Prothrombin Time 1.2 Ratio INR International 1.16 Normalized Ratio Activated 35.5 H Partial Thromboplast Time Sodium Level 143 142 Potassium Level 4.2 3.6 Chloride Level 108 107 Carbon Dioxide Level 23 28 Anion Gap 12 7 Blood Urea Nitrogen 20 17 Creatinine 0.87 0.74 Est Glomerular Filtrat Rate mL/min Glucose Level 152 211 Calcium Level 9.7 9.2 Total Bilirubin 0.4 Direct Bilirubin 0.00 Indirect Bilirubin 0.4 Aspartate Amino 114 H Transf (AST/SGOT) Alanine 74 H Aminotransferase (ALT /SGPT) Alkaline Phosphatase 159 H Troponin I < 0.012 B-Type Natriuretic 1620 H Peptide Total Protein 7.8 Albumin 4.3 Globulin 3.50 H Albumin/Globulin 1.22 Ratio Bedside Glucose 166 200 Test 03/08/19 08:09 Bedside Glucose 174 Subjective 24 Hr Interval Summary Free Text/Dictation Still on NTG gtt> tapering SBP 110's some sob ran out of meds x3 days was not taking 3 meds could not find PCP Exam/Review of Systems Exam Vitals Vital Signs Date Temp Pulse Resp B/P (MAP) Pulse Ox O2 O2 Flow FiO2 Time Delivery Rate 03/08/19 102 18 154/92 96 08:45 (112) 03/08/19 98.5 Room Air 08:00 03/07/19 2 17:37 Intake and Output 03/07/19 03/07/19 03/08/19 1515:00 23:00 07:00 IntakeIntake Total 411.0 ml OutputOutput Total 300 ml BalanceBalance 111.0 ml Exam Exam Constitutional: other (No acute distress) Head: normocephalic, atraumatic Eyes: EOMI, PERRL Respiratory: decreased breath sounds bases Cardiovascular: irregular rhythm Gastrointestinal: soft Extremities: normal pulses Results Results 24hrs Laboratory Tests Test 03/07/19 17:00 03/07/19 23:58 03/08/19 02:33 03/08/19 04:30 White Blood Count 7.6 # 7.8 Red Blood Count 4.61 4.19 L Hemoglobin 14.6 13.3 Hematocrit 43.9 40.1 Mean Corpuscular 95.2 95.7 Volume Mean Corpuscular 31.7 31.7 Hemoglobin Mean Corpuscular 33.3 33.2 Hemoglobin Concent Red Cell Distribution 13.3 13.1 Width Platelet Count 210 190 Mean Platelet Volume 10.5 H 10.7 H Immature Granulocytes 0.300 0.400 % Neutrophils % 58.0 61.4 Lymphocytes % 30.4 26.7 Monocytes % 7.1 7.9 Eosinophils % 3.3 2.8 Basophils % 0.9 0.8 Nucleated Red Blood 0.0 0.0 Cells % Immature Granulocytes 0.020 0.030 # Neutrophils # 4.4 4.8 Lymphocytes # 2.3 2.1 Monocytes # 0.5 0.6 Eosinophils # 0.3 0.2 Basophils # 0.1 0.1 Nucleated Red Blood 0.0 0.0 Cells # Prothrombin Time 14.9 Prothrombin Time 1.2 Ratio INR International 1.16 Normalized Ratio Activated 35.5 H Partial Thromboplast Time Sodium Level 143 142 Potassium Level 4.2 3.6 Chloride Level 108 107 Carbon Dioxide Level 23 28 Anion Gap 12 7 Blood Urea Nitrogen 20 17 Creatinine 0.87 0.74 Est Glomerular Filtrat Rate mL/min Glucose Level 152 211 Calcium Level 9.7 9.2 Total Bilirubin 0.4 Direct Bilirubin 0.00 Indirect Bilirubin 0.4 Aspartate Amino 114 H Transf (AST/SGOT) Alanine 74 H Aminotransferase (ALT /SGPT) Alkaline Phosphatase 159 H Troponin I < 0.012 B-Type Natriuretic 1620 H Peptide Total Protein 7.8 Albumin 4.3 Globulin 3.50 H Albumin/Globulin 1.22 Ratio Bedside Glucose 166 200 Test 03/08/19 08:09 Bedside Glucose 174 Medications Medication Current Medications Ondansetron HCl (Zofran Inj) 4 mg Q6H PRN IV NAUSEA AND/OR VOMITING; Start 03/07/19 at 20:00 Albuterol/ Ipratropium (Duoneb) 3 ml Q2H RESP THERAPY PRN NEB SHORTNESS OF BREATH; Start 03/07/19 at 20:00 Acetaminophen (Tylenol Liquid) 650 mg Q6H PRN PO PAIN LEVEL 1-3 OR FEVER; Start 03/07/19 at 20:00 Atorvastatin Calcium (Lipitor) 80 mg HS PO Last administered on 03/07/19at 22:56; Admin Dose 80 MG; Start 03/07/19 at 21:00 Benazepril HCl (Lotensin) 10 mg BID PO Last administered on 03/08/19at 08:37; Admin Dose 10 MG; Start 03/07/19 at 21:00 Clopidogrel Bisulfate (plaVIX) 75 mg DAILY PO Last administered on 03/08/19at 08:37; Admin Dose 75 MG; Start 03/08/19 at 09:00 Docusate Sodium (Colace) 100 mg BID PO Last administered on 03/08/19at 08:37; Admin Dose 100 MG; Start 03/07/19 at 21:00 Furosemide (Lasix) 40 mg DAILY PO Last administered on 03/08/19at 08:38; Admin Dose 40 MG; Start 03/08/19 at 09:00 Nitroglycerin (Nitroglycerin (Sl Tab) 0.4 Mg) 0.4 tab Q5M PRN SL CHEST PAIN; Start 03/07/19 at 20:00 Pantoprazole (Protonix Tab) 40 mg DAILY@0600 PO Last administered on 03/08/19at 05:28; Admin Dose 40 MG; Start 03/08/19 at 06:00 Diagnostic Test (Pha) (Accu-Chek) 1 ea 02 XX Last administered on 03/08/19at 02:29; Admin Dose 1 EA; Start 03/08/19 at 02:00 Insulin Aspart (Novolog Insulin Pen) NOVOLOG *MILD* ALGORITHM WITH MEALS BEDTIME SC Last administered on 03/08/19at 08:12; Admin Dose 1 UNIT; Start 03/08/19 at 07:35 Miscellaneous Information 1 ea NOTE XX ; Start 03/07/19 at 23:45 Glucose (Glutose) 15 gm Q15M PRN PO DECREASED GLUCOSE; Start 03/07/19 at 23:45 Glucose (Glutose) 22.5 gm Q15M PRN PO DECREASED GLUCOSE; Start 03/07/19 at 23:45 Dextrose (D50w Syringe) 25 ml Q15M PRN IV DECREASED GLUCOSE; Start 03/07/19 at 23:45 Dextrose (D50w Syringe) 50 ml Q15M PRN IV DECREASED GLUCOSE; Start 03/07/19 at 23:45 Glucagon (Glucagen) 1 mg Q15M PRN IM DECREASED GLUCOSE; Start 03/07/19 at 23:45 Glucose (Glutose) 15 gm Q15M PRN BUCCAL DECREASED GLUCOSE; Start 03/07/19 at 23:45 Nitroglycerin/ Dextrose 250 ml @ 1.5 mls/hr PER PROTOCOL IV Last administered on 03/08/19at 10:40; Admin Dose 10.5 MLS/HR; Start 03/07/19 at 20:00 Carvedilol (Coreg) 12.5 mg BID PO Last administered on 03/08/19at 08:38; Admin Dose 12.5 MG; Start 03/08/19 at 09:00 Insulin Glargine (Lantus) 10 units DAILY@0800 SC Last administered on 03/08/19 08:11; Admin Dose 10 UNITS; Start 03/08/19 at 08:00 Apixaban (Eliquis) 5 mg BID PO Last administered on 03/08/19 08:38; Admin Dose 5 MG; Start 03/08/19 at 09:00 BART LEMONS MD Mar 08, 2019 11:42
[2019-03-08] MEDS ORDERED: FUROSEMIDE 40 MG INJ IV SCH (12:00)
[2019-03-08] MEDS ORDERED: MAGNESIUM SULFATE 2 GM/50 ML 50 ML IVPB ONE (13:00)
[2019-03-08] MEDS: ACETAMINOPHEN 650MG/20.3ML CUP PO PRN (16:34)
[2019-03-08] MEDS: FUROSEMIDE 40 MG INJ IV SCH (19:36)
[2019-03-09] VITALS (46 sets, daily range): BP systolic 101–154; BP diastolic 58–137; PULSE 64–90; RESP 0–30
[2019-03-09] MEDS: ACCU-CHEK XX SCH (01:44)
--- NOTE | 2019-03-09 02:36 | CONS ---
DATE OF ADMISSION: 03/07/2019 DATE OF CONSULTATION: 03/08/2019 REASON FOR CONSULTATION: Congestive heart failure exacerbation. REQUESTING PHYSICIAN: Dr. Patino from the hospitalist service. HISTORY OF PRESENT ILLNESS: Ms. Deshpande is a 73-year-old female with history of cardiomyopathy with decr eased left ventricular ejection fraction, last only approximately 30% to 35% by echo on 01/10/2019. Status post PTC and stent placement in the right coronary artery with a 4 mm drug-eluting stent in . Current bouts of systolic congestive heart failure, prior [place], hypertension, dyslipidemia, ashley betes mellitus who presented with complaints of shortness of breath and findings of uncontrolled sys tolic blood pressures. The patient denied associated chest pain. Upon arrival in the emergency depa rtment, temperature of 97.8, blood pressure 239/114, pulse 93, respiratory rate 20, satting 97%. The patient's labs showed white count of 7.6, hemoglobin of 14.6, platelet count of 210. Sodium of 143, potassium 4.2, creatinine 0.8, BUN 20, AST 114, ALT 74. Troponin negative. BNP of 1620. INR of 1. 1. The patient underwent a chest x-ray revealing cardiomegaly and atherosclerosis, mild pulmonary ed cristopher and subsequently a gallbladder ultrasound that revealed no evidence of gallstones. Common bile d uct measures 6 mm. The patient's electrocardiogram revealed atrial fibrillation at a rate of 88, nor mal axis, normal intervals, anteroseptal Qs, nonspecific ST-T abnormalities. The patient was subsequ ently admitted to the ICU where she remains at this time. The patient is receiving Lasix diuresis an d then placed on baseline benazepril with discontinuation of beta ricardo, possibly due to bradycardi a. PAST MEDICAL HISTORY: As above in HPI. MEDICATIONS CURRENTLY IN HOSPITAL: 1. Lasix 40 mg IV daily. 2. Plavix 75 mg daily. 3. Carvedilol 12.5 mg p.o. b.i.d. 4. Apixaban 5 mg p.o. b.i.d. 5. Lantus 10 units daily. 6. Lipitor 80 mg at bedtime. 7. Benazepril 10 mg b.i.d. 8. Colace 100 mg b.i.d. 9. Zofran p.r.n. 10. DuoNebs p.r.n. 11. Tylenol p.r.n. 12. IV nitroglycerin, recently discontinued. ALLERGIES: NO KNOWN DRUG ALLERGIES. SOCIAL HISTORY: No current tobacco, ETOH or illicit drug use. FAMILY HISTORY: No sudden cardiac or early CAD. REVIEW OF SYSTEMS: As above in HPI. CONSTITUTIONAL: No fevers, chills. PULMONARY: Shortness of breath. CARDIOVASCULAR: Congestive heart failure. GASTROINTESTINAL: No vomiting. GENITOURINARY: No hematuria. MUSCULOSKELETAL: Degenerative joint disease. PSYCHIATRIC: The patient denies depression. NEUROLOGIC: Documented history of CVA with mild confusion. ENDOCRINE: Diabetes mellitus. PHYSICAL EXAMINATION: VITAL SIGNS: Temperature of 98.5, blood pressure most recent 130/70, pulse 73/25, 90% on 2 liters. GENERAL: The patient is alert, awake, complaining of shortness of breath. NECK: JVP approximately 9 cm of water. CHEST: Bibasilar crackles. HEART: Irregularly irregular, I/ systolic murmur, laterally displaced PMI. ABDOMEN: Positive bowel sounds, soft. EXTREMITIES: Trace edema, 1+ pulses bilateral, posterior tibial. LABORATORIES: Most recent from today, sodium 142, potassium 3.6, creatinine 0.7, BUN 17. White coun t 7.8, hemoglobin 13.3, platelet count 190. IMAGING STUDIES: As above in HPI. No further imaging studies for my review at this time. ECG: As above in HPI. No further electrocardiograms for my review at this time. IMPRESSION: 1. Congestive heart failure exacerbation, systolic, acute on chronic. 2. Cardiomyopathy with decreased left ventricular ejection fraction lasting approximately 30% to 35% by echo on 01/01/2019. 3. Abnormal echocardiogram, assess for acute coronary syndrome. 4. Atrial fibrillation, rate controlled on Eliquis. 5. History of PTC and stent placement in the right coronary artery with drug-eluting stents on 01/18 19. 6. Diabetes mellitus. 7. Dyslipidemia. 8. Shortness of breath secondary to #1. RECOMMENDATIONS: 1. At this time, we would maintain patient on close monitoring in the ICU where telemetry is likely okay at this time. Complete the patient's rule out for myocardial infarction to ensure the patient _ ___ not resulted in acute coronary syndrome or acute myocardial infarction. 2. Follow the patient's LFTs. This time, we will hold the patient's statin in the setting of elevat ed LFTs. 3. Continue the patient's current benazepril and carvedilol. Follow heart rate and blood pressure c losely. 4. Continue the patient's Plavix for stent patency. 5. Continue the patient's Eliquis for prevention of thromboembolic complications of atrial fibrillat ion. 6. We will continue the patient's Lasix diuresis, but would increase the dose likely to b.i.d. to in crease the degree of diuresis. Thank you for allowing me to take part in the care of this patient. I will continue to follow her cl osely with you with further recommendations made as the patient progresses through inpatient hospital clinical course. Dictated By: MYRTLE WEEMS/GENO Conf#: [id number] DID#: [id number] CC: MARIE HILL MD; JANEL FOWLER MD; DWAIN LOAIZA MD; REN CADENA MD;*EndCC*
[2019-03-09] MEDS: PANTOPRAZOLE (EC) 40 MG TAB PO SCH (05:10)
[2019-03-09] MEDS: FUROSEMIDE 40 MG INJ IV SCH ×2 (05:10→18:08)
[2019-03-09] MEDS: CLOPIDOGREL 75 MG TAB PO SCH (08:48)
[2019-03-09] MEDS: BENAZEPRIL 10 MG TAB PO SCH ×2 (08:49→20:07)
[2019-03-09] MEDS: APIXABAN 5 MG TABLET PO SCH ×2 (08:49→20:07)
[2019-03-09] MEDS: DOCUSATE SODIUM 100 MG CAP PO SCH ×2 (08:49→20:07)
[2019-03-09] MEDS: INSULIN ASPART [NOVOLOG] 3 ML PEN SC SCH ×4 (08:50→20:33)
[2019-03-09] MEDS: INSULIN GLARGINE [LANTus] (100 UNITS/ML) SYG SC SCH (08:51)
--- NOTE | 2019-03-09 09:20 | PN ---
Date/Time of Note Date/Time of Note DATE: 03/09/19 TIME: 09:20 Assessment/Plan VTE Prophylaxis Risk score (from Ns)>0 risk: 6 SCD applied (from Ns): Yes Pharmacological prophylaxis: NA/contraindicated Pharm contraindication: low risk/ambulating Lines/Catheters IV Catheter Type (from [facility]): Peripheral IV Urinary Cath still in place: No Assessment/Plan Hospital Course 73 y/o with # Htn emergency likely due to running out of meds> still on NTG gtt # Acute on chronic CHF exacerbation, systolic last EF 30-35% # hx Non-ST elevation myocardial infarction, status post coronary angiogram with a single vessel obstructive coronary artery disease in the right coronary artery, status post PTCA and stent placement.on #. Cardiomyopathy with ejection fraction of 30 to 35%. #. History of atrial fibrillation.rate control # Diabetes.uncontroled # Obesity plan - lasix 40 iv bid - cw Plavix/eliquis - Cw Lipitor - cw benazepril/coreg/ hydralzine ?? - cards consult - pt instructed to be compliant with meds - rehabilitation caseworker to assist in finding PCP(? [facility]) - PT kendy castañeda to tele ? angio pt told per cards Result Diagram: 03/08/19 0430 03/08/19 0430 Results 24hrs Laboratory Tests Test 03/08/19 12:17 03/08/19 17:25 03/08/19 20:54 03/09/19 00:51 Bedside Glucose 160 183 143 Creatine Kinase 52 Creatine Kinase 1.3 Index Creatinine Kinase MB 0.65 (Mass) Troponin I < 0.012 Test 03/09/19 01:43 03/09/19 04:34 03/09/19 08:47 Bedside Glucose 140 183 Creatine Kinase 57 Creatine Kinase 1.0 Index Creatinine Kinase MB 0.55 (Mass) Troponin I < 0.012 Triglycerides Level 117 Cholesterol Level 127 LDL Cholesterol, 66 Calculated HDL Cholesterol 38 Cholesterol/HDL 3.3 Ratio Subjective 24 Hr Interval Summary Free Text/Dictation slight sob off NTG gtt Exam/Review of Systems Exam Vitals Vital Signs Date Temp Pulse Resp B/P (MAP) Pulse Ox O2 O2 Flow FiO2 Time Delivery Rate 03/09/19 87 19 134/90 99 06:45 (105) 03/09/19 Nasal 2.0 06:00 Cannula 03/09/19 98.3 04:00 Intake and Output 03/08/19 03/08/19 03/09/19 1515:00 23:00 07:00 IntakeIntake Total 441.125 ml 300 ml 40 ml OutputOutput Total 1000 ml 450 ml 800 ml BalanceBalance -558.875 ml -150 ml -760 ml Exam Exam Constitutional: other (No acute distress) Head: normocephalic, atraumatic Eyes: EOMI, PERRL Respiratory: decreased breath sounds bases Cardiovascular: irregular rhythm Gastrointestinal: soft Extremities: normal pulses Results Results Results 24hrs Laboratory Tests Test 03/08/19 12:17 03/08/19 17:25 03/08/19 20:54 03/09/19 00:51 Bedside Glucose 160 183 143 Creatine Kinase 52 Creatine Kinase 1.3 Index Creatinine Kinase MB 0.65 (Mass) Troponin I < 0.012 Test 03/09/19 01:43 03/09/19 04:34 03/09/19 08:47 Bedside Glucose 140 183 Creatine Kinase 57 Creatine Kinase 1.0 Index Creatinine Kinase MB 0.55 (Mass) Troponin I < 0.012 Triglycerides Level 117 Cholesterol Level 127 LDL Cholesterol, 66 Calculated HDL Cholesterol 38 Cholesterol/HDL 3.3 Ratio Medications Medication Current Medications Ondansetron HCl (Zofran Inj) 4 mg Q6H PRN IV NAUSEA AND/OR VOMITING; Start 03/07/19 at 20:00 Albuterol/ Ipratropium (Duoneb) 3 ml Q2H RESP THERAPY PRN NEB SHORTNESS OF BREATH; Start 03/07/19 at 20:00 Acetaminophen (Tylenol Liquid) 650 mg Q6H PRN PO PAIN LEVEL 1-3 OR FEVER Last administered on 03/08/19at 16:34; Admin Dose 650 MG; Start 03/07/19 at 20:00 Atorvastatin Calcium (Lipitor) 80 mg HS PO Last administered on 03/07/19at 22:56; Admin Dose 80 MG; Start 03/07/19 at 21:00; Status Hold Benazepril HCl (Lotensin) 10 mg BID PO Last administered on 03/09/19at 08:49; Admin Dose 10 MG; Start 03/07/19 at 21:00 Clopidogrel Bisulfate (plaVIX) 75 mg DAILY PO Last administered on 03/09/19at 08:48; Admin Dose 75 MG; Start 03/08/19 at 09:00 Docusate Sodium (Colace) 100 mg BID PO Last administered on 03/09/19at 08:49; Admin Dose 100 MG; Start 03/07/19 at 21:00 Nitroglycerin (Nitroglycerin (Sl Tab) 0.4 Mg) 0.4 tab Q5M PRN SL CHEST PAIN; Start 03/07/19 at 20:00 Pantoprazole (Protonix Tab) 40 mg DAILY@0600 PO Last administered on 03/09/19at 05:10; Admin Dose 40 MG; Start 03/08/19 at 06:00 Diagnostic Test (Pha) (Accu-Chek) 1 ea 02 XX Last administered on 03/09/19at 01:44; Admin Dose 1 EA; Start 03/08/19 at 02:00 Insulin Aspart (Novolog Insulin Pen) NOVOLOG *MILD* ALGORITHM WITH MEALS BEDTIME SC Last administered on 03/09/19at 08:50; Admin Dose 2 UNIT; Start 03/08/19 at 07:35 Miscellaneous Information 1 ea NOTE XX ; Start 03/07/19 at 23:45 Glucose (Glutose) 15 gm Q15M PRN PO DECREASED GLUCOSE; Start 03/07/19 at 23:45 Glucose (Glutose) 22.5 gm Q15M PRN PO DECREASED GLUCOSE; Start 03/07/19 at 23:45 Dextrose (D50w Syringe) 25 ml Q15M PRN IV DECREASED GLUCOSE; Start 03/07/19 at 23:45 Dextrose (D50w Syringe) 50 ml Q15M PRN IV DECREASED GLUCOSE; Start 03/07/19 at 23:45 Glucagon (Glucagen) 1 mg Q15M PRN IM DECREASED GLUCOSE; Start 03/07/19 at 23:45 Glucose (Glutose) 15 gm Q15M PRN BUCCAL DECREASED GLUCOSE; Start 03/07/19 at 2 3:45 Nitroglycerin/ Dextrose 250 ml @ 1.5 mls/hr PER PROTOCOL IV Last administered on 03/08/19at 10:40; Admin Dose 10.5 MLS/HR; Start 03/07/19 at 20:00 Carvedilol (Coreg) 12.5 mg BID PO Last administered on 03/09/19at 08:49; Admin Dose 12.5 MG; Start 03/08/19 at 09:00 Insulin Glargine (Lantus) 10 units DAILY@0800 SC Last administered on 03/09/19 08:51; Admin Dose 10 UNITS; Start 03/08/19 at 08:00 Apixaban (Eliquis) 5 mg BID PO Last administered on 03/09/19 08:49; Admin Dose 5 MG; Start 03/08/19 at 09:00 Furosemide (Lasix) 40 mg BID DIURETICS IV Last administered on 03/09/19at 05:10; Admin Dose 40 MG; Start 03/08/19 at 18:00 BART LEMONS MD Mar 09, 2019 09:20
--- NOTE | 2019-03-09 10:47 | CONS ---
Assessment/Plan Assessment/Plan Hospital Course (Demo Recall) IMPRESSION: 1. Congestive heart failure exacerbation, systolic, acute on chronic. 2. Cardiomyopathy with decreased left ventricular ejection fraction lasting approximately 30% to 35% by echo on 01/01/2019. 3. Abnormal echocardiogram, assess for acute coronary syndrome. 4. Atrial fibrillation, rate controlled on Eliquis. 5. History of PTC and stent placement in the right coronary artery with drug- eluting stents on 12/2018. 6. Diabetes mellitus. 7. Dyslipidemia. 8. Shortness of breath secondary to #1. Recc: -ok to Tele -serial ecg's -Continue current plavix -Continue eliquis -Contineu coreg/benazepril -statin held in the setting of increased LFT's Consultation Date/Type/Reason Admit Date/Time Mar 07, 2019 at 19:13 Initial Consult Date 03/08/19 Type of Consult Cardiology Reason for Consultation CHF Requesting Provider: BART LEMONS MD Date/Time of Note DATE: 03/09/19 TIME: 10:43 Exam/Review of Systems Vital Signs Vitals Vital Signs Date Temp Pulse Resp B/P (MAP) Pulse Ox O2 O2 Flow FiO2 Time Delivery Rate 03/09/19 88 26 125/81 100 Nasal 2.0 10:00 (96) Cannula 03/09/19 97.5 08:00 Intake and Output 03/08/19 03/08/19 03/09/19 1515:00 23:00 07:00 IntakeIntake Total 441.125 ml 300 ml 40 ml OutputOutput Total 1000 ml 450 ml 800 ml BalanceBalance -558.875 ml -150 ml -760 ml Exam Exam Review of Systems: CONSTITUTIONAL: No fevers, chills. PULMONARY: No sob CARDIOVASCULAR: No chest pain/palpitations GASTROINTESTINAL: No nausea/vomiting. GENITOURINARY: No hematuria/dysuria. MUSCULOSKELETAL: No myagias/arthalgias. PSYCHIATRIC: The patient denies depression. NEUROLOGIC: No weakness Constitutional: alert Psych: no complaints Head: normocephalic ENMT: mucosa pink and moist Neck: supple, jvd (9 cm water) Respiratory: diminished breath sounds (at bases/B) Cardiovascular: regular rate and rhythm Gastrointestinal: soft, non-tender Musculoskeletal: muscle tone (normal) Extremities: edema (nonw) Neurological: other (No focal deficits) Labs Result Diagram: 03/08/19 0430 03/08/19 0430 Results 24hrs Laboratory Tests Test 03/08/19 12:17 03/08/19 17:25 03/08/19 20:54 03/09/19 00:51 Bedside Glucose 160 183 143 Creatine Kinase 52 Creatine Kinase 1.3 Index Creatinine Kinase MB 0.65 (Mass) Troponin I < 0.012 Test 03/09/19 01:43 03/09/19 04:34 03/09/19 08:47 Bedside Glucose 140 183 Creatine Kinase 57 Creatine Kinase 1.0 Index Creatinine Kinase MB 0.55 (Mass) Troponin I < 0.012 Triglycerides Level 117 Cholesterol Level 127 LDL Cholesterol, 66 Calculated HDL Cholesterol 38 Cholesterol/HDL 3.3 Ratio Medications Medications Current Medications Ondansetron HCl (Zofran Inj) 4 mg Q6H PRN IV NAUSEA AND/OR VOMITING; Start 03/07/19 at 20:00 Albuterol/ Ipratropium (Duoneb) 3 ml Q2H RESP THERAPY PRN NEB SHORTNESS OF BREATH; Start 03/07/19 at 20:00 Acetaminophen (Tylenol Liquid) 650 mg Q6H PRN PO PAIN LEVEL 1-3 OR FEVER Last administered on 03/08/19at 16:34; Admin Dose 650 MG; Start 03/07/19 at 20:00 Atorvastatin Calcium (Lipitor) 80 mg HS PO Last administered on 03/07/19at 22:56; Admin Dose 80 MG; Start 03/07/19 at 21:00; Status Hold Benazepril HCl (Lotensin) 10 mg BID PO Last administered on 03/09/19at 08:49; Admin Dose 10 MG; Start 03/07/19 at 21:00 Clopidogrel Bisulfate (plaVIX) 75 mg DAILY PO Last administered on 03/09/19at 08:48; Admin Dose 75 MG; Start 03/08/19 at 09:00 Docusate Sodium (Colace) 100 mg BID PO Last administered on 03/09/19at 08:49; Admin Dose 100 MG; Start 03/07/19 at 21:00 Nitroglycerin (Nitroglycerin (Sl Tab) 0.4 Mg) 0.4 tab Q5M PRN SL CHEST PAIN; Start 03/07/19 at 20:00 Pantoprazole (Protonix Tab) 40 mg DAILY@0600 PO Last administered on 03/09/19 05:10; Admin Dose 40 MG; Start 03/08/19 at 06:00 Diagnostic Test (Pha) (Accu-Chek) 1 ea 02 XX Last administered on 03/09/19at 01:44; Admin Dose 1 EA; Start 03/08/19 at 02:00 Insulin Aspart (Novolog Insulin Pen) NOVOLOG *MILD* ALGORITHM WITH MEALS BEDTIME SC Last administered on 03/09/19at 08:50; Admin Dose 2 UNIT; Start 03/08/19 at 07:35 Miscellaneous Information 1 ea NOTE XX ; Start 03/07/19 at 23:45 Glucose (Glutose) 15 gm Q15M PRN PO DECREASED GLUCOSE; Start 03/07/19 at 23:45 Glucose (Glutose) 22.5 gm Q15M PRN PO DECREASED GLUCOSE; Start 03/07/19 at 23:45 Dextrose (D50w Syringe) 25 ml Q15M PRN IV DECREASED GLUCOSE; Start 03/07/19 at 23:45 Dextrose (D50w Syringe) 50 ml Q15M PRN IV DECREASED GLUCOSE; Start 03/07/19 at 23:45 Glucagon (Glucagen) 1 mg Q15M PRN IM DECREASED GLUCOSE; Start 03/07/19 at 23:45 Glucose (Glutose) 15 gm Q15M PRN BUCCAL DECREASED GLUCOSE; Start 03/07/19 at 23:45 Carvedilol (Coreg) 12.5 mg BID PO Last administered on 03/09/19 08:49; Admin Dose 12.5 MG; Start 03/08/19 at 09:00 Insulin Glargine (Lantus) 10 units DAILY@0800 SC Last administered on 03/09/19at 08:51; Admin Dose 10 UNITS; Start 03/08/19 at 08:00 Apixaban (Eliquis) 5 mg BID PO Last administered on 03/09/19 08:49; Admin Dose 5 MG; Start 03/08/19 at 09:00 Furosemide (Lasix) 40 mg BID DIURETICS IV Last administered on 03/09/19 05:10 ; Admin Dose 40 MG; Start 03/08/19 at 18:00 MYRTLE HOYT Mar 09, 2019 10:47
--- NOTE | 2019-03-09 17:05 | RADRPT ---
Vent Rate: 86 bpm RR Interval: 0 msec MA Interval: 0 msec QRS Duration: 104 msec QT Interval: 400 msec QTC Interval: 478 msec P-R-T [place]: 0 - -21 - 0 degrees Atrial fibrillation Septal infarct , age undetermined ST & T wave abnormality, consider lateral ischemia or digitalis effect Abnormal ECG Electronically Signed By: Margarito Whitehead
[2019-03-10] VITALS (12 sets, daily range): BP systolic 109–138; BP diastolic 64–92; PULSE 62–95; RESP 19–21
[2019-03-10] MEDS: ACCU-CHEK XX SCH (02:00)
[2019-03-10] MEDS: FUROSEMIDE 40 MG INJ IV SCH ×2 (06:55→17:27)
[2019-03-10] MEDS: PANTOPRAZOLE (EC) 40 MG TAB PO SCH (06:55)
[2019-03-10] MEDS: INSULIN GLARGINE [LANTus] (100 UNITS/ML) SYG SC SCH (08:00)
[2019-03-10] MEDS: INSULIN ASPART [NOVOLOG] 3 ML PEN SC SCH ×4 (08:00→21:44)
[2019-03-10] MEDS: BENAZEPRIL 10 MG TAB PO SCH ×2 (08:42→21:00)
[2019-03-10] MEDS: DOCUSATE SODIUM 100 MG CAP PO SCH ×2 (08:43→21:36)
[2019-03-10] MEDS: CLOPIDOGREL 75 MG TAB PO SCH (08:43)
[2019-03-10] MEDS: APIXABAN 5 MG TABLET PO SCH ×2 (08:43→21:36)
--- NOTE | 2019-03-10 15:59 | PN ---
Date/Time of Note Date/Time of Note DATE: 03/10/19 TIME: 15:58 Assessment/Plan VTE Prophylaxis Risk score (from Ns)>0 risk: 4 SCD applied (from Ns): No SCD contraindicated: low risk/ambulating Pharmacological prophylaxis: NA/contraindicated Pharm contraindication: low risk/ambulating Lines/Catheters IV C[facility] Type (from [facility] Peripheral IV Urinary Cath still in place: No Assessment/Plan Hospital Course 73 y/o with # Htn emergency likely due to running out of meds> still on NTG gtt # Acute on chronic CHF exacerbation, systolic last EF 30-35% # hx Non-ST elevation myocardial infarction, status post coronary angiogram with a single vessel obstructive coronary artery disease in the right coronary artery, status post PTCA and stent placement.on #. Cardiomyopathy with ejection fraction of 30 to 35%. #. History of atrial fibrillation.rate control # Diabetes.uncontroled # Obesity plan - lasix 40 iv bid - cw Plavix/eliquis - Cw Lipitor - cw benazepril/coreg - cards consult - pt instructed to be compliant with meds - case technician to assist in finding PCP(? [facility] -With PT recs -ABG on room air -Chest x-ray Result Diagram: 03/08/19 0430 03/08/19 0430 Results 24hrs Laboratory Tests Test 03/09/19 17:36 03/09/19 20:31 03/10/19 02:21 03/10/19 07:17 Bedside Glucose 155 230 H 189 183 Test 03/10/19 11:35 Bedside Glucose 313 H Subjective 24 Hr Interval Summary Free Text/Dictation Feels tired when she walks Exam/Review of Systems Exam Vitals Vital Signs Date Temp Pulse Resp B/P (MAP) Pulse Ox O2 O2 Flow FiO2 Time Delivery Rate 03/10/19 98.2 71 19 136/76 96 15:32 (96) 03/10/19 Room Air 10:17 03/09/19 2.0 23:30 Intake and Output 03/09/19 03/09/19 03/10/19 1414:59 22:59 06:59 IntakeIntake Total 250 ml 300 ml BalanceBalance 250 ml 300 ml Exam xam Constitutional: other (No acute distress) Head: normocephalic, atraumatic Eyes: EOMI, PERRL Respiratory: decreased breath sounds bases Cardiovascular: irregular rhythm Gastrointestinal: soft Extremities: normal pulses Results Results 24hrs Laboratory Tests Test 03/09/19 17:36 03/09/19 20:31 03/10/19 02:21 03/10/19 07:17 Bedside Glucose 155 230 H 189 183 Test 03/10/19 11:35 Bedside Glucose 313 H Medications Medication Current Medications Ondansetron HCl (Zofran Inj) 4 mg Q6H PRN IV NAUSEA AND/OR VOMITING Last administered on 03/09/19 15:41; Admin Dose 4 MG; Start 03/07/19 at 20:00 Albuterol/ Ipratropium (Duoneb) 3 ml Q2H RESP THERAPY PRN NEB SHORTNESS OF BREATH; Start 03/07/19 at 20:00 Acetaminophen (Tylenol Liquid) 650 mg Q6H PRN PO PAIN LEVEL 1-3 OR FEVER Last administered on 03/08/19 16:34; Admin Dose 650 MG; Start 03/07/19 at 20:00 Atorvastatin Calcium (Lipitor) 80 mg HS PO Last administered on 03/07/19 22:56; Admin Dose 80 MG; Start 03/07/19 at 21:00; Status Hold Benazepril HCl (Lotensin) 10 mg BID PO Last administered on 03/10/19 08:42; Admin Dose 10 MG; Start 03/07/19 at 21:00 Clopidogrel Bisulfate (plaVIX) 75 mg DAILY PO Last administered on 03/10/19 08:43; Admin Dose 75 MG; Start 03/08/19 at 09:00 Docusate Sodium (Colace) 100 mg BID PO Last administered on 03/10/19 08:43; Admin Dose 100 MG; Start 03/07/19 at 21:00 Nitroglycerin (Nitroglycerin (Sl Tab) 0.4 Mg) 0.4 tab Q5M PRN SL CHEST PAIN; Start 03/07/19 at 20:00 Pantoprazole (Protonix Tab) 40 mg DAILY@0600 PO Last administered on 03/10/19 06:55; Admin Dose 40 MG; Start 03/08/19 at 06:00 Diagnostic Test (Pha) (Accu-Chek) 1 ea 02 XX Last administered on 03/09/19at 01:44; Admin Dose 1 EA; Start 03/08/19 at 02:00 Insulin Aspart (Novolog Insulin Pen) NOVOLOG *MILD* ALGORITHM WITH MEALS BEDTIME SC Last administered on 03/10/19at 11:35; Admin Dose 5 UNIT; Start 03/08/19 at 07:35 Miscellaneous Information 1 ea NOTE XX ; Start 03/07/19 at 23:45 Glucose (Glutose) 15 gm Q15M PRN PO DECREASED GLUCOSE; Start 03/07/19 at 23:45 Glucose (Glutose) 22.5 gm Q15M PRN PO DECREASED GLUCOSE; Start 03/07/19 at 23:45 Dextrose (D50w Syringe) 25 ml Q15M PRN IV DECREASED GLUCOSE; Start 03/07/19 at 23:45 Dextrose (D50w Syringe) 50 ml Q15M PRN IV DECREASED GLUCOSE; Start 03/07/19 at 23:45 Glucagon (Glucagen) 1 mg Q15M PRN IM DECREASED GLUCOSE; Start 03/07/19 at 23:45 Glucose (Glutose) 15 gm Q15M PRN BUCCAL DECREASED GLUCOSE; Start 03/07/19 at 23:45 Carvedilol (Coreg) 12.5 mg BID PO Last administered on 03/10/19at 08:43; Admin Dose 12.5 MG; Start 03/08/19 at 09:00 Insulin Glargine (Lantus) 10 units DAILY@0800 SC Last administered on 03/10/19at 08:00; Admin Dose 10 UNITS; Start 03/08/19 at 08:00 Apixaban (Eliquis) 5 mg BID PO Last administered on 03/10/19at 08:43; Admin Dose 5 MG; Start 03/08/19 at 09:00 Furosemide (Lasix) 40 mg BID DIURETICS IV Last administered on 03/10/19at 06:55; Admin Dose 40 MG; Start 03/08/19 at 18:00 BART LEMONS MD Mar 10, 2019 15:59
--- NOTE | 2019-03-10 17:56 | CONS ---
Assessment/Plan Assessment/Plan Hospital Course (Demo Recall) IMPRESSION: 1. Congestive heart failure exacerbation, systolic, acute on chronic. 2. Cardiomyopathy with decreased left ventricular ejection fraction lasting approximately 30% to 35% by echo on 01/01/2019. 3. Abnormal echocardiogram, assess for acute coronary syndrome. 4. Atrial fibrillation, rate controlled on Eliquis. 5. History of PTC and stent placement in the right coronary artery with drug- eluting stents on 12/2018. 6. Diabetes mellitus. 7. Dyslipidemia. 8. Shortness of breath secondary to #1. Recc: -Tele -serial ecg's -Continue current plavix -Continue eliquis -Contineu coreg/benazepril -statin held in the setting of increased LFT's -Continue lasix diuresis Consultation Date/Type/Reason Admit Date/Time Mar 07, 2019 at 19:13 Initial Consult Date 03/08/19 Type of Consult Cardiology Reason for Consultation CHF Requesting Provider: BART LEMONS MD Date/Time of Note DATE: 03/10/19 TIME: 17:55 Exam/Review of Systems Vital Signs Vitals Vital Signs Date Temp Pulse Resp B/P (MAP) Pulse Ox O2 O2 Flow FiO2 Time Delivery Rate 03/10/19 74 16:21 03/10/19 98.2 19 136/76 96 15:32 (96) 03/10/19 Room Air 10:17 03/09/19 2.0 23:30 Intake and Output 03/09/19 03/09/19 03/10/19 1515:00 23:00 07:00 IntakeIntake Total 250 ml 300 ml 150 ml BalanceBalance 250 ml 300 ml 150 ml Exam Exam Review of Systems: CONSTITUTIONAL: No fevers, chills. PULMONARY: No sob CARDIOVASCULAR: No chest pain/palpitations GASTROINTESTINAL: No nausea/vomiting. GENITOURINARY: No hematuria/dysuria. MUSCULOSKELETAL: No myagias/arthalgias. PSYCHIATRIC: The patient denies depression. NEUROLOGIC: No weakness Constitutional: alert Psych: no complaints Head: normocephalic ENMT: mucosa pink and moist Neck: supple, jvd (9 cm water) Respiratory: diminished breath sounds Cardiovascular: regular rate and rhythm Gastrointestinal: soft, non-tender Musculoskeletal: muscle weakness (mild generalized) Extremities: edema (none) Neurological: other (No focal deficts) Labs Result Diagram: 03/08/190 03/08/190 Results 24hrs Laboratory Tests Test 03/09/19 20:31 03/10/19 02:21 03/10/19 07:17 03/10/19 11:35 Bedside Glucose 230 H 189 183 313 H Test 03/10/19 16:47 Bedside Glucose 273 H Medications Medications Current Medications Ondansetron HCl (Zofran Inj) 4 mg Q6H PRN IV NAUSEA AND/OR VOMITING Last administered on 03/09/19 15:41; Admin Dose 4 MG; Start 03/07/19 at 20:00 Albuterol/ Ipratropium (Duoneb) 3 ml Q2H RESP THERAPY PRN NEB SHORTNESS OF BREATH; Start 03/07/19 at 20:00 Acetaminophen (Tylenol Liquid) 650 mg Q6H PRN PO PAIN LEVEL 1-3 OR FEVER Last administered on 03/08/19 16:34; Admin Dose 650 MG; Start 03/07/19 at 20:00 Atorvastatin Calcium (Lipitor) 80 mg HS PO Last administered on 03/07/19at 22:56; Admin Dose 80 MG; Start 03/07/19 at 21:00; Status Hold Benazepril HCl (Lotensin) 10 mg BID PO Last administered on 03/10/19 08:42; Admin Dose 10 MG; Start 03/07/19 at 21:00 Clopidogrel Bisulfate (plaVIX) 75 mg DAILY PO Last administered on 03/10/19 08:43; Admin Dose 75 MG; Start 03/08/19 at 09:00 Docusate Sodium (Colace) 100 mg BID PO Last administered on 03/10/19 08:43; Admin Dose 100 MG; Start 03/07/19 at 21:00 Nitroglycerin (Nitroglycerin (Sl Tab) 0.4 Mg) 0.4 tab Q5M PRN SL CHEST PAIN; S tart 03/07/19 at 20:00 Pantoprazole (Protonix Tab) 40 mg DAILY@0600 PO Last administered on 03/10/19 06:55; Admin Dose 40 MG; Start 03/08/19 at 06:00 Diagnostic Test (Pha) (Accu-Chek) 1 ea 02 XX Last administered on 03/09/19 01:44; Admin Dose 1 EA; Start 03/08/19 at 02:00 Insulin Aspart (Novolog Insulin Pen) NOVOLOG *MILD* ALGORITHM WITH MEALS BEDTIME SC Last administered on 03/10/19at 16:52; Admin Dose 4 UNIT; Start 03/08/19 at 07:35 Miscellaneous Information 1 ea NOTE XX ; Start 03/07/19 at 23:45 Glucose (Glutose) 15 gm Q15M PRN PO DECREASED GLUCOSE; Start 03/07/19 at 23:45 Glucose (Glutose) 22.5 gm Q15M PRN PO DECREASED GLUCOSE; Start 03/07/19 at 23:45 Dextrose (D50w Syringe) 25 ml Q15M PRN IV DECREASED GLUCOSE; Start 03/07/19 at 23:45 Dextrose (D50w Syringe) 50 ml Q15M PRN IV DECREASED GLUCOSE; Start 03/07/19 at 23:45 Glucagon (Glucagen) 1 mg Q15M PRN IM DECREASED GLUCOSE; Start 03/07/19 at 23:45 Glucose (Glutose) 15 gm Q15M PRN BUCCAL DECREASED GLUCOSE; Start 03/07/19 at 23:45 Carvedilol (Coreg) 12.5 mg BID PO Last administered on 03/10/19at 08:43; Admin Dose 12.5 MG; Start 03/08/19 at 09:00 Insulin Glargine (Lantus) 10 units DAILY@0800 SC Last administered on 03/10/19at 08:00; Admin Dose 10 UNITS; Start 03/08/19 at 08:00 Apixaban (Eliquis) 5 mg BID PO Last administered on 03/10/19 08:43; Admin Dose 5 MG; Start 03/08/19 at 09:00 Furosemide (Lasix) 40 mg BID DIURETICS IV Last administered on 03/10/19at 17:27; Admin Dose 40 MG; Start 03/08/19 at 18:00 MYRTLE HOYT Mar 10, 2019 17:56
[2019-03-11] VITALS (12 sets, daily range): BP systolic 107–134; BP diastolic 63–87; PULSE 51–74; RESP 17–19
[2019-03-11] MEDS: ACCU-CHEK XX SCH (02:00)
[2019-03-11] MEDS: FUROSEMIDE 40 MG INJ IV SCH ×2 (06:25→18:03)
[2019-03-11] MEDS: PANTOPRAZOLE (EC) 40 MG TAB PO SCH (06:26)
[2019-03-11] MEDS: INSULIN ASPART [NOVOLOG] 3 ML PEN SC SCH ×4 (08:21→20:30)
[2019-03-11] MEDS: INSULIN GLARGINE [LANTus] (100 UNITS/ML) SYG SC SCH (08:22)
[2019-03-11] MEDS: CLOPIDOGREL 75 MG TAB PO SCH (08:44)
[2019-03-11] MEDS: DOCUSATE SODIUM 100 MG CAP PO SCH ×2 (08:44→20:30)
[2019-03-11] MEDS: BENAZEPRIL 10 MG TAB PO SCH ×2 (08:45→20:31)
[2019-03-11] MEDS: APIXABAN 5 MG TABLET PO SCH ×2 (08:45→20:32)
[2019-03-11] MEDS: ACETAMINOPHEN 650MG/20.3ML CUP PO PRN (14:23)
--- NOTE | 2019-03-11 15:08 | CONS ---
Assessment/Plan Assessment/Plan Assessment/Plan (Daily) Congestive heart failure exacerbation, systolic, acute on chronic. Cardiomyopathy with decreased left ventricular ejection fraction lasting approximately 30% to 35% by echo on 01/01/2019. Abnormal echocardiogram, assess for acute coronary syndrome. Atrial fibrillation S/P PTCA and stent placement in the right coronary artery with drug-eluting stents on 12/2018. Diabetes mellitus. Dyslipidemia. Continue Lasix diuresis Restrict fluids Continue Coreg Continue Benazepril Continue Plavix and Eliquis Continue Insulin Consultation Date/Type/Reason Admit Date/Time Mar 07, 2019 at 19:13 Type of Consult Cardiology Date/Time of Note DATE: 03/11/19 TIME: 15:05 Past Medical History Home Meds Active Scripts Apixaban* (Eliquis*) 5 Mg Tablet, 5 MG PO BID for 60 Days, TAB Prov:NORY ARCINIEGA 03/12/19 Clopidogrel Bisulfate (Clopidogrel) 75 Mg Tablet, 75 MG PO DAILY, #30 TAB Prov:NORY ARCINIEGA 03/12/19 Furosemide (Lasix) 40 Mg Tab, 40 MG PO DAILY for 30 Days, #30 TAB Prov:NORY ARCINIEGA 03/12/19 Hydralazine Hcl* (Hydralazine Hcl*) 25 Mg Tab, 25 MG PO Q8 for 30 Days, TAB Prov:NORY ARCINIEGA 03/12/19 Benazepril Hcl* (Benazepril Hcl*) 10 Mg Tablet, 10 MG PO BID for 60 Days, TAB Prov:NORY ARCINIEGA 03/12/19 Atorvastatin* (Atorvastatin*) 80 Mg Tablet, 80 MG PO HS for 30 Days, TAB Prov:NORY ARCINIEGA 03/12/19 Insulin Aspart* (Novolog Insulin Pen*) 100 Unit/Ml Soln, 0 SC .SLIDING SCALE AC for 60 Days, EA Prov:NORY ARCINIEGA 03/12/19 Pantoprazole* (Protonix*) 40 Mg Tablet.dr, 40 MG PO DAILY for 60 Days, TAB Prov:NORY ARCINIEGA 03/12/19 Docusate Sodium* (Colace*) 100 Mg Capsule, 100 MG PO BID, #60 CAP Prov:NORY ARCINIEGA 03/12/19 Carvedilol* (Carvedilol*) 6.25 Mg Tablet, 6.25 MG PO BID for 60 Days, #120 TAB Prov:NORY ARCINIEGA 03/12/19 Bisacodyl* (Dulcolax*) 5 Mg Tablet.dr, 5 MG PO BID for 60 Days, TAB Prov:NORY ARCINIEGA 03/12/19 Reported Medications Nitroglycerin* (Nitrostat*) 0.4 Mg Tab.subl, 0.4 MG SL Q5MIN PRN for CHEST PAIN, BOTTLE 01/24/19 Discontinued Scripts Clopidogrel Bisulfate (Clopidogrel) 75 Mg Tablet, 75 MG PO DAILY for 30 Days, TAB Prov:NORY ARCINIEGA 01/27/19 Apixaban* (Eliquis*) 5 Mg Tablet, 10 MG PO BID for 30 Days, TAB Prov:NORY ARCINIEGA 01/27/19 Furosemide* (Lasix*) 20 Mg Tab, 40 MG PO DAILY, #60 TAB Prov:NORY ARCINIEGA 02/22/16 Medications Current Medications Ondansetron HCl (Zofran Inj) 4 mg Q6H PRN IV NAUSEA AND/OR VOMITING Last administered on 03/09/19at 15:41; Admin Dose 4 MG; Start 03/07/19 at 20:00 Albuterol/ Ipratropium (Duoneb) 3 ml Q2H RESP THERAPY PRN NEB SHORTNESS OF BREATH; Start 03/07/19 at 20:00 Acetaminophen (Tylenol Liquid) 650 mg Q6H PRN PO PAIN LEVEL 1-3 OR FEVER Last administered on 03/11/19at 14:23; Admin Dose 650 MG; Start 03/07/19 at 20:00 Atorvastatin Calcium (Lipitor) 80 mg HS PO Last administered on 03/07/19at 22:56; Admin Dose 80 MG; Start 03/07/19 at 21:00; Status Hold Benazepril HCl (Lotensin) 10 mg BID PO Last administered on 03/11/19at 08:45; Admin Dose 10 MG; Start 03/07/19 at 21:00 Clopidogrel Bisulfate (plaVIX) 75 mg DAILY PO Last administered on 03/11/19at 08:44; Admin Dose 75 MG; Start 03/08/19 at 09:00 Docusate Sodium (Colace) 100 mg BID PO Last administered on 03/11/19at 08:44; Admin Dose 100 MG; Start 03/07/19 at 21:00 Nitroglycerin (Nitroglycerin (Sl Tab) 0.4 Mg) 0.4 tab Q5M PRN SL CHEST PAIN; Start 03/07/19 at 20:00 Pantoprazole (Protonix Tab) 40 mg DAILY@0600 PO Last administered on 03/11/19at 06:26; Admin Dose 40 MG; Start 03/08/19 at 06:00 Diagnostic Test (Pha) (Accu-Chek) 1 ea 02 XX Last administered on 03/09/19at 01:44; Admin Dose 1 EA; Start 03/08/19 at 02:00 Insulin Aspart (Novolog Insulin Pen) NOVOLOG *MILD* ALGORITHM WITH MEALS BEDTIME SC Last administered on 03/11/19at 12:31; Admin Dose 1 UNIT; Start 03/08/19 at 07:35 Miscellaneous Information 1 ea NOTE XX ; Start 03/07/19 at 23:45 Glucose (Glutose) 15 gm Q15M PRN PO DECREASED GLUCOSE; Start 03/07/19 at 23:45 Glucose (Glutose) 22.5 gm Q15M PRN PO DECREASED GLUCOSE; Start 03/07/19 at 23:45 Dextrose (D50w Syringe) 25 ml Q15M PRN IV DECREASED GLUCOSE; Start 03/07/19 at 23:45 Dextrose (D50w Syringe) 50 ml Q15M PRN IV DECREASED GLUCOSE; Start 03/07/19 at 23:45 Glucagon (Glucagen) 1 mg Q15M PRN IM DECREASED GLUCOSE; Start 03/07/19 at 23:45 Glucose (Glutose) 15 gm Q15M PRN BUCCAL DECREASED GLUCOSE; Start 03/07/19 at 23:45 Carvedilol (Coreg) 12.5 mg BID PO Last administered on 03/11/19at 08:45; Admin Dose 12.5 MG; Start 03/08/19 at 09:00 Insulin Glargine (Lantus) 10 units DAILY@0800 SC Last administered on 03/11/19 08:22; Admin Dose 10 UNITS; Start 03/08/19 at 08:00 Apixaban (Eliquis) 5 mg BID PO Last administered on 4/13/19at 08:45; Admin Dose 5 MG; Start 03/08/19 at 09:00 Furosemide (Lasix) 40 mg BID DIURETICS IV Last administered on 03/11/19at 06:25; Admin Dose 40 MG; Start 03/08/19 at 18:00 Allergies: Coded Allergies: No Known Drug Allergies (Verified Allergy, Mild, 03/07/19) Past Surgical History Past Surgical Hx: other (See HPI) Social History Alcohol Use: none Smoking Status: Never smoker Drug Use: none Exam/Review of Systems Vital Signs Vitals Vital Signs Date Temp Pulse Resp B/P (MAP) Pulse Ox O2 O2 Flow FiO2 Time Delivery Rate 03/11/19 66 12:00 03/11/19 98.5 18 107/68 95 11:32 (81) 03/11/19 Nasal 2.0 08:30 Cannula Intake and Output 03/10/19 03/10/19 03/11/19 1515:00 23:00 07:00 IntakeIntake Total 1000 ml 200 ml BalanceBalance 1000 ml 200 ml Exam Constitutional: alert Head: normocephalic, atraumatic Neck: supple, non-tender Respiratory: diminished breath sounds Cardiovascular: regular rate and rhythm (no m/r/g) Extremities: edema Labs Result Diagram: 03/11/1918 03/11/1918 Results 24hrs Laboratory Tests Test 03/10/19 16:00 03/10/19 16:47 03/10/19 21:35 03/11/19 01:51 Blood Gas Blood arterial Specimen Source Arterial Blood 03/10/2019 6:14:2 Date Drawn 0 PM Arterial Blood pH 7.398 (Temp corrected) Arterial Blood 42.9 pCO2 (Temp correct) Arterial Blood 89.0 pO2 (Temp corrected) Arterial Blood 25.9 HCO3 Arterial Blood 0.8 Base Excess Arterial Blood 96.9 Oxygen Saturation Neal Test ACCEPTAB Arterial Blood Right Radial Gas Puncture Site Arterial 0.2 Blood Carboxyhemo globin Arterial Blood 0.3 Methemoglobin Blood Gas A-a O2 9.4 Differential Oxyhemoglobin 96.4 Percent Blood Gas 37.0 Temperature Blood Gas ROOM AIR Modality FiO2 21.0 Blood Gas M.D. Notified Whom Blood Gas 03/10/2019 6:27:1 Notified Time 9 PM Bedside Glucose 273 H 202 147 Test 03/11/19 05:18 03/11/19 08:06 03/11/19 12:22 White Blood Count 8.1 Red Blood Count 4.79 Hemoglobin 15.2 Hematocrit 45.5 Mean Corpuscular 95.0 Volume Mean Corpuscular 31.7 Hemoglobin Mean Corpuscular 33.4 Hemoglobin Concen t Red Cell 12.6 Distribution Width Platelet Count 222 Mean Platelet 10.8 H Volume Immature 0.400 Granulocytes % Neutrophils % 57.9 Lymphocytes % 28.7 Monocytes % 8.5 Eosinophils % 3.6 Basophils % 0.9 Nucleated Red 0.0 Blood Cells % Immature 0.030 Granulocytes # Neutrophils # 4.7 Lymphocytes # 2.3 Monocytes # 0.7 Eosinophils # 0.3 Basophils # 0.1 Nucleated Red 0.0 Blood Cells # Sodium Level 141 Potassium Level 3.7 Chloride Level 104 Carbon Dioxide 28 Level Anion Gap 9 Blood Urea 27 H Nitrogen Creatinine 0.82 Est Glomerular Filtrat Rate mL/min Glucose Level 181 Calcium Level 9.6 Phosphorus Level 4.2 Magnesium Level 1.9 Bedside Glucose 196 162 Medications Medications Current Medications Ondansetron HCl (Zofran Inj) 4 mg Q6H PRN IV NAUSEA AND/OR VOMITING Last administered on 03/09/19 15:41; Admin Dose 4 MG; Start 03/07/19 at 20:00 Albuterol/ Ipratropium (Duoneb) 3 ml Q2H RESP THERAPY PRN NEB SHORTNESS OF BREATH; Start 03/07/19 at 20:00 Acetaminophen (Tylenol Liquid) 650 mg Q6H PRN PO PAIN LEVEL 1-3 OR FEVER Last administered on 03/11/19 14:23; Admin Dose 650 MG; Start 03/07/19 at 20:00 Atorvastatin Calcium (Lipitor) 80 mg HS PO Last administered on 03/07/19 22:56; Admin Dose 80 MG; Start 03/07/19 at 21:00; Status Hold Benazepril HCl (Lotensin) 10 mg BID PO Last administered on 03/11/19 08:45; Admin Dose 10 MG; Start 03/07/19 at 21:00 Clopidogrel Bisulfate (plaVIX) 75 mg DAILY PO Last administered on 03/11/19 08:44; Admin Dose 75 MG; Start 03/08/19 at 09:00 Docusate Sodium (Colace) 100 mg BID PO Last administered on 4/13/19at 08:44; Admin Dose 100 MG; Start 03/07/19 at 21:00 Nitroglycerin (Nitroglycerin (Sl Tab) 0.4 Mg) 0.4 tab Q5M PRN SL CHEST PAIN; Start 03/07/19 at 20:00 Pantoprazole (Protonix Tab) 40 mg DAILY@0600 PO Last administered on 03/11/19at 06:26; Admin Dose 40 MG; Start 03/08/19 at 06:00 Diagnostic Test (Pha) (Accu-Chek) 1 ea 02 XX Last administered on 03/09/19at 01:44; Admin Dose 1 EA; Start 03/08/19 at 02:00 Insulin Aspart (Novolog Insulin Pen) NOVOLOG *MILD* ALGORITHM WITH MEALS BEDTIME SC Last administered on 03/11/19at 12:31; Admin Dose 1 UNIT; Start 03/08/19 at 07:35 Miscellaneous Information 1 ea NOTE XX ; Start 03/07/19 at 23:45 Glucose (Glutose) 15 gm Q15M PRN PO DECREASED GLUCOSE; Start 03/07/19 at 23:45 Glucose (Glutose) 22.5 gm Q15M PRN PO DECREASED GLUCOSE; Start 03/07/19 at 23:45 Dextrose (D50w Syringe) 25 ml Q15M PRN IV DECREASED GLUCOSE; Start 03/07/19 at 23:45 Dextrose (D50w Syringe) 50 ml Q15M PRN IV DECREASED GLUCOSE; Start 03/07/19 at 23:45 Glucagon (Glucagen) 1 mg Q15M PRN IM DECREASED GLUCOSE; Start 03/07/19 at 23:45 Glucose (Glutose) 15 gm Q15M PRN BUCCAL DECREASED GLUCOSE; Start 03/07/19 at 23:45 Carvedilol (Coreg) 12.5 mg BID PO Last administered on 03/11/19at 08:45; Admin Dose 12.5 MG; Start 03/08/19 at 09:00 Insulin Glargine (Lantus) 10 units DAILY@0800 SC Last administered on 03/11/19at 08:22; Admin Dose 10 UNITS; Start 03/08/19 at 08:00 Apixaban (Eliquis) 5 mg BID PO Last administered on 03/11/19at 08:45; Admin Dose 5 MG; Start 03/08/19 at 09:00 Furosemide (Lasix) 40 mg BID DIURETICS IV Last administered on 03/11/19at 06:25; Admin Dose 40 MG; Start 03/08/19 at 18:00 ALTHEA FLORES M.D. Mar 11, 2019 15:08
--- NOTE | 2019-03-11 18:08 | PN ---
Date/Time of Note Date/Time of Note DATE: 03/11/19 TIME: 18:07 Assessment/Plan VTE Prophylaxis Risk score (from Ns)>0 risk: 3 SCD applied (from Nsg): No SCD contraindicated: low risk/ambulating Pharmacological prophylaxis: apixaban Lines/Catheters IV Catheter Type (from Nrs): Peripheral IV Urinary Cath still in place: No Assessment/Plan Hospital Course # Htn emergency likely due to running out of meds # Acute on chronic CHF exacerbation, systolic last EF 30-35% # hx non-ST elevation myocardial infarction, status post coronary angiogram with a single vessel obstructive coronary artery disease in the right coronary artery, status post PTCA and stent placement.on #. Cardiomyopathy with ejection fraction of 30 to 35%. #. History of atrial fibrillation.rate control # Diabetes mellitus type II, uncontrolled # Obesity Assessment/Plan -GI prophylaxis Protonix - lasix 40 iv bid - cw Plavix/ -DVT prophylaxis eliquis - Cw Lipitor - cw benazepril/coreg - cards consult - pt instructed to be compliant with meds -With PT recs -ABG on room air -Chest x-ray Result Diagram: 03/11/1951703/11/19517 Results 24hrs Laboratory Tests Test 03/10/19 21:35 03/11/19 01:51 03/11/19 05:18 03/11/19 08:06 Bedside Glucose 202 147 196 White Blood Count 8.1 Red Blood Count 4.79 Hemoglobin 15.2 Hematocrit 45.5 Mean Corpuscular 95.0 Volume Mean Corpuscular 31.7 Hemoglobin Mean Corpuscular 33.4 Hemoglobin Concent Red Cell 12.6 Distribution Width Platelet Count 222 Mean Platelet Volume 10.8 H Immature 0.400 Granulocytes % Neutrophils % 57.9 Lymphocytes % 28.7 Monocytes % 8.5 Eosinophils % 3.6 Basophils % 0.9 Nucleated Red Blood 0.0 Cells % Immature 0.030 Granulocytes # Neutrophils # 4.7 Lymphocytes # 2.3 Monocytes # 0.7 Eosinophils # 0.3 Basophils # 0.1 Nucleated Red Blood 0.0 Cells # Sodium Level 141 Potassium Level 3.7 Chloride Level 104 Carbon Dioxide Level 28 Anion Gap 9 Blood Urea Nitrogen 27 H Creatinine 0.82 Est Glomerular Filtrat Rate mL/min Glucose Level 181 Calcium Level 9.6 Phosphorus Level 4.2 Magnesium Level 1.9 Test 03/11/19 12:22 03/11/19 17:11 Bedside Glucose 162 214 Subjective 24 Hr Interval Summary Constitutional: improved Exam/Review of Systems Exam Vitals Vital Signs Date Temp Pulse Resp B/P (MAP) Pulse Ox O2 O2 Flow FiO2 Time Delivery Rate 03/11/19 73 16:00 03/11/19 98.4 19 126/83 96 15:22 (97) 03/11/19 Nasal 2.0 08:30 Cannula Intake and Output 03/10/19 03/10/19 03/11/19 1515:00 23:00 07:00 IntakeIntake Total 1000 ml 200 ml BalanceBalance 1000 ml 200 ml Constitutional: alert, oriented Respiratory: clear to auscultation Cardiovascular: regular rate and rhythm Gastrointestinal: soft Results Results 24hrs Laboratory Tests Test 03/10/19 21:35 03/11/19 01:51 03/11/19 05:18 03/11/19 08:06 Bedside Glucose 202 147 196 White Blood Count 8.1 Red Blood Count 4.79 Hemoglobin 15.2 Hematocrit 45.5 Mean Corpuscular 95.0 Volume Mean Corpuscular 31.7 Hemoglobin Mean Corpuscular 33.4 Hemoglobin Concent Red Cell 12.6 Distribution Width Platelet Count 222 Mean Platelet Volume 10.8 H Immature 0.400 Granulocytes % Neutrophils % 57.9 Lymphocytes % 28.7 Monocytes % 8.5 Eosinophils % 3.6 Basophils % 0.9 Nucleated Red Blood 0.0 Cells % Immature 0.030 Granulocytes # Neutrophils # 4.7 Lymphocytes # 2.3 Monocytes # 0.7 Eosinophils # 0.3 Basophils # 0.1 Nucleated Red Blood 0.0 Cells # Sodium Level 141 Potassium Level 3.7 Chloride Level 104 Carbon Dioxide Level 28 Anion Gap 9 Blood Urea Nitrogen 27 H Creatinine 0.82 Est Glomerular Filtrat Rate mL/min Glucose Level 181 Calcium Level 9.6 Phosphorus Level 4.2 Magnesium Level 1.9 Test 03/11/19 12:22 03/11/19 17:11 Bedside Glucose 162 214 Medications Medication Current Medications Ondansetron HCl (Zofran Inj) 4 mg Q6H PRN IV NAUSEA AND/OR VOMITING Last administered on 03/09/19at 15:41; Admin Dose 4 MG; Start 03/07/19 at 20:00 Albuterol/ Ipratropium (Duoneb) 3 ml Q2H RESP THERAPY PRN NEB SHORTNESS OF BREATH; Start 03/07/19 at 20:00 Acetaminophen (Tylenol Liquid) 650 mg Q6H PRN PO PAIN LEVEL 1-3 OR FEVER Last administered on 03/11/19at 14:23; Admin Dose 650 MG; Start 03/07/19 at 20:00 Atorvastatin Calcium (Lipitor) 80 mg HS PO Last administered on 03/07/19at 22:56; Admin Dose 80 MG; Start 03/07/19 at 21:00; Status Hold Benazepril HCl (Lotensin) 10 mg BID PO Last administered on 03/11/19at 08:45; Admin Dose 10 MG; Start 03/07/19 at 21:00 Clopidogrel Bisulfate (plaVIX) 75 mg DAILY PO Last administered on 03/11/19 08:44; Admin Dose 75 MG; Start 03/08/19 at 09:00 Docusate Sodium (Colace) 100 mg BID PO Last administered on 03/11/19at 08:44; Admin Dose 100 MG; Start 03/07/19 at 21:00 Nitroglycerin (Nitroglycerin (Sl Tab) 0.4 Mg) 0.4 tab Q5M PRN SL CHEST PAIN; Start 03/07/19 at 20:00 Pantoprazole (Protonix Tab) 40 mg DAILY@0600 PO Last administered on 03/11/19at 06:26; Admin Dose 40 MG; Start 03/08/19 at 06:00 Diagnostic Test (Pha) (Accu-Chek) 1 ea 02 XX Last administered on 03/09/19at 01:44; Admin Dose 1 EA; Start 03/08/19 at 02:00 Insulin Aspart (Novolog Insulin Pen) NOVOLOG *MILD* ALGORITHM WITH MEALS BEDTIME SC Last administered on 03/11/19at 17:32; Admin Dose 2 UNIT; Start 03/08/19 at 07:35 Miscellaneous Information 1 ea NOTE XX ; Start 03/07/19 at 23:45 Glucose (Glutose) 15 gm Q15M PRN PO DECREASED GLUCOSE; Start 03/07/19 at 23:45 Glucose (Glutose) 22.5 gm Q15M PRN PO DECREASED GLUCOSE; Start 03/07/19 at 23:45 Dextrose (D50w Syringe) 25 ml Q15M PRN IV DECREASED GLUCOSE; Start 03/07/19 at 23:45 Dextrose (D50w Syringe) 50 ml Q15M PRN IV DECREASED GLUCOSE; Start 03/07/19 at 23:45 Glucagon (Glucagen) 1 mg Q15M PRN IM DECREASED GLUCOSE; Start 03/07/19 at 23:45 Glucose (Glutose) 15 gm Q15M PRN BUCCAL DECREASED GLUCOSE; Start 03/07/19 at 23:45 Carvedilol (Coreg) 12.5 mg BID PO Last administered on 03/11/19 08:45; Admin Dose 12.5 MG; Start 03/08/19 at 09:00 Insulin Glargine (Lantus) 10 units DAILY@0800 SC Last administered on 03/11/19 08:22; Admin Dose 10 UNITS; Start 03/08/19 at 08:00 Apixaban (Eliquis) 5 mg BID PO Last administered on 03/11/19 08:45; Admin Dose 5 MG; Start 03/08/19 at 09:00 Furosemide (Lasix) 40 mg BID DIURETICS IV Last administered on 03/11/19at 18:03; Admin Dose 40 MG; Start 03/08/19 at 18:00 NORY ARCINIEGA Mar 11, 2019 18:08
[2019-03-12] VITALS (8 sets, daily range): BP systolic 116–143; BP diastolic 75–95; PULSE 56–87; RESP 17–19
[2019-03-12] MEDS: ACCU-CHEK XX SCH (01:01)
[2019-03-12] MEDS: PANTOPRAZOLE (EC) 40 MG TAB PO SCH (05:54)
[2019-03-12] MEDS: FUROSEMIDE 40 MG INJ IV SCH (05:54)
[2019-03-12] MEDS: INSULIN ASPART [NOVOLOG] 3 ML PEN SC SCH ×2 (08:19→12:43)
[2019-03-12] MEDS: BENAZEPRIL 10 MG TAB PO SCH (08:32)
[2019-03-12] MEDS: DOCUSATE SODIUM 100 MG CAP PO SCH (08:32)
[2019-03-12] MEDS: CLOPIDOGREL 75 MG TAB PO SCH (08:32)
[2019-03-12] MEDS: APIXABAN 5 MG TABLET PO SCH (08:32)
[2019-03-12] MEDS: INSULIN GLARGINE [LANTus] (100 UNITS/ML) SYG SC SCH (08:40)
--- NOTE | 2019-03-12 14:31 | PDOCDIS ---
Discharge Instructions CONDITION [id number] Patient Condition: [id number] Stable ACTIVITY: [id number] Activity Restrictions: [id number] Slowly Increase Activity Rest between Activity Avoid heavy lifting FOLLOW UP/APPOINTMENTS Follow-up Plan PCP 1 week NORY ARCINIEGA Mar 12, 2019 14:31
[2019-03-12] MEDS ORDERED: BENA10TA4 PO (14:34)
[2019-03-12] MEDS ORDERED: NOVO3I SC (14:34)
[2019-03-12] MEDS ORDERED: FURO40TA4 PO (14:34)
[2019-03-12] MEDS ORDERED: APIX5TAB PO (14:34)
[2019-03-12] MEDS ORDERED: DOCU-144 PO (14:34)
[2019-03-12] MEDS ORDERED: PANT40TA3 PO (14:34)
[2019-03-12] MEDS ORDERED: CARV6.2579 PO (14:34)
[2019-03-12] MEDS ORDERED: ATOR-2 PO (14:34)
[2019-03-12] MEDS ORDERED: BISA-57 PO (14:34)
[2019-03-12] MEDS ORDERED: HYDR-3671 PO (14:34)
[2019-03-12] MEDS ORDERED: CLOP75TA27 PO (14:34)
--- NOTE | 2019-03-12 14:35 | DS ---
Date/Time of Note Date/Time of Note DATE: 03/12/19 TIME: 14:35 Discharge Summary Admission/Discharge Info Admit Date/Time Mar 07, 2019 at 19:13 Discharge Date/Time Discharge Diagnosis chronic A. fib Patient Condition: Stable Hospital Course # Htn emergency likely due to running out of meds # Acute on chronic CHF exacerbation, systolic last EF 30-35% # hx non-ST elevation myocardial infarction, status post coronary angiogram with a single vessel obstructive coronary artery disease in the right coronary artery, status post PTCA and stent placement.on #. Cardiomyopathy with ejection fraction of 30 to 35%. #. History of atrial fibrillation.rate control # Diabetes mellitus type II, uncontrolled # Obesity Home Meds Active Scripts Apixaban* (Eliquis*) 5 Mg Tablet, 5 MG PO BID for 60 Days, TAB Prov:NORY ARCINIEGA 03/12/19 Clopidogrel Bisulfate (Clopidogrel) 75 Mg Tablet, 75 MG PO DAILY, #30 TAB Prov:NORY ARCINIEGA 03/12/19 Furosemide (Lasix) 40 Mg Tab, 40 MG PO DAILY for 30 Days, #30 TAB Prov:NORY ARCINIEGA 03/12/19 Hydralazine Hcl* (Hydralazine Hcl*) 25 Mg Tab, 25 MG PO Q8 for 30 Days, TAB Prov:NORY ARCINIEGA 03/12/19 Benazepril Hcl* (Benazepril Hcl*) 10 Mg Tablet, 10 MG PO BID for 60 Days, TAB Prov:NORY ARCINIEGA 03/12/19 Atorvastatin* (Atorvastatin*) 80 Mg Tablet, 80 MG PO HS for 30 Days, TAB Prov:NORY ARCINIEGA 03/12/19 Insulin Aspart* (Novolog Insulin Pen*) 100 Unit/Ml Soln, 0 SC .SLIDING SCALE AC for 60 Days, EA Prov:NORY ARCINIEGA 03/12/19 Pantoprazole* (Protonix*) 40 Mg Tablet.dr, 40 MG PO DAILY for 60 Days, TAB Prov:NORY ARCINIEGA 03/12/19 Docusate Sodium* (Colace*) 100 Mg Capsule, 100 MG PO BID, #60 CAP Prov:NORY ARCINIEGA 03/12/19 Carvedilol* (Carvedilol*) 6.25 Mg Tablet, 6.25 MG PO BID for 60 Days, #120 TAB Prov:NORY ARCINIEGA 03/12/19 Bisacodyl* (Dulcolax*) 5 Mg Tablet.dr, 5 MG PO BID for 60 Days, TAB Prov:NORY ARCINIEGA 03/12/19 Reported Medications Nitroglycerin* (Nitrostat*) 0.4 Mg Tab.subl, 0.4 MG SL Q5MIN PRN for CHEST PAIN, BOTTLE 01/24/19 Discontinued Scripts Clopidogrel Bisulfate (Clopidogrel) 75 Mg Tablet, 75 MG PO DAILY for 30 Days, TAB Prov:NORY ARCINIEGA 01/27/19 Apixaban* (Eliquis*) 5 Mg Tablet, 10 MG PO BID for 30 Days, TAB Prov:NORY ARCINIEGA 01/27/19 Furosemide* (Lasix*) 20 Mg Tab, 40 MG PO DAILY, #60 TAB Prov:NORY ARCINIEGA 02/22/16 Follow-up Plan PCP 1 week Primary Care Provider Not On Staff Doctor Time spent on discharge: < 30 minutes Pending Labs Laboratory Tests Test 03/11/19 17:11 03/11/19 20:30 03/12/19 08:15 03/12/19 12:40 Bedside 214 170 183 264 Glucose mg/dL (70-220) mg/dL (70-220) mg/dL (70-220) mg/dL (70-220) NORY ARCINIEGA Mar 12, 2019 14:35
--- NOTE | 2019-03-12 15:02 | CONS ---
Assessment/Plan Assessment/Plan Assessment/Plan (Daily) Congestive heart failure exacerbation, systolic, acute on chronic. Cardiomyopathy with decreased left ventricular ejection fraction lasting approximately 30% to 35% by echo on 01/01/2019. Abnormal echocardiogram, assess for acute coronary syndrome. Atrial fibrillation S/P PTCA and stent placement in the right coronary artery with drug-eluting stents on 12/2018. Diabetes mellitus. Dyslipidemia. Continue Lasix diuresis Restrict fluids Continue Coreg Continue Benazepril Continue Plavix and Eliquis Continue Insulin Consultation Date/Type/Reason Admit Date/Time Mar 07, 2019 at 19:13 Initial Consult Date Type of Consult Cardiology Requesting Provider: BART LEMONS MD Date/Time of Note DATE: 03/12/19 TIME: 15:02 Exam/Review of Systems Vital Signs Vitals Vital Signs Date Temp Pulse Resp B/P (MAP) Pulse Ox O2 O2 Flow FiO2 Time Delivery Rate 03/12/19 74 12:00 03/12/19 98.7 17 137/84 96 11:37 (101) 03/12/19 Nasal 2.0 07:43 Cannula Intake and Output 03/11/19 03/11/19 03/12/19 1515:00 23:00 07:00 IntakeIntake Total 900 ml 340 ml BalanceBalance 900 ml 340 ml Exam Exam Constitutional: alert Head: normocephalic, atraumatic Neck: supple, non-tender Respiratory: diminished breath sounds Cardiovascular: regular rate and rhythm (no m/r/g) Extremities: edema Labs Result Diagram: 03/11/19 0518 03/11/19 0518 Results 24hrs Laboratory Tests Test 03/11/19 17:11 03/11/19 20:30 03/12/19 08:15 03/12/19 12:40 Bedside Glucose 214 170 183 264 H Medications Medications Current Medications Ondansetron HCl (Zofran Inj) 4 mg Q6H PRN IV NAUSEA AND/OR VOMITING Last administered on 03/09/19at 15:41; Admin Dose 4 MG; Start 03/07/19 at 20:00 Albuterol/ Ipratropium (Duoneb) 3 ml Q2H RESP THERAPY PRN NEB SHORTNESS OF BREATH; Start 03/07/19 at 20:00 Acetaminophen (Tylenol Liquid) 650 mg Q6H PRN PO PAIN LEVEL 1-3 OR FEVER Last administered on 03/11/19 14:23; Admin Dose 650 MG; Start 03/07/19 at 20:00 Atorvastatin Calcium (Lipitor) 80 mg HS PO Last administered on 03/07/19at 22:56; Admin Dose 80 MG; Start 03/07/19 at 21:00; Status Hold Benazepril HCl (Lotensin) 10 mg BID PO Last administered on 03/12/19 08:32; Admin Dose 10 MG; Start 03/07/19 at 21:00 Clopidogrel Bisulfate (plaVIX) 75 mg DAILY PO Last administered on 03/12/19 08:32; Admin Dose 75 MG; Start 03/08/19 at 09:00 Docusate Sodium (Colace) 100 mg BID PO Last administered on 03/12/19 08:32; Admin Dose 100 MG; Start 03/07/19 at 21:00 Nitroglycerin (Nitroglycerin (Sl Tab) 0.4 Mg) 0.4 tab Q5M PRN SL CHEST PAIN; Start 03/07/19 at 20:00 Pantoprazole (Protonix Tab) 40 mg DAILY@0600 PO Last administered on 03/12/19 05:54; Admin Dose 40 MG; Start 03/08/19 at 06:00 Diagnostic Test (Pha) (Accu-Chek) 1 ea 02 XX Last administered on 03/09/19at 01:44; Admin Dose 1 EA; Start 03/08/19 at 02:00 Insulin Aspart (Novolog Insulin Pen) NOVOLOG *MILD* ALGORITHM WITH MEALS BEDTIME SC Last administered on 03/12/19at 12:43; Admin Dose 4 UNIT; Start 03/08/19 at 07:35 Miscellaneous Information 1 ea NOTE XX ; Start 03/07/19 at 23:45 Glucose (Glutose) 15 gm Q15M PRN PO DECREASED GLUCOSE; Start 03/07/19 at 23:45 Glucose (Glutose) 22.5 gm Q15M PRN PO DECREASED GLUCOSE; Start 03/07/19 at 23:45 Dextrose (D50w Syringe) 25 ml Q15M PRN IV DECREASED GLUCOSE; Start 03/07/19 at 23:45 Dextrose (D50w Syringe) 50 ml Q15M PRN IV DECREASED GLUCOSE; Start 03/07/19 at 23:45 Glucagon (Glucagen) 1 mg Q15M PRN IM DECREASED GLUCOSE; Start 03/07/19 at 23:45 Glucose (Glutose) 15 gm Q15M PRN BUCCAL DECREASED GLUCOSE; Start 03/07/19 at 23:45 Carvedilol (Coreg) 12.5 mg BID PO Last administered on 03/12/19 08:32; Admin Dose 12.5 MG; Start 03/08/19 at 09:00 Insulin Glargine (Lantus) 10 units DAILY@0800 SC Last administered on 03/12/19at 08:40; Admin Dose 10 UNITS; Start 03/08/19 at 08:00 Apixaban (Eliquis) 5 mg BID PO Last administered on 03/12/19 08:32; Admin Dose 5 MG; Start 03/08/19 at 09:00 Furosemide (Lasix) 40 mg BID DIURETICS IV Last administered on 03/12/19at 05:54; Admin Dose 40 MG; Start 03/08/19 at 18:00 ALTHEA FLORES M.D. Mar 12, 2019 15:02
== END 2019-03-12 16:10 | disposition home or self-care (01) | DRG 304 ==
LOC: E/R 15:46 → ICU 19:13 → 6WM 03-09 23:26
PROVIDERS: ADMIT Internal Medicine; ATTEND Internal Medicine Nephrology
DX: I16.1 Hypertensive emergency (principal); I50.23 Acute on chronic systolic (congestive) heart failure; I42.9 Cardiomyopathy, unspecified; I11.0 Hypertensive heart disease with heart failure; E78.5 Hyperlipidemia, unspecified; I48.91 Unspecified atrial fibrillation; I25.10 Atherosclerotic heart disease of native coronary artery without angina pectoris; Z95.5 Presence of coronary angioplasty implant and graft; I25.2 Old myocardial infarction; E66.9 Obesity, unspecified; Z68.37 Body mass index [BMI] 37.0-37.9, adult; E11.65 Type 2 diabetes mellitus with hyperglycemia
CPT/HCPCS: 36415; 36600; 71045; 76705; 80048; 80053; 80061; 82550; 82553; 82803; 82962; 83735; 83880; 84100; 84484; 85025; 85610; 85730; 87081; 93005; 96374; 97161; J1815; J1940; J2405; J3475

== ENCOUNTER 2019-05-26 18:43 | Inpatient (IN) | payer MEDICARE, MEDICAID ==
[~2019-05-26] VITALS: Ht 162.6 cm; Wt 86.7 kg
[~2019-05-26 18:43] MED LIST changes: -CLOP75TA28 PO; -FURO-110 PO
--- NOTE | 2019-05-26 18:50 | ERD ---
ER Documentation Chief Complaint Chief Complaint HPI 73-year-old woman presents with a couple days of increasing shortness of breath, dyspnea on exertion, orthopnea. Patient denies fevers or chills, no cough, no headache or blurry vision, no complaints of chest pain, no vomiting or diarrhea. Patient does have a history of congestive heart failure with diminished EF. ROS All systems reviewed and are negative except as per history of present illness. Medications Home Meds Active Scripts Apixaban* (Eliquis*) 5 Mg Tablet, 5 MG PO BID for 60 Days, TAB Prov:NORY ARCINIEGA 03/12/19 Clopidogrel Bisulfate (Clopidogrel) 75 Mg Tablet, 75 MG PO DAILY, #30 TAB Prov:NORY ARCINIEGA 03/12/19 Furosemide (Lasix) 40 Mg Tab, 40 MG PO DAILY for 30 Days, #30 TAB Prov:NORY ARCINIEGA 03/12/19 Hydralazine Hcl* (Hydralazine Hcl*) 25 Mg Tab, 25 MG PO Q8 for 30 Days, TAB Prov:NORY ARCINIEGA 03/12/19 Benazepril Hcl* (Benazepril Hcl*) 10 Mg Tablet, 10 MG PO BID for 60 Days, TAB Prov:NORY ARCINIEGA 03/12/19 Atorvastatin* (Atorvastatin*) 80 Mg Tablet, 80 MG PO HS for 30 Days, TAB Prov:NORY ARCINIEGA 03/12/19 Insulin Aspart* (Novolog Insulin Pen*) 100 Unit/Ml Soln, 0 SC .SLIDING SCALE AC for 60 Days, EA Prov:NORY ARCINIEGA 03/12/19 Pantoprazole* (Protonix*) 40 Mg Tablet.dr, 40 MG PO DAILY for 60 Days, TAB Prov:NORY ARCINIEGA 03/12/19 Docusate Sodium* (Colace*) 100 Mg Capsule, 100 MG PO BID, #60 CAP Prov:NORY ARCINIEGA 03/12/19 Carvedilol* (Carvedilol*) 6.25 Mg Tablet, 6.25 MG PO BID for 60 Days, #120 TAB Prov:NORY ARCINIEGA 03/12/19 Bisacodyl* (Dulcolax*) 5 Mg Tablet.dr, 5 MG PO BID for 60 Days, TAB Prov:NORY ARCINIEGA 03/12/19 Reported Medications Nitroglycerin* (Nitrostat*) 0.4 Mg Tab.subl, 0.4 MG SL Q5MIN PRN for CHEST PAIN, BOTTLE 01/24/19 Allergies Allergies: Coded Allergies: No Known Drug Allergies (Verified Allergy, Mild, 03/07/19) PMhx/Soc CHF and cardiomyopathy with LVEF of 30%, obesity, hypertension, diabetes mellitus, atrial fibrillation, CAD status post PTCA and stenting of the right coronary artery, dyslipidemia History of Surgery: Yes Anesthesia Reaction: No Hx Respiratory Disorders: Yes Hx Cardiac Disorders: Yes Hx Psychiatric Problems: No Hx Miscellaneous Medical Probl: Yes (HTN, DMI, CAD s/p stent in 01/24/19, cardiomyopathy with EF 30-35%, dyslipid) Hx Alcohol Use: No Hx Substance Use: No Hx Tobacco Use: No Physical Exam Vitals Vital Signs Date Temp Pulse Resp B/P (MAP) Pulse Ox O2 O2 Flow FiO2 Time Delivery Rate 05/26/19 91 24 174/129 100 BIPAP 20:12 (144) 05/26/19 83 20 199/111 100 BIPAP 19:50 (140) 05/26/19 93 26 194/125 99 BIPAP 19:31 (148) 05/26/19 98.1 110 18 172/149 92 18:56 (157) Physical Exam GENERAL: Well-developed, well-nourished, dyspneic, afebrile HEENT: Moist mucous membranes, pink conjunctiva, no cervical spine tenderness or step-off deformities, no goiter, NEURO: Alert and oriented 3, cranial nerves II through XII intact bilaterally, pupils equal round reactive to light, no focal deficits or facial asymmetry, sensation intact distally Strength 5/5 in upper and lower extremities bilaterally CARDIAC: Regular rate and rhythm, no murmurs rubs or gallops LUNGS: Poor breath sounds bilaterally, crackles throughout the lung ontiveros and wheezing, no stridor SKIN: Warm and dry to touch, no abrasions, contusions, or hematomas, no lacerations, no ecchymosis, no target lesions, and without ulcers EXTREMITIES: No clubbing cyanosis, 1+ pitting edema in the lower extremities bilaterally, calves are bilaterally symmetrical, no Homans sign, no popliteal cord sign. Distal pulses equal and bilateral PSYCH: Normal affect without agitation or irritability Result Diagram: 05/26/19191705/26/191917 Results 24 hrs Laboratory Tests Test 05/26/19 19:18 White Blood Count 8.2 10^3/ul Red Blood Count 4.85 10^6/ul Hemoglobin 14.8 g/dl Hematocrit 44.7 % Mean Corpuscular Volume 92.2 fl Mean Corpuscular Hemoglobin 30.5 pg Mean Corpuscular Hemoglobin Concent 33.1 g/dl Red Cell Distribution Width 13.5 % Platelet Count 231 10^3/UL Mean Platelet Volume 10.4 fl Immature Granulocytes % 0.400 % Neutrophils % 53.4 % Lymphocytes % 35.3 % Monocytes % 7.4 % Eosinophils % 2.8 % Basophils % 0.7 % Nucleated Red Blood Cells % 0.0 /100WBC Immature Granulocytes # 0.030 10^3/ul Neutrophils # 4.4 10^3/ul Lymphocytes # 2.9 10^3/ul Monocytes # 0.6 10^3/ul Eosinophils # 0.2 10^3/ul Basophils # 0.1 10^3/ul Nucleated Red Blood Cells # 0.0 10^3/ul Sodium Level 143 mmol/L Potassium Level 4.1 mmol/L Chloride Level 108 mmol/L Carbon Dioxide Level 26 mmol/L Anion Gap 9 Blood Urea Nitrogen 16 mg/dl Creatinine 0.85 mg/dl Est Glomerular Filtrat Rate mL/min mL/min Glucose Level 150 mg/dl Calcium Level 9.0 mg/dl Total Bilirubin 0.5 mg/dl Direct Bilirubin 0.00 mg/dl Indirect Bilirubin 0.5 mg/dl Aspartate Amino Transf (AST/SGOT) 74 IU/L Alanine Aminotransferase (ALT/SGPT) 57 IU/L Alkaline Phosphatase 131 IU/L Troponin I < 0.012 ng/ml Total Protein 8.2 g/dl Albumin 4.3 g/dl Globulin 3.90 g/dl Albumin/Globulin Ratio 1.10 Lipase 131 U/L Current Medications Medications Dose Sig/[place] Start Time Status Last (Trade) Ordered Route PRN Stop Time Admin Dose Reason Admin Enalaprilat 1.25 mg ONCE ONCE 05/26/19 DC 05/26/19 (Vasotec Iv) IV 19:00 19:36 05/26/19 19:01 Aspirin 324 mg ONCE ONCE 05/26/19 DC 05/26/19 (Aspirin) PO 19:00 19:24 05/26/19 19:01 Furosemide 40 mg ONCE ONCE 05/26/19 DC 05/26/19 (Lasix) IV 19:00 19:24 05/26/19 19:01 Nicardipine 30 mg ONCE ONCE 05/26/19 DC 05/26/19 HCl PO 20:30 20:20 (Cardene) 05/26/19 20:31 Procedures/MDM IV line was established patient was placed on engine monitor rhythm strip revealed a sinus rhythm at about 90 bpm with upright P and T waves. Patient was afebrile Patient was dyspneic so I placed the patient on BiPAP therapy. EKG performed, read by me revealed an atrial fibrillation rate controlled at 90 bpm, left axis deviation, right ventricular conduction delay QRS duration 102 ms, no concerning ST elevations or depressions noted I administered aspirin 324 mg p.o. for cardioprotective measures, enalapril 1.25 mg IV for hypertension, furosemide 40 mg IV x1 1 view chest x-ray performed, read by me revealed cardiomegaly and bilateral pulmonary edema, no acute infiltrates, no pneumothorax. For continued hypertension I administered nicardipine 30 mg p.o. x1. CBC and electrolytes are normal, liver function tests were normal, troponin was negative. Critical Care: Time: 33 minutes, this was time separate from other billable procedures. Treatments/Evaluations: Close monitoring and treatment of unstable vital signs, cardiorespiratory, and neurologic status, while maintaining tight balance of fluid, respiratory, and cardiac interventions. Patient directed to Dr. Mcintyre, I spoke to Dr. Patino who is covering, regarding the patient's presentation and symptomatology, she kindly agreed to admit the patient. Patient admitted to telemetry setting. Departure Diagnosis: Primary Impression: Hypertension Hypertension type: essential hypertension Qualified Codes: I10 - Essential (primary) hypertension Additional Impression: Chronic combined systolic and diastolic heart failure Condition: MAYE Balbuena MD May 26, 2019 18:50
[2019-05-26] MEDS ORDERED: FUROSEMIDE 40 MG INJ IV ONE (19:00)
[2019-05-26] MEDS ORDERED: ASPIRIN 81 MG TAB PO ONE (19:00)
[2019-05-26] MEDS ORDERED: ENALAPRILAT 1.25 MG INJ IV ONE (19:00)
[2019-05-26] MEDS ORDERED: NICARDipine HCL 30 MG CAPSULE PO ONE (20:30)
[2019-05-26] MEDS ORDERED: LISI40TA3 PO (22:15)
[2019-05-26] MEDS ORDERED: LANT3I SC (22:15)
[2019-05-26] MEDS ORDERED: METF100010 PO (22:15)
[2019-05-26 22:17] VITALS: Ht 162.6 cm; Wt 86.7 kg
[2019-05-26 22:22] VITALS: BP 156/95; PULSE 80; RESP 18
[2019-05-26] MEDS ORDERED: ONDANSETRON 4 MG INJ IV PRN (23:00)
[2019-05-26] MEDS ORDERED: ACETAMINOPHEN 325 MG TAB PO PRN (23:00)
[2019-05-26] MEDS ORDERED: NITROGLYCERIN (SL) 0.4 MG TAB SL PRN (23:00)
[2019-05-26] MEDS ORDERED: INSULIN ASPART [NOVOLOG] 3 ML PEN SC SCH (23:00)
[2019-05-27 00:23] VITALS: BP 152/79; PULSE 54; RESP 18
[2019-05-27 03:54] VITALS: BP 148/72; PULSE 51; RESP 20
[2019-05-27 07:26] VITALS: BP 170/92; PULSE 57; RESP 20
[2019-05-27] MEDS: ACCU-CHEK XX SCH ×4 (07:38→22:01)
[2019-05-27] MEDS: INSULIN ASPART [NOVOLOG] 3 ML PEN SC SCH ×4 (07:38→22:02)
[2019-05-27] MEDS: metFORMIN 500 MG TAB PO SCH ×2 (08:15→22:00)
[2019-05-27] MEDS: BENAZEPRIL 10 MG TAB PO SCH ×2 (08:15→22:00)
[2019-05-27] MEDS: BISACODYL (EC) 5 MG TAB PO SCH ×2 (08:16→22:05)
[2019-05-27] MEDS ORDERED: FUROSEMIDE 40 MG INJ IV SCH (09:00)
--- NOTE | 2019-05-27 10:23 | HP ---
LORYASHLEYKellenNORY 05/27/19 1022: Date/Time of Note Date/Time of Note DATE: 05/27/19 TIME: 10:22 Assessment/Plan VTE Prophylaxis Risk score (from [facility] [place])>0 risk: 5 SCD applied (from [facility] [place]): No SCD contraindicated: low risk/ambulating Pharmacological prophylaxis: apixaban Lines/Catheters IV Catheter Type (from [facility]): Saline Lock Urinary Cath still in place: No Assessment/Plan Hospital Course # Acute on chronic CHF exacerbation. Pulmonary edema # HTN emergency likely due to running out of meds, like in previous admission # Hx non-ST elevation myocardial infarction, status post coronary angiogram with a single vessel obstructive coronary artery disease in the right coronary artery, status post PTCA and stent placement on #. Cardiomyopathy with ejection fraction of 30 to 35%. #. History of atrial fibrillation, rate control # Diabetes mellitus type II, uncontrolled # Obesity # Hyperlipidemia # Noncompliance, pt does not take medication regularly, does not have a PCP Assessment/Plan -cardiology consult dr Quiroz called -DVT proph Eliquiz 5 mg po BID -GI propoh Protonix po -fluid restrictions 1 l -furosemide 40 mg po daily -social service/case management pt need a PCP. Result Diagram: 05/27/19 0520 05/27/19 0520 Results 24hrs Laboratory Tests Test 05/26/19 19:18 05/27/19 00:26 05/27/19 05:00 05/27/19 05:20 White Blood Count 8.2 8.1 Red Blood Count 4.85 4.54 Hemoglobin 14.8 13.7 Hematocrit 44.7 42.2 Mean Corpuscular 92.2 93.0 Volume Mean Corpuscular 30.5 30.2 Hemoglobin Mean Corpuscular 33.1 32.5 Hemoglobin Concen t Red Cell 13.5 13.3 Distribution Width Platelet Count 231 206 Mean Platelet 10.4 10.5 H Volume Immature 0.400 0.400 Granulocytes % Neutrophils % 53.4 58.9 Lymphocytes % 35.3 29.6 Monocytes % 7.4 7.5 Eosinophils % 2.8 2.9 Basophils % 0.7 0.7 Nucleated Red 0.0 0.0 Blood Cells % Immature 0.030 0.030 Granulocytes # Neutrophils # 4.4 4.8 Lymphocytes # 2.9 2.4 Monocytes # 0.6 0.6 Eosinophils # 0.2 0.2 Basophils # 0.1 0.1 Nucleated Red 0.0 0.0 Blood Cells # Sodium Level 143 144 Potassium Level 4.1 3.5 Chloride Level 108 110 Carbon Dioxide 26 26 Level Anion Gap 9 8 Blood Urea 16 17 Nitrogen Creatinine 0.85 0.68 Est Glomerular Filtrat Rate mL/min Glucose Level 150 101 # Calcium Level 9.0 8.7 Total Bilirubin 0.5 Direct Bilirubin 0.00 Indirect 0.5 Bilirubin Aspartate Amino 74 H Transf (AST/SGOT) Alanine 57 Aminotransferase (ALT/SGPT) Alkaline 131 H Phosphatase Troponin I < 0.012 Total Protein 8.2 H Albumin 4.3 Globulin 3.90 H Albumin/Globulin 1.10 Ratio Lipase 131 Bedside Glucose 155 Blood Gas Blood arterial Specimen Source Arterial Blood 05/27/2019 5:20:5 Date Drawn 8 AM Arterial Blood pH 7.377 (Temp corrected) Arterial Blood 45.6 H pCO2 (Temp correct) Arterial Blood 90.3 H pO2 (Temp corrected) Arterial Blood 26.2 H HCO3 Arterial Blood 0.6 Base Excess Arterial Blood 97.0 Oxygen Saturation Neal Test ACCEPTAB Arterial Blood Left Radial Gas Puncture Site Arterial 0.5 Blood Carboxyhemo globin Arterial Blood 0.1 Methemoglobin Blood Gas A-a O2 48.3 H Differential Oxyhemoglobin 96.4 Percent Blood Gas 37.0 Temperature Blood Gas Actual 20 Respiration Rate Blood Gas NASAL CANNULA Modality FiO2 27.0 Blood Gas Notified Whom Blood Gas 05/27/2019 5:31:1 Notified Time 9 AM Test 05/27/19 07:37 Bedside Glucose 131 HPI/ROS Admit Date/Time Admit Date/Time May 26, 2019 at 20:40 Hx of Present Illness This is a 73-year-old female with history of cardiomyopathy with decreased left ventricular ejection fraction, last only approximately 30% to 35% by echo on 01/10/2019. Status post PTC and stent placement in the right coronary artery with a 4 mm drug-eluting stent in 12/2018. Current bouts of systolic congestive heart failure, prior [place], hypertension, dyslipidemia, diabetes mellitus who presented with complaints of shortness of breath, dyspnea on exertion, orthopnea and findings of uncontrolled systolic blood pressures. No associated chest pain. Pt reported that she is out of her meds for 3 days and she does not have a PCP. Pt was hospitalized in February 2009 with similar condition, she was instructed to take medication and has a PCP Upon arrival in the emergency department, temperature of 98.1, blood pressure 172/149 , pulse 110, respiratory rate 18, saturation 92%. The patient's labs are grossly normal. showed white count of 7.6, hemoglobin of 14.6, platelet count of 210. Sodium of 143, potassium 4.2, creatinine 0.8, BUN 20, AST 114, ALT 74. Troponin negative. BNP of 1620. INR of 1.1. The patient underwent a chest x-ray revealing cardiomegaly, increased pulmonary vascularity and increased interstitial markings noted. Bilateral air space infiltrates. The findings are consistent with mild pulmonary edema/CHF, Findings are new when compared to 02/17/2016. ECG is positive for controlled atrial fibrillation at a rate of 78. Medical history: systolic congestive heart failure, prior MN, hypertension, dyslipidemia, diabetes mellitus type II, obesity Surgical history :Status post PTC and stent placement in the right coronary artery with a 4 mm drug-eluting stent in 12/2018. PMH/Family/Social Past Medical History Medications Current Medications Furosemide (Lasix) 40 mg DAILY IV Last administered on 05/27/19at 08:16; Admin Dose 40 MG; Start 05/27/19 at 09:00 Ondansetron HCl (Zofran Inj) 4 mg Q6H PRN IV NAUSEA AND/OR VOMITING; Start 05/26/19 at 23:00 Acetaminophen (Tylenol Tab) 650 mg Q6H PRN PO MILD PAIN(1-3)OR ELEVATED TEMP; Start 05/26/19 at 23:00 Atorvastatin Calcium (Lipitor) 80 mg HS PO ; Start 05/27/19 at 21:00 Benazepril HCl (Lotensin) 10 mg BID PO Last administered on 05/27/19at 08:15; Admin Dose 10 MG; Start 05/27/19 at 09:00 Bisacodyl (Dulcolax) 5 mg BID PO Last administered on 05/27/19at 08:16; Admin Dose 5 MG; Start 05/27/19 at 09:00 Carvedilol (Coreg) 6.25 mg BID PO Last administered on 05/27/19at 08:27; Admin Dose 6.25 MG; Start 05/27/19 at 09:00 Hydralazine HCl (Apresoline) 25 mg Q8 PO Last administered on 05/27/19at 05:18; Admin Dose 25 MG; Start 05/27/19 at 06:00 Insulin Glargine (Lantus) 35 units QHS SC ; Start 05/27/19 at 21:00 Metformin HCl (Glucophage) 1,000 mg BID PO Last administered on 05/27/19at 08:15; Admin Dose 1,000 MG; Start 05/27/19 at 09:00 Nitroglycerin (Nitroglycerin (Sl Tab) 0.4 Mg) 1 tab [id number] PRN SL CHEST PAIN; Start 05/26/19 at 23:00 Diagnostic Test (Pha) (Accu-Chek) 1 ea AC MEALS AND BEDTIME XX Last administered on 05/27/19at 07:38; Admin Dose 1 EA; Start 05/27/19 at 07:00 Insulin Aspart (Novolog Insulin Pen) NOVOLOG *MILD* ALGORITHM WITH MEALS BEDTIME SC ; Start 05/27/19 at 08:00 Coded Allergies: No Known Drug Allergies (Verified Allergy, Mild, 03/07/19) Past Surgical History Past Surgical Hx: other Family History Significant Family History: renal disease, vascular disease Social History Smoking Status: Never smoker Exam/Review of Systems Vital Signs Vitals Vital Signs Date Temp Pulse Resp B/P (MAP) Pulse Ox O2 O2 Flow FiO2 Time Delivery Rate 05/27/19 Nasal 2.0 07:58 Cannula 05/27/19 98.0 57 20 170/92 95 07:26 (118) 05/26/19 40 21:08 Intake and Output 05/26/19 05/26/19 05/27/19 1515:00 23:00 07:00 IntakeIntake Total 240 ml BalanceBalance 240 ml BART LEMONS MD 05/27/19 1436: Assessment/Plan Assessment/Plan Assessment/Plan pt was seen and examiend with [employer] CHF EXACERBATION IV LASIX FLUID AND SALT RESTRICTION Result Diagram: 05/27/19 0520 05/27/19 0520 PMH/Family/Social Past Medical History Coded Allergies: No Known Drug Allergies (Verified Allergy, Mild, 03/07/19) NORY ARCINIEGA May 27, 2019 10:22 BART LEMONS MD May 27, 2019 14:36
[2019-05-27 11:11] VITALS: BP 137/79; PULSE 65; RESP 20
[2019-05-27] MEDS: APIXABAN 5 MG TABLET PO SCH ×2 (11:19→22:00)
[2019-05-27 15:29] VITALS: BP 149/74; PULSE 61; RESP 20
[2019-05-27] MEDS: FUROSEMIDE 40 MG INJ IV SCH (17:08)
[2019-05-27 20:00] VITALS: BP 175/97; PULSE 67; RESP 20
[2019-05-27] MEDS: ATORVASTATIN 80 MG TAB PO SCH (21:59)
[2019-05-27] MEDS: INSULIN GLARGINE [LANTus] (100 UNITS/ML) SYG SC SCH (22:08)
[2019-05-28] VITALS: BP 137/88; PULSE 61; RESP 20
[2019-05-28 04:00] VITALS: BP 164/99; PULSE 52; RESP 22
[2019-05-28] MEDS: FUROSEMIDE 40 MG INJ IV SCH ×2 (06:43→17:13)
[2019-05-28] MEDS: ACCU-CHEK XX SCH ×4 (07:00→21:57)
[2019-05-28 07:44] VITALS: BP 149/85; PULSE 62; RESP 20
[2019-05-28] MEDS: INSULIN ASPART [NOVOLOG] 3 ML PEN SC SCH ×4 (07:56→21:00)
[2019-05-28] MEDS: metFORMIN 500 MG TAB PO SCH (08:06)
[2019-05-28] MEDS: BISACODYL (EC) 5 MG TAB PO SCH ×2 (08:06→20:47)
[2019-05-28] MEDS: APIXABAN 5 MG TABLET PO SCH ×2 (08:06→20:48)
[2019-05-28] MEDS: BENAZEPRIL 10 MG TAB PO SCH ×2 (08:07→20:48)
--- NOTE | 2019-05-28 10:09 | RADRPT ---
Vent Rate: 70 bpm RR Interval: 894 msec MS Interval: [id number] msec QRS Duration: 105 msec QT Interval: 513 msec QTC Interval: 543 msec P-R-T [place]: [id number] - -6 - 217 degrees Atrial fibrillation...V-rate 58- 78, irreg A-activity Ventricular premature complex...V complex w/ short R-R interval Probable anteroseptal infarct, old...Q >30mS & abn ST-T, V1-V2 Nonspecific T abnormalities, inferior leads...T <-0.10mV, II III aVF Prolonged QT interval...QTc >500mS Electronically Signed By: Bubba Amaro
[2019-05-28 11:56] VITALS: BP 148/93; PULSE 66; RESP 20
--- NOTE | 2019-05-28 12:37 | PN ---
DEMIANNORY 05/28/19 1237: Date/Time of Note Date/Time of Note DATE: 05/28/19 TIME: 12:37 Assessment/Plan VTE Prophylaxis Risk score (from [facility] [place]0 risk: 5 SCD applied (from [facility]): Yes Pharmacological prophylaxis: apixaban Lines/Catheters IV [facility]ter Type (from [facility]): Saline Lock Urinary Cath still in place: No Assessment/Plan Hospital Course # Acute on chronic CHF exacerbation. Pulmonary edema # HTN emergency likely due to running out of meds, like in previous admission # Hx non-ST elevation myocardial infarction, status post coronary angiogram with a single vessel obstructive coronary artery disease in the right coronary artery, status post PTCA and stent placement on #. Cardiomyopathy with ejection fraction of 30 to 35%. #. History of atrial fibrillation, rate control # Diabetes mellitus type II, uncontrolled # Obesity # Hyperlipidemia # Noncompliance, pt does not take medication regularly, does not have a PCP Assessment/Plan -cardiology consult dr Quiroz called -DVT proph Eliquiz 5 mg po BID -GI propoh Protonix po -fluid restrictions 1 l -furosemide 40 mg po daily, improvement vascular congestion -social service/case management pt need a PCP. Result Diagram: 05/28/19 0512 05/28/19 0512 Results 24hrs Laboratory Tests Test 05/27/19 17:08 05/27/19 22:01 05/28/19 05:12 05/28/19 07:52 Bedside Glucose 176 143 115 White Blood Count 8.4 Red Blood Count 4.73 Hemoglobin 14.7 Hematocrit 43.5 Mean Corpuscular 92.0 Volume Mean Corpuscular 31.1 Hemoglobin Mean Corpuscular 33.8 Hemoglobin Concent Red Cell 13.1 Distribution Width Platelet Count 211 Mean Platelet Volume 10.6 H Immature 0.200 Granulocytes % Neutrophils % 55.4 Lymphocytes % 30.8 Monocytes % 9.3 Eosinophils % 3.5 Basophils % 0.8 Nucleated Red Blood 0.0 Cells % Immature 0.020 Granulocytes # Neutrophils # 4.7 Lymphocytes # 2.6 Monocytes # 0.8 Eosinophils # 0.3 Basophils # 0.1 Nucleated Red Blood 0.0 Cells # Sodium Level 144 Potassium Level 3.6 Chloride Level 107 Carbon Dioxide Level 29 Anion Gap 8 Blood Urea Nitrogen 25 H Creatinine 0.78 Est Glomerular Filtrat Rate mL/min Glucose Level 91 Calcium Level 9.2 B-Type Natriuretic 961 H Peptide Test 05/28/19 12:09 Bedside Glucose 96 Subjective 24 Hr Interval Summary Constitutional: improved Exam/Review of Systems Exam Vitals Vital Signs Date Temp Pulse Resp B/P (MAP) Pulse Ox O2 O2 Flow FiO2 Time Delivery Rate 05/28/19 97.9 66 20 148/93 96 Nasal 11:56 (111) Cannula 05/28/19 2.0 08:59 05/26/19 40 21:08 Intake and Output 05/27/19 05/27/19 05/28/19 1515:00 23:00 07:00 IntakeIntake Total 240 ml 540 ml BalanceBalance 240 ml 540 ml Constitutional: alert Head: normocephalic Neck: supple Respiratory: clear to auscultation Cardiovascular: regular rate and rhythm Gastrointestinal: soft Results Result Diagram: 05/28/19 0512 05/28/19 0512 Results 24hrs Laboratory Tests Test 05/27/19 17:08 05/27/19 22:01 05/28/19 05:12 05/28/19 07:52 Bedside Glucose 176 143 115 White Blood Count 8.4 Red Blood Count 4.73 Hemoglobin 14.7 Hematocrit 43.5 Mean Corpuscular 92.0 Volume Mean Corpuscular 31.1 Hemoglobin Mean Corpuscular 33.8 Hemoglobin Concent Red Cell 13.1 Distribution Width Platelet Count 211 Mean Platelet Volume 10.6 H Immature 0.200 Granulocytes % Neutrophils % 55.4 Lymphocytes % 30.8 Monocytes % 9.3 Eosinophils % 3.5 Basophils % 0.8 Nucleated Red Blood 0.0 Cells % Immature 0.020 Granulocytes # Neutrophils # 4.7 Lymphocytes # 2.6 Monocytes # 0.8 Eosinophils # 0.3 Basophils # 0.1 Nucleated Red Blood 0.0 Cells # Sodium Level 144 Potassium Level 3.6 Chloride Level 107 Carbon Dioxide Level 29 Anion Gap 8 Blood Urea Nitrogen 25 H Creatinine 0.78 Est Glomerular Filtrat Rate mL/min Glucose Level 91 Calcium Level 9.2 B-Type Natriuretic 961 H Peptide Test 05/28/19 12:09 Bedside Glucose 96 Medications Medication Current Medications Ondansetron HCl (Zofran Inj) 4 mg Q6H PRN IV NAUSEA AND/OR VOMITING; Start 05/26/19 at 23:00 Acetaminophen (Tylenol Tab) 650 mg Q6H PRN PO MILD PAIN(1-3)OR ELEVATED TEMP; Start 05/26/19 at 23:00 Atorvastatin Calcium (Lipitor) 80 mg HS PO Last administered on 05/27/19 21:59; Admin Dose 80 MG; Start 05/27/19 at 21:00 Benazepril HCl (Lotensin) 10 mg BID PO Last administered on 05/28/19 08:07; Admin Dose 10 MG; Start 05/27/19 at 09:00 Bisacodyl (Dulcolax) 5 mg BID PO Last administered on 05/27/19 08:16; Admin Dose 5 MG; Start 05/27/19 at 09:00 Carvedilol (Coreg) 6.25 mg BID PO Last administered on 05/28/19 08:07; Admin Dose 6.25 MG; Start 05/27/19 at 09:00 Hydralazine HCl (Apresoline) 25 mg Q8 PO Last administered on 05/28/19 06:41; Admin Dose 25 MG; Start 05/27/19 at 06:00 Insulin Glargine (Lantus) 35 units QHS SC Last administered on 05/27/19 22:08; Admin Dose 35 UNITS; Start 05/27/19 at 21:00 Metformin HCl (Glucophage) 1,000 mg BID PO Last administered on 05/28/19 08:06; Admin Dose 1,000 MG; Start 05/27/19 at 09:00 Nitroglycerin (Nitroglycerin (Sl Tab) 0.4 Mg) 1 tab [id number] PRN SL CHEST PAIN; Start 05/26/19 at 23:00 Diagnostic Test (Pha) (Accu-Chek) 1 ea AC MEALS AND BEDTIME XX Last administered on 05/27/19 22:01; Admin Dose 1 EA; Start 05/27/19 at 07:00 Insulin Aspart (Novolog Insulin Pen) NOVOLOG *MILD* ALGORITHM WITH MEALS BEDTIME SC Last administered on 05/27/19 17:25; Admin Dose 1 UNIT; Start 05/27/19 at 08:00 Apixaban (Eliquis) 5 mg BID PO Last administered on 05/28/19 08:06; Admin Dose 5 MG; Start 05/27/19 at 11:00 Furosemide (Lasix) 40 mg BID DIURETICS IV Last administered on 05/28/19at 06:43; Admin Dose 40 MG; Start 05/27/19 at 18:00 BART LEMONS MD 05/28/19 1525: Assessment/Plan Assessment/Plan Assessment/Plan EMELINA AND EXCAMINED TACY/MARYANNE TSH HOLD B BK STRESS TMW Result Diagram: 05/28/19 0512 05/28/19 0512 NORY ARCINIEGA May 28, 2019 12:37 BART LEMONS MD May 28, 2019 15:25
--- NOTE | 2019-05-28 12:59 | PN ---
Date/Time of Note Date/Time of Note DATE: 05/28/19 TIME: 12:58 Assessment/Plan VTE Prophylaxis Risk score (from Nsg)>0 risk: 5 SCD applied (from Nsg): Yes Lines/Catheters IV Catheter Type (from Nrsg): Saline Lock Urinary Cath still in place: No Assessment/Plan Hospital Course # Acute on chronic CHF exacerbation. Pulmonary edema # HTN emergency likely due to running out of meds, like in previous admission # Hx non-ST elevation myocardial infarction, status post coronary angiogram with a single vessel obstructive coronary artery disease in the right coronary artery, status post PTCA and stent placement on #. Cardiomyopathy with ejection fraction of 30 to 35%. #. History of atrial fibrillation, rate control # Diabetes mellitus type II, uncontrolled # Obesity # Hyperlipidemia # Noncompliance, pt does not take medication regularly, does not have a PCP Assessment/Plan -cardiology consult dr Quiroz called -DVT proph Eliquiz 5 mg po BID -GI propoh Protonix po -fluid restrictions 1 l -furosemide 40 mg po daily, improvement vascular congestion -social service/case management pt need a PCP. Result Diagram: 05/28/1951105/28/19511 Results 24hrs Laboratory Tests Test 05/27/19 17:08 05/27/19 22:01 05/28/19 05:12 05/28/19 07:52 Bedside Glucose 176 143 115 White Blood Count 8.4 Red Blood Count 4.73 Hemoglobin 14.7 Hematocrit 43.5 Mean Corpuscular 92.0 Volume Mean Corpuscular 31.1 Hemoglobin Mean Corpuscular 33.8 Hemoglobin Concent Red Cell 13.1 Distribution Width Platelet Count 211 Mean Platelet Volume 10.6 H Immature 0.200 Granulocytes % Neutrophils % 55.4 Lymphocytes % 30.8 Monocytes % 9.3 Eosinophils % 3.5 Basophils % 0.8 Nucleated Red Blood 0.0 Cells % Immature 0.020 Granulocytes # Neutrophils # 4.7 Lymphocytes # 2.6 Monocytes # 0.8 Eosinophils # 0.3 Basophils # 0.1 Nucleated Red Blood 0.0 Cells # Sodium Level 144 Potassium Level 3.6 Chloride Level 107 Carbon Dioxide Level 29 Anion Gap 8 Blood Urea Nitrogen 25 H Creatinine 0.78 Est Glomerular Filtrat Rate mL/min Glucose Level 91 Calcium Level 9.2 B-Type Natriuretic 961 H Peptide Test 05/28/19 12:09 Bedside Glucose 96 Exam/Review of Systems Exam Vitals Vital Signs Date Temp Pulse Resp B/P (MAP) Pulse Ox O2 O2 Flow FiO2 Time Delivery Rate 05/28/19 96 Room Air 12:41 05/28/19 97.9 66 20 148/93 11:56 (111) 05/28/19 2.0 08:59 05/26/19 40 21:08 Intake and Output 05/27/19 05/27/19 05/28/19 1515:00 23:00 07:00 IntakeIntake Total 240 ml 540 ml BalanceBalance 240 ml 540 ml Results Results 24hrs Laboratory Tests Test 05/27/19 17:08 05/27/19 22:01 05/28/19 05:12 05/28/19 07:52 Bedside Glucose 176 143 115 White Blood Count 8.4 Red Blood Count 4.73 Hemoglobin 14.7 Hematocrit 43.5 Mean Corpuscular 92.0 Volume Mean Corpuscular 31.1 Hemoglobin Mean Corpuscular 33.8 Hemoglobin Concent Red Cell 13.1 Distribution Width Platelet Count 211 Mean Platelet Volume 10.6 H Immature 0.200 Granulocytes % Neutrophils % 55.4 Lymphocytes % 30.8 Monocytes % 9.3 Eosinophils % 3.5 Basophils % 0.8 Nucleated Red Blood 0.0 Cells % Immature 0.020 Granulocytes # Neutrophils # 4.7 Lymphocytes # 2.6 Monocytes # 0.8 Eosinophils # 0.3 Basophils # 0.1 Nucleated Red Blood 0.0 Cells # Sodium Level 144 Potassium Level 3.6 Chloride Level 107 Carbon Dioxide Level 29 Anion Gap 8 Blood Urea Nitrogen 25 H Creatinine 0.78 Est Glomerular Filtrat Rate mL/min Glucose Level 91 Calcium Level 9.2 B-Type Natriuretic 961 H Peptide Test 05/28/19 12:09 Bedside Glucose 96 Medications Medication Current Medications Ondansetron HCl (Zofran Inj) 4 mg Q6H PRN IV NAUSEA AND/OR VOMITING; Start 05/26/19 at 23:00 Acetaminophen (Tylenol Tab) 650 mg Q6H PRN PO MILD PAIN(1-3)OR ELEVATED TEMP; Start 05/26/19 at 23:00 Atorvastatin Calcium (Lipitor) 80 mg HS PO Last administered on 05/27/19at 21:59 ; Admin Dose 80 MG; Start 05/27/19 at 21:00 Benazepril HCl (Lotensin) 10 mg BID PO Last administered on 05/28/19 08:07; Admin Dose 10 MG; Start 05/27/19 at 09:00 Bisacodyl (Dulcolax) 5 mg BID PO Last administered on 05/27/19 08:16; Admin Dose 5 MG; Start 05/27/19 at 09:00 Carvedilol (Coreg) 6.25 mg BID PO Last administered on 05/28/19 08:07; Admin Dose 6.25 MG; Start 05/27/19 at 09:00 Hydralazine HCl (Apresoline) 25 mg Q8 PO Last administered on 05/28/19 06:41; Admin Dose 25 MG; Start 05/27/19 at 06:00 Insulin Glargine (Lantus) 35 units QHS SC Last administered on 05/27/19 22:08; Admin Dose 35 UNITS; Start 05/27/19 at 21:00 Metformin HCl (Glucophage) 1,000 mg BID PO Last administered on 05/28/19 08:06; Admin Dose 1,000 MG; Start 05/27/19 at 09:00 Nitroglycerin (Nitroglycerin (Sl Tab) 0.4 Mg) 1 tab [id number] PRN SL CHEST PAIN; Start 05/26/19 at 23:00 Diagnostic Test (Pha) (Accu-Chek) 1 ea AC MEALS AND BEDTIME XX Last administered on 05/27/19 22:01; Admin Dose 1 EA; Start 05/27/19 at 07:00 Insulin Aspart (Novolog Insulin Pen) NOVOLOG *MILD* ALGORITHM WITH MEALS BEDTIME SC Last administered on 05/27/19 17:25; Admin Dose 1 UNIT; Start 05/27/19 at 08:00 Apixaban (Eliquis) 5 mg BID PO Last administered on 05/28/19 08:06; Admin Dose 5 MG; Start 05/27/19 at 11:00 Furosemide (Lasix) 40 mg BID DIURETICS IV Last administered on 05/28/19 06:43; Admin Dose 40 MG; Start 05/27/19 at 18:00 NORY ARCINIEGA May 28, 2019 12:59
--- NOTE | 2019-05-28 13:39 | CONS ---
Consult Date/Type/Reason Admit Date/Time May 26, 2019 at 20:40 Initial Consult Date Date/Time of Note DATE: 05/28/19 TIME: 13:35 Subjective NO acute events - pt better today - per additional information provided -pt was not truly compliant with her medical Rx - will facilitate Stress test now to acces reversibility if any. NO tachy-an symptoms here. ROS: No fever, no chills, no nausea, no vomiting, no diarrhea/constipation No recent weight changes No chest pain, no PND, no orthopnea - improved SOB, feels better now No dizziness, blurred vision No thirst, no heat or cold intolerance Objective Vitals Vital Signs Date Temp Pulse Resp B/P (MAP) Pulse Ox O2 O2 Flow FiO2 Time Delivery Rate 05/28/19 96 Room Air 12:41 05/28/19 97.9 66 20 148/93 11:56 (111) 05/28/19 2.0 08:59 05/26/19 40 21:08 Intake and Output 05/27/19 05/27/19 05/28/19 1515:00 23:00 07:00 IntakeIntake Total 240 ml 540 ml BalanceBalance 240 ml 540 ml Exam General: WN/WD/NAD, AOx 2-3 [place] HEENT: Unicetric/atraumatic/EOMI ( follows commands) NECK: JVD elevated, no thyromegaly Lymph: no lymphadenopathy HEART: regular with no S3, II/ systolic murmur at apex, PMI L LUNGS: Coarse sounds ABD: soft, NT, ND, +BS : Intact Neuro: non focal SKIN: chronic changes EXT: trace edema Results/Medications Result Diagram: 05/28/1912 05/28/19 0512 Results 24 hrs Laboratory Tests Test 05/27/19 17:08 05/27/19 22:01 05/28/19 05:12 05/28/19 07:52 Bedside Glucose 176 143 115 White Blood Count 8.4 Red Blood Count 4.73 Hemoglobin 14.7 Hematocrit 43.5 Mean Corpuscular 92.0 Volume Mean Corpuscular 31.1 Hemoglobin Mean Corpuscular 33.8 Hemoglobin Concent Red Cell 13.1 Distribution Width Platelet Count 211 Mean Platelet Volume 10.6 H Immature 0.200 Granulocytes % Neutrophils % 55.4 Lymphocytes % 30.8 Monocytes % 9.3 Eosinophils % 3.5 Basophils % 0.8 Nucleated Red Blood 0.0 Cells % Immature 0.020 Granulocytes # Neutrophils # 4.7 Lymphocytes # 2.6 Monocytes # 0.8 Eosinophils # 0.3 Basophils # 0.1 Nucleated Red Blood 0.0 Cells # Sodium Level 144 Potassium Level 3.6 Chloride Level 107 Carbon Dioxide Level 29 Anion Gap 8 Blood Urea Nitrogen 25 H Creatinine 0.78 Est Glomerular Filtrat Rate mL/min Glucose Level 91 Calcium Level 9.2 B-Type Natriuretic 961 H Peptide Test 05/28/19 12:09 Bedside Glucose 96 Home Meds Active Scripts Furosemide (Lasix) 40 Mg Tab, 40 MG PO DAILY for 30 Days, #30 TAB Prov:NORY ARCINIEGA 03/12/19 Hydralazine Hcl* (Hydralazine Hcl*) 25 Mg Tab, 25 MG PO Q8 for 30 Days, TAB Prov:NORY ARCINIEGA 03/12/19 Benazepril Hcl* (Benazepril Hcl*) 10 Mg Tablet, 10 MG PO BID for 60 Days, TAB Prov:NORY ARCINIEGA 03/12/19 Atorvastatin* (Atorvastatin*) 80 Mg Tablet, 80 MG PO HS for 30 Days, TAB Prov:NORY ARCINIEGA 03/12/19 Insulin Aspart* (Novolog Insulin Pen*) 100 Unit/Ml Soln, 0 SC .SLIDING SCALE AC for 60 Days, EA Prov:NORY ARCINIEGA 03/12/19 Carvedilol* (Carvedilol*) 6.25 Mg Tablet, 6.25 MG PO BID for 60 Days, #120 TAB Prov:NORY ARCINIEGA 03/12/19 Bisacodyl* (Dulcolax*) 5 Mg Tablet.dr, 5 MG PO BID for 60 Days, TAB Prov:NORY ARCINIEGA 03/12/19 Reported Medications Insulin Glargine* (Lantus*) 100 Unit/Ml Soln, 35 UNITS SC QHS INJECT 30 UNITS SUBCUTANEOUSLY AT BEDTIME FOR 30 DAYS 05/26/19 Metformin Hcl* (Metformin Hcl*) 1,000 Mg Tablet, 1000 MG PO BID for 30 Days, #60 TAKE 1 TABLET BY MOUTH TWICE DAILY WITH FOOD FOR 30 DAYS 05/26/19 Lisinopril* (Lisinopril*) 40 Mg Tablet, 40 MG PO DAILY for 30 Days, #30 TAKE ONE TABLET BY MOUTH EVERY DAY FOR 30 DAYS 05/26/19 Nitroglycerin* (Nitrostat*) 0.4 Mg Tab.subl, 0.4 MG SL Q5MIN PRN for CHEST PAIN, BOTTLE 01/24/19 Discontinued Scripts Apixaban* (Eliquis*) 5 Mg Tablet, 5 MG PO BID for 60 Days, TAB Prov:NORY ARCINIEGA 03/12/19 Clopidogrel Bisulfate (Clopidogrel) 75 Mg Tablet, 75 MG PO DAILY, #30 TAB Prov:NORY ARCINIEGA 03/12/19 Pantoprazole* (Protonix*) 40 Mg Tablet.dr, 40 MG PO DAILY for 60 Days, TAB Prov:NORY ARCINIEGA 03/12/19 Docusate Sodium* (Colace*) 100 Mg Capsule, 100 MG PO BID, #60 CAP Prov:NORY ARCINIEGA 03/12/19 Medications Current Medications Ondansetron HCl (Zofran Inj) 4 mg Q6H PRN IV NAUSEA AND/OR VOMITING; Start 05/26/19 at 23:00 Acetaminophen (Tylenol Tab) 650 mg Q6H PRN PO MILD PAIN(1-3)OR ELEVATED TEMP; Start 05/26/19 at 23:00 Atorvastatin Calcium (Lipitor) 80 mg HS PO Last administered on 05/27/19at 21:59; Admin Dose 80 MG; Start 05/27/19 at 21:00 Benazepril HCl (Lotensin) 10 mg BID PO Last administered on 05/28/19at 08:07; Admin Dose 10 MG; Start 05/27/19 at 09:00 Bisacodyl (Dulcolax) 5 mg BID PO Last administered on 05/27/19at 08:16; Admin Dose 5 MG; Start 05/27/19 at 09:00 Carvedilol (Coreg) 6.25 mg BID PO Last administered on 05/28/19at 08:07; Admin Dose 6.25 MG; Start 05/27/19 at 09:00 Hydralazine HCl (Apresoline) 25 mg Q8 PO Last administered on 05/28/19at 06:41; Admin Dose 25 MG; Start 05/27/19 at 06:00 Insulin Glargine (Lantus) 35 units QHS SC Last administered on 05/27/19 22:08; Admin Dose 35 UNITS; Start 05/27/19 at 21:00 Metformin HCl (Glucophage) 1,000 mg BID PO Last administered on 05/28/19 08:06; Admin Dose 1,000 MG; Start 05/27/19 at 09:00 Nitroglycerin (Nitroglycerin (Sl Tab) 0.4 Mg) 1 tab [id number] PRN SL CHEST PAIN; Start 05/26/19 at 23:00 Diagnostic Test (Pha) (Accu-Chek) 1 ea AC MEALS AND BEDTIME XX Last administered on 05/27/19 22:01; Admin Dose 1 EA; Start 05/27/19 at 07:00 Insulin Aspart (Novolog Insulin Pen) NOVOLOG *MILD* ALGORITHM WITH MEALS BEDTIME SC Last administered on 05/27/19 17:25; Admin Dose 1 UNIT; Start 05/27/19 at 08:00 Apixaban (Eliquis) 5 mg BID PO Last administered on 05/28/19 08:06; Admin Dose 5 MG; Start 05/27/19 at 11:00 Furosemide (Lasix) 40 mg BID DIURETICS IV Last administered on 05/28/19at 06:43; Admin Dose 40 MG; Start 05/27/19 at 18:00 Assessment/Plan Hospital Course (Demo Recall) 1. Syncope - suggestive of post voiding syncope, con't to monitor - stress test tomorrow. 2. CMY - per additional information provided -pt was not truly compliant with her medical Rx - will facilitate Stress test now to acces reversibility if any. NO tachy-an symptoms here. 3. CHF - better now, pt feels more comfortable. 4. HTN - well controlled - con't med rx. 6. Dizzy - resolved now. ANATOLIY MCGARRY MD May 28, 2019 13:39
[2019-05-28 15:27] VITALS: BP 139/91; PULSE 69; RESP 20
[2019-05-28 20:31] VITALS: BP 139/68; PULSE 60; RESP 18
[2019-05-28] MEDS: ATORVASTATIN 80 MG TAB PO SCH (20:47)
[2019-05-28] MEDS: INSULIN GLARGINE [LANTus] (100 UNITS/ML) SYG SC SCH (20:53)
[2019-05-28] MEDS: DEXTROSE 5%-0.45% NACL 1,000 ML IV SCH (23:16)
[2019-05-29 00:10] VITALS: BP 132/65; PULSE 72; RESP 18
[2019-05-29 04:17] VITALS: BP 153/83; PULSE 51; RESP 16
[2019-05-29] MEDS: FUROSEMIDE 40 MG INJ IV SCH ×2 (05:41→18:16)
[2019-05-29] MEDS: ACCU-CHEK XX SCH ×4 (06:19→21:12)
[2019-05-29 07:39] VITALS: BP 157/78; PULSE 71; RESP 17
[2019-05-29] MEDS: INSULIN ASPART [NOVOLOG] 3 ML PEN SC SCH ×4 (08:00→21:00)
[2019-05-29] MEDS: APIXABAN 5 MG TABLET PO SCH ×2 (08:11→21:11)
[2019-05-29] MEDS: BENAZEPRIL 10 MG TAB PO SCH ×2 (08:11→21:12)
[2019-05-29] MEDS: BISACODYL (EC) 5 MG TAB PO SCH ×2 (08:11→21:11)
--- NOTE | 2019-05-29 08:21 | CONS ---
DATE OF ADMISSION: 05/26/2019 DATE OF CONSULTATION: 05/27/2019 TYPE OF CONSULTATION: Cardiology. REFERRING PHYSICIAN: Mira Lemons MD REASON FOR EVALUATION: Syncope. HISTORY OF PRESENT ILLNESS: Ms. Balderas is a 73-year-old woman with history of hypertension, dyslipide manuela, history of coronary artery disease, history of cardiomyopathy with ejection fraction of 30 to 35 %, prior history of atrial fibrillation who comes to the hospital now for evaluation of precordial ch est pain and syncopal episode. The patient stated that she was in the bathroom where she had an epis ode of getting up from a sitting position and then she had an episode of passing out. Based on her d escription, this is most consistent with situational syncope; however, based on Dr. Quiroz' note fro m last assessment, the patient did have reduced ejection fraction at 30% and as such, ischemic cannot be ruled out. The patient does have PVCs on telemetry. I think for now, conservative therapy would be expected. I do not appreciate any recent recertification here and I think we will facilita te a stress test once the patient feels better, possibly on Wednesday. If there is no reversible ischem ia, and ejection fraction is still low, consideration for inpatient ICD should be examined. PAST MEDICAL HISTORY: Hypertension, dyslipidemia, history of coronary artery disease, cardiomyopathy with decreased ejection fraction, history of hypertension. ALLERGIES: None known. SOCIAL HISTORY: The patient smokes. Does not drink, does not use drugs. FAMILY HISTORY: Negative for sudden cardiac or premature coronary artery disease. CURRENT MEDICATIONS: Include: 1. Atorvastatin. 2. Insulin sliding scale. 3. Lasix 20 mg p.o. b.i.d. 4. Benazepril. 5. Coreg 6.25 b.i.d. 6. Hydralazine. 7. Ondansetron. 8. Nitroglycerin. REVIEW OF SYSTEMS: CONSTITUTIONAL: No fevers, no chills, no recent weight gain. No changes. HEENT: No change in vision or hearing. CARDIAC: No chest pain reported. RESPIRATORY: Shortness of breath. GASTROINTESTINAL: No nausea, vomiting. GENITOURINARY: No dysuria or hematuria. NEUROLOGIC: No focal neurologic deficits. HEMATOLOGIC: No easy bruising. PSYCHIATRIC: No history of psychiatric illness. PHYSICAL EXAMINATION: VITAL SIGNS: Temperature is 98.2, heart rate 65, blood pressure 136/ . GENERAL: She is well-nourished woman in no acute distress, alert and oriented x3, aware of her condi tion, speaking Uzbek. HEAD: Normocephalic, atraumatic. Eyes anicteric. NECK: Supple. JVD 6 cm. There is no lymphadenopathy, no thyromegaly. HEART: Regular, soft holosystolic murmur. PMI is minimally displaced. There is no S3. LUNGS: Coarse to base. ABDOMEN: Distended, bowel sounds are present. There is no hepatosplenomegaly. GENITOURINARY: Intact , cyanosis, or edema. LABORATORY DATA: White blood cell count 8.1, 0.7, platelets 206. INR is 1.7, sodium 140, pota ssium 3.5, BUN is 17, creatinine 0.6. Troponin is negative 0.012. ASSESSMENT AND PLAN: 1. Syncope. The patient with syncope. Per description, this was a post-maturation syncope. Gricelda r, patient does have cardiomyopathy with reduced ejection fraction. and not call this va sovagal syncope with the event recertification. For now the patient will be monitored. She wi ll continue diuresis. I think she ought to have an inpatient stress test. If the stress test does n ot show reversible disease, consideration to be given for ICD placement. 2. Cardiomyopathy. The patient's cardiomyopathy, reduced ejection fraction documented 35%. At this time there is no recent recertification stress test to follow. 3. Hypertension. Continue to adjust medications as needed. 4. Bradycardia. Patient small dose of beta ricardo which she appears to be tolerating well. Will m onitor clinically now. 5. Diabetes. Continue diabetic optimization and care in the setting of current admission. I would like to thank Dr. Lemons for this patient for my evaluation. Dictated By: ANATOLIY MCGARRY MD ML/NTS Conf#: [id number] DID#: [id number] CC: MIRA LEMONS;*EndCC*
--- NOTE | 2019-05-29 10:59 | PN ---
Date/Time of Note Date/Time of Note DATE: 05/29/19 TIME: 10:55 Assessment/Plan VTE Prophylaxis Risk score (from [facility] [place] risk: 3 SCD applied (from [facility] [place] No SCD contraindicated: low risk/ambulating Pharmacological prophylaxis: NA/contraindicated Pharm contraindication: low risk/ambulating Lines/Catheters IV Catheter Type (from [facility]): Saline Lock Urinary Cath still in place: No Assessment/Plan Assessment/Plan # Acute on chronic CHF exacerbation. Pulmonary edema # HTN emergency likely due to running out of meds, like in previous admission # Hx non-ST elevation myocardial infarction, status post coronary angiogram with a single vessel obstructive coronary artery disease in the right coronary artery, status post PTCA and stent placement on #. Cardiomyopathy with ejection fraction of 30 to 35%. #. History of atrial fibrillation, rate control # Diabetes mellitus type II, uncontrolled # Obesity # Hyperlipidemia # Noncompliance, pt does not take medication regularly, does not have a PCP #Questionable tachybradycardia syndrome stress test today Assessment/Plan -stress today -Continue with hydralazine/benazepril -Check T3-T4 - decrease lantus -Continue with Lasix 40 IV twice daily -DVT proph Eliquiz 5 mg po BID -GI propoh Protonix po -fluid restrictions 1 l Result Diagram: 05/29/1916 05/29/19 0516 Results 24hrs Laboratory Tests Test 05/28/19 12:09 05/28/19 17:11 05/28/19 20:39 05/29/19 05:14 Bedside Glucose 96 130 128 Troponin I < 0.012 Test 05/29/19 05:16 05/29/19 05:31 05/29/19 08:08 05/29/19 10:24 White Blood Count 8.4 Red Blood Count 4.84 Hemoglobin 14.9 Hematocrit 44.2 Mean Corpuscular 91.3 Volume Mean Corpuscular 30.8 Hemoglobin Mean Corpuscular 33.7 Hemoglobin Concent Red Cell Distribution 13.1 Width Platelet Count 237 Mean Platelet Volume 10.4 Immature Granulocytes 0.400 % Neutrophils % 56.8 Lymphocytes % 30.5 Monocytes % 7.9 Eosinophils % 3.6 Basophils % 0.8 Nucleated Red Blood 0.0 Cells % Immature Granulocytes 0.030 # Neutrophils # 4.8 Lymphocytes # 2.6 Monocytes # 0.7 Eosinophils # 0.3 Basophils # 0.1 Nucleated Red Blood 0.0 Cells # Sodium Level 143 Potassium Level 3.5 Chloride Level 105 Carbon Dioxide Level 28 Anion Gap 10 Blood Urea Nitrogen 26 H Creatinine 0.82 Est Glomerular Filtrat Rate mL/min Glucose Level 125 Calcium Level 9.1 Thyroid Stimulating 5.460 H Hormone (TSH) Bedside Glucose 119 136 130 Subjective 24 Hr Interval Summary Free Text/Dictation Patient going for stress test today. Exam/Review of Systems Exam Vitals Vital Signs Date Temp Pulse Resp B/P (MAP) Pulse Ox O2 O2 Flow FiO2 Time Delivery Rate 05/29/19 Nasal 2.0 08:00 Cannula 05/29/19 97.4 71 17 157/78 94 07:39 (104) 05/26/19 40 21:08 Intake and Output 05/28/19 05/28/19 05/29/19 1414:59 22:59 06:59 IntakeIntake Total 510 ml 1010 ml 400 ml BalanceBalance 510 ml 1010 ml 400 ml Exam Constitutional: alert, she is obese Head: normocephalic Neck: supple, thick , jvd+ Respiratory: dec breath sounds bilaterally Cardiovascular: regular rate and rhythm, systolic ejection murmur Gastrointestinal: soft Extremities trace edema Results Results 24hrs Laboratory Tests Test 05/28/19 12:09 05/28/19 17:11 05/28/19 20:39 05/29/19 05:14 Bedside Glucose 96 130 128 Troponin I < 0.012 Test 05/29/19 05:16 05/29/19 05:31 05/29/19 08:08 05/29/19 10:24 White Blood Count 8.4 Red Blood Count 4.84 Hemoglobin 14.9 Hematocrit 44.2 Mean Corpuscular 91.3 Volume Mean Corpuscular 30.8 Hemoglobin Mean Corpuscular 33.7 Hemoglobin Concent Red Cell Distribution 13.1 Width Platelet Count 237 Mean Platelet Volume 10.4 Immature Granulocytes 0.400 % Neutrophils % 56.8 Lymphocytes % 30.5 Monocytes % 7.9 Eosinophils % 3.6 Basophils % 0.8 Nucleated Red Blood 0.0 Cells % Immature Granulocytes 0.030 # Neutrophils # 4.8 Lymphocytes # 2.6 Monocytes # 0.7 Eosinophils # 0.3 Basophils # 0.1 Nucleated Red Blood 0.0 Cells # Sodium Level 143 Potassium Level 3.5 Chloride Level 105 Carbon Dioxide Level 28 Anion Gap 10 Blood Urea Nitrogen 26 H Creatinine 0.82 Est Glomerular Filtrat Rate mL/min Glucose Level 125 Calcium Level 9.1 Thyroid Stimulating 5.460 H Hormone (TSH) Bedside Glucose 119 136 130 Medications Medication Current Medications Ondansetron HCl (Zofran Inj) 4 mg Q6H PRN IV NAUSEA AND/OR VOMITING; Start 05/26/19 at 23:00 Acetaminophen (Tylenol Tab) 650 mg Q6H PRN PO MILD PAIN(1-3)OR ELEVATED TEMP; Start 05/26/19 at 23:00 Atorvastatin Calcium (Lipitor) 80 mg HS PO Last administered on 05/28/19 20:47; Admin Dose 80 MG; Start 05/27/19 at 21:00 Benazepril HCl (Lotensin) 10 mg BID PO Last administered on 05/29/19 08:11; Admin Dose 10 MG; Start 05/27/19 at 09:00 Bisacodyl (Dulcolax) 5 mg BID PO Last administered on 05/29/19 08:11; Admin Dose 5 MG; Start 05/27/19 at 09:00 Hydralazine HCl (Apresoline) 25 mg Q8 PO Last administered on 05/29/19 05:41; Admin Dose 25 MG; Start 05/27/19 at 06:00 Insulin Glargine (Lantus) 35 units QHS SC Last administered on 05/28/19 20:53; Admin Dose 35 UNITS; Start 05/27/19 at 21:00 Nitroglycerin (Nitroglycerin (Sl Tab) 0.4 Mg) 1 tab [id number] PRN SL CHEST PAIN; Start 05/26/19 at 23:00 Diagnostic Test (Pha) (Accu-Chek) 1 ea AC MEALS AND BEDTIME XX Last administered on 05/29/19 06:19; Admin Dose 1 EA; Start 05/27/19 at 07:00 Insulin Aspart (Novolog Insulin Pen) NOVOLOG *MILD* ALGORITHM WITH MEALS BEDTIME SC Last administered on 05/27/19 17:25; Admin Dose 1 UNIT; Start 05/27/19 at 08:00 Apixaban (Eliquis) 5 mg BID PO Last administered on 05/29/19 08:11; Admin Dose 5 MG; Start 05/27/19 at 11:00 Furosemide (Lasix) 40 mg BID DIURETICS IV Last administered on 05/29/19at 05:41; Admin Dose 40 MG; Start 05/27/19 at 18:00 Dextrose/Sodium Chloride 1,000 ml @ 30 mls/hr Q24H IV Last administered on 05/28/19at 23:16; Admin Dose 30 MLS/HR; Start 05/28/19 at 23:00 BART LEMONS MD May 29, 2019 10:58
[2019-05-29] MEDS ORDERED: REGADENOSON 0.4 MG/5 ML SYG ONE (11:11)
--- NOTE | 2019-05-29 11:39 | CONS ---
Assessment/Plan Assessment/Plan Hospital Course (Demo Recall) IMP: 1.syncope-neg trop x2, EF 30-35% by echo 01/17 2.cardiomyopathy-EF 30-35% by echo 01/17 3.AF-rate controlled 4.Dyslipidemia 5.PTCA/stent x 1 to RCA 01/17 Recc: -Lexiscan stress test today -Continue ACEI -? off BB due to bradycardia -continue sttain -continue lasix and follow volume status closely -Continue eliqus for now Consultation Date/Type/Reason Admit Date/Time May 26, 2019 at 20:40 Initial Consult Date 05/28/19 Type of Consult Cardiology Reason for Consultation syncope Requesting Provider: BART LEMONS MD Date/Time of Note DATE: 05/29/19 TIME: 11:32 Exam/Review of Systems Vital Signs Vitals Vital Signs Date Temp Pulse Resp B/P (MAP) Pulse Ox O2 O2 Flow FiO2 Time Delivery Rate 05/29/19 Nasal 2.0 08:00 Cannula 05/29/19 97.4 71 17 157/78 94 07:39 (104) 05/26/19 40 21:08 Intake and Output 05/28/19 05/28/19 05/29/19 1515:00 23:00 07:00 IntakeIntake Total 510 ml 1010 ml 400 ml BalanceBalance 510 ml 1010 ml 400 ml Exam Exam Review of Systems: CONSTITUTIONAL: No fevers, chills. PULMONARY: No sob CARDIOVASCULAR: No chest pain/palpitations GASTROINTESTINAL: No nausea/vomiting. GENITOURINARY: No hematuria/dysuria. MUSCULOSKELETAL: No myagias/arthalgias. PSYCHIATRIC: The patient denies depression. NEUROLOGIC: No weakness Constitutional: alert Psych: no complaints Head: normocephalic ENMT: mucosa pink and moist Neck: supple Respiratory: clear to auscultation Cardiovascular: irregular rhythm Gastrointestinal: soft, non-tender Musculoskeletal: muscle tone (normal) Extremities: edema (none) Labs Result Diagram: 05/29/19 0516 05/29/19 0516 Results 24hrs Laboratory Tests Test 05/28/19 12:09 05/28/19 17:11 05/28/19 20:39 05/29/19 05:14 Bedside Glucose 96 130 128 Troponin I < 0.012 Test 05/29/19 05:16 05/29/19 05:31 05/29/19 08:08 05/29/19 10:24 White Blood Count 8.4 Red Blood Count 4.84 Hemoglobin 14.9 Hematocrit 44.2 Mean Corpuscular 91.3 Volume Mean Corpuscular 30.8 Hemoglobin Mean Corpuscular 33.7 Hemoglobin Concent Red Cell Distribution 13.1 Width Platelet Count 237 Mean Platelet Volume 10.4 Immature Granulocytes 0.400 % Neutrophils % 56.8 Lymphocytes % 30.5 Monocytes % 7.9 Eosinophils % 3.6 Basophils % 0.8 Nucleated Red Blood 0.0 Cells % Immature Granulocytes 0.030 # Neutrophils # 4.8 Lymphocytes # 2.6 Monocytes # 0.7 Eosinophils # 0.3 Basophils # 0.1 Nucleated Red Blood 0.0 Cells # Sodium Level 143 Potassium Level 3.5 Chloride Level 105 Carbon Dioxide Level 28 Anion Gap 10 Blood Urea Nitrogen 26 H Creatinine 0.82 Est Glomerular Filtrat Rate mL/min Glucose Level 125 Calcium Level 9.1 Thyroid Stimulating 5.460 H Hormone (TSH) Bedside Glucose 119 136 130 Medications Medications Current Medications Ondansetron HCl (Zofran Inj) 4 mg Q6H PRN IV NAUSEA AND/OR VOMITING; Start 05/26/19 at 23:00 Acetaminophen (Tylenol Tab) 650 mg Q6H PRN PO MILD PAIN(1-3)OR ELEVATED TEMP; Start 05/26/19 at 23:00 Atorvastatin Calcium (Lipitor) 80 mg HS PO Last administered on 05/28/19at 20:47; Admin Dose 80 MG; Start 05/27/19 at 21:00 Benazepril HCl (Lotensin) 10 mg BID PO Last administered on 05/29/19at 08:11; Admin Dose 10 MG; Start 05/27/19 at 09:00 Bisacodyl (Dulcolax) 5 mg BID PO Last administered on 05/29/19at 08:11; Admin Dose 5 MG; Start 05/27/19 at 09:00 Hydralazine HCl (Apresoline) 25 mg Q8 PO Last administered on 05/29/19at 05:41; Admin Dose 25 MG; Start 05/27/19 at 06:00 Nitroglycerin (Nitroglycerin (Sl Tab) 0.4 Mg) 1 tab [id number] PRN SL CHEST PAIN; Start 05/26/19 at 23:00 Diagnostic Test (Pha) (Accu-Chek) 1 ea AC MEALS AND BEDTIME XX Last a dministered on 05/29/19at 06:19; Admin Dose 1 EA; Start 05/27/19 at 07:00 Insulin Aspart (Novolog Insulin Pen) NOVOLOG *MILD* ALGORITHM WITH MEALS BEDTIME SC Last administered on 05/27/19at 17:25; Admin Dose 1 UNIT; Start 05/27/19 at 08:00 Apixaban (Eliquis) 5 mg BID PO Last administered on 05/29/19at 08:11; Admin Dose 5 MG; Start 05/27/19 at 11:00 Furosemide (Lasix) 40 mg BID DIURETICS IV Last administered on 05/29/19at 05:41; Admin Dose 40 MG; Start 05/27/19 at 18:00 Dextrose/Sodium Chloride 1,000 ml @ 30 mls/hr Q24H IV Last administered on 05/28/19at 23:16; Admin Dose 30 MLS/HR; Start 05/28/19 at 23:00 Insulin Glargine (Lantus) 25 units QHS SC ; Start 05/29/19 at 21:00 MYRTLE HOYT May 29, 2019 11:39
[2019-05-29 15:46] VITALS: BP 135/74; PULSE 56; RESP 16
--- NOTE | 2019-05-29 15:54 | CARRPT ---
DATE OF PROCEDURE: 05/29/2019 REASON FOR STRESS TESTING: Syncope, assess for ischemia and decreased EF, assess for ischemia. BASELINE VITAL SIGNS AND ELECTROCARDIOGRAM: Pulse 88, blood pressure 142/81. Electrocardiogram reve als atrial fibrillation, rate of 88, normal axis, normal intervals, inferior T-wave inversion. PROCEDURE: The patient underwent standard Lexiscan infusion protocol over 10 seconds followed by rad iotracer. The test was stopped due to completing protocol. Maximal blood pressure during test 184/8 5. Maximum heart rate during the test 105. ELECTROCARDIOGRAM FINDINGS: The patient did not develop any new Lexiscan-induced ST or T-wave change s from baseline abnormalities. Patient noted to have frequent premature ventricular contractions dur ing stress testing. IMPRESSION: 1. No Lexiscan-induced ST or T-wave changes from baseline abnormalities or diagnostic cardiac ischem ia. 2. No complaints of chest pain or shortness of breath during stress testing. Positive abdominal dre n which resolved in recovery. 3. Frequent premature ventricular contractions during stress testing. 4. Report of nuclear images to follow. Dictated By: MYRTLE WEEMS/GENO Conf#: [id number] DID#: [id number] CC: BART LEMONS;*EndCC*
[2019-05-29 20:00] VITALS: BP 157/97; PULSE 80; RESP 18
[2019-05-29] MEDS ORDERED: INSULIN GLARGINE [LANTus] (100 UNITS/ML) SYG SC SCH (21:00)
[2019-05-29] MEDS: ATORVASTATIN 80 MG TAB PO SCH (21:11)
[2019-05-29] MEDS: DEXTROSE 5%-0.45% NACL 1,000 ML IV SCH (21:13)
[2019-05-30 00:16] VITALS: BP 114/72; PULSE 70; RESP 18
[2019-05-30 03:58] VITALS: BP 131/79; PULSE 64; RESP 18
[2019-05-30] MEDS: FUROSEMIDE 40 MG INJ IV SCH ×2 (06:45→17:37)
[2019-05-30 07:12] VITALS: BP 143/77; PULSE 67; RESP 20
[2019-05-30] MEDS: ACCU-CHEK XX SCH ×4 (07:35→21:07)
[2019-05-30] MEDS: INSULIN ASPART [NOVOLOG] 3 ML PEN SC SCH ×4 (07:46→21:00)
[2019-05-30] MEDS: APIXABAN 5 MG TABLET PO SCH ×2 (08:17→20:51)
[2019-05-30] MEDS: BISACODYL (EC) 5 MG TAB PO SCH ×2 (08:17→20:50)
[2019-05-30] MEDS: BENAZEPRIL 10 MG TAB PO SCH ×2 (08:18→20:51)
--- NOTE | 2019-05-30 09:10 | CONS ---
Consult Date/Type/Reason Admit Date/Time May 26, 2019 at 20:40 Initial Consult Date Requesting Provider: BART LEMONS MD Date/Time of Note DATE: 05/30/19 TIME: 09:04 Subjective NO acute events - pt comfortable - denies CP. Stress test done - EF low with no reversible disease - I think pt is a candidate for ICD - I tried to speak with patient, but she is poorly comprehensive. I called the numbers in the chart - but one number goes to cancelled number and the other does not answer - will try to locate family - ICD scheduled for Wednesday 7 30 am if we can get consent - will hold Eliquis tomorrow am if family agrees to ICD. ROS: No fever, no chills, no nausea, no vomiting, no diarrhea/constipation - mild SOB No recent weight changes No chest pain, no PND, no orthopnea No dizziness, blurred vision No thirst, no heat or cold intolerance Objective Vitals Vital Signs Date Temp Pulse Resp B/P (MAP) Pulse Ox O2 O2 Flow FiO2 Time Delivery Rate 05/30/19 98.3 67 20 143/77 95 07:12 (99) 05/30/19 Room Air 2.0 03:58 05/26/19 40 21:08 Intake and Output 05/29/19 05/29/19 05/30/19 1515:00 23:00 07:00 IntakeIntake Total 350 ml 550 ml 880 ml BalanceBalance 350 ml 550 ml 880 ml Exam General: WN/WD/NAD, AOx 2-3 HEENT: Unicetric/atraumatic/EOMI (follows commands) NECK: JVD elevated, no thyromegaly Lymph: no lymphadenopathy HEART: regular with no S3, II/ systolic murmur at apex, PMI L LUNGS: Coarse sounds ABD: soft, NT, ND, +BS : Intact Neuro: non focal SKIN: chronic changes EXT: trace edema Results/Medications Result Diagram: 05/29/1916 05/29/19 0516 Results 24 hrs Laboratory Tests Test 05/29/19 10:24 05/29/19 17:24 05/29/19 21:11 05/30/19 05:31 Bedside Glucose 130 132 142 Free Thyroxine 1.13 Free Triiodothyronine 3.77 (T3) pg/mL Test 05/30/19 07:34 Bedside Glucose 112 Home Meds Active Scripts Furosemide (Lasix) 40 Mg Tab, 40 MG PO DAILY for 30 Days, #30 TAB Prov:NORY ARCINIEGA 03/12/19 Hydralazine Hcl* (Hydralazine Hcl*) 25 Mg Tab, 25 MG PO Q8 for 30 Days, TAB Prov:NORY ARCINIEGA 03/12/19 Benazepril Hcl* (Benazepril Hcl*) 10 Mg Tablet, 10 MG PO BID for 60 Days, TAB Prov:NORY ARCINIEGA 03/12/19 Atorvastatin* (Atorvastatin*) 80 Mg Tablet, 80 MG PO HS for 30 Days, TAB Prov:NORY ARCINIEGA 03/12/19 Insulin Aspart* (Novolog Insulin Pen*) 100 Unit/Ml Soln, 0 SC .SLIDING SCALE AC for 60 Days, EA Prov:NORY ARCINIEGA 03/12/19 Carvedilol* (Carvedilol*) 6.25 Mg Tablet, 6.25 MG PO BID for 60 Days, #120 TAB Prov:NORY ARCINIEGA 03/12/19 Bisacodyl* (Dulcolax*) 5 Mg Tablet.dr, 5 MG PO BID for 60 Days, TAB Prov:NORY ARCINIEGA 03/12/19 Reported Medications Insulin Glargine* (Lantus*) 100 Unit/Ml Soln, 35 UNITS SC QHS INJECT 30 UNITS SUBCUTANEOUSLY AT BEDTIME FOR 30 DAYS 05/26/19 Metformin Hcl* (Metformin Hcl*) 1,000 Mg Tablet, 1000 MG PO BID for 30 Days, #60 TAKE 1 TABLET BY MOUTH TWICE DAILY WITH FOOD FOR 30 DAYS 05/26/19 Lisinopril* (Lisinopril*) 40 Mg Tablet, 40 MG PO DAILY for 30 Days, #30 TAKE ONE TABLET BY MOUTH EVERY DAY FOR 30 DAYS 05/26/19 Nitroglycerin* (Nitrostat*) 0.4 Mg Tab.subl, 0.4 MG SL Q5MIN PRN for CHEST PAIN, BOTTLE 01/24/19 Discontinued Scripts Apixaban* (Eliquis*) 5 Mg Tablet, 5 MG PO BID for 60 Days, TAB Prov:NORY ARCINIEGA 4/14/19 Clopidogrel Bisulfate (Clopidogrel) 75 Mg Tablet, 75 MG PO DAILY, #30 TAB Prov:NORY ARCINIEGA 03/12/19 Pantoprazole* (Protonix*) 40 Mg Tablet.dr, 40 MG PO DAILY for 60 Days, TAB Prov:NORY ARCINIEGA 03/12/19 Docusate Sodium* (Colace*) 100 Mg Capsule, 100 MG PO BID, #60 CAP Prov:NORY ARCINIEGA 03/12/19 Medications Current Medications Ondansetron HCl (Zofran Inj) 4 mg Q6H PRN IV NAUSEA AND/OR VOMITING; Start 05/26/19 at 23:00 Acetaminophen (Tylenol Tab) 650 mg Q6H PRN PO MILD PAIN(1-3)OR ELEVATED TEMP; Start 05/26/19 at 23:00 Atorvastatin Calcium (Lipitor) 80 mg HS PO Last administered on 05/29/19at 21:11; Admin Dose 80 MG; Start 05/27/19 at 21:00 Benazepril HCl (Lotensin) 10 mg BID PO Last administered on 05/30/19at 08:18; Admin Dose 10 MG; Start 05/27/19 at 09:00 Bisacodyl (Dulcolax) 5 mg BID PO Last administered on 05/30/19at 08:17; Admin Dose 5 MG; Start 05/27/19 at 09:00 Hydralazine HCl (Apresoline) 25 mg Q8 PO Last administered on 05/30/19at 06:45; Admin Dose 25 MG; Start 05/27/19 at 06:00 Nitroglycerin (Nitroglycerin (Sl Tab) 0.4 Mg) 1 tab [id number] PRN SL CHEST PAIN; Start 05/26/19 at 23:00 Diagnostic Test (Pha) (Accu-Chek) 1 ea AC MEALS AND BEDTIME XX Last administered on 05/30/19at 07:35; Admin Dose 1 EA; Start 05/27/19 at 07:00 Insulin Aspart (Novolog Insulin Pen) NOVOLOG *MILD* ALGORITHM WITH MEALS BEDTIME SC Last administered on 05/27/19at 17:25; Admin Dose 1 UNIT; Start 05/27/19 at 08:00 Apixaban (Eliquis) 5 mg BID PO Last administered on 7/2/19at 08:17; Admin Dose 5 MG; Start 05/27/19 at 11:00 Furosemide (Lasix) 40 mg BID DIURETICS IV Last administered on 05/30/19 06:45; Admin Dose 40 MG; Start 05/27/19 at 18:00 Dextrose/Sodium Chloride 1,000 ml @ 30 mls/hr Q24H IV Last administered on 05/29/19at 21:13; Admin Dose 30 MLS/HR; Start 05/28/19 at 23:00 Insulin Glargine (Lantus) 25 units QHS SC Last administered on 05/29/19at 21:42; Admin Dose 25 UNITS; Start 05/29/19 at 21:00 Assessment/Plan Hospital Course (Demo Recall) 1. Syncope - suggestive of post voiding syncope, con't to monitor - pt comfortable - denies CP. Stress test done - EF low with no reversible disease - I think pt is a candidate for ICD - I tried to speak with patient, but she is poorly comprehensive. I called the numbers in the chart - but one number goes to cancelled number and the other does not answer - will try to locate family - ICD scheduled for Wednesday 7 30 am if we can get consent - will hold Eliquis tomorrow am if family agrees to ICD. 2. CMY - per additional information provided -pt was not truly compliant with her medical Rx - will facilitate Stress test now to acces reversibility if any. NO tachy-an symptoms here.Pt has indication for ICD now - will try to obtain consent. 3. CHF - better now, pt feels more comfortable. Improved. 4. HTN - well controlled - con't med rx. 6. Dizzy - resolved now. ANATOLIY MCGARRY MD May 30, 2019 09:10
[2019-05-30 11:15] VITALS: BP 132/90; PULSE 81; RESP 20
--- NOTE | 2019-05-30 12:50 | PN ---
Date/Time of Note Date/Time of Note DATE: 05/30/19 TIME: 12:50 Assessment/Plan VTE Prophylaxis Risk score (from Ns)>0 risk: 4 SCD applied (from Ns): No SCD contraindicated: low risk/ambulating Pharmacological prophylaxis: NA/contraindicated Pharm contraindication: low risk/ambulating Lines/Catheters IV [facility] Type (from [facility] Peripheral IV Urinary Cath still in place: No Assessment/Plan Assessment/Plan # Acute on chronic systolic CHF exacerbation. Pulmonary edema # HTN emergency likely due to running out of meds, like in previous admission # Hx non-ST elevation myocardial infarction, status post coronary angiogram with a single vessel obstructive coronary artery disease in the right coronary artery, status post PTCA and stent placement on #. Cardiomyopathy with ejection fraction of 30 to 35%. #. History of atrial fibrillation, rate control # Diabetes mellitus type II, uncontrolled # Obesity # Hyperlipidemia # Noncompliance, pt does not take medication regularly, does not have a PCP #Questionable tachybradycardia syndrome stress test today # Syncopy likely cardiac related Assessment/Plan -AICD on Wednesday if family agrees, EF 21% - Eliquis will be held by cards if AICD planned -Continue with hydralazine/benazepril - decrease lantus 15 -Continue with Lasix 40 IV twice daily -DVT proph Eliquiz 5 mg po BID -GI propoh Protonix po -fluid restrictions 1 l Result Diagram: 05/29/1916 05/29/19 0516 Results 24hrs Laboratory Tests Test 05/29/19 17:24 05/29/19 21:11 05/30/19 05:31 05/30/19 07:34 Bedside Glucose 132 142 112 Free Thyroxine 1.13 Free Triiodothyronine 3.77 (T3) pg/mL Test 05/30/19 11:42 Bedside Glucose 144 Subjective 24 Hr Interval Summary Free Text/Dictation Patient is still feeling feeling okay stress test shows no reversible ischemia EF is 21%, montior shows couplets and triplets Exam/Review of Systems Exam Vitals Vital Signs Date Temp Pulse Resp B/P (MAP) Pulse Ox O2 O2 Flow FiO2 Time Delivery Rate 05/30/19 98.4 81 20 132/90 96 11:15 (104) 05/30/19 Nasal 2.0 08:00 Cannula 05/26/19 40 21:08 Intake and Output 05/29/19 05/29/19 05/30/19 1515:00 23:00 07:00 IntakeIntake Total 350 ml 550 ml 880 ml BalanceBalance 350 ml 550 ml 880 ml Exam onstitutional: alert, she is obese Head: normocephalic Neck: supple, thick , jvd+ Respiratory: dec breath sounds bilaterally Cardiovascular: regular rate and rhythm, systolic ejection murmur Gastrointestinal: soft Extremities trace edema Results Results 24hrs Laboratory Tests Test 05/29/19 17:24 05/29/19 21:11 05/30/19 05:31 05/30/19 07:34 Bedside Glucose 132 142 112 Free Thyroxine 1.13 Free Triiodothyronine 3.77 (T3) pg/mL Test 05/30/19 11:42 Bedside Glucose 144 Medications Medication Current Medications Ondansetron HCl (Zofran Inj) 4 mg Q6H PRN IV NAUSEA AND/OR VOMITING; Start 05/26/19 at 23:00 Acetaminophen (Tylenol Tab) 650 mg Q6H PRN PO MILD PAIN(1-3)OR ELEVATED TEMP; Start 05/26/19 at 23:00 Atorvastatin Calcium (Lipitor) 80 mg HS PO Last administered on 05/29/19at 21:11; Admin Dose 80 MG; Start 05/27/19 at 21:00 Benazepril HCl (Lotensin) 10 mg BID PO Last administered on 05/30/19at 08:18; Admin Dose 10 MG; Start 05/27/19 at 09:00 Bisacodyl (Dulcolax) 5 mg BID PO Last administered on 05/30/19at 08:17; Admin Dose 5 MG; Start 05/27/19 at 09:00 Hydralazine HCl (Apresoline) 25 mg Q8 PO Last administered on 05/30/19at 06:45; Admin Dose 25 MG; Start 05/27/19 at 06:00 Nitroglycerin (Nitroglycerin (Sl Tab) 0.4 Mg) 1 tab [id number] PRN SL CHEST PAIN; Start 05/26/19 at 23:00 Diagnostic Test (Pha) (Accu-Chek) 1 ea AC MEALS AND BEDTIME XX Last administered on 05/30/19at 11:43; Admin Dose 1 EA; Start 05/27/19 at 07:00 Insulin Aspart (Novolog Insulin Pen) NOVOLOG *MILD* ALGORITHM WITH MEALS BEDTIME SC Last administered on 05/30/19 11:47; Admin Dose 1 UNIT; Start 05/27/19 at 08:00 Apixaban (Eliquis) 5 mg BID PO Last administered on 05/30/19 08:17; Admin Dose 5 MG; Start 05/27/19 at 11:00 Furosemide (Lasix) 40 mg BID DIURETICS IV Last administered on 05/30/19at 06:45; Admin Dose 40 MG; Start 05/27/19 at 18:00 Dextrose/Sodium Chloride 1,000 ml @ 30 mls/hr Q24H IV Last administered on 05/29/19at 21:13; Admin Dose 30 MLS/HR; Start 05/28/19 at 23:00 Insulin Glargine (Lantus) 25 units QHS SC Last administered on 05/29/19at 21:42; Admin Dose 25 UNITS; Start 05/29/19 at 21:00 BART LEMONS MD May 30, 2019 12:50
[2019-05-30] MEDS ORDERED: GLUCOSE GEL 15 GRAM TUBE PO PRN ×2 (14:30)
[2019-05-30] MEDS ORDERED: GLUCOSE GEL 15 GRAM TUBE BUCCAL PRN (14:30)
[2019-05-30] MEDS ORDERED: DEXTROSE 50% 50 ML SYRINGE IV PRN ×2 (14:30)
[2019-05-30] MEDS ORDERED: GLUCAGON 1 MG INJ IM PRN (14:30)
[2019-05-30 15:26] VITALS: BP 137/106; PULSE 68; RESP 20
[2019-05-30 19:58] VITALS: BP 139/77; PULSE 51; RESP 18
[2019-05-30] MEDS: ATORVASTATIN 80 MG TAB PO SCH (20:51)
[2019-05-30] MEDS ORDERED: INSULIN GLARGINE [LANTus] (100 UNITS/ML) SYG SC SCH (21:00)
[2019-05-31] VITALS (7 sets, daily range): BP systolic 114–142; BP diastolic 68–89; PULSE 51–76; RESP 16–20
[2019-05-31] MEDS: FUROSEMIDE 40 MG INJ IV SCH (05:27)
[2019-05-31] MEDS: ACCU-CHEK XX SCH ×4 (07:35→21:07)
[2019-05-31] MEDS: INSULIN ASPART [NOVOLOG] 3 ML PEN SC SCH ×4 (07:39→21:00)
[2019-05-31] MEDS: BENAZEPRIL 10 MG TAB PO SCH ×2 (08:22→21:06)
[2019-05-31] MEDS: BISACODYL (EC) 5 MG TAB PO SCH ×2 (08:22→21:06)
--- NOTE | 2019-05-31 12:22 | PN ---
Date/Time of Note Date/Time of Note DATE: 05/31/19 TIME: 12:20 Assessment/Plan VTE Prophylaxis Risk score (from Ns)>0 risk: 3 SCD applied (from Ns): Yes Pharmacological prophylaxis: NA/contraindicated Pharm contraindication: low risk/ambulating Lines/Catheters IV Catheter Type (from Nrsg): Saline Lock Urinary Cath still in place: No Assessment/Plan Assessment/Plan 73 yo # Acute on chronic systolic CHF exacerbation. Pulmonary edema # HTN emergency likely due to running out of meds, like in previous admission # Hx non-ST elevation myocardial infarction, status post coronary angiogram with a single vessel obstructive coronary artery disease in the right coronary artery, status post PTCA and stent placement on #. Cardiomyopathy with ejection fraction of 30 to 35%. #. History of atrial fibrillation, rate control # Diabetes mellitus type II, uncontrolled # Obesity # Hyperlipidemia # Noncompliance, pt does not take medication regularly, does not have a PCP #Questionable tachybradycardia syndrome stress test today # Syncopy likely cardiac related Assessment/Plan -Check lytes today -AICD on Wednesday if family agrees, EF 21% - Eliquis will be held by cards if AICD planned, today -Continue with hydralazine/benazepril - cw lantus 15 -dec with Lasix 40 IV daily, chest x-ray is much improved -GI propoh Protonix po -fluid restrictions 1 l Result Diagram: 05/29/19 0516 05/29/19 0516 Results 24hrs Laboratory Tests Test 05/30/19 17:28 05/30/19 21:00 05/31/19 04:58 05/31/19 07:35 Bedside Glucose 142 115 144 Prothrombin Time 15.6 H Prothrombin Time Ratio 1.2 INR International 1.23 Normalized Ratio Test 05/31/19 11:37 Bedside Glucose 152 Subjective 24 Hr Interval Summary Free Text/Dictation Shows few PVCs No chest pain/shortness of breath plan for AICD tomorrow Exam/Review of Systems Exam Vitals Vital Signs Date Temp Pulse Resp B/P (MAP) Pulse Ox O2 O2 Flow FiO2 Time Delivery Rate 05/31/19 98.5 61 18 142/72 96 11:30 (95) 05/31/19 Nasal 2.0 08:00 Cannula Intake and Output 05/30/19 05/30/19 05/31/19 1515:00 23:00 07:00 IntakeIntake Total 600 ml 1100 ml 100 ml OutputOutput Total 100 ml BalanceBalance 600 ml 1100 ml 0 ml Exam onstitutional: alert, she is obese Head: normocephalic Neck: supple, thick , jvd+ Respiratory: dec breath sounds bilaterally Cardiovascular: regular rate and rhythm, systolic ejection murmur Gastrointestinal: soft Extremities trace edema Results Results Results 24hrs Laboratory Tests Test 05/30/19 17:28 05/30/19 21:00 05/31/19 04:58 05/31/19 07:35 Bedside Glucose 142 115 144 Prothrombin Time 15.6 H Prothrombin Time Ratio 1.2 INR International 1.23 Normalized Ratio Test 05/31/19 11:37 Bedside Glucose 152 Medications Medication Current Medications Ondansetron HCl (Zofran Inj) 4 mg Q6H PRN IV NAUSEA AND/OR VOMITING; Start 05/26/19 at 23:00 Acetaminophen (Tylenol Tab) 650 mg Q6H PRN PO MILD PAIN(1-3)OR ELEVATED TEMP; Start 05/26/19 at 23:00 Atorvastatin Calcium (Lipitor) 80 mg HS PO Last administered on 05/30/19at 20:51; Admin Dose 80 MG; Start 05/27/19 at 21:00 Benazepril HCl (Lotensin) 10 mg BID PO Last administered on 05/31/19at 08:22; Admin Dose 10 MG; Start 05/27/19 at 09:00 Bisacodyl (Dulcolax) 5 mg BID PO Last administered on 05/31/19at 08:22; Admin Dose 5 MG; Start 05/27/19 at 09:00 Hydralazine HCl (Apresoline) 25 mg Q8 PO Last administered on 05/31/19at 05:27; Admin Dose 25 MG; Start 05/27/19 at 06:00 Nitroglycerin (Nitroglycerin (Sl Tab) 0.4 Mg) 1 tab [id number] PRN SL CHEST PAIN; Start 05/26/19 at 23:00 Diagnostic Test (Pha) (Accu-Chek) 1 ea AC MEALS AND BEDTIME XX Last administered on 05/31/19at 11:38; Admin Dose 1 EA; Start 05/27/19 at 07:00 Insulin Aspart (Novolog Insulin Pen) NOVOLOG *MILD* ALGORITHM WITH MEALS BEDTIME SC Last administered on 05/31/19at 11:41; Admin Dose 1 UNIT; Start 05/27/19 at 08:00 Furosemide (Lasix) 40 mg BID DIURETICS IV Last administered on 05/31/19at 05:27; Admin Dose 40 MG; Start 05/27/19 at 18:00 Insulin Glargine (Lantus) 15 units QHS SC Last administered on 05/30/19at 21:06; Admin Dose 15 UNITS; Start 05/30/19 at 21:00 Miscellaneous Information 1 ea NOTE XX ; Start 05/30/19 at 14:30 Glucose (Glutose) 15 gm Q15M PRN PO DECREASED GLUCOSE; Start 05/30/19 at 14:30 Glucose (Glutose) 22.5 gm Q15M PRN PO DECREASED GLUCOSE; Start 05/30/19 at 14:30 Dextrose (D50w Syringe) 25 ml Q15M PRN IV DECREASED GLUCOSE; Start 05/30/19 at 14:30 Dextrose (D50w Syringe) 50 ml Q15M PRN IV DECREASED GLUCOSE; Start 05/30/19 at 14:30 Glucagon (Glucagen) 1 mg Q15M PRN IM DECREASED GLUCOSE; Start 05/30/19 at 14:30 Glucose (Glutose) 15 gm Q15M PRN BUCCAL DECREASED GLUCOSE; Start 05/30/19 at 14:30 BART LEMONS MD May 31, 2019 12:22
--- NOTE | 2019-05-31 12:25 | CONS ---
Assessment/Plan Assessment/Plan Hospital Course (Demo Recall) IMP: 1.syncope-neg trop x2, EF 30-35% by echo 01/17 2.cardiomyopathy-EF 30-35% by echo 01/17. Lexiscan this admit with no sig ischemia and EF 21% 3.AF-rate controlled 4.Dyslipidemia 5.PTCA/stent x 1 to RCA 01/17 6.PVC's Recc: -Continue ACEI -off BB due to bradycardia -continue statin -continue lasix and follow volume status closely -Hold eliquis in anticipation of ICD scheduled for wednesday -keep K>4.0 and Mg> 2.0 as possible Consultation Date/Type/Reason Admit Date/Time May 26, 2019 at 20:40 Initial Consult Date 05/28/19 Type of Consult Cardiology Reason for Consultation cardiomyopathy Requesting Provider: BART LEMONS MD Date/Time of Note DATE: 05/31/19 TIME: 12:20 Exam/Review of Systems Vital Signs Vitals Vital Signs Date Temp Pulse Resp B/P (MAP) Pulse Ox O2 O2 Flow FiO2 Time Delivery Rate 05/31/19 98.5 61 18 142/72 96 11:30 (95) 05/31/19 Nasal 2.0 08:00 Cannula Intake and Output 05/30/19 05/30/19 05/31/19 1515:00 23:00 07:00 IntakeIntake Total 600 ml 1100 ml 100 ml OutputOutput Total 100 ml BalanceBalance 600 ml 1100 ml 0 ml Exam Exam Review of Systems: CONSTITUTIONAL: No fevers, chills. PULMONARY: No sob CARDIOVASCULAR: No chest pain/palpitations GASTROINTESTINAL: No nausea/vomiting. GENITOURINARY: No hematuria/dysuria. MUSCULOSKELETAL: No myagias/arthalgias. PSYCHIATRIC: The patient denies depression. NEUROLOGIC: lethargic Constitutional: alert Psych: confusion Head: normocephalic ENMT: mucosa pink and moist Neck: supple, jvd Respiratory: diminished breath sounds Cardiovascular: regular rate and rhythm Gastrointestinal: soft, non-tender Musculoskeletal: muscle tone Extremities: edema (none) Neurological: other (No focal deficits) Labs Result Diagram: 05/29/19 0516 05/29/19 0516 Results 24hrs Laboratory Tests Test 05/30/19 17:28 05/30/19 21:00 05/31/19 04:58 05/31/19 07:35 Bedside Glucose 142 115 144 Prothrombin Time 15.6 H Prothrombin Time Ratio 1.2 INR International 1.23 Normalized Ratio Test 05/31/19 11:37 Bedside Glucose 152 Medications Medications Current Medications Ondansetron HCl (Zofran Inj) 4 mg Q6H PRN IV NAUSEA AND/OR VOMITING; Start 05/26/19 at 23:00 Acetaminophen (Tylenol Tab) 650 mg Q6H PRN PO MILD PAIN(1-3)OR ELEVATED TEMP; Start 05/26/19 at 23:00 Atorvastatin Calcium (Lipitor) 80 mg HS PO Last administered on 05/30/19 20:51; Admin Dose 80 MG; Start 05/27/19 at 21:00 Benazepril HCl (Lotensin) 10 mg BID PO Last administered on 05/31/19 08:22; Admin Dose 10 MG; Start 05/27/19 at 09:00 Bisacodyl (Dulcolax) 5 mg BID PO Last administered on 05/31/19 08:22; Admin Dose 5 MG; Start 05/27/19 at 09:00 Hydralazine HCl (Apresoline) 25 mg Q8 PO Last administered on 05/31/19 05:27; Admin Dose 25 MG; Start 05/27/19 at 06:00 Nitroglycerin (Nitroglycerin (Sl Tab) 0.4 Mg) 1 tab [id number] PRN SL CHEST PAIN; Start 05/26/19 at 23:00 Diagnostic Test (Pha) (Accu-Chek) 1 ea AC MEALS AND BEDTIME XX Last administered on 05/31/19at 11:38; Admin Dose 1 EA; Start 05/27/19 at 07:00 Insulin Aspart (Novolog Insulin Pen) NOVOLOG *MILD* ALGORITHM WITH MEALS BED TIME SC Last administered on 05/31/19 11:41; Admin Dose 1 UNIT; Start 05/27/19 at 08:00 Insulin Glargine (Lantus) 15 units QHS SC Last administered on 05/30/19 21:06; Admin Dose 15 UNITS; Start 05/30/19 at 21:00 Miscellaneous Information 1 ea NOTE XX ; Start 05/30/19 at 14:30 Glucose (Glutose) 15 gm Q15M PRN PO DECREASED GLUCOSE; Start 05/30/19 at 14:30 Glucose (Glutose) 22.5 gm Q15M PRN PO DECREASED GLUCOSE; Start 05/30/19 at 14:30 Dextrose (D50w Syringe) 25 ml Q15M PRN IV DECREASED GLUCOSE; Start 05/30/19 at 14:30 Dextrose (D50w Syringe) 50 ml Q15M PRN IV DECREASED GLUCOSE; Start 05/30/19 at 14:30 Glucagon (Glucagen) 1 mg Q15M PRN IM DECREASED GLUCOSE; Start 05/30/19 at 14:30 Glucose (Glutose) 15 gm Q15M PRN BUCCAL DECREASED GLUCOSE; Start 05/30/19 at 14:30 Furosemide (Lasix) 40 mg DAILY IV ; Start 06/01/19 at 09:00; Status MYRTLE WALLACE May 31, 2019 12:25
[2019-05-31] MEDS: ATORVASTATIN 80 MG TAB PO SCH (21:06)
[2019-05-31] MEDS: INSULIN GLARGINE [LANTus] (100 UNITS/ML) SYG SC SCH (21:19)
[2019-06-01] VITALS: BP 131/81; PULSE 76; RESP 17
[2019-06-01 04:22] VITALS: BP 131/80; PULSE 79; RESP 17
[2019-06-01] MEDS: FUROSEMIDE 40 MG INJ IV SCH (05:39)
[2019-06-01] MEDS: ACCU-CHEK XX SCH ×4 (07:00→20:38)
[2019-06-01 08:02] VITALS: BP 115/69; PULSE 57; RESP 18
[2019-06-01] MEDS: BENAZEPRIL 10 MG TAB PO SCH ×2 (08:35→20:34)
[2019-06-01] MEDS: BISACODYL (EC) 5 MG TAB PO SCH ×2 (08:35→20:34)
[2019-06-01] MEDS: INSULIN ASPART [NOVOLOG] 3 ML PEN SC SCH ×4 (08:42→20:38)
[2019-06-01 11:28] VITALS: BP 129/91; PULSE 53; RESP 18
--- NOTE | 2019-06-01 12:36 | PN ---
Date/Time of Note Date/Time of Note DATE: 06/01/19 TIME: 12:34 Assessment/Plan VTE Prophylaxis Risk score (from Ns)>0 risk: 5 SCD applied (from Ns): Yes Pharmacological prophylaxis: NA/contraindicated Pharm contraindication: low risk/ambulating Lines/Catheters IV Catheter Type (from Nrsg): Saline Lock Urinary Cath still in place: No Assessment/Plan Assessment/Plan 3 yo # Acute on chronic systolic CHF exacerbation. Pulmonary edema # HTN emergency likely due to running out of meds, like in previous admission # Hx non-ST elevation myocardial infarction, status post coronary angiogram with a single vessel obstructive coronary artery disease in the right coronary artery, status post PTCA and stent placement on #. Cardiomyopathy with ejection fraction of 30 to 35%. #. History of atrial fibrillation, rate control # Diabetes mellitus type II, uncontrolled # Obesity # Hyperlipidemia # Noncompliance, pt does not take medication regularly, does not have a PCP #Questionable tachybradycardia syndrome stress test today # Syncopy likely cardiac related Assessment/Plan -AICD on Wednesday if family agrees, EF 21% - Eliquis held due to AICD placement -Continue with hydralazine/benazepril - cw lantus 12 , held NPO -CW with Lasix 40 IV daily, chest x-ray is much improved -GI propoh Protonix po -fluid restrictions 1 l Result Diagram: 05/29/19 0516 05/31/19 1251 Results 24hrs Laboratory Tests Test 05/31/19 12:51 05/31/19 17:20 05/31/19 20:58 06/01/19 08:31 Sodium Level 142 Potassium Level 4.1 Chloride Level 104 Carbon Dioxide Level 26 Anion Gap 12 Blood Urea Nitrogen 30 H Creatinine 0.95 Est Glomerular Filtrat Rate mL/min Glucose Level 138 Calcium Level 9.3 Phosphorus Level 4.5 Magnesium Level 2.2 Bedside Glucose 149 166 147 Test 06/01/19 11:45 Bedside Glucose 135 Subjective 24 Hr Interval Summary Free Text/Dictation pt getting AICD tmw Exam/Review of Systems Exam Vitals Vital Signs Date Temp Pulse Resp B/P (MAP) Pulse Ox O2 O2 Flow FiO2 Time Delivery Rate 06/01/19 97.8 53 18 129/91 98 11:28 (104) 06/01/19 2.0 00:14 05/31/19 Nasal 20:31 Cannula Intake and Output 05/31/19 05/31/19 06/01/19 1414:59 22:59 06:59 IntakeIntake Total 450 ml 650 ml OutputOutput Total 350 ml 400 ml BalanceBalance 100 ml 250 ml Exam onstitutional: alert, she is obese Head: normocephalic Neck: supple, thick , jvd+ Respiratory: dec breath sounds bilaterally Cardiovascular: regular rate and rhythm, systolic ejection murmur Gastrointestinal: soft Extremities trace edema Results Results 24hrs Laboratory Tests Test 05/31/19 12:51 05/31/19 17:20 05/31/19 20:58 06/01/19 08:31 Sodium Level 142 Potassium Level 4.1 Chloride Level 104 Carbon Dioxide Level 26 Anion Gap 12 Blood Urea Nitrogen 30 H Creatinine 0.95 Est Glomerular Filtrat Rate mL/min Glucose Level 138 Calcium Level 9.3 Phosphorus Level 4.5 Magnesium Level 2.2 Bedside Glucose 149 166 147 Test 06/01/19 11:45 Bedside Glucose 135 Medications Medication Current Medications Ondansetron HCl (Zofran Inj) 4 mg Q6H PRN IV NAUSEA AND/OR VOMITING; Start 05/26/19 at 23:00 Acetaminophen (Tylenol Tab) 650 mg Q6H PRN PO MILD PAIN(1-3)OR ELEVATED TEMP; Start 05/26/19 at 23:00 Atorvastatin Calcium (Lipitor) 80 mg HS PO Last administered on 05/31/19at 21:06; Admin Dose 80 MG; Start 05/27/19 at 21:00 Benazepril HCl (Lotensin) 10 mg BID PO Last administered on 06/01/19at 08:35; Admin Dose 10 MG; Start 05/27/19 at 09:00 Bisacodyl (Dulcolax) 5 mg BID PO Last administered on 06/01/19at 08:35; Admin Dose 5 MG; Start 05/27/19 at 09:00 Hydralazine HCl (Apresoline) 25 mg Q8 PO Last administered on 06/01/19at 05:40; Admin Dose 25 MG; Start 05/27/19 at 06:00 Nitroglycerin (Nitroglycerin (Sl Tab) 0.4 Mg) 1 tab [id number] PRN SL CHEST PAIN; Start 05/26/19 at 23:00 Diagnostic Test (Pha) (Accu-Chek) 1 ea AC MEALS AND BEDTIME XX Last administered on 06/01/19at 11:46; Admin Dose 1 EA; Start 05/27/19 at 07:00 Insulin Aspart (Novolog Insulin Pen) NOVOLOG *MILD* ALGORITHM WITH MEALS BEDTIME SC Last administered on 06/01/19at 08:42; Admin Dose 1 UNIT; Start 05/27/19 at 08:00 Miscellaneous Information 1 ea NOTE XX ; Start 05/30/19 at 14:30 Glucose (Glutose) 15 gm Q15M PRN PO DECREASED GLUCOSE; Start 05/30/19 at 14:30 Glucose (Glutose) 22.5 gm Q15M PRN PO DECREASED GLUCOSE; Start 05/30/19 at 14:30 Dextrose (D50w Syringe) 25 ml Q15M PRN IV DECREASED GLUCOSE; Start 05/30/19 at 14:30 Dextrose (D50w Syringe) 50 ml Q15M PRN IV DECREASED GLUCOSE; Start 05/30/19 at 14:30 Glucagon (Glucagen) 1 mg Q15M PRN IM DECREASED GLUCOSE; Start 05/30/19 at 14:30 Glucose (Glutose) 15 gm Q15M PRN BUCCAL DECREASED GLUCOSE; Start 05/30/19 at 14:30 Furosemide (Lasix) 40 mg DAILY@0600 IV Last administered on 06/01/19at 05:39; Admin Dose 40 MG; Start 06/01/19 at 06:00 Insulin Glargine (Lantus) 12 units QHS SC Last administered on 05/31/19at 21:19; Admin Dose 12 UNITS; Start 05/31/19 at 21:00 BART LEMONS MD Jun 01, 2019 12:36
[2019-06-01 15:04] VITALS: BP 139/66; PULSE 66; RESP 20
--- NOTE | 2019-06-01 16:15 | CONS ---
Consult Date/Type/Reason Admit Date/Time May 26, 2019 at 20:40 Initial Consult Date Requesting Provider: BART LEMONS MD Date/Time of Note DATE: 06/01/19 TIME: 16:13 Subjective NO acute events - BP in good range - some tachy now - ICD planned tomorrow - will hold off on aggressive rate controlled pending ICD tomorrow. ROS: No fever, no chills, no nausea, no vomiting, no diarrhea/constipation No recent weight changes No chest pain, no PND, no orthopnea No dizziness, blurred vision No thirst, no heat or cold intolerance Objective Vitals Vital Signs Date Temp Pulse Resp B/P (MAP) Pulse Ox O2 O2 Flow FiO2 Time Delivery Rate 06/01/19 98.0 66 20 139/66 95 Room Air 15:04 (90) 06/01/19 2.0 08:05 Intake and Output 05/31/19 05/31/19 06/01/19 1515:00 23:00 07:00 IntakeIntake Total 450 ml 650 ml OutputOutput Total 350 ml 400 ml BalanceBalance 100 ml 250 ml Exam General: WN/WD/NAD, AOx 3 [place] HEENT: Unicetric/atraumatic/EOMI (follow commands) NECK: JVD elevated, no thyromegaly Lymph: no lymphadenopathy HEART: irregular with no S3, II/ systolic murmur at apex LUNGS: Coarse sounds ABD: soft, NT, ND, +BS : Intact Neuro: non focal SKIN: chronic changes EXT: trace edema Results/Medications Result Diagram: 05/29/19 0516 05/31/19 1251 Results 24 hrs Laboratory Tests Test 05/31/19 17:20 05/31/19 20:58 06/01/19 08:31 06/01/19 11:45 Bedside Glucose 149 166 147 135 Home Meds Active Scripts Furosemide (Lasix) 40 Mg Tab, 40 MG PO DAILY for 30 Days, #30 TAB Prov:NORY ARCINIEGA 03/12/19 Hydralazine Hcl* (Hydralazine Hcl*) 25 Mg Tab, 25 MG PO Q8 for 30 Days, TAB Prov:ZENNORY CANALES 03/12/19 Benazepril Hcl* (Benazepril Hcl*) 10 Mg Tablet, 10 MG PO BID for 60 Days, TAB Prov:MEZENTSEVA,NORY 03/12/19 Atorvastatin* (Atorvastatin*) 80 Mg Tablet, 80 MG PO HS for 30 Days, TAB Prov:NORY ARCINIEGA 03/12/19 Insulin Aspart* (Novolog Insulin Pen*) 100 Unit/Ml Soln, 0 SC .SLIDING SCALE AC for 60 Days, EA Prov:NORY ARCINIEGA 03/12/19 Carvedilol* (Carvedilol*) 6.25 Mg Tablet, 6.25 MG PO BID for 60 Days, #120 TAB Prov:NORY ARCINIEGA 03/12/19 Bisacodyl* (Dulcolax*) 5 Mg Tablet.dr, 5 MG PO BID for 60 Days, TAB Prov:NORY ARCINIEGA 03/12/19 Reported Medications Insulin Glargine* (Lantus*) 100 Unit/Ml Soln, 35 UNITS SC QHS INJECT 30 UNITS SUBCUTANEOUSLY AT BEDTIME FOR 30 DAYS 05/26/19 Metformin Hcl* (Metformin Hcl*) 1,000 Mg Tablet, 1000 MG PO BID for 30 Days, #60 TAKE 1 TABLET BY MOUTH TWICE DAILY WITH FOOD FOR 30 DAYS 05/26/19 Lisinopril* (Lisinopril*) 40 Mg Tablet, 40 MG PO DAILY for 30 Days, #30 TAKE ONE TABLET BY MOUTH EVERY DAY FOR 30 DAYS 05/26/19 Nitroglycerin* (Nitrostat*) 0.4 Mg Tab.subl, 0.4 MG SL Q5MIN PRN for CHEST PAIN, BOTTLE 01/24/19 Discontinued Scripts Apixaban* (Eliquis*) 5 Mg Tablet, 5 MG PO BID for 60 Days, TAB Prov:NORY ARCINIEGA 03/12/19 Clopidogrel Bisulfate (Clopidogrel) 75 Mg Tablet, 75 MG PO DAILY, #30 TAB Prov:NORY ARCINIEGA 03/12/19 Pantoprazole* (Protonix*) 40 Mg Tablet.dr, 40 MG PO DAILY for 60 Days, TAB Prov:NORY ARCINIEGA 03/12/19 Docusate Sodium* (Colace*) 100 Mg Capsule, 100 MG PO BID, #60 CAP Prov:NORY ARCINIEGA 03/12/19 Medications Current Medications Ondansetron HCl (Zofran Inj) 4 mg Q6H PRN IV NAUSEA AND/OR VOMITING; Start 05/26/19 at 23:00 Acetaminophen (Tylenol Tab) 650 mg Q6H PRN PO MILD PAIN(1-3)OR ELEVATED TEMP; Start 05/26/19 at 23:00 Atorvastatin Calcium (Lipitor) 80 mg HS PO Last administered on 05/31/19 21:06; Admin Dose 80 MG; Start 05/27/19 at 21:00 Benazepril HCl (Lotensin) 10 mg BID PO Last administered on 06/01/19 08:35; Admin Dose 10 MG; Start 05/27/19 at 09:00 Bisacodyl (Dulcolax) 5 mg BID PO Last administered on 06/01/19 08:35; Admin Dose 5 MG; Start 05/27/19 at 09:00 Hydralazine HCl (Apresoline) 25 mg Q8 PO Last administered on 06/01/19 14:24; Admin Dose 25 MG; Start 05/27/19 at 06:00 Nitroglycerin (Nitroglycerin (Sl Tab) 0.4 Mg) 1 tab [id number] PRN SL CHEST PAIN; Start 05/26/19 at 23:00 Diagnostic Test (Pha) (Accu-Chek) 1 ea AC MEALS AND BEDTIME XX Last administered on 06/01/19at 11:46; Admin Dose 1 EA; Start 05/27/19 at 07:00 Insulin Aspart (Novolog Insulin Pen) NOVOLOG *MILD* ALGORITHM WITH MEALS BEDTIME SC Last administered on 06/01/19 08:42; Admin Dose 1 UNIT; Start 05/27 at 08:00 Miscellaneous Information 1 ea NOTE XX ; Start 05/30/19 at 14:30 Glucose (Glutose) 15 gm Q15M PRN PO DECREASED GLUCOSE; Start 05/30/19 at 14:30 Glucose (Glutose) 22.5 gm Q15M PRN PO DECREASED GLUCOSE; Start 05/30/19 at 14:30 Dextrose (D50w Syringe) 25 ml Q15M PRN IV DECREASED GLUCOSE; Start 05/30/19 at 14:30 Dextrose (D50w Syringe) 50 ml Q15M PRN IV DECREASED GLUCOSE; Start 05/30/19 at 14:30 Glucagon (Glucagen) 1 mg Q15M PRN IM DECREASED GLUCOSE; Start 05/30/19 at 14:30 Glucose (Glutose) 15 gm Q15M PRN BUCCAL DECREASED GLUCOSE; Start 05/30/19 at 14:30 Furosemide (Lasix) 40 mg DAILY@0600 IV Last administered on 06/01/19at 05:39; Admin Dose 40 MG; Start 06/01/19 at 06:00 Insulin Glargine (Lantus) 12 units QHS SC Last administered on 05/31/19at 21:19; Admin Dose 12 UNITS; Start 05/31/19 at 21:00 Assessment/Plan Hospital Course (Demo Recall) 1. Syncope - suggestive of post voiding syncope, con't to monitor - pt comfortable - denies CP. Stress test done - EF low with no reversible disease - I think pt is a candidate for ICD - I tried to speak with patient, but she is poorly comprehensive. I called the numbers in the chart - but one number goes to cancelled number and the other does not answer - will try to locate family - ICD scheduled for Wednesday 7 30 am if we can get consent - will hold Eliquis tomorrow am if family agrees to ICD. Family and patient agreed to ICD - planned tomorrow am, hold Eliquis. 2. CMY - per additional information provided -pt was not truly compliant with her medical Rx - will facilitate Stress test now to acces reversibility if any. NO tachy-an symptoms here.Pt has indication for ICD now - will try to obtain consent. No VT/VF now. 3. CHF - better now, pt feels more comfortable. Improved. 4. HTN - well controlled - con't med rx. Treated. 6. Dizzy - resolved now. ANATOLIY MCGARRY MD Jun 01, 2019 16:15
[2019-06-01 19:11] VITALS: BP 120/86; PULSE 75; RESP 17
[2019-06-01] MEDS: ATORVASTATIN 80 MG TAB PO SCH (20:34)
[2019-06-01] MEDS: INSULIN GLARGINE [LANTus] (100 UNITS/ML) SYG SC SCH (20:38)
[2019-06-02] VITALS (22 sets, daily range): BP systolic 107–146; BP diastolic 58–96; PULSE 59–92; RESP 13–20
[2019-06-02] MEDS: FUROSEMIDE 40 MG INJ IV SCH (06:01)
[2019-06-02] MEDS ORDERED: CEFAZOLIN 2 GM/50 ML (PMX) 50 ML IVPB ONE (06:38)
[2019-06-02] MEDS ORDERED: POLYMYXIN/BACITRACIN 1L IRRIG IRR ONE (06:39)
[2019-06-02] MEDS: ACCU-CHEK XX SCH ×4 (07:00→21:28)
--- NOTE | 2019-06-02 07:22 | PREAC ---
Date/Time of Note Date/Time of Note DATE: 06/02/19 TIME: 07:18 Anesthesia Eval and Record Evaluation Time Pre-Procedure Interview DATE: 06/02/19 TIME: 07:18 Age 73 Sex female NPO: 8 hrs Preoperative diagnosis cardiomyopathy Planned procedure AICD placement Past Medical History Past Medical History: Includes Cardio: HTN, CAD, PTCA/Stent, Arrythmia (atrial fibrillation), CHF Endo: Diabetes GI: Obesity Surgery & Anesthesia Issues No known issue Meds Anticoagulation: No Beta Chris within 24 hr: No Reason Beta Chirs not given: Pt. not on B-Chris Active Scripts Furosemide (Lasix) 40 Mg Tab, 40 MG PO DAILY for 30 Days, #30 TAB Prov:NORY ARCINIEGA 03/12/19 Hydralazine Hcl* (Hydralazine Hcl*) 25 Mg Tab, 25 MG PO Q8 for 30 Days, TAB Prov:NORY ARCINIEGA 03/12/19 Benazepril Hcl* (Benazepril Hcl*) 10 Mg Tablet, 10 MG PO BID for 60 Days, TAB Prov:NORY ARCINIEGA 03/12/19 Atorvastatin* (Atorvastatin*) 80 Mg Tablet, 80 MG PO HS for 30 Days, TAB Prov:NORY ARCINIEGA 03/12/19 Insulin Aspart* (Novolog Insulin Pen*) 100 Unit/Ml Soln, 0 SC .SLIDING SCALE AC for 60 Days, EA Prov:NORY ARCINIEGA 03/12/19 Carvedilol* (Carvedilol*) 6.25 Mg Tablet, 6.25 MG PO BID for 60 Days, #120 TAB Prov:NORY ARCINIEGA 03/12/19 Bisacodyl* (Dulcolax*) 5 Mg Tablet.dr, 5 MG PO BID for 60 Days, TAB Prov:NORY ARCINIEGA 03/12/19 Reported Medications Insulin Glargine* (Lantus*) 100 Unit/Ml Soln, 35 UNITS SC QHS INJECT 30 UNITS SUBCUTANEOUSLY AT BEDTIME FOR 30 DAYS 05/26/19 Metformin Hcl* (Metformin Hcl*) 1,000 Mg Tablet, 1000 MG PO BID for 30 Days, #60 TAKE 1 TABLET BY MOUTH TWICE DAILY WITH FOOD FOR 30 DAYS 05/26/19 Lisinopril* (Lisinopril*) 40 Mg Tablet, 40 MG PO DAILY for 30 Days, #30 TAKE ONE TABLET BY MOUTH EVERY DAY FOR 30 DAYS 05/26/19 Nitroglycerin* (Nitrostat*) 0.4 Mg Tab.subl, 0.4 MG SL Q5MIN PRN for CHEST PAIN, BOTTLE 01/24/19 Discontinued Scripts Apixaban* (Eliquis*) 5 Mg Tablet, 5 MG PO BID for 60 Days, TAB Prov:NORY ARCINIEGA 03/12/19 Clopidogrel Bisulfate (Clopidogrel) 75 Mg Tablet, 75 MG PO DAILY, #30 TAB Prov:NORY ARCINIEGA 03/12/19 Pantoprazole* (Protonix*) 40 Mg Tablet.dr, 40 MG PO DAILY for 60 Days, TAB Prov:NORY ARCINIEGA 03/12/19 Docusate Sodium* (Colace*) 100 Mg Capsule, 100 MG PO BID, #60 CAP Prov:NORY ARCINIEGA 03/12/19 Current Medications Ondansetron HCl (Zofran Inj) 4 mg Q6H PRN IV NAUSEA AND/OR VOMITING; Start 05/26/19 at 23:00 Acetaminophen (Tylenol Tab) 650 mg Q6H PRN PO MILD PAIN(1-3)OR ELEVATED TEMP; Start 05/26/19 at 23:00 Atorvastatin Calcium (Lipitor) 80 mg HS PO Last administered on 06/01/19at 20:34; Admin Dose 80 MG; Start 05/27/19 at 21:00 Benazepril HCl (Lotensin) 10 mg BID PO Last administered on 06/01/19at 20:34; Admin Dose 10 MG; Start 05/27/19 at 09:00 Bisacodyl (Dulcolax) 5 mg BID PO Last administered on 06/01/19at 20:34; Admin Dose 5 MG; Start 05/27/19 at 09:00 Hydralazine HCl (Apresoline) 25 mg Q8 PO Last administered on 06/02/19at 06:01; Admin Dose 25 MG; Start 05/27/19 at 06:00 Nitroglycerin (Nitroglycerin (Sl Tab) 0.4 Mg) 1 tab [id number] PRN SL CHEST PAIN; Start 05/26/19 at 23:00 Diagnostic Test (Pha) (Accu-Chek) 1 ea AC MEALS AND BEDTIME XX Last administered on 06/01/19at 20:38; Admin Dose 1 EA; Start 05/27/19 at 07:00 Insulin Aspart (Novolog Insulin Pen) NOVOLOG *MILD* ALGORITHM WITH MEALS BEDTIME SC Last administered on 06/01/19at 08:42; Admin Dose 1 UNIT; Start 05/27/19 at 08:00 Miscellaneous Information 1 ea NOTE XX ; Start 05/30/19 at 14:30 Glucose (Glutose) 15 gm Q15M PRN PO DECREASED GLUCOSE; Start 05/30/19 at 14:30 Glucose (Glutose) 22.5 gm Q15M PRN PO DECREASED GLUCOSE; Start 05/30/19 at 14:30 Dextrose (D50w Syringe) 25 ml Q15M PRN IV DECREASED GLUCOSE; Start 05/30/19 at 14:30 Dextrose (D50w Syringe) 50 ml Q15M PRN IV DECREASED GLUCOSE; Start 05/30/19 at 14:30 Glucagon (Glucagen) 1 mg Q15M PRN IM DECREASED GLUCOSE; Start 05/30/19 at 14:30 Glucose (Glutose) 15 gm Q15M PRN BUCCAL DECREASED GLUCOSE; Start 05/30/19 at 14:30 Furosemide (Lasix) 40 mg DAILY@0600 IV Last administered on 06/02/19at 06:01; Admin Dose 40 MG; Start 06/01/19 at 06:00 Insulin Glargine (Lantus) 12 units QHS SC Last administered on 05/31/19at 21:19; Admin Dose 12 UNITS; Start 05/31/19 at 21:00 Meds reviewed: Yes Allergies Coded Allergies: No Known Drug Allergies (Verified Allergy, Mild, 03/07/19) Allergies Reviewed: Yes Labs/Studies Labs Reviewed: Reviewed by anesthesiologist Result Diagram: 05/29/19 0516 06/02/19 0531 Laboratory Tests 06/02/19 05:31 test: N/A Pre-procedure Exam Last vitals Vital Signs Date Temp Pulse Resp B/P (MAP) Pulse Ox O2 O2 Flow FiO2 Time Delivery Rate 06/02/19 98.1 60 17 125/66 99 04:24 (85) 06/02/19 2.0 03:10 06/01/19 Nasal 21:48 Cannula Airway: Adequate mouth opening, Adequate thyromental dist Mallampati: Mallampati II Teeth: Normal Lung: Normal Heart: Normal ASA Physical Status ASA physical status: 3 Emergency: None Planned Anesthetic General/MAC: Mask Planned Pain Management Parenteral pain med, Local by surgeon Pre-operative Attestations Prior to commencing anesthesia and surgery, the patient was re-evaluated, there was verification of: *The patient's identity *The results of appropriate recent lab work and preoperative vital signs *The above evaluation not changing prior to induction *Anesthetic plan, risk benefits, alternative and complications discussed with pa tient/family; questions answered; patient/family understands, accepts and wishes to proceed. Public Relations Coordinator used JESE ELISE MD Jun 02, 2019 07:22
[2019-06-02] MEDS ORDERED: IODIXANOL LOCM 100 ML BTL ONE (07:23)
[2019-06-02] MEDS ORDERED: SOD CHLORIDE 0.9% 1,000 ML ONE (07:23)
[2019-06-02] MEDS ORDERED: BUPIVACAINE 0.5% (SDV) 30 ML INJ ONE (07:23)
[2019-06-02] MEDS ORDERED: LIDOCAINE 1% (MDV) 20 ML INJ ONE (07:23)
[2019-06-02] MEDS ORDERED: DIPHENHYDRAMINE 50 MG INJ IV PRN (07:30)
[2019-06-02] MEDS ORDERED: PROCHLORPERAZINE 10 MG INJ IV PRN (07:30)
[2019-06-02] MEDS ORDERED: MEPERIDINE 25 MG INJ IV PRN (07:30)
[2019-06-02] MEDS ORDERED: HYDROmorphONE 1 MG/5 ML IV SYRINGE IV PRN ×2 (07:30)
[2019-06-02] MEDS ORDERED: FENTAnyl 50 MCG/ML VIAL IV PRN (07:30)
[2019-06-02] MEDS ORDERED: ONDANSETRON 4 MG INJ IV PRN (07:30)
[2019-06-02] MEDS ORDERED: FENTAnyl 50 MCG/ML VIAL ONE (07:43)
[2019-06-02] MEDS ORDERED: MIDAZOLAM 1 MG/ML 2 ML INJ ONE (07:43)
[2019-06-02] MEDS ORDERED: PROPOFOL 40 ML ONE (07:43)
[2019-06-02] MEDS: INSULIN ASPART [NOVOLOG] 3 ML PEN SC SCH ×4 (08:00→21:27)
--- NOTE | 2019-06-02 08:38 | CONS ---
Consult Date/Type/Reason Admit Date/Time May 26, 2019 at 20:40 Initial Consult Date Requesting Provider: BART LEMONS MD Date/Time of Note DATE: 06/02/19 TIME: 08:36 Subjective No acute events - pt here for ICD - will hold anti-coagulation post procedure and add BB ROS: No fever, no chills, no nausea, no vomiting, no diarrhea/constipation No recent weight changes No chest pain, no PND, no orthopnea - mild SOB No dizziness, blurred vision No thirst, no heat or cold intolerance Objective Vitals Vital Signs Date Temp Pulse Resp B/P (MAP) Pulse Ox O2 O2 Flow FiO2 Time Delivery Rate 06/02/19 98.1 60 17 125/66 99 04:24 (85) 06/02/19 2.0 03:10 06/01/19 Nasal 21:48 Cannula Intake and Output 06/01/19 06/01/19 06/02/19 1515:00 23:00 07:00 IntakeIntake Total 820 ml OutputOutput Total 504 ml BalanceBalance 316 ml Exam General: WN/WD/NAD, AOx 3 HEENT: Unicetric/atraumatic/EOMI (follows commands) NECK: JVD elevated, no thyromegaly Lymph: no lymphadenopathy HEART: regular with no S3, II/ systolic murmur at apex, PMI L LUNGS: Coarse sounds ABD: soft, NT, ND, +BS : Intact Neuro: non focal SKIN: chronic changes EXT: trace edema Results/Medications Result Diagram: 05/29/19 0516 06/02/19 0531 Results 24 hrs Laboratory Tests Test 06/01/19 11:45 06/01/19 17:44 06/01/19 20:36 06/02/19 05:31 Bedside Glucose 135 131 129 Sodium Level 143 Potassium Level 3.6 Chloride Level 105 Carbon Dioxide Level 27 Anion Gap 11 Blood Urea Nitrogen 32 H Creatinine 0.89 Est Glomerular Filtrat Rate mL/min Glucose Level 151 Calcium Level 9.5 Test 06/02/19 05:32 Prothrombin Time 13.5 Prothrombin Time Ratio 1.1 INR International 1.02 Normalized Ratio Activated 31.5 Partial Thromboplast Time Home Meds Active Scripts Furosemide (Lasix) 40 Mg Tab, 40 MG PO DAILY for 30 Days, #30 TAB Prov:NORY ARCINIEGA 03/12/19 Hydralazine Hcl* (Hydralazine Hcl*) 25 Mg Tab, 25 MG PO Q8 for 30 Days, TAB Prov:NORY ARCINIEGA 03/12/19 Benazepril Hcl* (Benazepril Hcl*) 10 Mg Tablet, 10 MG PO BID for 60 Days, TAB Prov:NORY ARCINIEGA 03/12/19 Atorvastatin* (Atorvastatin*) 80 Mg Tablet, 80 MG PO HS for 30 Days, TAB Prov:NORY ARCINIEGA 03/12/19 Insulin Aspart* (Novolog Insulin Pen*) 100 Unit/Ml Soln, 0 SC .SLIDING SCALE AC for 60 Days, EA Prov:NORY ARCINIEGA 03/12/19 Carvedilol* (Carvedilol*) 6.25 Mg Tablet, 6.25 MG PO BID for 60 Days, #120 TAB Prov:NORY ARCINIEGA 03/12/19 Bisacodyl* (Dulcolax*) 5 Mg Tablet.dr, 5 MG PO BID for 60 Days, TAB Prov:NORY ARCINIEGA 03/12/19 Reported Medications Insulin Glargine* (Lantus*) 100 Unit/Ml Soln, 35 UNITS SC QHS INJECT 30 UNITS SUBCUTANEOUSLY AT BEDTIME FOR 30 DAYS 05/26/19 Metformin Hcl* (Metformin Hcl*) 1,000 Mg Tablet, 1000 MG PO BID for 30 Days, #60 TAKE 1 TABLET BY MOUTH TWICE DAILY WITH FOOD FOR 30 DAYS 05/26/19 Lisinopril* (Lisinopril*) 40 Mg Tablet, 40 MG PO DAILY for 30 Days, #30 TAKE ONE TABLET BY MOUTH EVERY DAY FOR 30 DAYS 05/26/19 Nitroglycerin* (Nitrostat*) 0.4 Mg Tab.subl, 0.4 MG SL Q5MIN PRN for CHEST PAIN, BOTTLE 01/24/19 Discontinued Scripts Apixaban* (Eliquis*) 5 Mg Tablet, 5 MG PO BID for 60 Days, TAB Prov:NORY ARCINIEGA 03/12/19 Clopidogrel Bisulfate (Clopidogrel) 75 Mg Tablet, 75 MG PO DAILY, #30 TAB Prov:NORY ARCINIEGA 03/12/19 Pantoprazole* (Protonix*) 40 Mg Tablet.dr, 40 MG PO DAILY for 60 Days, TAB Prov:NORY ARCINIEGA 03/12/19 Docusate Sodium* (Colace*) 100 Mg Capsule, 100 MG PO BID, #60 CAP Prov:NORY ARCINIEGA 03/12/19 Medications Current Medications Ondansetron HCl (Zofran Inj) 4 mg Q6H PRN IV NAUSEA AND/OR VOMITING; Start 05/26/19 at 23:00 Acetaminophen (Tylenol Tab) 650 mg Q6H PRN PO MILD PAIN(1-3)OR ELEVATED TEMP; Start 05/26/19 at 23:00 Atorvastatin Calcium (Lipitor) 80 mg HS PO Last administered on 06/01/19 20:34; Admin Dose 80 MG; Start 05/27/19 at 21:00 Benazepril HCl (Lotensin) 10 mg BID PO Last administered on 06/01/19 20:34; Admin Dose 10 MG; Start 05/27/19 at 09:00 Bisacodyl (Dulcolax) 5 mg BID PO Last administered on 06/01/19 20:34; Admin Dose 5 MG; Start 05/27/19 at 09:00 Hydralazine HCl (Apresoline) 25 mg Q8 PO Last administered on 06/02/19at 06:01; Admin Dose 25 MG; Start 05/27/19 at 06:00 Nitroglycerin (Nitroglycerin (Sl Tab) 0.4 Mg) 1 tab [id number] PRN SL CHEST PAIN; Start 05/26/19 at 23:00 Diagnostic Test (Pha) (Accu-Chek) 1 ea AC MEALS AND BEDTIME XX Last administered on 06/01/19at 20:38; Admin Dose 1 EA; Start 05/27/19 at 07:00 Insulin Aspart (Novolog Insulin Pen) NOVOLOG *MILD* ALGORITHM WITH MEALS BEDTIME SC Last administered on 06/01/19at 08:42; Admin Dose 1 UNIT; Start 05/27/19 at 08:00 Miscellaneous Information 1 ea NOTE XX ; Start 05/30/19 at 14:30 Glucose (Glutose) 15 gm Q15M PRN PO DECREASED GLUCOSE; Start 05/30/19 at 14:30 Glucose (Glutose) 22.5 gm Q15M PRN PO DECREASED GLUCOSE; Start 05/30/19 at 14:30 Dextrose (D50w Syringe) 25 ml Q15M PRN IV DECREASED GLUCOSE; Start 05/30/19 at 14:30 Dextrose (D50w Syringe) 50 ml Q15M PRN IV DECREASED GLUCOSE; Start 05/30/19 at 14:30 Glucagon (Glucagen) 1 mg Q15M PRN IM DECREASED GLUCOSE; Start 05/30/19 at 14:30 Glucose (Glutose) 15 gm Q15M PRN BUCCAL DECREASED GLUCOSE; Start 05/30/19 at 14: 30 Furosemide (Lasix) 40 mg DAILY@0600 IV Last administered on 06/02/19at 06:01; Admin Dose 40 MG; Start 06/01/19 at 06:00 Insulin Glargine (Lantus) 12 units QHS SC Last administered on 05/31/19at 21:19; Admin Dose 12 UNITS; Start 05/31/19 at 21:00 Hydromorphone HCl (Dilaudid) 0.2 mg PACU PRN IV MILD PAIN 1-3; Start 06/02/19 at 07:30; Stop 06/02/19 at 12:00 Hydromorphone HCl (Dilaudid) 0.4 mg PACU PRN IV MOD PAIN 4-6; Start 06/02/19 at 07:30; Stop 06/02/19 at 12:00 Fentanyl (Sublimaze) 25 mcg PACU ORDER PRN IV MILD PAIN 1-3; Start 06/02/19 at 07:30; Stop 06/02/19 at 12:00 Ondansetron HCl (Zofran Inj) 4 mg PACU ORDER PRN IV NAUSEA/VOMITING; Start 06/02/19 at 07:30; Stop 06/02/19 at 12:00 Prochlorperazine (Compazine Inj) 5 mg PACU ORDER PRN IV NAUSEA/VOMITING; Start 06/02/19 at 07:30; Stop 06/02/19 at 12:00 Meperidine HCl (Demerol) 25 mg PACU ORDER PRN IV .RIGORS; Start 06/02/19 at 07:30; Stop 06/02/19 at 12:00 Diphenhydramine HCl (Benadryl) 25 mg PACU ORDER PRN IV .PRURITUS; Start 06/02/19 at 07:30; Stop 06/02/19 at 12:00 Assessment/Plan Hospital Course (Demo Recall) 1. Syncope - suggestive of post voiding syncope, con't to monitor - pt comfortable - denies CP. Stress test done - EF low with no reversible disease - ICD today resume Eliquis tomorrow if no bleeding, SCD today. 2. CMY - per additional information provided -pt was not truly compliant with her medical Rx - will facilitate Stress test now to acces reversibility if any. NO tachy-an symptoms here.Pt has indication for ICD now - will try to obtain consent. No VT/VF now. ICD planned. 3. CHF - better now, pt feels more comfortable. Improved. 4. HTN - well controlled - con't med rx. Treated. 6. Dizzy - resolved now. Will follow. ANATOLIY MCGARRY MD Jun 02, 2019 08:38
--- NOTE | 2019-06-02 08:39 | SIPON ---
Date/Time of Note Date/Time of Note DATE: 06/02/19 TIME: 08:38 Operative Report Preoperative Diagnosis Isch MNY EF < 25%, CHF, syncope, Class II Sx and a. fib # [id number] Postoperative Diagnosis Same Operation/Procedure Performed ICD placement VVI 60 [employer] Surgeon see signature line certified anesthesiologist assistant none Anesthesia: MAC Estimated blood loss: minimal Transfusion Required none Specimen ICD Grafts/Implants none Complications none ANATOLIY MCGARRY MD Jun 02, 2019 08:39
--- NOTE | 2019-06-02 08:56 | PAC ---
Date/Time of Note Date/Time of Note DATE: 06/02/19 TIME: 08:55 Post-Anesthesia Notes Post-Anesthesia Note Last documented vital signs Vital Signs Date Temp Pulse Resp B/P (MAP) Pulse Ox O2 O2 Flow FiO2 Time Delivery Rate 06/02/19 98.1 60 17 125/66 99 04:24 (85) 06/02/19 2.0 03:10 06/01/19 Nasal 21:48 Cannula Activity: WNL Respiratory function: WNL Cardiovascular function: WNL Mental status: Baseline Pain reasonably controlled: Yes Hydration appropriate: Yes Nausea/Vomiting absent: Yes Comments BP: 128/80 HR: 84 RR: 15 T: 99.6 SaO2: 99% JESE ELISE MD Jun 02, 2019 08:56
--- NOTE | 2019-06-02 08:56 | SP ---
DATE OF PROCEDURE: REFERRING PHYSICIAN: Mira Lemons MD REASON FOR IMPLANTATION: Ischemic cardiomyopathy, ejection fraction 25%, class 2 heart failure. Goo d medical therapy without potential reversible disease. Also syncope. POSTPROCEDURE DIAGNOSIS: Ischemic cardiomyopathy, ejection fraction 25%, class 2 heart failure. Good medical therapy without potential reversible disease. Also syncope. PROCEDURE PERFORMED: 1. Single chamber ICD implantation. 2. Device check without EVT/VF induction. 3. Upper extremity venogram with interpretation. Fluoroscopy with interpretation. DEVICE INFORMATION: The implanted device is [employer] ICD Assura VR 1357-40Q, serial #[id number] . RV lead is a Durata 7120Q 58 cm lead. BMP [id number]. Acute thresholds R-wave of 9.9 millivolts, thr eshold 0.5 volts at 0.5 msec, lead impedance 190 ohms. Shock impedance without VT induction is 84 oh ms. DEVICE SETTING: The device is set at VVI 60. VT zone at 150, VT2 zone at 180 with ATP during charge VF zone is 200, atrial fibrillation with discriminators are on. DESCRIPTION OF PROCEDURE: The informed consent was obtained, the patient was brought into heart stat ion in fasting condition. Anesthesiologist supervised airway sedation. The patient had the left-krista e of the chest prepped and draped in usual sterile fashion, 1% lidocaine was used for local analgesia . Antibiotics were given. Using #10 scalpel, a 3 cm incision was made. Using cautery and blunt dis section, the pocket was created through the muscle layer. Upper extremity venogram was performed. S ubclavian vein was cannulated using modified Seldinger technique and J-wire passed easily. Using an 8-Omani sheath as a base, RV lead was advanced to RV apex and positioned at the apex. It was active ly fixed. Some slack was left inside the lead and the sheath was sutured to the muscle layer with 0 Ethibond sutures. The lead was attached to the generator. The pocket was irrigated with antibiotic solutions and this was placed inside the pocket. The skin was closed with multiple layers of 2-0 Jean Carlos ryl sutures. Steri-Strips were placed on top of the incision. The patient tolerated the procedure w ell. She is going to have a postoperative chest x-ray. We are going to hold off on her anticoagulat ion for 24 hours and we will follow her up in the office. I would like to thank Dr. Lemons, Dr. Quiroz for referring this patient for my evaluation. Dictated By: ANATOLIY MCGARRY MD ML/NTS Conf#: [id number] DID#: [id number] CC: MYRTLE QUIROZ MD; MIRA LEMONS;*EndCC*
[2019-06-02] MEDS: BENAZEPRIL 10 MG TAB PO SCH ×2 (09:00→21:24)
--- NOTE | 2019-06-02 12:38 | PN ---
Date/Time of Note Date/Time of Note DATE: 06/02/19 TIME: 12:37 Assessment/Plan VTE Prophylaxis Risk score (from Nsg)>0 risk: 2 SCD applied (from Nsg): Yes Pharmacological prophylaxis: apixaban Lines/Catheters IV Catheter Type (from Nrsg): Peripheral IV Urinary Cath still in place: No Assessment/Plan Hospital Course # Acute on chronic CHF exacerbation. Pulmonary edema # HTN emergency likely due to running out of meds, like in previous admission # Hx non-ST elevation myocardial infarction, status post coronary angiogram with a single vessel obstructive coronary artery disease in the right coronary artery, status post PTCA and stent placement on #. Cardiomyopathy with ejection fraction of 30 to 35%. #. History of atrial fibrillation, rate control # Diabetes mellitus type II, uncontrolled # Obesity # Hyperlipidemia # Noncompliance, pt does not take medication regularly, does not have a PCP # Hx non-ST elevation myocardial infarction, status post coronary angiogram with a single vessel obstructive coronary artery disease in the right coronary artery, status post PTCA # Syncope, likely cardiac related . S/p ACID placement POD 0 # hypothyroidism Assessment/Plan -AICD done -start Levothyroxine - Eliquis held due to AICD placement, restart 2 days -Continue with hydralazine/benazepril - cw lantus 12 , held NPO -CW with Lasix 40 IV daily, chest x-ray is much improved -GI proph. Protonix po -fluid restrictions 1 l -spoke to case management to help family to find a PCP Result Diagram: 05/29/19 0516 06/02/19 0531 Results 24hrs Laboratory Tests Test 06/01/19 17:44 06/01/19 20:36 06/02/19 05:31 06/02/19 05:32 Bedside Glucose 131 129 Sodium Level 143 Potassium Level 3.6 Chloride Level 105 Carbon Dioxide Level 27 Anion Gap 11 Blood Urea Nitrogen 32 H Creatinine 0.89 Est Glomerular Filtrat Rate mL/min Glucose Level 151 Calcium Level 9.5 Prothrombin Time 13.5 Prothrombin Time Ratio 1.1 INR International 1.02 Normalized Ratio Activated 31.5 Partial Thromboplast Time Subjective 24 Hr Interval Summary Cardiovascular: chest pain Exam/Review of Systems Exam Vitals Vital Signs Date Temp Pulse Resp B/P (MAP) Pulse Ox O2 O2 Flow FiO2 Time Delivery Rate 06/02/19 98.0 67 20 140/58 100 12:06 (85) 06/02/19 Nasal 2.0 10:59 Cannula Intake and Output 06/01/19 06/01/19 06/02/19 1414:59 22:59 06:59 IntakeIntake Total 820 ml OutputOutput Total 504 ml BalanceBalance 316 ml Exam left chest surg. wound Constitutional: alert, oriented Respiratory: clear to auscultation Cardiovascular: other (paced) Gastrointestinal: soft Results Results 24hrs Laboratory Tests Test 06/01/19 17:44 06/01/19 20:36 06/02/19 05:31 06/02/19 05:32 Bedside Glucose 131 129 Sodium Level 143 Potassium Level 3.6 Chloride Level 105 Carbon Dioxide Level 27 Anion Gap 11 Blood Urea Nitrogen 32 H Creatinine 0.89 Est Glomerular Filtrat Rate mL/min Glucose Level 151 Calcium Level 9.5 Prothrombin Time 13.5 Prothrombin Time Ratio 1.1 INR International 1.02 Normalized Ratio Activated 31.5 Partial Thromboplast Time Medications Medication Current Medications Ondansetron HCl (Zofran Inj) 4 mg Q6H PRN IV NAUSEA AND/OR VOMITING; Start 05/26/19 at 23:00 Acetaminophen (Tylenol Tab) 650 mg Q6H PRN PO MILD PAIN(1-3)OR ELEVATED TEMP; Start 05/26/19 at 23:00 Atorvastatin Calcium (Lipitor) 80 mg HS PO Last administered on 06/01/19at 20:34; Admin Dose 80 MG; Start 05/27/19 at 21:00 Benazepril HCl (Lotensin) 10 mg BID PO Last administered on 06/01/19at 20:34; Admin Dose 10 MG; Start 05/27/19 at 09:00 Bisacodyl (Dulcolax) 5 mg BID PO Last administered on 06/01/19at 20:34; Admin Dose 5 MG; Start 05/27/19 at 09:00 Hydralazine HCl (Apresoline) 25 mg Q8 PO Last administered on 06/02/19at 06:01; Admin Dose 25 MG; Start 05/27/19 at 06:00 Nitroglycerin (Nitroglycerin (Sl Tab) 0.4 Mg) 1 tab [id number] PRN SL CHEST PAIN; Start 05/26/19 at 23:00 Diagnostic Test (Pha) (Accu-Chek) 1 ea AC MEALS AND BEDTIME XX Last administered on 06/01/19at 20:38; Admin Dose 1 EA; Start 05/27/19 at 07:00 Insulin Aspart (Novolog Insulin Pen) NOVOLOG *MILD* ALGORITHM WITH MEALS BEDTIME SC Last administered on 06/01/19at 08:42; Admin Dose 1 UNIT; Start 05/27/19 at 08:00 Miscellaneous Information 1 ea NOTE XX ; Start 05/30/19 at 14:30 Glucose (Glutose) 15 gm Q15M PRN PO DECREASED GLUCOSE; Start 05/30/19 at 14:30 Glucose (Glutose) 22.5 gm Q15M PRN PO DECREASED GLUCOSE; Start 05/30/19 at 14:30 Dextrose (D50w Syringe) 25 ml Q15M PRN IV DECREASED GLUCOSE; Start 05/30/19 at 14:30 Dextrose (D50w Syringe) 50 ml Q15M PRN IV DECREASED GLUCOSE; Start 05/30/19 at 14:30 Glucagon (Glucagen) 1 mg Q15M PRN IM DECREASED GLUCOSE; Start 05/30/19 at 14:30 Glucose (Glutose) 15 gm Q15M PRN BUCCAL DECREASED GLUCOSE; Start 05/30/19 at 14:30 Furosemide (Lasix) 40 mg DAILY@0600 IV Last administered on 06/02/19at 06:01; Admin Dose 40 MG; Start 06/01/19 at 06:00 Insulin Glargine (Lantus) 12 units QHS SC Last administered on 05/31/19at 21:19; Admin Dose 12 UNITS; Start 05/31/19 at 21:00 NORY ARCINIEGA Jun 02, 2019 12:38
[2019-06-02] MEDS: BISACODYL (EC) 5 MG TAB PO SCH ×2 (13:01→21:24)
--- NOTE | 2019-06-02 13:55 | RADRPT ---
Vent Rate: 85 bpm RR Interval: 687 msec WI Interval: [id number] msec QRS Duration: 110 msec QT Interval: 414 msec QTC Interval: 499 msec P-R-T Wana: [id number] - -18 - 168 degrees Atrial fibrillation...V-rate 64-104, irreg A-activity Ventricular premature complex...V complex w/ short R-R interval Consider anterior infarct...Q >30mS in V2-V5 Abnormal T, consider ischemia, lateral leads...T <-0.20mV, I aVL V5 V6 Electronically Signed By: Margarito Whitehead
[2019-06-02] MEDS: ATORVASTATIN 80 MG TAB PO SCH (21:23)
[2019-06-02] MEDS: INSULIN GLARGINE [LANTus] (100 UNITS/ML) SYG SC SCH (21:28)
[2019-06-03] VITALS (7 sets, daily range): BP systolic 123–163; BP diastolic 75–93; PULSE 55–80; RESP 18–20
[2019-06-03] MEDS: LEVOTHYROXINE 25 MCG TAB PO SCH (05:28)
[2019-06-03] MEDS: FUROSEMIDE 40 MG INJ IV SCH (05:30)
[2019-06-03] MEDS: ACCU-CHEK XX SCH ×4 (06:13→20:28)
[2019-06-03] MEDS: INSULIN ASPART [NOVOLOG] 3 ML PEN SC SCH ×4 (07:53→20:27)
[2019-06-03] MEDS: BENAZEPRIL 10 MG TAB PO SCH ×2 (08:30→20:27)
[2019-06-03] MEDS: BISACODYL (EC) 5 MG TAB PO SCH ×2 (08:30→20:27)
--- NOTE | 2019-06-03 11:17 | PN ---
Date/Time of Note Date/Time of Note DATE: 06/03/19 TIME: 11:14 Assessment/Plan VTE Prophylaxis Risk score (from Ns)>0 risk: 4 SCD applied (from Ns): Yes Pharmacological prophylaxis: NA/contraindicated Pharm contraindication: surgical contra Lines/Catheters [facility] [place] [facility] Urinary Cath still in place: No Assessment/Plan Hospital Course # Acute on chronic CHF exacerbation. Pulmonary edema # HTN emergency likely due to running out of meds, like in previous admission # Hx non-ST elevation myocardial infarction, status post coronary angiogram with a single vessel obstructive coronary artery disease in the right coronary artery, status post PTCA and stent placement on #. Cardiomyopathy with ejection fraction of 30 to 35%. #. History of atrial fibrillation, rate control # Diabetes mellitus type II, uncontrolled # Obesity # Hyperlipidemia # Noncompliance, pt does not take medication regularly, does not have a PCP # Hx non-ST elevation myocardial infarction, status post coronary angiogram with a single vessel obstructive coronary artery disease in the right coronary artery, status post PTCA # Syncope, likely cardiac related . S/p ACID placement POD 0 # hypothyroidism # diarrhea Assessment/Plan -AICD done -c diff collect stool -dc planning: ambulate, wean off oxygen -keep left arm is on immobilizer for 1 week -c/w Levothyroxine - Eliquis held due to AICD placement, restart tomorrow -Continue with hydralazine/benazepril, start Amlodipine - cw lantus 12 -CW with Lasix 40 IV daily, chest x-ray is much improved -GI proph. Protonix po -fluid restrictions 1 l -spoke to case management to help family to find a PCP Result Diagram: 06/03/1951706/03/19517 Results 24hrs Laboratory Tests Test 06/02/19 12:56 06/02/19 18:06 06/02/19 20:11 06/03/19 05:18 Bedside Glucose 162 138 209 White Blood Count 9.3 Red Blood Count 4.60 Hemoglobin 14.4 Hematocrit 43.3 Mean Corpuscular Volume 94.1 Mean Corpuscular 31.3 Hemoglobin Mean Corpuscular 33.3 Hemoglobin Concent Red Cell Distribution 13.2 Width Platelet Count 200 Mean Platelet Volume 11.0 H Immature Granulocytes % 0.200 Neutrophils % 61.7 Lymphocytes % 24.7 Monocytes % 9.6 Eosinophils % 3.1 Basophils % 0.7 Nucleated Red Blood 0.0 Cells % Immature Granulocytes # 0.020 Neutrophils # 5.8 Lymphocytes # 2.3 Monocytes # 0.9 Eosinophils # 0.3 Basophils # 0.1 Nucleated Red Blood 0.0 Cells # Sodium Level 142 Potassium Level 3.5 Chloride Level 106 Carbon Dioxide Level 27 Anion Gap 9 Blood Urea Nitrogen 24 H Creatinine 0.88 Est Glomerular Filtrat Rate mL/min Glucose Level 128 Calcium Level 9.3 Test 06/03/19 06:13 06/03/19 07:33 Bedside Glucose 148 141 Subjective 24 Hr Interval Summary Constitutional: improved Gastrointestinal: diarrhea Exam/Review of Systems Exam Vitals Vital Signs Date Temp Pulse Resp B/P (MAP) Pulse Ox O2 O2 Flow FiO2 Time Delivery Rate 06/03/19 98.0 66 20 163/87 95 Nasal 10:53 (112) Cannula 06/03/19 2.0 07:55 Intake and Output 06/02/19 06/02/19 06/03/19 1515:00 23:00 07:00 IntakeIntake Total 940 ml 240 ml OutputOutput Total 302 ml 400 ml BalanceBalance 638 ml -160 ml Exam left side chest surg wound Constitutional: alert, oriented Head: normocephalic Eyes: nl conjunctiva Neck: supple Respiratory: clear to auscultation Cardiovascular: regular rate and rhythm Results Results 24hrs Laboratory Tests Test 06/02/19 12:56 06/02/19 18:06 06/02/19 20:11 06/03/19 05:18 Bedside Glucose 162 138 209 White Blood Count 9.3 Red Blood Count 4.60 Hemoglobin 14.4 Hematocrit 43.3 Mean Corpuscular Volume 94.1 Mean Corpuscular 31.3 Hemoglobin Mean Corpuscular 33.3 Hemoglobin Concent Red Cell Distribution 13.2 Width Platelet Count 200 Mean Platelet Volume 11.0 H Immature Granulocytes % 0.200 Neutrophils % 61.7 Lymphocytes % 24.7 Monocytes % 9.6 Eosinophils % 3.1 Basophils % 0.7 Nucleated Red Blood 0.0 Cells % Immature Granulocytes # 0.020 Neutrophils # 5.8 Lymphocytes # 2.3 Monocytes # 0.9 Eosinophils # 0.3 Basophils # 0.1 Nucleated Red Blood 0.0 Cells # Sodium Level 142 Potassium Level 3.5 Chloride Level 106 Carbon Dioxide Level 27 Anion Gap 9 Blood Urea Nitrogen 24 H Creatinine 0.88 Est Glomerular Filtrat Rate mL/min Glucose Level 128 Calcium Level 9.3 Test 06/03/19 06:13 06/03/19 07:33 Bedside Glucose 148 141 Medications Medication Current Medications Ondansetron HCl (Zofran Inj) 4 mg Q6H PRN IV NAUSEA AND/OR VOMITING; Start 05/26/19 at 23:00 Acetaminophen (Tylenol Tab) 650 mg Q6H PRN PO MILD PAIN(1-3)OR ELEVATED TEMP; Start 05/26/19 at 23:00 Atorvastatin Calcium (Lipitor) 80 mg HS PO Last administered on 06/02/19at 21:23; Admin Dose 80 MG; Start 05/27/19 at 21:00 Benazepril HCl (Lotensin) 10 mg BID PO Last administered on 06/03/19at 08:30; Admin Dose 10 MG; Start 05/27/19 at 09:00 Bisacodyl (Dulcolax) 5 mg BID PO Last administered on 06/03/19at 08:30; Admin Dose 5 MG; Start 05/27/19 at 09:00 Hydralazine HCl (Apresoline) 25 mg Q8 PO Last administered on 06/03/19 05:29; Admin Dose 25 MG; Start 05/27/19 at 06:00 Nitroglycerin (Nitroglycerin (Sl Tab) 0.4 Mg) 1 tab [id number] PRN SL CHEST PAIN; Start 05/26/19 at 23:00 Diagnostic Test (Pha) (Accu-Chek) 1 ea AC MEALS AND BEDTIME XX Last administered on 06/03/19at 06:13; Admin Dose 1 EA; Start 05/27/19 at 07:00 Insulin Aspart (Novolog Insulin Pen) NOVOLOG *MILD* ALGORITHM WITH MEALS BEDTIME SC Last administered on 06/03/19at 07:53; Admin Dose 1 UNIT; Start 05/27/19 at 08:00 Miscellaneous Information 1 ea NOTE XX ; Start 05/30/19 at 14:30 Glucose (Glutose) 15 gm Q15M PRN PO DECREASED GLUCOSE; Start 05/30/19 at 14:30 Glucose (Glutose) 22.5 gm Q15M PRN PO DECREASED GLUCOSE; Start 05/30/19 at 14:30 Dextrose (D50w Syringe) 25 ml Q15M PRN IV DECREASED GLUCOSE; Start 05/30/19 at 14:30 Dextrose (D50w Syringe) 50 ml Q15M PRN IV DECREASED GLUCOSE; Start 05/30/19 at 14:30 Glucagon (Glucagen) 1 mg Q15M PRN IM DECREASED GLUCOSE; Start 05/30/19 at 14:30 Glucose (Glutose) 15 gm Q15M PRN BUCCAL DECREASED GLUCOSE; Start 05/30/19 at 14:30 Furosemide (Lasix) 40 mg DAILY@0600 IV Last administered on 06/03/19at 05:30; Admin Dose 40 MG; Start 06/01/19 at 06:00 Insulin Glargine (Lantus) 12 units QHS SC Last administered on 06/02/19at 21:28; Admin Dose 12 UNITS; Start 05/31/19 at 21:00 Levothyroxine Sodium (Synthroid) 25 mcg DAILY@06 PO Last administered on 06/03/19at 05:28; Admin Dose 25 MCG; Start 06/03/19 at 06:00 NORY ARCINIEGA Jun 03, 2019 11:17
[2019-06-03] MEDS: AMLODIPINE 10 MG TAB PO SCH (11:39)
--- NOTE | 2019-06-03 12:09 | CONS ---
Consult Date/Type/Reason Admit Date/Time May 26, 2019 at 20:40 Initial Consult Date Requesting Provider: BART LEMONS MD Date/Time of Note DATE: 06/03/19 TIME: 12:07 Subjective No acute events - BP on high side - ICD site looks well, resume Eliquis now - add BB for chiara rate control. ROS: No fever, no chills, no nausea, no vomiting, no diarrhea/constipation No recent weight changes No chest pain, no PND, no orthopnea No dizziness, blurred vision No thirst, no heat or cold intolerance Objective Vitals Vital Signs Date Temp Pulse Resp B/P (MAP) Pulse Ox O2 O2 Flow FiO2 Time Delivery Rate 06/03/19 98.0 66 20 163/87 95 Nasal 10:53 (112) Cannula 06/03/19 2.0 07:55 Intake and Output 06/02/19 06/02/19 06/03/19 1515:00 23:00 07:00 IntakeIntake Total 940 ml 240 ml OutputOutput Total 302 ml 400 ml BalanceBalance 638 ml -160 ml Exam General: WN/WD/NAD, AOx 3 HEENT: Unicetric/atraumatic/EOMI (follow commands) NECK: JVD elevated, no thyromegaly Lymph: no lymphadenopathy HEART: irregular with no S3, II/ systolic murmur at apex, ICD site looks well. LUNGS: Coarse sounds ABD: soft, NT, ND, +BS : Intact Neuro: non focal SKIN: chronic changes EXT: trace edema Results/Medications Result Diagram: 06/03/1918 06/03/1918 Results 24 hrs Laboratory Tests Test 06/02/19 12:56 06/02/19 18:06 06/02/19 20:11 06/03/19 05:18 Bedside Glucose 162 138 209 White Blood Count 9.3 Red Blood Count 4.60 Hemoglobin 14.4 Hematocrit 43.3 Mean Corpuscular Volume 94.1 Mean Corpuscular 31.3 Hemoglobin Mean Corpuscular 33.3 Hemoglobin Concent Red Cell Distribution 13.2 Width Platelet Count 200 Mean Platelet Volume 11.0 H Immature Granulocytes % 0.200 Neutrophils % 61.7 Lymphocytes % 24.7 Monocytes % 9.6 Eosinophils % 3.1 Basophils % 0.7 Nucleated Red Blood 0.0 Cells % Immature Granulocytes # 0.020 Neutrophils # 5.8 Lymphocytes # 2.3 Monocytes # 0.9 Eosinophils # 0.3 Basophils # 0.1 Nucleated Red Blood 0.0 Cells # Sodium Level 142 Potassium Level 3.5 Chloride Level 106 Carbon Dioxide Level 27 Anion Gap 9 Blood Urea Nitrogen 24 H Creatinine 0.88 Est Glomerular Filtrat Rate mL/min Glucose Level 128 Calcium Level 9.3 Test 06/03/19 06:13 06/03/19 07:33 06/03/19 11:44 Bedside Glucose 148 141 145 Home Meds Active Scripts Furosemide (Lasix) 40 Mg Tab, 40 MG PO DAILY for 30 Days, #30 TAB Prov:NORY ARCINIEGA 03/12/19 Hydralazine Hcl* (Hydralazine Hcl*) 25 Mg Tab, 25 MG PO Q8 for 30 Days, TAB Prov:NORY ARCINIEGA 03/12/19 Benazepril Hcl* (Benazepril Hcl*) 10 Mg Tablet, 10 MG PO BID for 60 Days, TAB Prov:NORY ARCINIEGA 03/12/19 Atorvastatin* (Atorvastatin*) 80 Mg Tablet, 80 MG PO HS for 30 Days, TAB Prov:NORY ARCINIEGA 03/12/19 Insulin Aspart* (Novolog Insulin Pen*) 100 Unit/Ml Soln, 0 SC .SLIDING SCALE AC for 60 Days, EA Prov:NORY ARCINIEGA 03/12/19 Carvedilol* (Carvedilol*) 6.25 Mg Tablet, 6.25 MG PO BID for 60 Days, #120 TAB Prov:NORY ARCINIEGA 03/12/19 Bisacodyl* (Dulcolax*) 5 Mg Tablet.dr, 5 MG PO BID for 60 Days, TAB Prov:NORY ARCINIEGA 03/12/19 Reported Medications Insulin Glargine* (Lantus*) 100 Unit/Ml Soln, 35 UNITS SC QHS INJECT 30 UNITS SUBCUTANEOUSLY AT BEDTIME FOR 30 DAYS 05/26/19 Metformin Hcl* (Metformin Hcl*) 1,000 Mg Tablet, 1000 MG PO BID for 30 Days, #60 TAKE 1 TABLET BY MOUTH TWICE DAILY WITH FOOD FOR 30 DAYS 05/26/19 Lisinopril* (Lisinopril*) 40 Mg Tablet, 40 MG PO DAILY for 30 Days, #30 TAKE ONE TABLET BY MOUTH EVERY DAY FOR 30 DAYS 05/26/19 Nitroglycerin* (Nitrostat*) 0.4 Mg Tab.subl, 0.4 MG SL Q5MIN PRN for CHEST PAIN, BOTTLE 01/24/19 Medications Current Medications Ondansetron HCl (Zofran Inj) 4 mg Q6H PRN IV NAUSEA AND/OR VOMITING; Start 05/26/19 at 23:00 Acetaminophen (Tylenol Tab) 650 mg Q6H PRN PO MILD PAIN(1-3)OR ELEVATED TEMP; Start 05/26/19 at 23:00 Atorvastatin Calcium (Lipitor) 80 mg HS PO Last administered on 06/02/19at 21:23; Admin Dose 80 MG; Start 05/27/19 at 21:00 Benazepril HCl (Lotensin) 10 mg BID PO Last administered on 06/03/19 08:30; Admin Dose 10 MG; Start 05/27/19 at 09:00 Bisacodyl (Dulcolax) 5 mg BID PO Last administered on 06/03/19at 08:30; Admin Dose 5 MG; Start 05/27/19 at 09:00 Hydralazine HCl (Apresoline) 25 mg Q8 PO Last administered on 06/03/19 05:29; Admin Dose 25 MG; Start 05/27/19 at 06:00 Nitroglycerin (Nitroglycerin (Sl Tab) 0.4 Mg) 1 tab [id number] PRN SL CHEST PAIN; Start 05/26/19 at 23:00 Diagnostic Test (Pha) (Accu-Chek) 1 ea AC MEALS AND BEDTIME XX Last administered on 06/03/19at 11:39; Admin Dose 1 EA; Start 05/27/19 at 07:00 Insulin Aspart (Novolog Insulin Pen) NOVOLOG *MILD* ALGORITHM WITH MEALS BEDTIME SC Last administered on 06/03/19 11:48; Admin Dose 1 UNIT; Start 05/27/19 at 08:00 Miscellaneous Information 1 ea NOTE XX ; Start 05/30/19 at 14:30 Glucose (Glutose) 15 gm Q15M PRN PO DECREASED GLUCOSE; Start 05/30/19 at 14:30 Glucose (Glutose) 22.5 gm Q15M PRN PO DECREASED GLUCOSE; Start 05/30/19 at 14:30 Dextrose (D50w Syringe) 25 ml Q15M PRN IV DECREASED GLUCOSE; Start 05/30/19 at 14:30 Dextrose (D50w Syringe) 50 ml Q15M PRN IV DECREASED GLUCOSE; Start 05/30/19 at 14:30 Glucagon (Glucagen) 1 mg Q15M PRN IM DECREASED GLUCOSE; Start 05/30/19 at 14:30 Glucose (Glutose) 15 gm Q15M PRN BUCCAL DECREASED GLUCOSE; Start 05/30/19 at 14:30 Furosemide (Lasix) 40 mg DAILY@0600 IV Last administered on 06/03/19at 05:30; Admin Dose 40 MG; Start 06/01/19 at 06:00 Insulin Glargine (Lantus) 12 units QHS SC Last administered on 06/02/19at 21:28; Admin Dose 12 UNITS; Start 05/31/19 at 21:00 Levothyroxine Sodium (Synthroid) 25 mcg DAILY@06 PO Last administered on 06/03/19at 05:28; Admin Dose 25 MCG; Start 06/03/19 at 06:00 Amlodipine Besylate (Norvasc) 10 mg DAILY PO Last administered on 06/03/19at 11:39; Admin Dose 10 MG; Start 06/03/19 at 11:30 Assessment/Plan Hospital Course (Demo Recall) 1. Syncope - suggestive of post voiding syncope, con't to monitor - pt comfortable - denies CP. Stress test done - EF low with no reversible disease - ICD today resume Eliquis tomorrow if no bleeding, NOw with ICD. 2. CMY - per additional information provided -pt was not truly compliant with her medical Rx - will facilitate Stress test now to acces reversibility if any. NO tachy-an symptoms here.Pt has indication for ICD now - will try to obtain consent. No VT/VF now. ICD planned. 3. CHF - better now, pt feels more comfortable. Improved. 4. HTN - well controlled - con't med rx. Treated. 6. Dizzy - resolved now. Will follow. 7. A. fib - resume Eliquis and add BB now. ANATOLIY MCGARRY MD Jun 03, 2019 12:09
[2019-06-03] MEDS: APIXABAN 5 MG TABLET PO SCH ×2 (12:20→20:27)
[2019-06-03] MEDS: METOPROLOL 25 MG TAB PO SCH ×2 (12:25→20:27)
[2019-06-03] MEDS: ATORVASTATIN 80 MG TAB PO SCH (20:27)
[2019-06-03] MEDS: INSULIN GLARGINE [LANTus] (100 UNITS/ML) SYG SC SCH (20:46)
[2019-06-04 03:57] VITALS: BP 113/64; PULSE 62; RESP 18
[2019-06-04] MEDS: LEVOTHYROXINE 25 MCG TAB PO SCH (06:18)
[2019-06-04] MEDS: FUROSEMIDE 40 MG INJ IV SCH (06:21)
[2019-06-04] MEDS: ACCU-CHEK XX SCH ×3 (07:00→17:52)
[2019-06-04 07:20] VITALS: BP 130/62; PULSE 64; RESP 22
[2019-06-04] MEDS: INSULIN ASPART [NOVOLOG] 3 ML PEN SC SCH ×3 (08:00→17:52)
[2019-06-04] MEDS: BENAZEPRIL 10 MG TAB PO SCH (10:18)
[2019-06-04] MEDS: AMLODIPINE 10 MG TAB PO SCH (10:18)
[2019-06-04] MEDS: BISACODYL (EC) 5 MG TAB PO SCH (10:18)
[2019-06-04] MEDS: APIXABAN 5 MG TABLET PO SCH (10:19)
[2019-06-04] MEDS: METOPROLOL 25 MG TAB PO SCH (10:19)
--- NOTE | 2019-06-04 10:49 | CONS ---
Consult Date/Type/Reason Admit Date/Time May 26, 2019 at 20:40 Initial Consult Date Requesting Provider: BART LEMONS MD Date/Time of Note DATE: 06/04/19 TIME: 10:47 Subjective Pt comfortable - ICD site with bandage - pt paced intermittency. NO CP now. Rate better controlled. ROS: No fever, no chills, no nausea, no vomiting, no diarrhea/constipation No recent weight changes No chest pain, no PND, no orthopnea No dizziness, blurred vision No thirst, no heat or cold intolerance Objective Vitals Vital Signs Date Temp Pulse Resp B/P (MAP) Pulse Ox O2 O2 Flow FiO2 Time Delivery Rate 06/04/19 97.8 64 22 130/62 96 Nasal 2.0 07:20 (84) Cannula Intake and Output 06/03/19 06/03/19 06/04/19 1515:00 23:00 07:00 IntakeIntake Total 700 ml 150 ml OutputOutput Total 302 ml BalanceBalance 398 ml 150 ml Exam General: WN/WD/NAD, AOx 3 HEENT: Unicetric/atraumatic/EOMI (t follow commands) NECK: JVD elevated, no thyromegaly Lymph: no lymphadenopathy HEART: regular with no S3, II/ systolic murmur at apex, PMI L - ICD on left side LUNGS: Coarse sounds ABD: soft, NT, ND, +BS : Intact Neuro: non focal SKIN: chronic changes EXT: trace edema Results/Medications Result Diagram: 06/04/19 0542 06/04/19 0542 Results 24 hrs Laboratory Tests Test 06/03/19 11:44 06/03/19 17:13 06/03/19 20:22 06/04/19 05:42 Bedside Glucose 145 161 157 White Blood Count 9.6 Red Blood Count 4.60 Hemoglobin 14.1 Hematocrit 41.7 Mean Corpuscular Volume 90.7 Mean Corpuscular 30.7 Hemoglobin Mean Corpuscular 33.8 Hemoglobin Concent Red Cell Distribution 13.2 Width Platelet Count 170 Mean Platelet Volume 10.8 H Immature Granulocytes % 0.300 Neutrophils % 55.5 Lymphocytes % 31.8 Monocytes % 8.4 Eosinophils % 3.2 Basophils % 0.8 Nucleated Red Blood 0.0 Cells % Immature Granulocytes # 0.030 Neutrophils # 5.3 Lymphocytes # 3.1 H Monocytes # 0.8 Eosinophils # 0.3 Basophils # 0.1 Nucleated Red Blood 0.0 Cells # Sodium Level 142 Potassium Level 3.8 Chloride Level 108 Carbon Dioxide Level 23 Anion Gap 11 Blood Urea Nitrogen 18 Creatinine 0.71 Est Glomerular Filtrat Rate mL/min Glucose Level 136 Calcium Level 9.1 Test 06/04/19 07:44 Bedside Glucose 126 Home Meds Active Scripts Furosemide (Lasix) 40 Mg Tab, 40 MG PO DAILY for 30 Days, #30 TAB Prov:NORY ARCINIEGA 03/12/19 Hydralazine Hcl* (Hydralazine Hcl*) 25 Mg Tab, 25 MG PO Q8 for 30 Days, TAB Prov:NORY ARCINIEGA 03/12/19 Benazepril Hcl* (Benazepril Hcl*) 10 Mg Tablet, 10 MG PO BID for 60 Days, TAB Prov:NORY ARCINIEGA 03/12/19 Atorvastatin* (Atorvastatin*) 80 Mg Tablet, 80 MG PO HS for 30 Days, TAB Prov:NORY ARCINIEGA 03/12/19 Insulin Aspart* (Novolog Insulin Pen*) 100 Unit/Ml Soln, 0 SC .SLIDING SCALE AC for 60 Days, EA Prov:NORY ARCINIEGA 03/12/19 Carvedilol* (Carvedilol*) 6.25 Mg Tablet, 6.25 MG PO BID for 60 Days, #120 TAB Prov:NORY ARCINIEGA 03/12/19 Bisacodyl* (Dulcolax*) 5 Mg Tablet.dr, 5 MG PO BID for 60 Days, TAB Prov:NORY ARCINIEGA 03/12/19 Reported Medications Insulin Glargine* (Lantus*) 100 Unit/Ml Soln, 35 UNITS SC QHS INJECT 30 UNITS SUBCUTANEOUSLY AT BEDTIME FOR 30 DAYS 05/26/19 Metformin Hcl* (Metformin Hcl*) 1,000 Mg Tablet, 1000 MG PO BID for 30 Days, #60 TAKE 1 TABLET BY MOUTH TWICE DAILY WITH FOOD FOR 30 DAYS 05/26/19 Lisinopril* (Lisinopril*) 40 Mg Tablet, 40 MG PO DAILY for 30 Days, #30 TAKE ONE TABLET BY MOUTH EVERY DAY FOR 30 DAYS 05/26/19 Nitroglycerin* (Nitrostat*) 0.4 Mg Tab.subl, 0.4 MG SL Q5MIN PRN for CHEST PAIN, BOTTLE 01/24/19 Medications Current Medications Ondansetron HCl (Zofran Inj) 4 mg Q6H PRN IV NAUSEA AND/OR VOMITING; Start at 23:00 Acetaminophen (Tylenol Tab) 650 mg Q6H PRN PO MILD PAIN(1-3)OR ELEVATED TEMP; Start 05/26/19 at 23:00 Atorvastatin Calcium (Lipitor) 80 mg HS PO Last administered on 06/03/19at 20:27; Admin Dose 80 MG; Start 05/27/19 at 21:00 Benazepril HCl (Lotensin) 10 mg BID PO Last administered on 06/04/19at 10:18; Admin Dose 10 MG; Start 05/27/19 at 09:00 Bisacodyl (Dulcolax) 5 mg BID PO Last administered on 06/04/19at 10:18; Admin Dose 5 MG; Start 05/27/19 at 09:00 Hydralazine HCl (Apresoline) 25 mg Q8 PO Last administered on 06/04/19at 06:21; Admin Dose 25 MG; Start 05/27/19 at 06:00 Nitroglycerin (Nitroglycerin (Sl Tab) 0.4 Mg) 1 tab [id number] PRN SL CHEST PAIN; Start 05/26/19 at 23:00 Diagnostic Test (Pha) (Accu-Chek) 1 ea AC MEALS AND BEDTIME XX Last administered on 06/04/19at 07:00; Admin Dose 1 EA; Start 05/27/19 at 07:00 Insulin Aspart (Novolog Insulin Pen) NOVOLOG *MILD* ALGORITHM WITH MEALS BEDTIME SC Last administered on 06/03/19at 17:16; Admin Dose 1 UNIT; Start 05/27/19 at 08:00 Miscellaneous Information 1 ea NOTE XX ; Start 05/30/19 at 14:30 Glucose (Glutose) 15 gm Q15M PRN PO DECREASED GLUCOSE; Start 05/30/19 at 14:30 Glucose (Glutose) 22.5 gm Q15M PRN PO DECREASED GLUCOSE; Start 05/30/19 at 14:30 Dextrose (D50w Syringe) 25 ml Q15M PRN IV DECREASED GLUCOSE; Start 05/30/19 at 14:30 Dextrose (D50w Syringe) 50 ml Q15M PRN IV DECREASED GLUCOSE; Start 05/30/19 at 14:30 Glucagon (Glucagen) 1 mg Q15M PRN IM DECREASED GLUCOSE; Start 05/30/19 at 14:30 Glucose (Glutose) 15 gm Q15M PRN BUCCAL DECREASED GLUCOSE; Start 05/30/19 at 14:30 Furosemide (Lasix) 40 mg DAILY@0600 IV Last administered on 06/04/19at 06:21; Admin Dose 40 MG; Start 06/01/19 at 06:00 Insulin Glargine (Lantus) 12 units QHS SC Last administered on 06/03/19at 20:46; Admin Dose 12 UNITS; Start 05/31/19 at 21:00 Levothyroxine Sodium (Synthroid) 25 mcg DAILY@06 PO Last administered on 06/04/19at 06:18; Admin Dose 25 MCG; Start 06/03/19 at 06:00 Amlodipine Besylate (Norvasc) 10 mg DAILY PO Last administered on 06/04/19at 10:18; Admin Dose 10 MG; Start 06/03/19 at 11:30 Metoprolol Tartrate (Lopressor) 25 mg BID PO Last administered on 06/04/19 10:19; Admin Dose 25 MG; Start 06/03/19 at 12:30 Apixaban (Eliquis) 5 mg BID PO Last administered on 06/04/19 10:19; Admin Dose 5 MG; Start 06/03/19 at 12:30 Assessment/Plan Hospital Course (Demo Recall) 1. Syncope - suggestive of post voiding syncope, con't to monitor - pt comfortable - denies CP. Stress test done - EF low with no reversible disease - ICD today resume Eliquis tomorrow if no bleeding, Now with ICD. 2. CMY - per additional information provided -pt was not truly compliant with her medical Rx - will facilitate Stress test now to acces reversibility if any. NO tachy-an symptoms here.Pt has indication for ICD now - will try to obtain consent. No VT/VF now. ICD planned. 3. CHF - better now, pt feels more comfortable. Improved. 4. HTN - well controlled - con't med rx. Treated. 6. Dizzy - resolved now. Will follow. 7. A. fib - resume Eliquis and add BB now. Rate better controlled now. ANATOLIY MCGARRY MD Jun 04, 2019 10:49
[2019-06-04 11:12] VITALS: BP 117/73; PULSE 65; RESP 22
--- NOTE | 2019-06-04 13:50 | PDOCDIS ---
Discharge Instructions DIAGNOSIS Discharge Diagnosis CHF exacerbation, pace,maker placement CONDITION [id number] Patient Condition: [id number] Stable HOME CARE INSTRUCTIONS: [id number] Diet Instructions: [id number] y Rest between Activity Avoid heavy lifting FOLLOW UP/APPOINTMENTS Follow-up Plan PCP 1 week -cardiology office dr Quiroz/[place], [phone], make an appointment please NORY ARCINIEGA Jun 04, 2019 13:50
[2019-06-04] MEDS ORDERED: NITR0.4T39 SL (13:54)
[2019-06-04] MEDS ORDERED: METO-448 PO (13:54)
[2019-06-04] MEDS ORDERED: LANT3I SC (13:54)
[2019-06-04] MEDS ORDERED: NOVO3I SC (13:54)
[2019-06-04] MEDS ORDERED: HYDR-3671 PO (13:54)
[2019-06-04] MEDS ORDERED: AMLO-147 PO (13:54)
[2019-06-04] MEDS ORDERED: ATOR-2 PO (13:54)
[2019-06-04] MEDS ORDERED: BENA10TA4 PO (13:54)
[2019-06-04] MEDS ORDERED: METF100010 PO (13:54)
[2019-06-04] MEDS ORDERED: APIX5TAB PO (13:54)
[2019-06-04] MEDS ORDERED: FURO40TA4 PO (13:54)
--- NOTE | 2019-06-04 13:55 | DS ---
Date/Time of Note Date/Time of Note DATE: 06/04/19 TIME: 13:55 Discharge Summary Admission/Discharge Info Admit Date/Time May 26, 2019 at 20:40 Discharge Date/Time Discharge Diagnosis CHF exacerbation, pace,maker placement Patient Condition: Stable Consults dR Lange, CARDIOLOGY Procedures pacemaker placement Hospital Course This is a 73-year-old female with history of cardiomyopathy with decreased left ventricular ejection fraction, last only approximately 30% to 35% by echo on 01/10/2019. Status post PTC and stent placement in the right coronary artery with a 4 mm drug-eluting stent in 12/2018. Current bouts of systolic congestive heart failure, prior NH, hypertension, dyslipidemia, diabetes mellitus who presented with complaints of shortness of breath, dyspnea on exertion, orthopnea and findings of uncontrolled systolic blood pressures. No associated chest pain. Pt reported that she is out of her meds for 3 days and she does not have a PCP. Pt was hospitalized in February 2009 with similar condition, she was instructed to take medication and has a PCP Upon arrival in the emergency department, temperature of 98.1, blood pressure 172/149 , pulse 110, respiratory rate 18, saturation 92%. The patient's labs are grossly normal. showed white count of 7.6, hemoglobin of 14.6, platelet count of 210. Sodium of 143, potassium 4.2, creatinine 0.8, BUN 20, AST 114, ALT 74. Troponin negative. BNP of 1620. INR of 1.1. The patient underwent a chest x-ray revealing cardiomegaly, increased pulmonary vascularity and increased interstitial markings noted. Bilateral air space infiltrates. The findings are consistent with mild pulmonary edema/CHF, Findings are new when compared to 02/17/2016. ECG is positive for controlled atrial fibrillation at a rate of 78. Medical history: systolic congestive heart failure, prior NH, hypertension, dyslipidemia, diabetes mellitus type II, obesity Surgical history :Status post PTC and stent placement in the right coronary artery with a 4 mm drug-eluting stent in 12/2018.# Acute on chronic CHF exacerbation. Pulmonary edema # HTN emergency likely due to running out of meds, like in previous admission # Hx non-ST elevation myocardial infarction, status post coronary angiogram with a single vessel obstructive coronary artery disease in the right coronary artery, status post PTCA and stent placement on #. Cardiomyopathy with ejection fraction of 30 to 35%. #. History of atrial fibrillation, rate control # Diabetes mellitus type II, uncontrolled # Obesity # Hyperlipidemia # Noncompliance, pt does not take medication regularly, does not have a PCP # Hx non-ST elevation myocardial infarction, status post coronary angiogram with a single vessel obstructive coronary artery disease in the right coronary artery, status post PTCA # Syncope, likely cardiac related . S/p ACID placement POD 0 # hypothyroidism # diarrhea Home Meds Active Scripts Metoprolol Tartrate* (Lopressor*) 25 Mg Tab, 25 MG PO BID for 90 Days, TAB Prov:NORY ACRINIEGA 06/04/19 Amlodipine Besylate* (Amlodipine Besylate*) 10 Mg Tablet, 10 MG PO DAILY for 90 Days, TAB Prov:BRITTANY ARCINIEGA06/04/19 Apixaban* (Eliquis*) 5 Mg Tablet, 5 MG PO BID for 90 Days, TAB Prov:BRITTANY ARCINIEGA06/04/19 Insulin Glargine* (Lantus*) 100 Unit/Ml Soln, 35 UNITS SC QHS for 90 Days INJECT 30 UNITS SUBCUTANEOUSLY AT BEDTIME FOR 30 DAYS Prov:NORY ARCINIEGA 06/04/19 Metformin Hcl* (Metformin Hcl*) 1,000 Mg Tablet, 1000 MG PO BID for 90 Days, #60 TAB TAKE 1 TABLET BY MOUTH TWICE DAILY WITH FOOD FOR 30 DAYS Prov:NORY ARCINIGEA 06/04/19 Furosemide (Lasix) 40 Mg Tab, 40 MG PO DAILY for 90 Days, #30 TAB Prov:NORY ARCINIEGA 06/04/19 Hydralazine Hcl* (Hydralazine Hcl*) 25 Mg Tab, 25 MG PO Q8 for 90 Days, TAB Prov:NORY ARCINIEGA 06/04/19 Benazepril Hcl* (Benazepril Hcl*) 10 Mg Tablet, 10 MG PO BID for 90 Days, TAB Prov:NORY ARCINIEGA 06/04/19 Atorvastatin* (Atorvastatin*) 80 Mg Tablet, 80 MG PO HS for 90 Days, TAB Prov:NORY ARCINIEGA 06/04/19 Insulin Aspart* (Novolog Insulin Pen*) 100 Unit/Ml Soln, 0 SC .SLIDING SCALE AC for 60 Days, EA Prov:BRITTANY ARCINIEGAA 06/04/19 Nitroglycerin* (Nitrostat*) 0.4 Mg Tab.subl, 0.4 MG SL Q5MIN PRN for CHEST PAIN for 90 Days, BOTTLE Prov:BRITTANY ARCINIEGAA 06/04/19 Carvedilol* (Carvedilol*) 6.25 Mg Tablet, 6.25 MG PO BID for 60 Days, #120 TAB Prov:NORY ARCINIEGA 03/12/19 Bisacodyl* (Dulcolax*) 5 Mg Tablet.dr, 5 MG PO BID for 60 Days, TAB Prov:LUZMAMADELEINEKellenBRITTANYA 03/12/19 Reported Medications Lisinopril* (Lisinopril*) 40 Mg Tablet, 40 MG PO DAILY for 30 Days, #30 TAKE ONE TABLET BY MOUTH EVERY DAY FOR 30 DAYS 05/26/19 Follow-up Plan PCP 1 week -cardiology office dr Lange/[place], [phone], make an appointment please Primary Care Provider Not On Staff Doctor Time spent on discharge: < 30 minutes Pending Labs Laboratory Tests Test 06/03/19 17:13 06/03/19 20:22 06/04/19 05:42 06/04/19 07:44 Bedside 161 157 126 Glucose mg/dL (70-220) mg/dL (70-220) mg/dL (70-220) White Blood 9.6 Count 10^3/ul (4.8-1 0.8) Red Blood 4.60 Count 10^6/ul (4.20- 5.40) Hemoglobin 14.1 g/dl (12.0-16. 0) Hematocrit 41.7 % (37.0-47.0) Mean 90.7 Corpuscular fl (82.0-101.0 Volume ) Mean 30.7 Corpuscular pg (29.0-33.0) Hemoglobin Mean 33.8 Corpuscular g/dl (32.0-37. Hemoglobin Conc 0) ent Red Cell 13.2 Distribution % (11.5-14.5) Width Platelet Count 170 10^3/UL (140-4 15) Mean Platelet 10.8 Volume fl (7.4-10.4) Immature 0.300 Granulocytes % % (0.001-0.429 ) Neutrophils % 55.5 % (39.0-77.0) Lymphocytes % 31.8 % (15.0-51.0) Monocytes % 8.4 % (0.0-11.0) Eosinophils % 3.2 % (0.0-7.0) Basophils % 0.8 % (0.0-2.0) Nucleated Red 0.0 Blood Cells % /100WBC (0.0-0 .0) Immature 0.030 Granulocytes # 10^3/ul (0.0-0 .031) Neutrophils # 5.3 10^3/ul (1.6-7 .5) Lymphocytes # 3.1 10^3/ul (0.8-2 .9) Monocytes # 0.8 10^3/ul (0.3-0 .9) Eosinophils # 0.3 10^3/ul (0.0-0 .5) Basophils # 0.1 10^3/ul (0.0-0 .1) Nucleated Red 0.0 Blood Cells # 10^3/ul (0.0-0 .0) Sodium Level 142 mmol/L (135-14 4) Potassium 3.8 Level mmol/L (3.5-5. 1) Chloride Level 108 mmol/L (97-110 ) Carbon Dioxide 23 Level mmol/L (21-31) Anion Gap 11 (5-13) Blood Urea 18 Nitrogen mg/dl (7-20) Creatinine 0.71 mg/dl (0.44-1. 00) Est Glomerular mL/min (>60) Filtrat Rate mL/min Glucose Level 136 mg/dl (70-220) Calcium Level 9.1 mg/dl (8.4-10. 2) Test 06/04/19 12:04 Bedside 166 Glucose mg/dL (70-220) NORY ARCINIEGA Jun 04, 2019 13:55
[2019-06-04] MEDS ORDERED: BISA-57 PO (14:01)
[2019-06-04] MEDS ORDERED: LEVO25TA6 PO (14:01)
[2019-06-04 15:38] VITALS: BP 113/59; PULSE 66; RESP 22
== END 2019-06-04 19:29 | disposition home or self-care (01) | DRG 227 ==
LOC: E/R 18:43 → 6WM 20:40
PROVIDERS: ADMIT Internal Medicine; ATTEND Internal Medicine
PROC: 02HK3KZ Insertion of Defibrillator Lead into Right Ventricle, Percutaneous Approach (ICD-10-PCS; 2019-06-02)
PROC: 0JH608Z Insertion of Defibrillator Generator into Chest Subcutaneous Tissue and Fascia, Open Approach (ICD-10-PCS; principal; 2019-06-02 07:30)
DX: I11.0 Hypertensive heart disease with heart failure (principal); I16.1 Hypertensive emergency; E11.65 Type 2 diabetes mellitus with hyperglycemia; I50.23 Acute on chronic systolic (congestive) heart failure; I25.2 Old myocardial infarction; E78.5 Hyperlipidemia, unspecified; E11.9 Type 2 diabetes mellitus without complications; I48.91 Unspecified atrial fibrillation; I25.10 Atherosclerotic heart disease of native coronary artery without angina pectoris; R55 Syncope and collapse; E03.9 Hypothyroidism, unspecified; E66.9 Obesity, unspecified; R19.7 Diarrhea, unspecified; I25.5 Ischemic cardiomyopathy; Z91.14 Patient's other noncompliance with medication regimen; Z68.32 Body mass index [BMI] 32.0-32.9, adult; Z95.5 Presence of coronary angioplasty implant and graft
CPT/HCPCS: 33249; 36415; 36600; 71045; 78452; 80048; 80053; 82803; 82962; 83690; 83735; 83880; 84100; 84439; 84443; 84481; 84484; 85025; 85610; 85730; 93005; 93017; 94660; 96374; 96375; A4310; A9500; A9505; C1722; C1895; J0690; J1815; J1940; J2250; J2785; J3010; J7040; J7042; Q9967

== ENCOUNTER 2019-06-16 10:30 | Emergency (ER) | payer MEDICAID, MEDICARE ==
[~2019-06-16] VITALS: Wt 73.0 kg
[~2019-06-16 10:30] MED LIST changes: +AMLO-147 PO; -CARV6.2579 PO; -CLOP75TA27 PO; -DOCU-144 PO; +LANT3I SC; +LEVO25TA6 PO; +METF100010 PO; +METO-448 PO; -PANT40TA3 PO
[2019-06-16 10:39] VITALS: BP 172/78; PULSE 66; RESP 18
--- NOTE | 2019-06-16 12:50 | ERD ---
ER Documentation Chief Complaint Chief Complaint SENT BY TO CHECK NEWLY PLACE ICD IS NOT INFECTED HPI Patient is a 73-year-old female with a recently placed AICD who presents to the ER for wound check to make sure that the AICD is not infected. The patient has no redness or pus from the wound. The patient reports subjective fever but did not take her temperature. She did not have a fever in the waiting room. She says that she had the AICD placed 15 days ago. Upon review of old medical records this is the patient's seventh visit to the ER since 2009. ROS All systems reviewed and are negative except as per history of present illness. Medications Home Meds Active Scripts Levothyroxine Sodium* (Levothyroxine Sodium*) 25 Mcg Tablet, 25 MCG PO DAILY@06 for 90 Days, TAB Prov:NORY ARCINIEGA 06/04/19 Bisacodyl* (Dulcolax*) 5 Mg Tablet.dr, 5 MG PO BID for 60 Days, TAB Prov:NORY ARCINIEGA 06/04/19 Metoprolol Tartrate* (Lopressor*) 25 Mg Tab, 25 MG PO BID for 90 Days, TAB Prov:NORY ARCINIEGA 06/04/19 Amlodipine Besylate* (Amlodipine Besylate*) 10 Mg Tablet, 10 MG PO DAILY for 90 Days, TAB Prov:NORY ARCINIEGA 06/04/19 Apixaban* (Eliquis*) 5 Mg Tablet, 5 MG PO BID for 90 Days, TAB Prov:NORY ARCINIEGA 06/04/19 Insulin Glargine* (Lantus*) 100 Unit/Ml Soln, 35 UNITS SC QHS for 90 Days INJECT 30 UNITS SUBCUTANEOUSLY AT BEDTIME FOR 30 DAYS Prov:NORY ARCINIEGA 06/04/19 Metformin Hcl* (Metformin Hcl*) 1,000 Mg Tablet, 1000 MG PO BID for 90 Days, #60 TAB TAKE 1 TABLET BY MOUTH TWICE DAILY WITH FOOD FOR 30 DAYS Prov:NORY ARCINIEGA 06/04/19 Furosemide (Lasix) 40 Mg Tab, 40 MG PO DAILY for 90 Days, #30 TAB Prov:NORY ARCINIEGA 06/04/19 Hydralazine Hcl* (Hydralazine Hcl*) 25 Mg Tab, 25 MG PO Q8 for 90 Days, TAB Prov:ZENTSEVA,NORY 06/04/19 Benazepril Hcl* (Benazepril Hcl*) 10 Mg Tablet, 10 MG PO BID for 90 Days, TAB Prov:MEZENTSEVA,NORY 06/04/19 Atorvastatin* (Atorvastatin*) 80 Mg Tablet, 80 MG PO HS for 90 Days, TAB Prov:MEZENTSEVA,NORY 06/04/19 Insulin Aspart* (Novolog Insulin Pen*) 100 Unit/Ml Soln, 0 SC .SLIDING SCALE AC for 60 Days, EA Prov:ZENTSEVA,NORY 06/04/19 Nitroglycerin* (Nitrostat*) 0.4 Mg Tab.subl, 0.4 MG SL Q5MIN PRN for CHEST PAIN for 90 Days, BOTTLE Prov:ZENTSEVKellen,NORY 06/04/19 Allergies Allergies: Coded Allergies: No Known Drug Allergies (Verified Allergy, Mild, 03/07/19) PMhx/Soc History of Surgery: Yes (STENT PLACEMENT 01/24/19) Anesthesia Reaction: No Hx Neurological Disorder: No Hx Respiratory Disorders: Yes (COPD) Hx Cardiac Disorders: Yes (HTN) Hx Psychiatric Problems: No Hx Miscellaneous Medical Probl: No Hx Alcohol Use: No Hx Substance Use: No Hx Tobacco Use: No FmHx Family History: No diabetes Physical Exam Vitals Vital Signs Date Temp Pulse Resp B/P (MAP) Pulse Ox O2 O2 Flow FiO2 Time Delivery Rate 06/16/19 98.1 66 18 172/78 99 10:39 (109) Physical Exam Const: No acute distress Head: Atraumatic Eyes: Normal Conjunctiva ENT: Normal External Ears, Nose and Mouth. Neck: Full range of motion. No meningismus. Resp: Clear to auscultation bilaterally Cardio: Regular rate and rhythm, no murmurs Abd: Soft, non tender, non distended. Normal bowel sounds Skin: Incision in the left chest wall over the AICD placement is clean, dry, and intact without signs of infection Back: No midline or flank tenderness Ext: No cyanosis, or edema Neur: Awake and alert Psych: Normal Mood and Affect Procedures/MDM Patient is a 73-year-old female presents with wound check. The patient has an AICD incision which looks excellent. There is no sign of infection at this time. There is no erythema or pus. The wound edges are well healing. The patient will be discharged. She does not have a fever in the emergency departm ent. She can follow-up with her primary doctor within 1 week. Departure Diagnosis: Primary Impression: Visit for wound check Condition: Fair Patient Instructions: Wound Check, Lac F/U (No Infection) Referrals: Your doctor Additional Instructions: Llame al doctor nombrado abajo (Referral Sources) MAANA y guanakito edmund KILLIAN PARA DENTRO DE EDMUND SEMANA. Dgale a la secretaria que nosotros le instruimos hacer esta killian.Avise o llame si palma condicin se empeora antes de la killian. GRIS GOMEZ MD Jun 16, 2019 12:50
== END 2019-06-16 12:17 | disposition home or self-care (01) ==
LOC: E/R 10:30
DX: Z48.00 Encounter for change or removal of nonsurgical wound dressing (principal)
CPT/HCPCS: 99281